=== PATIENT | male | born 1940 | race Caucasian/White ===

== ENCOUNTER 2019-02-27 08:12 | Outpatient (RCR) | payer OTHER, SELFPAY | END 2019-03-06 00:01 | LOC: ONCMED 08:12 | PROVIDERS: Family Provider Internal Medicine; Visit Provider Nurse Practitioner | DX: D46.Z Other myelodysplastic syndromes (principal); I10 Essential (primary) hypertension; E78.5 Hyperlipidemia, unspecified; I48.91 Unspecified atrial fibrillation; L40.9 Psoriasis, unspecified; E83.110 Hereditary hemochromatosis; K21.9 Gastro-esophageal reflux disease without esophagitis; I71.4 Abdominal aortic aneurysm, without rupture; J40 Bronchitis, not specified as acute or chronic; M25.551 Pain in right hip; M54.5 Low back pain; Z79.899 Other long term (current) drug therapy; Z79.82 Long term (current) use of aspirin; Z79.02 Long term (current) use of antithrombotics/antiplatelets; Z79.891 Long term (current) use of opiate analgesic; Z87.442 Personal history of urinary calculi; Z87.11 Personal history of peptic ulcer disease; Z87.891 Personal history of nicotine dependence; Z95.5 Presence of coronary angioplasty implant and graft | CPT/HCPCS: 36415 ×2; 36430; 80053 ×3; 82607; 83090; 83615; 83921; 84439; 84443; 85025 ×4; 86850; 86900; 86901; 86920 ×2; 96374; 96401 ×7; 99214 ×2; J1940; J7050; J9025 ×7; P9040 ×2 ==

== ENCOUNTER 2019-03-12 | Outpatient (CLI) | payer OTHER, SELFPAY ==
[2019-03-12 14:25] LABS: Basophils # 0.1 10^3/uL (0.0-0.1); Basophils % 1.8 %; Hematocrit 28.4 % (42.0-52.0); Hemoglobin 8.8 g/dL (11.7-16.6); Lymphocytes # 1.1 10^3/uL (0.8-4.8); Lymphocytes % 40.1 %; Mean Corpuscular Hemoglobin 31.9 pg (28.0-34.0); Mean Corpuscular Volume 102.9 fL (80-94); Mean Platelet Volume 10.6 fL (7.4-10.4); Monocytes # 0.1 10^3/uL (0.2-0.9); Monocytes % 4.4 %; Neutrophils # 1.5 10^3/uL (1.8-7.7); Neutrophils % 53.3 %; Nucleated Red Blood Cells % 0.7 %; Platelet Count 575 10^3/cmm (130-400); Red Blood Count 2.76 10^6/uL (4.1-5.3); Red Cell Distribution Width 24.3 % (12.1-15.1); White Blood Count 2.7 10^3/uL (4.0-10.0)
== END 2019-03-12 23:00 | disposition home or self-care (01) ==
LOC: LAB 10-22 13:36
PROVIDERS: PCP Internal Medicine; Visit Provider Nurse Practitioner
DX: E83.119 Hemochromatosis, unspecified (principal); D64.9 Anemia, unspecified
CPT/HCPCS: 85025

== ENCOUNTER 2019-03-12 08:37 | Outpatient (CLI) | payer OTHER, SELFPAY ==
--- NOTE | 2019-03-12 08:48 | NM_ITS ---
WS: [id number] NUCLEAR MEDICINE BONE SCAN Radiopharmaceutical: 23.1 Tc-99m MDP mCi IV Postinjection imaging delay: 1 hr CLINICAL INFORMATION: BONE PAIN IN MULTIPLE AREAS/MDS COMPARISON: None. FINDINGS: Bone lesions: Punctate area of bony uptake involving the left anterior approximately fifth rib. Patie nt reports recent trauma in this area. Compression fracture with bony uptake involving a midthoracic vertebral body. This can be further evaluated with MRI or thoracic spine CT. Diffuse patchy uptake involving the calvarium likely related to myelodysplastic syndrome with bone ma rrow hyperplasia. Degenerative type uptake involving the AC joints and sternoclavicular joints. Soft tissue contours: Normal. Kidneys: Normal. Other findings: None.
== END 2019-03-12 08:38 | disposition home or self-care (01) ==
LOC: RAD 08:41
PROVIDERS: Family Provider Internal Medicine; PCP Internal Medicine; Visit Provider Internal Medicine Medical Oncology
DX: M89.8X9 Other specified disorders of bone, unspecified site (principal)
CPT/HCPCS: 78306; A9561

== ENCOUNTER 2019-04-02 12:26 | Outpatient (RCR) | payer OTHER, SELFPAY ==
--- NOTE | 2019-03-12 08:49 | NM_ITS ---
WS: [id number] NUCLEAR MEDICINE BONE SCAN Radiopharmaceutical: 23.1 Tc-99m MDP mCi IV Postinjection imaging delay: 1 hr CLINICAL INFORMATION: BONE PAIN IN MULTIPLE AREAS/MDS COMPARISON: None. FINDINGS: Bone lesions: Punctate area of bony uptake involving the left anterior approximately fifth rib. Patie nt reports recent trauma in this area. Compression fracture with bony uptake involving a midthoracic vertebral body. This can be further evaluated with MRI or thoracic spine CT. Diffuse patchy uptake involving the calvarium likely related to myelodysplastic syndrome with bone ma rrow hyperplasia. Degenerative type uptake involving the AC joints and sternoclavicular joints. Soft tissue contours: Normal. Kidneys: Normal. Other findings: None. NM/NM bone scan whole body* [id number] IMPRESSION: 1. Diffuse patchy uptake involving the calvarium likely related to myelodyspla stic syndrome with bone marrow hyperplasia. 2. Punctate focus of uptake in the left anterior approximately fifth rib likel y due to prior reported recent trauma. 3. Mild compression fracture with diffuse bony uptake involving a midthoracic vertebral body. This can be further evaluated with MRI or CT thoracic spine.
[2019-03-19 13:35] LABS: Basophils # 0.1 10^3/uL (0.0-0.1); Basophils % 1.1 %; Eosinophils # 0.1 10^3/uL (0.0-0.8); Eosinophils % 1.1 %; Hematocrit 30.7 % (42.0-52.0); Hemoglobin 9.6 g/dL (11.7-16.6); Lymphocytes # 1.4 10^3/uL (0.8-4.8); Mean Corpuscular HGB Conc 31.3 g/dL (30.0-36.0); Mean Corpuscular Hemoglobin 32.9 pg (28.0-34.0); Mean Corpuscular Volume 105.1 fL (80-94); Mean Platelet Volume 10.7 fL (7.4-10.4); Monocytes # 0.6 10^3/uL (0.2-0.9); Monocytes % 13.1 %; Neutrophils # 2.4 10^3/uL (1.8-7.7); Neutrophils % 52.4 %; Nucleated Red Blood Cells # 0.1 /100WBC; Nucleated Red Blood Cells % 1.6 %; Platelet Count 632 10^3/cmm (130-400); Red Blood Count 2.92 10^6/uL (4.1-5.3); Red Cell Distribution Width 25.1 % (12.1-15.1); White Blood Count 4.5 10^3/uL (4.0-10.0)
[2019-03-19 13:50] LABS: Alanine Aminotransferase 16 U/L (0-41); Albumin Level 4.8 g/dL (3.5-5.2); Alkaline Phosphatase 84 IU/L (40-130); Anion Gap 15.6 (5-19); Aspartate Amino Transferase 19 U/L (0-40); Blood Urea Nitrogen 11 mg/dL (8-23); Carbon Dioxide 27 mmol/L (22-29); Chloride 98 mmol/L (98-107); Globulin 2.1 g/dL (1.3-4.6); Glucose 115 mg/dL (74-106); Potassium 4.6 mmol/L (3.5-5.1); Sodium 136 mmol/L (136-145); Total Bilirubin 2.7 mg/dL (0.15-1.2); Total Protein 6.9 g/dL (6.6-8.7)
--- NOTE | 2019-03-19 17:25 | ONC FU_ITS ---
Dr. Lew Patient Follow-Up Note Patient: José Miguel Bonilla Unit #: [id number]: 1940 Dicatated By: Ammon Lew M.D.Date of Visit:Mar 19, 2019 Onc Med Follow-up/Prog Note Chief Complaint: Myelodysplastic syndrome. History of Present Illness: This is a 79 year-old man with myelodysplastic syndrome (MDS with unilineage dysplasia). He was seen initially on 09/30/2015 in regard to a moderately severe anemia. The available records included multiple blood counts dating back to August 2014. At that time his hemoglobin was 10.3 g with white blood cell count 6400 and platelet count 325,000. The red cell indices were macrocytic with MCV 110 and MCH 37. A more recent CBC, from 08/20/2015, showed a hemoglobin down to 9.7 g with hematocrit 29%. The red cell indices were similar. White blood cell count was 4900 and platelet count was 337,000. The differential showed 56% neutrophils, 30% lymphocytes, and 10% monocytes. B12 was checked several times and was normal. Folate level was low at 6.7 ng/mL. The serum iron was normal at 141 mcg/dL. 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 He had negative stool Hemoccult, though an upper GI endoscopy apparently did show ulcers. Colonoscopy was unremarkable. His evaluation also included CT abdomen/pelvis in May 2015. It showed an aneurysm of the distal abdominal aorta extending to, but not into, the bifurcation. It appeared stable compared to a previous study from March 2013. There were no acute findings noted on that study. His laboratory studies on 09/30/2015 included CBC showing hemoglobin 9.4 g, white blood cell count 6400, and platelet count 420,000. The red cell indices were macrocytic with MCV 110 and MCH 37. The uncorrected reticulocyte count was 2.0%. Comprehensive metabolic profile was unremarkable except for mildly elevated total bilirubin at 2.9 mg/dL. The liver enzymes were normal.. LDH was normal at 183 mg/dL and haptoglobin was low normal at 53 mg/dL. Ferritin was elevated at 520 ng/mL. The homocysteine level was slightly elevated at 11.6 ???mol/L with methylmalonic acid normal at 198 nmol/L. Protein electrophoresis was normal. He underwent bone marrow aspiration/biopsy on 10/15/2015. The marrow was hypercellular, estimated at 90-95%. There was limited erythroid dyspoiesis. There was no evidence of infiltrative process. Blasts were reported at 0%. Iron stores were 3+ with occasional ring sideroblasts identified, estimated at less than 5-10% of the population. There was 1+/4+ reticulin staining. The chromosome analysis showed no metaphase cells for analysis. The FISH panel for MDS showed no abnormalities. 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 During subsequent follow-up his hemoglobin had declined to a low of 8.2 g/dL on 12/16/2015. His baseline erythropoietin level was 152 mIU/mL. On 12/18/2015 he began a trial of therapy with Procrit, initially at 40,000 units weekly. As of 01/13/2016, after 4 weeks of treatment, the hemoglobin was basically stable at 8.5 g. At that point the Procrit dosage was escalated to 60,000 U weekly. His hemoglobin level had subsequently increased to a maximum level 10.1 g on 03/09/2016. It then drifted downward gradually. As of 07/20/2016 it was down to 8.7 g. As of his followup visit on 08/04/2016 he had remained transfusion independent. However, after that his hemoglobin had shown further decline to 7.9 g, and at that point I did opt to stop the Procrit and transition his treatment to Revlimid. He began his treatment with Revlimid 10 mg daily on 08/16/2016. His baseline hemoglobin was 8.2 g. He did opt to have a transfusion of 2 units of packed red blood cells. Thus far he has tolerated the Revlimid well and during follow-up his blood count had stabilized with hemoglobin in the range of 9.5 g. His CBC on 11/23/2016 showed further increase in the hemoglobin to 10.4 g. As of 02/15/2017 his hemoglobin had declined somewhat, to 8 g with WBC moderately decreased at 2700 and platelet count normal at 200,000. He continued treatment with Revlimid. On 03/11/2017 he was seen at the [facility] with flu-like symptoms. His nasal swab reportedly was positive for influenza, and he did start treatment with Tamiflu. His CBC showed a further decline in his hemoglobin to 6.5 g, and he was found to be jaundiced, total bilirubin 6.1 mg/dL. He was transfused 2 units of PRBC. On his further laboratory evaluation on 03/14/2017 his hemoglobin had increased to only 7.8 g. The uncorrected reticulocyte count was 3.2%. His total bilirubin was still elevated at 5.7 mg/dL with the direct bilirubin normal at 0.60 mg/dL. LDH was normal at 218 U/L. The haptoglobin level was low at 21.9 mg/dL. HEMA was negative. B12 and folate levels were normal. He was advised to stop Revlimid. During subsequent follow-up his haptoglobin level showed further decline, to as low as 9.3 mg/dL on 03/28/2017. However, at that point his hemoglobin remained adequate at 9.4 g, his bilirubin was down to 3.0 mg/dL, and his LDH remained normal. He had a follow-up CTA of the abdomen/pelvis on 03/22/2017. It again showed evidence infrarenal abdominal aortic aneurism extending to the aortic bifurcaton. It measured 4.5 x 4.6 x 4.7 cm. 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 On 05/13/2017 he underwent coronary angioplasty with stent placement of the right coronary artery. On 05/30/2017 he underwent endovascular repair of infrarenal abdominal aortic aneurysm. He tolerated both procedures well, though during that time he did require transfusion of a total of 9 U of packed red blood cells. He hen continued on aspirin 81 mg daily together with Plavix 75 mg daily. He remained off Revlimid. During subsequent follow-up, he remained transfusion dependent. He then underwent repeat bone marrow aspiration/biopsy on 08/04/2017. The marrow was hypercellular, 100% cellularity. Megakaryocytes were noted to be increased in number and there was associated megakaryocyte dyspoiesis. There was just limited dyserythropoiesis. Ring sideroblasts were present, comprising more than 50% of the nrbc population. Blasts were estimated at 9% by morphology and 4% by flow cytometry. The FISH panel for MDS was unrevealing and the standard chromosome analysis was normal. 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 His IPSS-R score calculated to 3.5 or 4.5, depending on which blast count was used. Either score was intermediate risk category. With those findings, he was advised to undergo trial of therapy with 5-azacytidine. As of 08/26/2017 his ferritin level had increased to 1076 ng/mL. At that point he began chelation therapy with Jadenu 1440 mg daily. On 08/29/2017 he began cycle 1 of treatment with 5-azacytidine. It was administered subcutaneously for 7 days. He tolerated the 5-azacytidine without acute toxicity. He subsequently developed nausea with the Jadenu, and the dosage was reduced to 720 mg daily. He continued treatment with 5-azacytidine at 4-week intervals. He required further transfusions on 10/11/2017, on 10/18/2017, and on 11/09/2017. Thereafter his hemoglobin level stabilized above transfusion threshold. During subsequent follow-up, he had some adjustments in his treatment interval, but he remained transfusion independent. As of July 2018 he was able to stop Jadenu, with his ferritin level having decreased to 357 ng/mL. His other medical illnesses include hypertension, hyperlipidemia, atrial fibrillation, coronary artery disease, peripheral arterial disease, GERD, and nephrolithiasis. He also has fairly long-standing psoriasis. In the past he had been on treatment with methotrexate. His procedural history includes coronary angioplasty/stent placement followed by endovascular repair of abdominal aortic aneurysm in May 2017. He had previously smoked 2 packs of cigarettes daily, but he quit smoking more than 20 years ago. INTERIM HISTORY: In November 2018 he began to show gradual decline in his hemoglobin, though it continued to fluctuate between 8 and 9 g. As of 01/15/2019 it had further decreased to 7.5 g, at which point he did receive a PRBC transfusion. He continued with cycle 15 of 5-azacytidine on 02/12/2019. He was then transfused again on 02/27/2019 with his hemoglobin back down to 7.1 g. During the past month or so he had developed significant worsening of his back pain. He also is having pain in his left rib cage area following some minor trauma. A bone scan on 03/12/2019 showed a punctate area of bony uptake involving the left anterior approximately fifth rib, consistent with trauma. There was noted to be a compression fracture with bony uptake involving a midthoracic vertebral body. Diffuse patchy uptake involving the calvarium was felt to be likely related to the myelodysplastic syndrome and bone marrow hyperplasia. He is seen for a follow-up visit. He has not been feeling very good generally. He continues to have pain in his back, was significantly in the area of the left shoulder blade radiating to the spine and a little bit to the right side. He also has pain in his lower back/hip area, and he continues to have some pain in the left rib cage. He does not have much activity. ECOG score is 2. His appetite is still okay, but his weight is down about 5 pounds. He does not have fever. He occasionally wakes up at night with sweating. He has soreness in the mouth and throat. He has a little shortness of breath/tightness when he takes a deep breath. He has cough off and on. He has heartburn occasionally. He has some constipation. His urination is slowing down. He does not complain of headache. He does have some dizziness. He appears very getting some mild [employer] side effects with tramadol. He has numbness/tingling in his toes. His psoriasis has continued to gradually worsen, but it is still tolerable. Medications: Aspirin 1 (81 mg) Tablet, enteric coated Oral daily, B-6 1 (200 mg) Tablet Oral t.i.d., Digoxin 1 (125 mcg) Tablet Oral daily, Folic Acid 1 (1 mg) Tablet Oral daily, levoFLOXacin 1 Tablet (of 750 mg) Oral daily, Lidocaine 1 patch(es) (of 5 %) Patch Topical daily PRN, Metoprolol Tartrate 1 Tablet (of 50 mg) Oral daily, Plavix 1 (75 mg) Tablet Oral daily, Pravastatin Sodium 1 Tablet (of 20 mg) Oral daily, Tamsulosin HCl 1 Tablet (of 0.4 mg) Capsule Oral b.i.d., traMADol HCl 1 Tablet (of 100 mg) Oral q 6 hours PRN, Tylenol 1 - 2 Tablet (of 500 mg) Oral PRN Allergies: No Known Allergies. Review of Systems: Constitutional - His activity has declined due to back pain. Appetite is still OK, but he has lost weight. No fever. He occasionally wakes up at night with sweating. ECOG score is 2, ENMT - He has sinus drainage. He sore mouth and throat. No difficulty swallowing, Hematologic/Lymphatic - He bruises easily, Respiratory - His breathing is a little tight. He has cough off and on. No pleuritic pain or hemoptysis, Cardiovascular - No angina pain. No palpitations, Gastrointestinal - No nausea or vomiting. He occasionally takes Tums for heartburn. He has constipation. No blood in the stool or black stools, Genitourinary (M) - No dysuria or hematuria. His urine stream has slowed down some. No urgency or incontinence, Musculoskeletal - He has pain in his mid back just below the left shoulder blade radiating to the center of the back and a little to the right side. He also has pain in his lower back and hips, and he still has pain in his left rib cage, Integumentary - His psoriasis has been getting worse, Neurologic - No headaches. He has dizziness. He has numbness and tingling in his toes, Psychiatric - No depression, but he does worry a lot. No insomnia. Vital Signs: Performed on Mar 19, 2019 14:24 Height - 76.00 in Weight - 218.8 lbs (LOW) BSA - 2.30 sq.m BMI - 26.63 Temperature - 96.9 F (LOW) Pulse - 76 /min Respiration - 16 /min BP - 118/55 mm(hg) O2 Sat - 95 % (LOW) Pain - 4 Physical Examination: Constitutional - He appears somewhat weak generally, Eyes - Sclerae nonicteric. Conjunctivae clear, ENMT - No lesions noted in the oral cavity, Hematologic/Lymphatic - No cervical, clavicular, or axillary adenopathy, Respiratory - Lungs sound clear with some decrease in air movement bilaterally, Cardiovascular - Heart rhythm is irregular. There is a II/ systolic murmur. There is no gallop or rub noted, Abdomen - Soft. Liver and spleen are not enlarged. There is no abdominal mass or ascites noted and there is no inguinal adenopathy, Extremities - There are venous stasis changes bilaterally. There is mild chronic swelling at the right ankle. There is otherwise no edema, Integumentary - His psoriasis is worse in the arms and legs, particularly in the thigh area on both sides, Neurologic - No focal neurologic deficits noted. Lab/Imaging: Test performed on Mar 12, 2019 12:15 WBC 2.7 10^9/L RBC 2.76 10^12/L HGB 8.8 g/dL HCT 28.4 % MCV 102.9 fl MCH 31.9 pg MCHC 31.0 g/dL RDW 24.3 % Platelet Count 575 10^9/L MPV 10.6 fL Neutrophils (Gran) 1.5 10^9/L Lymphocytes 1.1 10^9/L Monocytes 0.1 10^9/L Eosinophils 0.0 10^9/L Basophils 0.1 10^9/L Manual Lymphocytes 40.1 % Manual Monocytes 4.4 % Manual Eosinophils 0. % Manual Basophils 1.8 % NRBCs 0.7 /100 WBC Impression: 1. The patient has a moderately severe macrocytic anemia. Bone marrow aspiration/biopsy on 10/15/2015 showed hypercellular marrow, estimated 90-95%. There was mild erythroid dyspoiesis and there were ringed sideroblasts identified, estimated at less than 5-10% of the population. Iron stores were 3+. The FISH panel for MDS showed no abnormalities. A standard chromosome study showed no metaphases for analysis. Overall, the findings were consistent with myelodysplastic syndrome (refractory cytopenia with unileage dysplasia) versus idiopathic cytopenia of undetermined significance. 2. 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 This is probably of no clinical significance other than he may be more prone to iron overload if he does become transfusion dependent. His other medical illnesses include: 3. Hypertension. 4. Hyperlipidemia. 5. Peptic ulcer disease/GERD. 6. Nephrolithiasis. 7. He has a history of atrial fibrillation. 8. He has an abdominal aortic aneurysm. In December 2015 he began a trial of therapy with Procrit after his hemoglobin had dropped to 8.2 g. As of 01/13/2016 the dosage was escalated to 60,000 U weekly, as his hemoglobin at that point was basically stable at 8.5 g. He did show some response, with his hemoglobin increasing to 10.1g. It had subsequently drifted downward. As of his visit on 08/04/2016 his hemoglobin was down to 7.9 g. At that point the Procrit was discontinued. He began treatment with Revlimid 10 mg daily on 08/16/2016. He had noticed some worsening of his psoriasis after starting the Revlimid, but he has otherwise tolerated it well. His hemoglobin initially appeared to have stabilized in the range of 9.5 to 10 g. As of 02/15/2017 his hemoglobin had declined to 8 g. On 03/11/2017 he was confirmed to have influenza by nasal swab. His hemoglobin at that point had dropped to 6.5 g and he had become overtly jaundiced. He was transfused PRBC. 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 At that point I did opt to stop the Revlimid. During subsequent follow-up, his haptoglobin level recovered to normal and his bilirubin level returned to baseline. His LDH remained normal. He underwent coronary angioplasty/stent placement on 05/12/2017 and on 05/30/2017 he underwent endovascular repair of infrarenal abdominal aortic aneurysm. He then continued on prophylaxis with aspirin 81 mg daily and Plavix 75 mg daily. During subsequent followup he remained transfusion dependent. His repeat bone marrow aspiration/bipsy on 08/04/2017 showed 100% cellularity with associated megakaryocyte dyspoiesis and limited dyserythropoiesis. Ring sideroblasts were present, comprising more than 50% of the nrbc population. Blasts were estimated at 9% by morphology and 4% by flow cytometry. The FISH panel for MDS was unrevealing and the standard chromosome analysis was normal. 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 His IPSS-R score calculated to 3.5 or 4.5, depending on which blast count was used. Either score was intermediate risk category. As of 08/26/2017 his serum ferritin had increased to 1076 ng/mL, and he began treatment with Jadenu 1440 mg daily. He then began a course of treatment of 5-azacytidine, cycle 1 day 1 on 08/29/2017. It was administered subcutaneously for 7 days. He tolerated the treatment without any acute toxicity. He proceeded with cycle 2 of 5-azacytidine on 10/03/2017, and he then continued treatment at 4-week intervals. He continued to require transfusion up until 11/08/2017, but his hemoglobin then stabilized in the range of 10-11 g. During that time he had mild to moderately severe neutropenia and thrombocytopenia, and beginning with the 6th cycle I did make some adjustments in the treatment interval. During subsequent follow-up he continued to tolerate the treatment well, and he remained transfusion independent. However, by November 2018 there had been a gradual decline in his hemoglobin, which at that point was fluctuating between 8 and 9 g. As of 01/15/2019 the hemoglobin had dropped to 7.5 g, and he was then transfused 2 units PRBC. It was his first transfusion since November 2017. On 02/12/2019 he continued with cycle 15 of 5-azacytidine. He required transfusion again on 02/27/2019 with hemoglobin back down to 7.1 g. He has since then been showing some decline in his performance status. He had developed significant worsening of his back pain, and bone scan did show evidence of a vertebral compression fracture in the mid thoracic spine. He is clearly not responding as well now to the 5-azacytidine, as he has become transfusion dependent again. Plan: It is not likely that he will be getting significant benefit by continuing his current treatment. However, with his most recent bone marrow reportedly 50% ring sideroblasts, he would potentially be a good candidate for treatment with luspatercept, which recently has been shown to be effective in the treatment of transfusion dependent myelodysplastic syndrome with ring sideroblasts. The medication is administered by subcutaneous injection every 3 weeks, and treatment will be initiated subject to verification of insurance coverage. Signed By: Ammon Lew M.D. <<Signature on File>>
[2019-03-26 12:07] LABS: Basophils % 0.5 %; Eosinophils % 0.3 %; Hematocrit 30.9 % (42.0-52.0); Hemoglobin 9.5 g/dL (11.7-16.6); Lymphocytes # 1.4 10^3/uL (0.8-4.8); Lymphocytes % 16.3 %; Mean Corpuscular HGB Conc 30.7 g/dL (30.0-36.0); Mean Corpuscular Hemoglobin 32.4 pg (28.0-34.0); Mean Corpuscular Volume 105.5 fL (80-94); Mean Platelet Volume 10.3 fL (7.4-10.4); Monocytes # 0.8 10^3/uL (0.2-0.9); Monocytes % 9.3 %; Neutrophils # 6.3 10^3/uL (1.8-7.7); Neutrophils % 72.8 %; Nucleated Red Blood Cells % 0.2 %; Platelet Count 442 10^3/cmm (130-400); Red Blood Count 2.93 10^6/uL (4.1-5.3); White Blood Count 8.7 10^3/uL (4.0-10.0)
[2019-03-26 12:37] LABS: Alanine Aminotransferase 15 U/L (0-41); Albumin Level 4.2 g/dL (3.5-5.2); Alkaline Phosphatase 82 IU/L (40-130); Chloride 98 mmol/L (98-107); Potassium 4.4 mmol/L (3.5-5.1); Sodium 136 mmol/L (136-145)
[2019-03-26 12:58] LABS: Anion Gap 17.4 (5-19); Aspartate Amino Transferase 21 U/L (0-40); Blood Urea Nitrogen 13 mg/dL (8-23); Calcium 10.1 mg/Dl (8.8-10.2); Carbon Dioxide 25 mmol/L (22-29); Globulin 3.1 g/dL (1.3-4.6); Glucose 108 mg/dL (74-106); Total Bilirubin 1.5 mg/dL (0.15-1.2); Total Protein 7.6 g/dL (6.6-8.7)
--- NOTE | 2019-03-30 12:43 | MR_ITS ---
WS: [id number] MRI BRAIN WITH AND WITHOUT CONTRAST HISTORY: SHORT TERM MEMORY LOSS, MDS COMPARISON: None available. TECHNIQUE: Multiplanar imaging performed through the brain with Prohance 17 ml's IV. No acute infarcts are seen. Aguayo-white matter differentiation is well preserved. Mild chronic microva scular ischemic changes in the periventricular white matter. No susceptibility artifacts or prior lacunar infarcts. Ventricles and extra-axial spaces are normal. Clivus and pituitary gland are normal. Mild asymmetric thickening of the clivus, greatest on the RIGH T but negative on a recent bone scan. Visualized posterior fossa and brainstem are also normal. Postcontrast images are negative for masses or vascular malformations. Dural venous sinuses are normal. Paranasal sinuses: Well aerated with no significant disease. Mastoid air cells: Normal. Calvarium and scalp: Normal. MR/MR head wo/w con [id number] IMPRESSION: 1. No acute infarct or enhancing masses. 2. Mild chronic microvascular ischemic disease.
[2019-04-02 12:55] LABS: Basophils % 0.5 %; Eosinophils % 0.7 %; Hematocrit 30.2 % (42.0-52.0); Hemoglobin 9.7 g/dL (11.7-16.6); Lymphocytes # 1.5 10^3/uL (0.8-4.8); Lymphocytes % 25.1 %; Mean Corpuscular HGB Conc 32.1 g/dL (30.0-36.0); Mean Corpuscular Hemoglobin 31.9 pg (28.0-34.0); Mean Corpuscular Volume 99.3 fL (80-94); Monocytes # 0.7 10^3/uL (0.2-0.9); Monocytes % 12.3 %; Neutrophils # 3.6 10^3/uL (1.8-7.7); Neutrophils % 60.7 %; Nucleated Red Blood Cells % 0 %; Platelet Count 362 10^3/cmm (130-400); Red Blood Count 3.04 10^6/uL (4.1-5.3); Red Cell Distribution Width 25.7 % (12.1-15.1); White Blood Count 5.9 10^3/uL (4.0-10.0)
== END 2019-04-06 23:59 | disposition home or self-care (01) ==
LOC: ONCMED 12:26
PROVIDERS: Family Provider Internal Medicine; PCP Internal Medicine; Visit Provider Internal Medicine Medical Oncology
DX: D46.Z Other myelodysplastic syndromes (principal); E83.111 Hemochromatosis due to repeated red blood cell transfusions; R41.3 Other amnesia; M25.512 Pain in left shoulder; R07.81 Pleurodynia; M54.5 Low back pain; M25.552 Pain in left hip; I10 Essential (primary) hypertension; E78.5 Hyperlipidemia, unspecified; I48.91 Unspecified atrial fibrillation; I25.10 Atherosclerotic heart disease of native coronary artery without angina pectoris; I73.9 Peripheral vascular disease, unspecified; K21.9 Gastro-esophageal reflux disease without esophagitis; K59.00 Constipation, unspecified; L40.9 Psoriasis, unspecified; Z79.899 Other long term (current) drug therapy; Z79.82 Long term (current) use of aspirin; Z79.02 Long term (current) use of antithrombotics/antiplatelets; Z79.891 Long term (current) use of opiate analgesic; Z95.5 Presence of coronary angioplasty implant and graft; Z87.442 Personal history of urinary calculi; Z87.891 Personal history of nicotine dependence; Z87.11 Personal history of peptic ulcer disease
CPT/HCPCS: 36415; 70553; 78306; 80053; 85025; 99214; A9561; A9579

== ENCOUNTER 2019-04-13 16:35 | Emergency (ER) | payer OTHER, SELFPAY ==
[2019-04-13 16:52] VITALS: BP 117/63; PULSE 70; RESP 16; TEMP 36.3; O2SAT 100; BMI 24.8
--- NOTE | 2019-04-13 17:20 | ED_ITS ---
Entered by Bonny Dimas, acting as scribe for Shannon Charles DO Apr 13, 2019 16:35 HPI - Back Pain/Injury General: Chief Complaint: Back Pain/Injury Stated Complaint: Back pain Time Seen by Provider: 04/13/19 17:19 Source: patient and family Mode of arrival: wheelchair Limitations: no limitations History of Present Illness: HPI Narrative: 79 yo Male presents to ED with complaint of increased middle back pain. Pt is being treated for leukemia. Pt states that his pain has been bad for 2 months but got much worse today at noon. Pt states that he was constipated this morning and drank some prune juice. Pt states that he was on the toilet when his pain started. Pt states that he has pain in his groin and his back. Pt states that the pain doesn't seem to be con nected between the back pain and groin. Pt states that he is anemic. MD elicited complaint: back pain Pertinent past history: cancer Onset (ago): hour(s) Timing: constant Pain scale (0-10): 6 Similar Symptoms Previously: Yes Location: left flank Radiation: groin Exacerbating factors: movement Relieving factors: none Associated symptoms: Deny abdominal pain, chills, difficulty walking, dysuria, fecal incontinence, fever(s), nausea, urinary urgency or vomiting Review of Systems Const: Denies: fever, chills, change in appetite or malaise Eyes: Denies: change in vision, blurry vision, eye discharge or eye redness ENMT: Denies: throat pain, uvular edema, painful swallowing, mouth pain, dental pain, nasal congestion or facial/sinus pain Card: Denies: chest pain, irregular heart rhythm, swelling of feet/ankles, shortness of breath on exertion, shortness of breath when lying down or leg pain with exertion Resp: Denies: shortness of breath, productive cough, wheezing or coughing up blood GI: Denies: abdominal pain, nausea, vomiting, diarrhea, constipation or fecal incontinence : Reports: flank pain and other (groin pain); Denies: painful urination, urinary frequency, urinary urgency or urinary hesitancy Musc: Denies: neck pain, back pain, extremity pain or extremity swelling Skin/Breast: Denies: rash, itching, redness, yellow skin or dry skin Neuro: Denies: headache, numbness in extremities, weakness in extremities, changes in sensation, lack of coordination or difficulty walking Psych: Denies: anxiety, depression, mood swings, panic attacks, sleeping less, suicidal ideation or homicidal ideation Endo: Denies: excessive urination, excessive thirst or tired all the time Marc/Lymph: Denies: easy bruising, petechiae or enlarged lymph nodes All/Imm: Denies: hives, throat swelling, facial swelling, acute wheezing or seasonal allergies PFSH ED PFSH: Statuses (acute, chronic, etc) shown below reflect problem list status as previously entered and may not be historically accurate Medical History (Updated 04/13/19 @ 19:36 by Shannon Charles DO) Leukemia (Acute) Social History Smoking and tobacco status: former smoker Physical Exam Const: COMMON NORMALS: no apparent distress, oriented x3, no limitations, healthy appearing, alert and well nourished GENERAL APPEARANCE: cooperative, comfortable, well kempt and well developed ORIENTATION/CONSCIOUSNESS: Yes awake, Yes oriented to person, Yes oriented to place and Yes oriented to time HENMT: COMMON NORMALS: normocephalic, head/scalp atraumatic, hearing grossly normal bilaterally, external ears normal, EAC's normal, TM's normal bilaterally, external nose normal, nasal mucous membranes and turbinates normal, moist oral mucous membranes, oropharynx normal, dentition normal and gingiva normal HEAD & SCALP: normal to inspection, normocephalic and atraumatic FACE & SINUS: normal facial exam NOSE: external nose normal and nasal mucous membranes and turbinates normal EXTERNAL EAR: Yes external ears normal EXTERNAL AUDITORY CANAL: EAC's normal TYMPANIC MEMBRANE: TM's normal bilaterally MOUTH: oral and palatal mucosa normal, lip normal and tongue normal THROAT: no uvular edema Eye: COMMON NORMALS: PERRL, EOMs intact bilaterally, conjunctivae normal, no scleral icterus and normal visual bates by confrontation GENERAL EYE: normal appearance of both eyes and normal light reflex VISUAL ACUITY: Yes acuity normal ALIGNMENT: Yes alignment normal PERIORBITAL: periorbital findings normal EYELID: eyelids normal CONJUNCTIVA: Yes conjunctivae normal SCLERA: sclerae normal PUPIL: Yes PERRL and Yes accommodation reflex normal DIRECT OPHTHALMOSCOPY: Yes normal light reflex Neck/C-Spine: COMMON NORMALS: full ROM, no lymphadenopathy, supple, no meningeal signs and no JVD GENERAL: Yes normal visual inspection CAROTIDS: Yes normal carotid upstroke CERVICAL SPINE: Yes cervical ROM normal Lymph: LYMPHATIC: no lymphadenopathy noted Chest: COMMONS NORMALS: inspection of chest normal CHEST: Yes symmetrical chest wall rise Resp: COMMON NORMALS: normal respiratory effort, no retractions, no use of accessory muscles and clear to auscultation bilaterally EFFORT & INSPECTION: Yes able to speak in complete sentences and Yes symmetric chest movement AUSCULTATION: clear to auscultation bilaterally Cardio: COMMON NORMALS: no JVD, regular rate, regular rhythm, S1 normal heart sound, S2 normal heart sound, no murmurs and peripheral pulses 2+ throughout RATE: regular rate RHYTHM: regular rhythm HEART SOUNDS: S1 normal and S2 normal PERIPHERAL PULSES: pulses 2+ throughout GI: COMMON NORMALS: normal to inspection, nondistended, normoactive bowel sounds and non-tender : COMMON NORMALS: No no CVA tenderness BLADDER/KIDNEY EXAM: No no CVA tenderness and Yes CVA tenderness on the left Back/Pelvis: COMMON NORMALS: thoracic and lumbar spine normal to inspection, no thoracic nor lumbar tenderness and thoraco-lumbar ROM normal; negative for no CVA tenderness GENERAL BACK: Yes CVA tenderness Extremity: COMMON NORMALS: normal to inspection, full ROM, normal capillary refill, no calf tenderness and no pedal edema Neuro: COMMON NORMALS: oriented x3, CN's II-XII intact bilaterally, moves all extremities, no focal motor deficits, no sensory deficits noted and gait normal SENSORIUM/ORIENTATION: Yes alert, Yes oriented to person, Yes oriented to place and Yes oriented to time MENINGEAL SIGNS: Yes no meningeal signs SPEECH: speech normal GAIT: Yes normal gait MOTOR EXAM: strength 5/5 throughout, no pronator drift and no tremor noted Psych: COMMON NORMALS: mental status grossly normal, thought process normal, cooperative, affect normal, speech normal and activity/motor behavior normal APPEARANCE: Yes well kempt SPEECH: Yes normal speech THOUGHT PROCESS: normal thought process THOUGHT CONTENT: Yes normal thought content INSIGHT: insight good Skin: COMMON NORMALS: no rashes or lesions noted, no wounds, skin turgor normal and no jaundice GENERAL SKIN EXAM: no rashes or lesions noted and turgor normal Course ED course: Discussed labs and CT results with patient and daughter. Urine pending. Agrees to try home with pain medication stronger than Ultram. No NV, no indication of SBO. Advised return for nausea or increasing pain immediately, pt and daughter agree Vital Signs: Vital signs: Vital Signs Temperature 97.4 F L 04/13/19 16:52 Pulse Rate 70 04/13/19 16:52 Respiratory Rate 18 04/13/19 17:51 Blood Pressure 117/63 04/13/19 16:52 Pulse Oximetry 100 04/13/19 16:52 MDM - Back Pain/Injury Differential Diagnosis: Differential diagnosis back pain/injury: Likely renal colic, pyelonephritis, thoracic back pain and AAA Lab Data: Labs: Lab Results 04/13/19 04/13/19 04/13/19 Range/Units 17:34 17:34 17:34 WBC 13.5 H (4.0-10.0) 10^3/ uL RBC 2.78 L (4.1-5.3) 10^6/u L Hgb 9.1 L (11.7-16.6) g/dL Hct 28.4 L (42.0-52.0) % MCV 102.2 H (80-94) fL MCH 32.7 (28.0-34.0) pg MCHC 32.0 (30.0-36.0) g/dL RDW 26.1 H (12.1-15.1) % Plt Count 318 (130-400) 10^3/c mm MPV 10.3 (7.4-10.4) fL Neut % (Auto) 91.8 % Lymph % (Auto) 4.1 % [place] % (Auto) 3.3 % Eos % (Auto) 0.0 % Baso % (Auto) 0.1 % Neut # (Auto) 12.4 H (1.8-7.7) 10^3/u L Lymph # (Auto) 0.6 L (0.8-4.8) 10^3/u L [place] # (Auto) 0.4 (0.2-0.9) 10^3/u L Eos # (Auto) 0.0 (0.0-0.8) 10^3/u L Baso # (Auto) 0.0 (0.0-0.1) 10^3/u L Nucleated RBC % (a uto) 0.1 % Nucleated RBCs # 0.0 /100WBC ESR 32 H (0-10) mm/hr Sodium 136 (136-145) mmol/L Potassium 4.3 (3.5-5.1) mmol/L Chloride 96 L (98-107) mmol/L Carbon Dioxide 24 (22-29) mmol/L Anion Gap 20.3 H (5-19) BUN 17 (8-23) mg/dL Creatinine 0.7 (0.7-1.2) mg/dL Glucose 159 H (65-115) mg/dL Lactate (0.5-2.2) mmol/L Calcium 10.3 (8.5-10.5) mg/dL Phosphorus 2.2 L (2.5-4.5) mg/dL Magnesium 2.0 (1.7-2.3) mg/dL Total Bilirubin 2.7 H (0.15-1.2) mg/dL AST 20 (0-40) U/L ALT 20 (0-41) U/L Alkaline Phosphata se 83 (40-130) IU/L Creatine Kinase 27 L (39-308) U/L Total Protein 8.4 (6.6-8.7) g/dL Albumin 5.0 (3.5-5.2) g/dL Globulin 3.4 (1.3-4.6) g/dL Urine Color (Yellow) Urine Appearance (CLEAR) Urine pH (5-7) Ur Specific Gravit y (1.005-1.030) Urine Protein (Negative) Urine Glucose (UA) (Normal) Urine Ketones (Negative) Urine Occult Blood (Negative) Urine Nitrate (Negative) Urine Bilirubin (NEGATIVE) Urine Urobilinogen (Negative) mg/dL Ur Leukocyte Mariana ase (Negative) Urine RBC (0-2) /hpf Urine WBC (0-5) /hpf Ur Squamous Epith Cells (0-5) Calcium Oxalate Cr ystal /hpf Urine Bacteria (NONE) Urine Mucus Blood Type Antibody Screen 04/13/19 04/13/19 04/13/19 Range/Units 17:34 17:34 19:43 WBC (4.0-10.0) 10^3/ uL RBC (4.1-5.3) 10^6/u L Hgb (11.7-16.6) g/dL Hct (42.0-52.0) % MCV (80-94) fL MCH (28.0-34.0) pg MCHC (30.0-36.0) g/dL RDW (12.1-15.1) % Plt Count (130-400) 10^3/c mm MPV (7.4-10.4) fL Neut % (Auto) % Lymph % (Auto) % [place] % (Auto) % Eos % (Auto) % Baso % (Auto) % Neut # (Auto) (1.8-7.7) 10^3/u L Lymph # (Auto) (0.8-4.8) 10^3/u L [place] # (Auto) (0.2-0.9) 10^3/u L Eos # (Auto) (0.0-0.8) 10^3/u L Baso # (Auto) (0.0-0.1) 10^3/u L Nucleated RBC % (a uto) % Nucleated RBCs # /100WBC ESR (0-10) mm/hr Sodium (136-145) mmol/L Potassium (3.5-5.1) mmol/L Chloride (98-107) mmol/L Carbon Dioxide (22-29) mmol/L Anion Gap (5-19) BUN (8-23) mg/dL Creatinine (0.7-1.2) mg/dL Glucose (65-115) mg/dL Lactate 2.7 H (0.5-2.2) mmol/L Calcium (8.5-10.5) mg/dL Phosphorus (2.5-4.5) mg/dL Magnesium (1.7-2.3) mg/dL Total Bilirubin (0.15-1.2) mg/dL AST (0-40) U/L ALT (0-41) U/L Alkaline Phosphata se (40-130) IU/L Creatine Kinase (39-308) U/L Total Protein (6.6-8.7) g/dL Albumin (3.5-5.2) g/dL Globulin (1.3-4.6) g/dL Urine Color Yellow (Yellow) Urine Appearance Clear (CLEAR) Urine pH 5 (5-7) Ur Specific Gravit y 1.015 (1.005-1.030) Urine Protein Trace (Negative) Urine Glucose (UA) Norm (Normal) Urine Ketones 1+ H (Negative) Urine Occult Blood 3+ H (Negative) Urine Nitrate Negative (Negative) Urine Bilirubin Neg (NEGATIVE) Urine Urobilinogen 4 H (Negative) mg/dL Ur Leukocyte Mariana ase Negative (Negative) Urine RBC 10-15 H (0-2) /hpf Urine WBC 5-10 H (0-5) /hpf Ur Squamous Epith Cells None (0-5) Calcium Oxalate Cr ystal 5-10 H /hpf Urine Bacteria 1+ H (NONE) Urine Mucus 1+ Blood Type A Negative Antibody Screen Negative Imaging Data^: CT Abd/Pel: Radiologist's impression: [place] [address] CT Scan Report Signed Patient: Minerva Bonilla #: [id number] : 2Acct#:[id number] Age/Sex: 79 / MADM Date: 04/13/19 Loc: ERRoom/Bed: Attending Dr: Ordering Provider/Ordering MD: Shannon Charles DO Date of Service: 04/13/19 Procedure(s): CT abdomen pelvis w con* [id number] Accession Number(s): [id number] Report Number: [id number] PROCEDURE INFORMATION: Exam: CT Abdomen And Pelvis With Contrast Exam date and time: 04/13/2019 5:30 PM Age: 79 years old Clinical indication: Abdominal pain; Other: Back and groin pain; Prior surgery; Surgery date: 6+ months; Surgery type: Gb, aaa; Additional info: Flank pain TECHNIQUE: Imaging protocol: Computed tomography of the abdomen and pelvis with intravenous contrast. Total DLP: 1302.83 mGy-cm Radiation optimization: All CT scans at this facility use at least one of these dose optimization techniques: automated exposure control; mA and/or kV adjustment per patient size (includes targeted exams where dose is matched to clinical indication); or iterative reconstruction. Contrast material: OMNI 300; Contrast volume: 95 ml; Contrast route: RT AC; COMPARISON: CTA Abdomen/Pelvis [id number] 05/23/2018 10:29 AM FINDINGS: Lungs: Nonspecific bibasilar consolidation is present, consistent with atelectasis, edema, or pneumonia. Moderate emphysematous changes are noted. There is bibasilar bronchiectasis. Liver: Unremarkable.No mass. Gallbladder and bile ducts: There is moderate intrahepatic biliary ductal tissue in unchanged since the prior exam. The patient is status post cholecystectomy. This may reflect postoperative reservoir type changes. Pancreas: Normal. No ductal dilation. Spleen: Normal. No splenomegaly. Adrenals: Normal. No mass. Kidneys and ureters: There is an unchanged 2.7 cm fluid density cyst upper pole right kidney. There is a 9 mm calculus layering not dependently in the left renal pelvis. This has changed position from the prior exam where it was in the lower pole calyx. There is mild dilatation the left renal pelvis but no dilatation of either ureter and no minerva hydronephrosis. Subcentimeter renal cortical hypodensities are too small to characterize but statistically consistent with cysts. Unchanged 9 mm probable cyst lower pole left kidney. Stomach and bowel: Air-fluid levels are noted within mildly dilated loops of small bowel. The greatest transverse measurement the dilated loops of small bowel is 3.9 cm. There is a gradual changing caliber to collapsed distal loops of small bowel. No focal wall thickening. Wall of the transverse and descending colon appears thickened but is also completely collapsed in this may simply be lack of distention. No definite colitis. Diverticulosis is noted. Appendix: No evidence of appendicitis. Intraperitoneal space: Unremarkable. No free air. No significant fluid collection. Vasculature: There is a stent graft within the abdominal aorta. Aneurysm sac measures 4.6 x 4.6 cm in size unchanged in appearance compared to the prior exam. No retroperitoneal fluid. No endoleak. Lymph nodes: Unremarkable.No enlarged lymph nodes. Bladder: Unremarkable as visualized. Reproductive: Unremarkable as visualized. Bones/joints: There is osteopenia and moderate to severe diffuse degenerative changes are noted in the spine. Multiple chronic compression fracture deformities are identified but there is progressive height loss of L1 compared to the prior exam there is mild adjacent soft tissue edema compatible with a new/progressive fracture of L1. There is minimal retropulsed bone measuring up to 3 mm. No critical stenosis. Also identified is a new fracture of the superior endplate of T9 without any retropulsed bone. No involvement of the posterior elements and no stenosis. No additional new or acute fracture. Soft tissues: Small bilateral fat filled inguinal hernias are noted. CT/CT abdomen pelvis w con* [id number] IMPRESSION: 1. Nonspecific bibasilar consolidation is present, consistent with atelectasis, edema, or pneumonia. 2. Partial small bowel obstruction. There is a gradual change to collapsed loops of bowel. No bowel thickening. No inflammatory changes. 3. Unchanged intrahepatic biliary duct dilatation that may reflect postoperative reservoir type changes. 4. There is an unchanged 2.7 cm fluid density cyst upper pole right kidney. No follow-up is necessary. Left nephrolithiasis. There is a 9 mm calculus layering out within the left renal pelvis. No hydronephrosis. 5. New/progressive height loss of T9 and L1 compared to the prior exam. No significant retropulsed bone or critical stenosis. Multiple additional fractures are unchanged. 6. Unchanged abdominal aortic aneurysm and stent graft. No endoleak. COMMENT: Consistent with the [employer]'s Incidental Findings Committee white paper (J Am Tiara Radiol 2018): Any incidental cystic renal lesion classified in this report as too small to characterize or simple appearing is likely a benign cyst. No follow-up imaging is recommended for these lesions per consensus recommendations based on imaging criteria. Radiation Dose CTDIVOL = (mGy): DLP = 1302.83 (mGy-cm) Dictated By:Kim Pacheco Signed By:Suzette Pacheco Date/Time:04/13/191902 DD/ 01 Discharge Plan Discharge Patient Disposition: Home, Self-Care Clinical Impression: Thoracic back pain Qualifiers: Chronicity: acute Back pain laterality: left Qualified Code(s): M54.6 - Pain in thoracic spine Condition: Stable Prescriptions: New Percocet 5-325 mg tablet 1 tab PO Q6H PRN (Reason: pain) Qty: 20 RF: 0 Zofran 4 mg tablet 4 mg PO Q6H PRN (Reason: nausea and vomiting) 10 Days Qty: 30 RF: 0 Valium 5 mg tablet 5 mg PO TID PRN (Reason: vertigo) Qty: 20 RF: 0 Referrals: Minerva Calixto [Primary Care Provider] - Discharge Diet: Usual diet Discharge Activity: Resume usual activity Patient Instructions: Thoracic Pain (ED) Coding Level of Care Code ED Crystal Mounter for g Fwd Exam Problem Focused The documentation recorded by the Wing hung Carmen, accurately reflects the service I personally performed and the decisions made by me, Shannon Charles, Apr 13, 2019 16:35
--- NOTE | 2019-04-13 17:24 | CTR_ITS ---
PROCEDURE INFORMATION: Exam: CT Abdomen And Pelvis With Contrast Exam date and time: 04/13/2019 5:30 PM Age: 79 years old Clinical indication: Abdominal pain; Other: Back and groin pain; Prior surgery; Surgery date: 6+ months; Surgery type: Gb, aaa; Additional info: Flank pain TECHNIQUE: Imaging protocol: Computed tomography of the abdomen and pelvis with intravenous contrast. Total DLP: 1302.83 mGy-cm Radiation optimization: All CT scans at this facility use at least one of these dose optimization techniques: automated exposure control; mA and/or kV adjustment per patient size (includes targeted exams where dose is matched to clinical indication); or iterative reconstruction. Contrast material: OMNI 300; Contrast volume: 95 ml; Contrast route: RT AC; COMPARISON: CTA Abdomen/Pelvis [id number] 05/23/2018 10:29 AM FINDINGS: Lungs: Nonspecific bibasilar consolidation is present, consistent with atelectasis, edema, or pneumonia. Moderate emphysematous changes are noted. There is bibasilar bronchiectasis. Liver: Unremarkable.No mass. Gallbladder and bile ducts: There is moderate intrahepatic biliary ductal tissue in unchanged since the prior exam. The patient is status post cholecystectomy. This may reflect postoperative reservoir type changes. Pancreas: Normal. No ductal dilation. Spleen: Normal. No splenomegaly. Adrenals: Normal. No mass. Kidneys and ureters: There is an unchanged 2.7 cm fluid density cyst upper pole right kidney. There is a 9 mm calculus layering not dependently in the left renal pelvis. This has changed position from the prior exam where it was in the lower pole calyx. There is mild dilatation the left renal pelvis but no dilatation of either ureter and no minerva hydronephrosis. Subcentimeter renal cortical hypodensities are too small to characterize but statistically consistent with cysts. Unchanged 9 mm probable cyst lower pole left kidney. Stomach and bowel: Air-fluid levels are noted within mildly dilated loops of small bowel. The greatest transverse measurement the dilated loops of small bowel is 3.9 cm. There is a gradual changing caliber to collapsed distal loops of small bowel. No focal wall thickening. Wall of the transverse and descending colon appears thickened but is also completely collapsed in this may simply be lack of distention. No definite colitis. Diverticulosis is noted. Appendix: No evidence of appendicitis. Intraperitoneal space: Unremarkable. No free air. No significant fluid collection. Vasculature: There is a stent graft within the abdominal aorta. Aneurysm sac measures 4.6 x 4.6 cm in size unchanged in appearance compared to the prior exam. No retroperitoneal fluid. No endoleak. Lymph nodes: Unremarkable.No enlarged lymph nodes. Bladder: Unremarkable as visualized. Reproductive: Unremarkable as visualized. Bones/joints: There is osteopenia and moderate to severe diffuse degenerative changes are noted in the spine. Multiple chronic compression fracture deformities are identified but there is progressive height loss of L1 compared to the prior exam there is mild adjacent soft tissue edema compatible with a new/progressive fracture of L1. There is minimal retropulsed bone measuring up to 3 mm. No critical stenosis. Also identified is a new fracture of the superior endplate of T9 without any retropulsed bone. No involvement of the posterior elements and no stenosis. No additional new or acute fracture. Soft tissues: Small bilateral fat filled inguinal hernias are noted. CT/CT abdomen pelvis w con* [id number] IMPRESSION: 1. Nonspecific bibasilar consolidation is present, consistent with atelectasis, edema, or pneumonia. 2. Partial small bowel obstruction. There is a gradual change to collapsed loops of bowel. No bowel thickening. No inflammatory changes. 3. Unchanged intrahepatic biliary duct dilatation that may reflect postoperative reservoir type changes. 4. There is an unchanged 2.7 cm fluid density cyst upper pole right kidney. No follow-up is necessary. Left nephrolithiasis. There is a 9 mm calculus layering out within the left renal pelvis. No hydronephrosis. 5. New/progressive height loss of T9 and L1 compared to the prior exam. No significant retropulsed bone or critical stenosis. Multiple additional fractures are unchanged. 6. Unchanged abdominal aortic aneurysm and stent graft. No endoleak. COMMENT: Consistent with the [employer]'s Incidental Findings Committee white paper (J Am Tiara Radiol 2018): Any incidental cystic renal lesion classified in this report as too small to characterize or simple appearing is likely a benign cyst. No follow-up imaging is recommended for these lesions per consensus recommendations based on imaging criteria. Radiation Dose CTDIVOL = (mGy): DLP = 1302.83 (mGy-cm)
--- NOTE | 2019-04-13 17:27 | ECG_ITS ---
Measurements Intervals [place] Rate: 75 P: -5 NC: 152 QRS: 46 QRSD: 102 T: 55 QT: 399 QTc: [address] DEPRESSION [0.025+ mV ST DEPRESSION] Compared to ECG 05/14/2017 06:19:09 No significant changes Electronically Signed On 04-13-2019 22:17:23 DIRECTOR OF INVESTIGATIONS by Caterina Gambino M.D. [email or web address]
[2019-04-13 17:51] VITALS: RESP 18
[2019-04-13] MEDS: HYDROmorphone 1 mg/mL INJ 1 mL IVP (17:51)
[2019-04-13] MEDS: ondansetron 2 mg/ML SDV 2 mL 4 MG IVP (17:51)
[2019-04-13] MEDS: sodium chloride 0.9% 1,000 ML 999 ML IV (17:53)
[2019-04-13 17:56] LABS: Basophils % 0.1 %; Hematocrit 28.4 % (42.0-52.0); Hemoglobin 9.1 g/dL (11.7-16.6); Lymphocytes # 0.6 10^3/uL (0.8-4.8); Lymphocytes % 4.1 %; Mean Corpuscular Hemoglobin 32.7 pg (28.0-34.0); Mean Corpuscular Volume 102.2 fL (80-94); Mean Platelet Volume 10.3 fL (7.4-10.4); Monocytes # 0.4 10^3/uL (0.2-0.9); Monocytes % 3.3 %; Neutrophils # 12.4 10^3/uL (1.8-7.7); Neutrophils % 91.8 %; Nucleated Red Blood Cells % 0.1 %; Platelet Count 318 10^3/cmm (130-400); Red Blood Count 2.78 10^6/uL (4.1-5.3); Red Cell Distribution Width 26.1 % (12.1-15.1); White Blood Count 13.5 10^3/uL (4.0-10.0)
[2019-04-13 18:13] LABS: Lactate (Lactic Acid level) 2.7 mmol/L (0.5-2.2)
[2019-04-13 18:14] LABS: Alanine Aminotransferase 20 U/L (0-41); Alkaline Phosphatase 83 IU/L (40-130); Anion Gap 20.3 (5-19); Aspartate Amino Transferase 20 U/L (0-40); Blood Urea Nitrogen 17 mg/dL (8-23); Calcium 10.3 mg/dL (8.5-10.5); Carbon Dioxide 24 mmol/L (22-29); Chloride 96 mmol/L (98-107); Creatine Phosphokinase 27 U/L (39-308); Globulin 3.4 g/dL (1.3-4.6); Glucose 159 mg/dL (65-115); Phosphorus 2.2 mg/dL (2.5-4.5); Potassium 4.3 mmol/L (3.5-5.1); Sodium 136 mmol/L (136-145); Total Bilirubin 2.7 mg/dL (0.15-1.2); Total Protein 8.4 g/dL (6.6-8.7)
[2019-04-13] MEDS: iohexol 300 mg/mL 100 mL Btl 95 ML IV (18:31)
[2019-04-13 18:40] LABS: Erythrocyte Sedimentation Rate 32 mm/hr (0-10)
[2019-04-13 20:04] LABS: Add Urine Microscopic? YES; Bilirubin Urine Neg (NEGATIVE); Blood Urine 3+ (Negative); Glucose Urine UA Norm (Normal); Ketones Urine 1+ (Negative); Leukocyte Esterase Urine Negative (Negative); Nitrate Urine Negative (Negative); Protein Urine Trace (Negative); Specific Gravity, Urine 1.015 (1.005-1.030); Urine Appearance Clear (CLEAR); Urine Color Yellow (Yellow); Urobilinogen Urine 4 mg/dL (Negative); pH Urine 5 (5-7)
[2019-04-13 20:06] LABS: Bacteria Urine 1+
[2019-04-13 20:07] LABS: Add Urine Culture? Yes; Mucus Urine 1+
[2019-04-13] MEDS: oxyCODONE-APAP 5-325 mg Tablet 2 TAB PO (20:53)
[2019-04-13] MEDS: diazePAM 5 mg Tablet PO (20:54)
[2019-04-13 20:57] VITALS: BP 108/50; PULSE 79; RESP 18; O2SAT 93
== END 2019-04-13 20:57 | disposition home or self-care (01) ==
PROVIDERS: Emergency Provider Emergency Medicine; Family Provider Internal Medicine; PCP Internal Medicine
DX: M54.6 Pain in thoracic spine (principal); Z85.6 Personal history of leukemia; Z87.891 Personal history of nicotine dependence
CPT/HCPCS: 74177; 80053; 81001; 82550; 83605; 83735; 84100; 85025; 85651; 86850; 86900; 87086; 93005; 96361; 96374; 96375; 99283; A9270; J1170; J2405; J7030; Q9967

== ENCOUNTER 2019-05-03 05:47 | Outpatient (RCR) | payer OTHER, SELFPAY ==
[2019-04-26 08:53] LABS: Basophils % 0.6 %; Eosinophils # 0.1 10^3/uL (0.0-0.8); Eosinophils % 0.9 %; Hematocrit 27.9 % (42.0-52.0); Hemoglobin 8.9 g/dL (11.7-16.6); Lymphocytes # 1.2 10^3/uL (0.8-4.8); Lymphocytes % 22.5 %; Mean Corpuscular HGB Conc 31.9 g/dL (30.0-36.0); Mean Corpuscular Hemoglobin 33.2 pg (28.0-34.0); Mean Corpuscular Volume 104.1 fL (80-94); Mean Platelet Volume 11.6 fL (7.4-10.4); Monocytes # 0.5 10^3/uL (0.2-0.9); Monocytes % 10.1 %; Neutrophils # 3.5 10^3/uL (1.8-7.7); Neutrophils % 65.3 %; Nucleated Red Blood Cells % 0.4 %; Platelet Count 299 10^3/cmm (130-400); Red Blood Count 2.68 10^6/uL (4.1-5.3); Red Cell Distribution Width 25.5 % (12.1-15.1); White Blood Count 5.4 10^3/uL (4.0-10.0)
[2019-04-30] VITALS (9 sets, daily range): BP systolic 98–125; BP diastolic 50–72; PULSE 77–98; RESP 16–18; TEMP 36.1–36.9; O2SAT 95–99
[2019-04-30 08:46] LABS: Basophils % 0.4 %; Hematocrit 24.1 % (42.0-52.0); Hemoglobin 7.6 g/dL (11.7-16.6); Lymphocytes # 0.9 10^3/uL (0.8-4.8); Lymphocytes % 17.1 %; Mean Corpuscular HGB Conc 31.5 g/dL (30.0-36.0); Mean Corpuscular Hemoglobin 33.2 pg (28.0-34.0); Mean Corpuscular Volume 105.2 fL (80-94); Mean Platelet Volume 10.8 fL (7.4-10.4); Monocytes # 0.4 10^3/uL (0.2-0.9); Monocytes % 7.8 %; Neutrophils % 74.1 %; Nucleated Red Blood Cells % 0 %; Platelet Count 262 10^3/cmm (130-400); Red Blood Count 2.29 10^6/uL (4.1-5.3); Red Cell Distribution Width 25.9 % (12.1-15.1); White Blood Count 5.4 10^3/uL (4.0-10.0)
[2019-04-30 09:10] LABS: Alanine Aminotransferase 21 U/L (0-41); Albumin Level 4.4 g/dL (3.5-5.2); Alkaline Phosphatase 80 IU/L (40-130); Anion Gap 20.3 (5-19); Aspartate Amino Transferase 22 U/L (0-40); Blood Urea Nitrogen 16 mg/dL (8-23); Calcium 10.1 mg/dL (8.5-10.5); Carbon Dioxide 23 mmol/L (22-29); Chloride 100 mmol/L (98-107); Globulin 3.1 g/dL (1.3-4.6); Glucose 144 mg/dL (65-115); Lactate Dehydrogenase 188 U/L (135-225); Potassium 4.3 mmol/L (3.5-5.1); Sodium 139 mmol/L (136-145); Total Bilirubin 2.5 mg/dL (0.15-1.2); Total Protein 7.5 g/dL (6.6-8.7)
[2019-04-30] MEDS: acetaminophen 325 mg Tablet 650 MG PO (16:56)
[2019-04-30] MEDS: FUROsemide 10 mg/mL SDV 2mL 20 MG IV (16:56)
[2019-04-30] MEDS: diphenhydrAMINE 25 mg Capsule PO (16:56)
[2019-04-30] MEDS: sodium chloride 0.9% 250 ML 999 ML IV (16:57)
[2019-05-03 08:35] LABS: Basophils % 0.3 %; Eosinophils % 0.6 %; Hematocrit 26.8 % (42.0-52.0); Hemoglobin 8.6 g/dL (11.7-16.6); Lymphocytes # 0.6 10^3/uL (0.8-4.8); Lymphocytes % 17.5 %; Mean Corpuscular HGB Conc 32.1 g/dL (30.0-36.0); Mean Corpuscular Hemoglobin 32.6 pg (28.0-34.0); Mean Corpuscular Volume 101.5 fL (80-94); Mean Platelet Volume 11.1 fL (7.4-10.4); Monocytes # 0.3 10^3/uL (0.2-0.9); Monocytes % 9.1 %; Neutrophils # 2.6 10^3/uL (1.8-7.7); Neutrophils % 72.2 %; Nucleated Red Blood Cells % 0 %; Platelet Count 236 10^3/cmm (130-400); Red Blood Count 2.64 10^6/uL (4.1-5.3); White Blood Count 3.6 10^3/uL (4.0-10.0)
== END 2019-05-05 23:59 | disposition home or self-care (01) ==
LOC: ONCMED 05:47
PROVIDERS: Family Provider Internal Medicine; PCP Internal Medicine; Visit Provider Internal Medicine Medical Oncology
DX: D46.Z Other myelodysplastic syndromes (principal)
CPT/HCPCS: 36415; 36430; 80053; 83615; 85025; 86850; 86900; J1940; J7050; P9040

== ENCOUNTER 2019-06-04 15:40 | Outpatient (RCR) | payer OTHER, SELFPAY ==
[2019-05-10 09:57] LABS: Basophils % 0.2 %; Eosinophils % 0.5 %; Hematocrit 26.2 % (42.0-52.0); Hemoglobin 8.3 g/dL (11.7-16.6); Lymphocytes # 1.1 10^3/uL (0.8-4.8); Lymphocytes % 26.6 %; Mean Corpuscular HGB Conc 31.7 g/dL (30.0-36.0); Mean Corpuscular Hemoglobin 33.1 pg (28.0-34.0); Mean Corpuscular Volume 104.4 fL (80-94); Mean Platelet Volume 11.2 fL (7.4-10.4); Monocytes # 0.4 10^3/uL (0.2-0.9); Monocytes % 9.5 %; Neutrophils # 2.6 10^3/uL (1.8-7.7); Nucleated Red Blood Cells % 0 %; Platelet Count 263 10^3/cmm (130-400); Red Blood Count 2.51 10^6/uL (4.1-5.3); Red Cell Distribution Width 23.6 % (12.1-15.1); White Blood Count 4.1 10^3/uL (4.0-10.0)
--- NOTE | 2019-05-11 15:56 | ONC FU_ITS ---
Dr. Lew Patient Follow-Up Note Patient: José Miguel Bonilla Unit #: [id number]: [id number] Dicatated By: Ammon Lew M.D.Date of Visit:May 10, 2019 Onc Med Follow-up/Prog Note Chief Complaint: Myelodysplastic syndrome. History of Present Illness: This is a 79 year-old man with myelodysplastic syndrome (MDS with unilineage dysplasia). He was seen initially on 09/30/2015 in regard to a moderately severe anemia. The available records included multiple blood counts dating back to August 2014. At that time his hemoglobin was 10.3 g with white blood cell count 6400 and platelet count 325,000. The red cell indices were macrocytic with MCV 110 and MCH 37. A more recent CBC, from 08/20/2015, showed a hemoglobin down to 9.7 g with hematocrit 29%. The red cell indices were similar. White blood cell count was 4900 and platelet count was 337,000. The differential showed 56% neutrophils, 30% lymphocytes, and 10% monocytes. B12 was checked several times and was normal. Folate level was low at 6.7 ng/mL. The serum iron was normal at 141 mcg/dL. 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 He had negative stool Hemoccult, though an upper GI endoscopy apparently did show ulcers. Colonoscopy was unremarkable. His evaluation also included CT abdomen/pelvis in May 2015. It showed an aneurysm of the distal abdominal aorta extending to, but not into, the bifurcation. It appeared stable compared to a previous study from March 2013. There were no acute findings noted on that study. His laboratory studies on 09/30/2015 included CBC showing hemoglobin 9.4 g, white blood cell count 6400, and platelet count 420,000. The red cell indices were macrocytic with MCV 110 and MCH 37. The uncorrected reticulocyte count was 2.0%. Comprehensive metabolic profile was unremarkable except for mildly elevated total bilirubin at 2.9 mg/dL. The liver enzymes were normal.. LDH was normal at 183 mg/dL and haptoglobin was low normal at 53 mg/dL. Ferritin was elevated at 520 ng/mL. The homocysteine level was slightly elevated at 11.6 ???mol/L with methylmalonic acid normal at 198 nmol/L. Protein electrophoresis was normal. He underwent bone marrow aspiration/biopsy on 10/15/2015. The marrow was hypercellular, estimated at 90-95%. There was limited erythroid dyspoiesis. There was no evidence of infiltrative process. Blasts were reported at 0%. Iron stores were 3+ with occasional ring sideroblasts identified, estimated at less than 5-10% of the population. There was 1+/4+ reticulin staining. The chromosome analysis showed no metaphase cells for analysis. The FISH panel for MDS showed no abnormalities. 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 During subsequent follow-up his hemoglobin had declined to a low of 8.2 g/dL on 12/16/2015. His baseline erythropoietin level was 152 mIU/mL. On 12/18/2015 he began a trial of therapy with Procrit, initially at 40,000 units weekly. As of 01/13/2016, after 4 weeks of treatment, the hemoglobin was basically stable at 8.5 g. At that point the Procrit dosage was escalated to 60,000 U weekly. His hemoglobin level had subsequently increased to a maximum level 10.1 g on 03/09/2016. It then drifted downward gradually. As of 07/20/2016 it was down to 8.7 g. As of his followup visit on 08/04/2016 he had remained transfusion independent. However, after that his hemoglobin had shown further decline to 7.9 g, and at that point I did opt to stop the Procrit and transition his treatment to Revlimid. He began his treatment with Revlimid 10 mg daily on 08/16/2016. His baseline hemoglobin was 8.2 g. He did opt to have a transfusion of 2 units of packed red blood cells. Thus far he has tolerated the Revlimid well and during follow-up his blood count had stabilized with hemoglobin in the range of 9.5 g. His CBC on 11/23/2016 showed further increase in the hemoglobin to 10.4 g. As of 02/15/2017 his hemoglobin had declined somewhat, to 8 g with WBC moderately decreased at 2700 and platelet count normal at 200,000. He continued treatment with Revlimid. On 03/11/2017 he was seen at the ID clinic with flu-like symptoms. His nasal swab reportedly was positive for influenza, and he did start treatment with Tamiflu. His CBC showed a further decline in his hemoglobin to 6.5 g, and he was found to be jaundiced, total bilirubin 6.1 mg/dL. He was transfused 2 units of PRBC. On his further laboratory evaluation on 03/14/2017 his hemoglobin had increased to only 7.8 g. The uncorrected reticulocyte count was 3.2%. His total bilirubin was still elevated at 5.7 mg/dL with the direct bilirubin normal at 0.60 mg/dL. LDH was normal at 218 U/L. The haptoglobin level was low at 21.9 mg/dL. HEMA was negative. B12 and folate levels were normal. He was advised to stop Revlimid. During subsequent follow-up his haptoglobin level showed further decline, to as low as 9.3 mg/dL on 03/28/2017. However, at that point his hemoglobin remained adequate at 9.4 g, his bilirubin was down to 3.0 mg/dL, and his LDH remained normal. He had a follow-up CTA of the abdomen/pelvis on 03/22/2017. It again showed evidence infrarenal abdominal aortic aneurism extending to the aortic bifurcaton. It measured 4.5 x 4.6 x 4.7 cm. 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 On 05/13/2017 he underwent coronary angioplasty with stent placement of the right coronary artery. On 05/30/2017 he underwent endovascular repair of infrarenal abdominal aortic aneurysm. He tolerated both procedures well, though during that time he did require transfusion of a total of 9 U of packed red blood cells. He hen continued on aspirin 81 mg daily together with Plavix 75 mg daily. He remained off Revlimid. During subsequent follow-up, he remained transfusion dependent. He then underwent repeat bone marrow aspiration/biopsy on 08/04/2017. The marrow was hypercellular, 100% cellularity. Megakaryocytes were noted to be increased in number and there was associated megakaryocyte dyspoiesis. There was just limited dyserythropoiesis. Ring sideroblasts were present, comprising more than 50% of the nrbc population. Blasts were estimated at 9% by morphology and 4% by flow cytometry. The FISH panel for MDS was unrevealing and the standard chromosome analysis was normal. 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 His IPSS-R score calculated to 3.5 or 4.5, depending on which blast count was used. Either score was intermediate risk category. With those findings, he was advised to undergo trial of therapy with 5-azacytidine. As of 08/26/2017 his ferritin level had increased to 1076 ng/mL. At that point he began chelation therapy with Jadenu 1440 mg daily. On 08/29/2017 he began cycle 1 of treatment with 5-azacytidine. It was administered subcutaneously for 7 days. He tolerated the 5-azacytidine without acute toxicity. He subsequently developed nausea with the Jadenu, and the dosage was reduced to 720 mg daily. He continued treatment with 5-azacytidine at 4-week intervals. He required further transfusions on 10/11/2017, on 10/18/2017, and on 11/09/2017. Thereafter his hemoglobin level stabilized above transfusion threshold. During subsequent follow-up, he had some adjustments in his treatment interval, but he remained transfusion independent. As of July 2018 he was able to stop Jadenu, with his ferritin level having decreased to 357 ng/mL. His other medical illnesses include hypertension, hyperlipidemia, atrial fibrillation, coronary artery disease, peripheral arterial disease, GERD, and nephrolithiasis. He also has fairly long-standing psoriasis. In the past he had been on treatment with methotrexate. His procedural history includes coronary angioplasty/stent placement followed by endovascular repair of abdominal aortic aneurysm in May 2017. He had previously smoked 2 packs of cigarettes daily, but he quit smoking more than 20 years ago. INTERIM HISTORY: In November 2018 he began to show gradual decline in his hemoglobin, though it continued to fluctuate between 8 and 9 g. As of 01/15/2019 it had further decreased to 7.5 g, at which point he did receive a PRBC transfusion. He continued with cycle 15 of 5-azacytidine on 02/12/2019. He was then transfused again on 02/27/2019 with his hemoglobin back down to 7.1 g. During the past month or so he had developed significant worsening of his back pain. He also is having pain in his left rib cage area following some minor trauma. A bone scan on 03/12/2019 showed a punctate area of bony uptake involving the left anterior approximately fifth rib, consistent with trauma. There was noted to be a compression fracture with bony uptake involving a midthoracic vertebral body. Diffuse patchy uptake involving the calvarium was felt to be likely related to the myelodysplastic syndrome and bone marrow hyperplasia. On 04/13/2019 he presented to the emergency room with worsening back pain. CT abdomen/pelvis at that time showed multiple chronic compression fracture deformities but with progressed height loss of L1 compared to the prior exam and with mild adjacent soft tissue edema compatible with new/progressive L1 fracture. There was minimal retropulsed bone measuring up to 3 mm. There was no critical stenosis. Also noted was a new fracture of the superior endplate of T9 without any retropulsed bone. There was evidence of partial small bowel obstruction with a gradual change to collapsed loops of bowel. He is seen for a follow-up visit. He has not been feeling good. He continues to have pain in his back, severe enough that he can stand for only short periods of time. He is able to ambulate short distances with a walker. His activity is very limited. His ECOG score is 3. He also has having difficulty sleeping at night. He is unable to lie down in his bed. He has been able to sleep in his recliner, but with difficulty. He has been getting some relief with pain medication, though he has having constipation and some [employer] side effects with it. His appetite is fair. He is losing weight. He does not have fever or night sweats. He complains of having dry mouth. He has some shortness of breath. He has just a little bit of cough. He does have some discomfort taking a deep breath, and he also complains that his chest feels tight. He is not having nausea. His urination is slow, but bladder function is adequate. In addition to the back pain, he is having some pain at the bottom of his rib cage on both sides. He does not complain of headache. He is very unsteady. He has numbness/tingling in his toes. Medications: Aspirin 1 (81 mg) Tablet, enteric coated Oral daily, B-6 1 (200 mg) Tablet Oral t.i.d., diazePAM 1 (2 mg) Tablet Oral t.i.d. PRN, Digoxin 1 (125 mcg) Tablet Oral daily, Folic Acid 1 (1 mg) Tablet Oral daily, levoFLOXacin 1 Tablet (of 750 mg) Oral daily, Lidocaine 1 patch(es) (of 5 %) Patch Topical daily PRN, Metoprolol Tartrate 1 Tablet (of 50 mg) Oral daily, oxyCODONE HCl 1 (5 mg) Tablet Oral four times a day, Plavix 1 (75 mg) Tablet Oral daily, Pravastatin Sodium 1 Tablet (of 20 mg) Oral daily, Tamsulosin HCl 1 Tablet (of 0.4 mg) Capsule Oral b.i.d., traMADol HCl 1 Tablet (of 100 mg) Oral q 6 hours PRN, Tylenol 1 - 2 Tablet (of 500 mg) Oral PRN Allergies: No Known Allergies. Review of Systems: Constitutional - His activity now is very limited. Appetite is just fair. He has lost weight. He does not have fever or night sweats. ECOG score is 3, ENMT - He has perpetual sinus drainage. He has dry mouth. No sore throat or difficulty swallowing, Hematologic/Lymphatic - He has easy bruising, Respiratory - He has some shortness of breath. He has a little bit of cough. He has some pain taking a deep breath. No hemoptysis, Cardiovascular - His chest feels a little tight. No palpitations, Gastrointestinal - No nausea or vomiting. No heartburn or acid reflux. He has constipation. No blood in the stool or black stools, Genitourinary (M) - Urination is slow. No dysuria or hematuria. No urgency or incontinence, Musculoskeletal - He has severe back pain. He has some pain at the bottom of his rib cage on both sides, Integumentary - No skin eruption, Neurologic - No headache. He is very unsteady. He has numbness and tingling in his toes, Psychiatric - No anxiety or depression. He has difficulty sleeping because of the pain. He is able to sleep in his recliner, but with difficulty. Vital Signs: Performed on May 10, 2019 10:33 Height - 76.00 in Weight - 206.2 lbs (LOW) BSA - 2.24 sq.m BMI - 25.10 Temperature - 98.0 F (LOW) Pulse - 87 /min Respiration - 16 /min BP - 102/64 mm(hg) O2 Sat - 97 % Pain - 7 Fatigue - 8 Physical Examination: Constitutional - He appears generally weak and pale, Eyes - Sclerae nonicteric. Conjunctivae clear, ENMT - No lesions noted in the oral cavity, Hematologic/Lymphatic - No cervical, clavicular, or axillary adenopathy, Respiratory - Lungs sound clear with some decrease in air movement bilaterally, Cardiovascular - Heart rhythm is irregular. There is a II/ systolic murmur. There is no gallop or rub noted, Abdomen - Soft. Liver and spleen are not enlarged. There is no abdominal mass or ascites noted and there is no inguinal adenopathy, Extremities - There are venous stasis changes bilaterally. There is mild chronic swelling at the right ankle. There is otherwise no edema, Integumentary - He has fairly generalized psoriasis, Neurologic - No focal neurologic deficits noted. Lab/Imaging: Test performed on May 10, 2019 09:28 WBC 4.1 10 3/uL RBC 2.51 10 6/uL HGB 8.3 g/dL HCT 26.2 % MCV 104.4 fL MCH 33.1 pg MCHC 31.7 g/dL RDW 23.6 % Platelet Count 263 10 3/cmm MPV 11.2 fL Neutrophils 2.6 10 3/uL Lymphocytes 1.1 10 3/uL Monocytes 0.4 10 3/uL Eosinophils 0.0 10 3/uL Basophils 0.0 10 3/uL Neutrophil % 63.0 % Lymphocyte % 26.6 % Monocyte % 9.5 % Eosinophil % 0.5 % Basophils % 0.2 % Impression: 1. The patient has a moderately severe macrocytic anemia. Bone marrow aspiration/biopsy on 10/15/2015 showed hypercellular marrow, estimated 90-95%. There was mild erythroid dyspoiesis and there were ringed sideroblasts identified, estimated at less than 5-10% of the population. Iron stores were 3+. The FISH panel for MDS showed no abnormalities. A standard chromosome study showed no metaphases for analysis. Overall, the findings were consistent with myelodysplastic syndrome (refractory cytopenia with unileage dysplasia) versus idiopathic cytopenia of undetermined significance. 2. 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 This is probably of no clinical significance other than he may be more prone to iron overload if he does become transfusion dependent. His other medical illnesses include: 3. Hypertension. 4. Hyperlipidemia. 5. Peptic ulcer disease/GERD. 6. Nephrolithiasis. 7. He has a history of atrial fibrillation. 8. He has an abdominal aortic aneurysm. In December 2015 he began a trial of therapy with Procrit after his hemoglobin had dropped to 8.2 g. As of 01/13/2016 the dosage was escalated to 60,000 U weekly, as his hemoglobin at that point was basically stable at 8.5 g. He did show some response, with his hemoglobin increasing to 10.1g. It had subsequently drifted downward. As of his visit on 08/04/2016 his hemoglobin was down to 7.9 g. At that point the Procrit was discontinued. He began treatment with Revlimid 10 mg daily on 08/16/2016. He had noticed some worsening of his psoriasis after starting the Revlimid, but he has otherwise tolerated it well. His hemoglobin initially appeared to have stabilized in the range of 9.5 to 10 g. As of 02/15/2017 his hemoglobin had declined to 8 g. On 03/11/2017 he was confirmed to have influenza by nasal swab. His hemoglobin at that point had dropped to 6.5 g and he had become overtly jaundiced. He was transfused PRBC. 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 At that point I did opt to stop the Revlimid. During subsequent follow-up, his haptoglobin level recovered to normal and his bilirubin level returned to baseline. His LDH remained normal. He underwent coronary angioplasty/stent placement on 05/12/2017 and on 05/30/2017 he underwent endovascular repair of infrarenal abdominal aortic aneurysm. He then continued on prophylaxis with aspirin 81 mg daily and Plavix 75 mg daily. During subsequent followup he remained transfusion dependent. His repeat bone marrow aspiration/bipsy on 08/04/2017 showed 100% cellularity with associated megakaryocyte dyspoiesis and limited dyserythropoiesis. Ring sideroblasts were present, comprising more than 50% of the nrbc population. Blasts were estimated at 9% by morphology and 4% by flow cytometry. The FISH panel for MDS was unrevealing and the standard chromosome analysis was normal. 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 His IPSS-R score calculated to 3.5 or 4.5, depending on which blast count was used. Either score was intermediate risk category. As of 08/26/2017 his serum ferritin had increased to 1076 ng/mL, and he began treatment with Jadenu 1440 mg daily. He then began a course of treatment of 5-azacytidine, cycle 1 day 1 on 08/29/2017. It was administered subcutaneously for 7 days. He tolerated the treatment without any acute toxicity. He proceeded with cycle 2 of 5-azacytidine on 10/03/2017, and he then continued treatment at 4-week intervals. He continued to require transfusion up until 11/08/2017, but his hemoglobin then stabilized in the range of 10-11 g. During that time he had mild to moderately severe neutropenia and thrombocytopenia, and beginning with the 6th cycle I did make some adjustments in the treatment interval. He then continued to tolerate the treatment well, and he remained transfusion independent. However, by November 2018 there had been a gradual decline in his hemoglobin, which at that point was fluctuating between 8 and 9 g. As of 01/15/2019 the hemoglobin had dropped to 7.5 g, and he was then transfused 2 units PRBC. It was his first transfusion since November 2017. On 02/12/2019 he continued with cycle 15 of 5-azacytidine. He required transfusion again on 02/27/2019 with hemoglobin back down to 7.1 g. During followup he had been showing some decline in his performance status. He had developed significant worsening of his back pain, and bone scan did show evidence of a vertebral compression fracture in the mid thoracic spine. As he was clearly not responding to the 5-azacytidine, I did opt to stop the treatmnent. He continued to be supported with PRBC transfusion as needed. In the meantime, his back pain had continued to worsen. A CT abdomen/pelvis done through the emergency room on 04/13/2019 showed increased fracture at L1 and some new compression fracture at T9. Management has been problematic, as he has had somewhat poor tolerance for pain medication, and he remains significantly anemic. Plan: At this point he will be given a prescription for fentanyl 25 mcg/h. He will continue oxycodone/APAP as needed for breakthrough pain. I will see if I can get him qualified for a hospital bed at home, as he does require positioning for pain relief which is not feasible in his normal bed. I will plan to review the CT scan with Dr. Narvaez, we will then plan further evaluation/treatment for the back pain. Ultimately I am hoping to get him on a trial of therapy with luspatercept for the MDS/anemia. Signed By: Ammon Lew M.D. <<Signature on File>>
[2019-05-14 09:47] LABS: Basophils % 0.6 %; Eosinophils % 0.4 %; Hematocrit 28.5 % (42.0-52.0); Hemoglobin 8.5 g/dL (11.7-16.6); Lymphocytes # 1.1 10^3/uL (0.8-4.8); Lymphocytes % 22.3 %; Mean Corpuscular HGB Conc 29.8 g/dL (30.0-36.0); Mean Corpuscular Hemoglobin 34.1 pg (28.0-34.0); Mean Corpuscular Volume 114.5 fL (80-94); Mean Platelet Volume 10.3 fL (7.4-10.4); Monocytes # 0.4 10^3/uL (0.2-0.9); Monocytes % 8.5 %; Neutrophils # 3.3 10^3/uL (1.8-7.7); Neutrophils % 67.8 %; Nucleated Red Blood Cells % 0 %; Platelet Count 295 10^3/cmm (130-400); Red Blood Count 2.49 10^6/uL (4.1-5.3); Red Cell Distribution Width 24.1 % (12.1-15.1); White Blood Count 4.8 10^3/uL (4.0-10.0)
[2019-05-14 10:00] LABS: Alanine Aminotransferase 20 U/L (0-41); Albumin Level 4.2 g/dL (3.5-5.2); Alkaline Phosphatase 90 IU/L (40-130); Anion Gap 18.4 (5-19); Aspartate Amino Transferase 27 U/L (0-40); Blood Urea Nitrogen 11 mg/dL (8-23); Calcium 9.5 mg/dL (8.5-10.5); Carbon Dioxide 21 mmol/L (22-29); Chloride 100 mmol/L (98-107); Globulin 3.2 g/dL (1.3-4.6); Glucose 131 mg/dL (65-115); Osmolality Calculated 278 mOsm/kg (285-295); Potassium 4.4 mmol/L (3.5-5.1); Sodium 135 mmol/L (136-145); Total Bilirubin 2.8 mg/dL (0.15-1.2); Total Protein 7.4 g/dL (6.6-8.7)
[2019-05-21] VITALS (8 sets, daily range): BP systolic 98–115; BP diastolic 56–68; PULSE 67–81; RESP 18; TEMP 36.4–36.8; O2SAT 95–99
[2019-05-21 09:02] LABS: Basophils % 0.2 %; Eosinophils % 0.2 %; Hematocrit 22.8 % (42.0-52.0); Hemoglobin 7.3 g/dL (11.7-16.6); Lymphocytes # 0.9 10^3/uL (0.8-4.8); Lymphocytes % 21.4 %; Mean Corpuscular Hemoglobin 34.8 pg (28.0-34.0); Mean Corpuscular Volume 108.6 fL (80-94); Mean Platelet Volume 11.3 fL (7.4-10.4); Monocytes # 0.4 10^3/uL (0.2-0.9); Monocytes % 9.2 %; Neutrophils # 2.7 10^3/uL (1.8-7.7); Neutrophils % 68.3 %; Nucleated Red Blood Cells % 0.5 %; Platelet Count 305 10^3/cmm (130-400); Red Cell Distribution Width 23.6 % (12.1-15.1)
[2019-05-21 09:32] LABS: Alanine Aminotransferase 19 U/L (0-41); Albumin Level 4.6 g/dL (3.5-5.2); Alkaline Phosphatase 81 IU/L (40-130); Anion Gap 17.3 (5-19); Aspartate Amino Transferase 21 U/L (0-40); Blood Urea Nitrogen 14 mg/dL (8-23); Calcium 9.3 mg/dL (8.5-10.5); Carbon Dioxide 25 mmol/L (22-29); Chloride 103 mmol/L (98-107); Globulin 2.6 g/dL (1.3-4.6); Glucose 134 mg/dL (65-115); Osmolality Calculated 290 mOsm/kg (285-295); Potassium 4.3 mmol/L (3.5-5.1); Sodium 141 mmol/L (136-145); Total Bilirubin 2.7 mg/dL (0.15-1.2); Total Protein 7.2 g/dL (6.6-8.7)
[2019-05-21] MEDS: diphenhydrAMINE 25 mg Capsule PO (12:39)
[2019-05-21] MEDS: FUROsemide 10 mg/mL SDV 2mL 20 MG IV (14:48)
[2019-05-21] MEDS: sodium chloride 0.9% 250 ML 999 ML IV (14:52)
--- NOTE | 2019-05-25 13:25 | MR_ITS ---
WS: [id number] MRI LUMBAR SPINE WITH CONTRAST TECHNIQUE: Sagittal T1, T2 and STIR imaging. Axial T1 and T2 imaging. Post gadolinium imaging was obt ained. CLINICAL INFORMATION: ANEMIA, VERTEBRAL COMPRESSION FX COMPARISON: None. FINDINGS: Mild lumbar curve convex right. Multiple varying ages biconcave compression fractures. Biconcave comp ression L5 vertebral body with loss of approximately 60% vertebral body height centrally. Edema withi n the L5 superior endplate. Mild compression superior endplate L2 with mild edema consistent with acu te to subacute compression. Edema along the L1 inferior endplate with mild compression. Additional biconcave compression fractures which are chronic at T11, T12, L3, and L4. Additional partially evaluated compression deformities in the mid thoracic spine seen on the drill press tender im aging with edema T6, T7, T8, T9, and T10 may be acute to subacute. This can be further evaluated with thoracic spine MRI. No high-grade central canal stenosis on the drill press tender imaging. L1-L2: Mild disc bulging with narrowing of the subarticular recess bilaterally. Mild facet arthropath y. Mild right and no significant left foraminal narrowing. L2-L3: Disc osteophyte complex endplate ridging. Slight impingement left subarticular recess and carley ersing left L3 nerve root. Mild central canal stenosis. Mild left and no significant right foraminal narrowing. Moderate facet arthropathy. L3-L4: Mild disc bulging and osteophytic ridging. Mild central canal stenosis. Slight impingement tra versing right L4 nerve root. Mild right and no significant left foraminal narrowing. Moderate facet a rthropathy. L4-L5: Disc osteophyte complex with endplate ridging. Mild central canal stenosis. Slight impingement traversing L5 nerve roots right greater than left. Moderate facet arthropathy. Mild right and no sig nificant left foraminal narrowing. L5-S1: Mild annular bulging. Moderate facet arthropathy. Spinal canal and foramen are patent. Diffuse abnormal bone marrow signal throughout the lumbar spine and visualized bony structures with r eplacement of the normal Fatty bone marrow signal consistent with history of myelodysplastic syndrome . Saccular infrarenal abdominal aortic aneurysm measuring 4.0 x 4.3 x 4.4 cm. Prior aortic endograft repair. Right renal cyst measuring 2.6 cm MR/MR lumbar spine wo/w con [id number] IMPRESSION: 1. Diffuse replacement normal fatty bone marrow signal throughout the visualiz ed bony structures consistent with history of myelodysplastic syndrome. 2. Saccular infrarenal abdominal aortic aneurysm with prior aortic endograft r epair appears unchanged since the recent CT abdomen pelvis April 13, 2019 3. Biconcave compression L5 vertebral body with loss of approximately 60% vert ebral body height centrally and mild edema consistent with acute to subacute co mpression. 4. Mild compression superior endplate L2 and inferior endplate L1 with edema c onsistent with acute to subacute mild compression. 5. No retropulsion. No high-grade central canal stenosis. 6. Additional compression deformities with edema seen in the mid thoracic spin e on the drill press tender imaging described above. This can be further evaluated with thor acic spine MRI. 7. Mild central canal stenosis L2-L3, L3-L4, and L4-5. 8. Mild to moderate foraminal narrowing worse at left L2-3, right L3-4, and ri ght L4-5.
[2019-05-28 16:33] LABS: Basophils % 0.6 %; Eosinophils % 0.6 %; Hematocrit 25.4 % (42.0-52.0); Lymphocytes # 1.2 10^3/uL (0.8-4.8); Lymphocytes % 34.8 %; Mean Corpuscular HGB Conc 31.5 g/dL (30.0-36.0); Mean Corpuscular Hemoglobin 32.8 pg (28.0-34.0); Mean Corpuscular Volume 104.1 fL (80-94); Mean Platelet Volume 11.3 fL (7.4-10.4); Monocytes # 0.3 10^3/uL (0.2-0.9); Monocytes % 7.1 %; Neutrophils % 56.6 %; Nucleated Red Blood Cells % 0 %; Platelet Count 252 10^3/cmm (130-400); Red Blood Count 2.44 10^6/uL (4.1-5.3); White Blood Count 3.5 10^3/uL (4.0-10.0)
[2019-06-04 18:27] LABS: Basophils % 0.4 %; Eosinophils % 0.4 %; Hematocrit 23.7 % (42.0-52.0); Hemoglobin 7.4 g/dL (11.7-16.6); Lymphocytes # 1.2 10^3/uL (0.8-4.8); Lymphocytes % 23.6 %; Mean Corpuscular HGB Conc 31.2 g/dL (30.0-36.0); Mean Corpuscular Hemoglobin 32.5 pg (28.0-34.0); Mean Corpuscular Volume 103.9 fL (80-94); Mean Platelet Volume 10.4 fL (7.4-10.4); Monocytes # 0.4 10^3/uL (0.2-0.9); Monocytes % 6.9 %; Neutrophils # 3.6 10^3/uL (1.8-7.7); Neutrophils % 68.1 %; Nucleated Red Blood Cells % 0.6 %; Platelet Count 302 10^3/cmm (130-400); Red Blood Count 2.28 10^6/uL (4.1-5.3); Red Cell Distribution Width 21.4 % (12.1-15.1); White Blood Count 5.2 10^3/uL (4.0-10.0)
[2019-06-05] VITALS (11 sets, daily range): BP systolic 85–118; BP diastolic 55–67; PULSE 67–79; RESP 16–17; TEMP 36.4–36.8; O2SAT 95–98
[2019-06-05] MEDS: diphenhydrAMINE 25 mg Capsule PO (13:35)
[2019-06-05] MEDS: acetaminophen 325 mg Tablet 650 MG PO (13:35)
[2019-06-05] MEDS: sodium chloride 0.9% 250 ML 999 ML IV (13:40)
[2019-06-05] MEDS: FUROsemide 10 mg/mL SDV 2mL 20 MG IV (15:32)
== END 2019-06-05 23:59 | disposition home or self-care (01) ==
LOC: ONCMED 15:40
PROVIDERS: Family Provider Internal Medicine; PCP Internal Medicine; Visit Provider Internal Medicine Medical Oncology
DX: D46.A Refractory cytopenia with multilineage dysplasia (principal); E83.111 Hemochromatosis due to repeated red blood cell transfusions; I10 Essential (primary) hypertension; E78.5 Hyperlipidemia, unspecified; I48.91 Unspecified atrial fibrillation; I25.10 Atherosclerotic heart disease of native coronary artery without angina pectoris; I73.9 Peripheral vascular disease, unspecified; K21.9 Gastro-esophageal reflux disease without esophagitis; L40.9 Psoriasis, unspecified; M54.9 Dorsalgia, unspecified; Z79.891 Long term (current) use of opiate analgesic; Z79.899 Other long term (current) drug therapy; Z79.82 Long term (current) use of aspirin; Z79.02 Long term (current) use of antithrombotics/antiplatelets; Z95.5 Presence of coronary angioplasty implant and graft; Z87.442 Personal history of urinary calculi; Z87.891 Personal history of nicotine dependence; Z87.11 Personal history of peptic ulcer disease
CPT/HCPCS: 36415; 36430; 72158; 80053; 85025; 86850; 86900; 86920; 99214; A9579; J1940; J7050; P9040

== ENCOUNTER 2019-06-26 06:48 | Outpatient (RCR) | payer OTHER, SELFPAY ==
[2019-06-11 19:34] LABS: Basophils % 0.5 %; Eosinophils % 0.2 %; Hemoglobin 8.4 g/dL (11.7-16.6); Lymphocytes # 0.8 10^3/uL (0.8-4.8); Lymphocytes % 17.2 %; Mean Corpuscular HGB Conc 31.1 g/dL (30.0-36.0); Mean Corpuscular Hemoglobin 33.1 pg (28.0-34.0); Mean Corpuscular Volume 106.3 fL (80-94); Mean Platelet Volume 10.9 fL (7.4-10.4); Monocytes # 0.3 10^3/uL (0.2-0.9); Neutrophils # 3.3 10^3/uL (1.8-7.7); Neutrophils % 74.6 %; Nucleated Red Blood Cells % 0 %; Platelet Count 273 10^3/cmm (130-400); Red Blood Count 2.54 10^6/uL (4.1-5.3); Red Cell Distribution Width 19.6 % (12.1-15.1); White Blood Count 4.4 10^3/uL (4.0-10.0)
[2019-06-18 17:07] LABS: Basophils % 0.4 %; Hemoglobin 8.2 g/dL (11.7-16.6); Lymphocytes # 1.5 10^3/uL (0.8-4.8); Mean Corpuscular HGB Conc 31.5 g/dL (30.0-36.0); Mean Corpuscular Hemoglobin 32.8 pg (28.0-34.0); Mean Platelet Volume 10.4 fL (7.4-10.4); Monocytes # 0.4 10^3/uL (0.2-0.9); Monocytes % 7.7 %; Neutrophils # 2.8 10^3/uL (1.8-7.7); Neutrophils % 60.3 %; Nucleated Red Blood Cells % 0.4 %; Platelet Count 289 10^3/cmm (130-400); Red Cell Distribution Width 19.8 % (12.1-15.1); White Blood Count 4.7 10^3/uL (4.0-10.0)
[2019-06-19 13:00] VITALS: BP 98/61; PULSE 75; RESP 18; TEMP 36.2; O2SAT 93
[2019-06-19 13:15] VITALS: BP 100/67; PULSE 75; RESP 18; TEMP 36.3; O2SAT 97
[2019-06-19] MEDS: acetaminophen 325 mg Tablet 650 MG PO (18:02)
[2019-06-19] MEDS: diphenhydrAMINE 25 mg Capsule PO (18:02)
[2019-06-19] MEDS: FUROsemide 10 mg/mL SDV 2mL 20 MG IV (18:02)
[2019-06-19] MEDS: sodium chloride 0.9% 250 ML 999 ML IV (18:04)
--- NOTE | 2019-06-20 11:24 | ONC FU_ITS ---
Dr. Lew Patient Follow-Up Note Patient: José Miguel Bonilla Unit #: [id number]: [id number] Dicatated By: Ammon Lew M.D.Date of Visit:Jun 19, 2019 Onc Med Follow-up/Prog Note Chief Complaint: Myelodysplastic syndrome. History of Present Illness: This is a 79 year-old man with myelodysplastic syndrome (MDS with unilineage dysplasia). He was seen initially on 09/30/2015 in regard to a moderately severe anemia. The available records included multiple blood counts dating back to August 2014. At that time his hemoglobin was 10.3 g with white blood cell count 6400 and platelet count 325,000. The red cell indices were macrocytic with MCV 110 and MCH 37. A more recent CBC, from 08/20/2015, showed a hemoglobin down to 9.7 g with hematocrit 29%. The red cell indices were similar. White blood cell count was 4900 and platelet count was 337,000. The differential showed 56% neutrophils, 30% lymphocytes, and 10% monocytes. B12 was checked several times and was normal. Folate level was low at 6.7 ng/mL. The serum iron was normal at 141 mcg/dL. 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 He had negative stool Hemoccult, though an upper GI endoscopy apparently did show ulcers. Colonoscopy was unremarkable. His evaluation also included CT abdomen/pelvis in May 2015. It showed an aneurysm of the distal abdominal aorta extending to, but not into, the bifurcation. It appeared stable compared to a previous study from March 2013. There were no acute findings noted on that study. His laboratory studies on 09/30/2015 included CBC showing hemoglobin 9.4 g, white blood cell count 6400, and platelet count 420,000. The red cell indices were macrocytic with MCV 110 and MCH 37. The uncorrected reticulocyte count was 2.0%. Comprehensive metabolic profile was unremarkable except for mildly elevated total bilirubin at 2.9 mg/dL. The liver enzymes were normal.. LDH was normal at 183 mg/dL and haptoglobin was low normal at 53 mg/dL. Ferritin was elevated at 520 ng/mL. The homocysteine level was slightly elevated at 11.6 ???mol/L with methylmalonic acid normal at 198 nmol/L. Protein electrophoresis was normal. He underwent bone marrow aspiration/biopsy on 10/15/2015. The marrow was hypercellular, estimated at 90-95%. There was limited erythroid dyspoiesis. There was no evidence of infiltrative process. Blasts were reported at 0%. Iron stores were 3+ with occasional ring sideroblasts identified, estimated at less than 5-10% of the population. There was 1+/4+ reticulin staining. The chromosome analysis showed no metaphase cells for analysis. The FISH panel for MDS showed no abnormalities. 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 During subsequent follow-up his hemoglobin had declined to a low of 8.2 g/dL on 12/16/2015. His baseline erythropoietin level was 152 mIU/mL. On 12/18/2015 he began a trial of therapy with Procrit, initially at 40,000 units weekly. As of 01/13/2016, after 4 weeks of treatment, the hemoglobin was basically stable at 8.5 g. At that point the Procrit dosage was escalated to 60,000 U weekly. His hemoglobin level had subsequently increased to a maximum level 10.1 g on 03/09/2016. It then drifted downward gradually. As of 07/20/2016 it was down to 8.7 g. As of his followup visit on 08/04/2016 he had remained transfusion independent. However, after that his hemoglobin had shown further decline to 7.9 g, and at that point I did opt to stop the Procrit and transition his treatment to Revlimid. He began his treatment with Revlimid 10 mg daily on 08/16/2016. His baseline hemoglobin was 8.2 g. He did opt to have a transfusion of 2 units of packed red blood cells. Thus far he has tolerated the Revlimid well and during follow-up his blood count had stabilized with hemoglobin in the range of 9.5 g. His CBC on 11/23/2016 showed further increase in the hemoglobin to 10.4 g. As of 02/15/2017 his hemoglobin had declined somewhat, to 8 g with WBC moderately decreased at 2700 and platelet count normal at 200,000. He continued treatment with Revlimid. On 03/11/2017 he was seen at the [facility] with flu-like symptoms. His nasal swab reportedly was positive for influenza, and he did start treatment with Tamiflu. His CBC showed a further decline in his hemoglobin to 6.5 g, and he was found to be jaundiced, total bilirubin 6.1 mg/dL. He was transfused 2 units of PRBC. On his further laboratory evaluation on 03/14/2017 his hemoglobin had increased to only 7.8 g. The uncorrected reticulocyte count was 3.2%. His total bilirubin was still elevated at 5.7 mg/dL with the direct bilirubin normal at 0.60 mg/dL. LDH was normal at 218 U/L. The haptoglobin level was low at 21.9 mg/dL. HEMA was negative. B12 and folate levels were normal. He was advised to stop Revlimid. During subsequent follow-up his haptoglobin level showed further decline, to as low as 9.3 mg/dL on 03/28/2017. However, at that point his hemoglobin remained adequate at 9.4 g, his bilirubin was down to 3.0 mg/dL, and his LDH remained normal. He had a follow-up CTA of the abdomen/pelvis on 03/22/2017. It again showed evidence infrarenal abdominal aortic aneurism extending to the aortic bifurcaton. It measured 4.5 x 4.6 x 4.7 cm. 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 On 05/13/2017 he underwent coronary angioplasty with stent placement of the right coronary artery. On 05/30/2017 he underwent endovascular repair of infrarenal abdominal aortic aneurysm. He tolerated both procedures well, though during that time he did require transfusion of a total of 9 U of packed red blood cells. He hen continued on aspirin 81 mg daily together with Plavix 75 mg daily. He remained off Revlimid. During subsequent follow-up, he remained transfusion dependent. He then underwent repeat bone marrow aspiration/biopsy on 08/04/2017. The marrow was hypercellular, 100% cellularity. Megakaryocytes were noted to be increased in number and there was associated megakaryocyte dyspoiesis. There was just limited dyserythropoiesis. Ring sideroblasts were present, comprising more than 50% of the nrbc population. Blasts were estimated at 9% by morphology and 4% by flow cytometry. The FISH panel for MDS was unrevealing and the standard chromosome analysis was normal. 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 His IPSS-R score calculated to 3.5 or 4.5, depending on which blast count was used. Either score was intermediate risk category. With those findings, he was advised to undergo trial of therapy with 5-azacytidine. As of 08/26/2017 his ferritin level had increased to 1076 ng/mL. At that point he began chelation therapy with Jadenu 1440 mg daily. On 08/29/2017 he began cycle 1 of treatment with 5-azacytidine. It was administered subcutaneously for 7 days. He tolerated the 5-azacytidine without acute toxicity. He subsequently developed nausea with the Jadenu, and the dosage was reduced to 720 mg daily. He continued treatment with 5-azacytidine at 4-week intervals. He required further transfusions on 10/11/2017, on 10/18/2017, and on 11/09/2017. Thereafter his hemoglobin level stabilized above transfusion threshold. During subsequent follow-up, he had some adjustments in his treatment interval, but he remained transfusion independent. As of July 2018 he was able to stop Jadenu, with his ferritin level having decreased to 357 ng/mL. His other medical illnesses include hypertension, hyperlipidemia, atrial fibrillation, coronary artery disease, peripheral arterial disease, GERD, and nephrolithiasis. He also has fairly long-standing psoriasis. In the past he had been on treatment with methotrexate. His procedural history includes coronary angioplasty/stent placement followed by endovascular repair of abdominal aortic aneurysm in May 2017. He had previously smoked 2 packs of cigarettes daily, but he quit smoking more than 20 years ago. INTERIM HISTORY: In November 2018 he began to show gradual decline in his hemoglobin, though it continued to fluctuate between 8 and 9 g. As of 01/15/2019 it had further decreased to 7.5 g, at which point he did receive a PRBC transfusion. He continued with cycle 15 of 5-azacytidine on 02/12/2019. He was then transfused again on 02/27/2019 with his hemoglobin back down to 7.1 g. During the past month or so he had developed significant worsening of his back pain. He also is having pain in his left rib cage area following some minor trauma. A bone scan on 03/12/2019 showed a punctate area of bony uptake involving the left anterior approximately fifth rib, consistent with trauma. There was noted to be a compression fracture with bony uptake involving a midthoracic vertebral body. Diffuse patchy uptake involving the calvarium was felt to be likely related to the myelodysplastic syndrome and bone marrow hyperplasia. On 04/13/2019 he presented to the emergency room with worsening back pain. CT abdomen/pelvis at that time showed multiple chronic compression fracture deformities but with progressed height loss of L1 compared to the prior exam and with mild adjacent soft tissue edema compatible with new/progressive L1 fracture. There was minimal retropulsed bone measuring up to 3 mm. There was no critical stenosis. Also noted was a new fracture of the superior endplate of T9 without any retropulsed bone. There was evidence of partial small bowel obstruction with a gradual change to collapsed loops of bowel. I had seen him for a follow-up visit on 05/10/2019. At that point he was still having severe back pain, presumably due to the vertebral compression fractures, and he had very limited activity. He continue transfusion support for the anemia. He is seen for a follow-up visit. He has been feeling a little better generally since he got a hospital bed at home. His back pain is not as severe, and he has been able to sleep better. He still has limited activity, but he is getting up and around a little better. His ECOG score is 2. His appetite has been okay, but he has early satiety. He has been losing weight. He does not have fever. Lately he has not had any night sweating. His breathing is a little tight. He continues to have pain around his lower rib cage on both sides, coming from his back. He has constipation, which she is managing with Dulcolax and MiraLAX. He is intermittently having loose stools with that. Urination is slow and frequent, but bladder function remains adequate. He also has fairly generalized joint pain. He occasionally has headache. He says he is frequently lightheaded. He has numbness/tingling in his toes. Medications: Aspirin 1 (81 mg) Tablet, enteric coated Oral daily, B-6 1 (200 mg) Tablet Oral t.i.d., diazePAM 1 (2 mg) Tablet Oral t.i.d. PRN, Digoxin 1 (125 mcg) Tablet Oral daily, Folic Acid 1 (1 mg) Tablet Oral daily, Lidocaine 1 patch(es) (of 5 %) Patch Topical daily PRN, Metoprolol Tartrate 1 Tablet (of 50 mg) Oral daily, oxyCODONE HCl 1 (5 mg) Tablet Oral q 8 hours, Plavix 1 (75 mg) Tablet Oral daily, Pravastatin Sodium 1 Tablet (of 20 mg) Oral daily, Tamsulosin HCl 1 Tablet (of 0.4 mg) Capsule Oral b.i.d., Tylenol 1 - 2 Tablet (of 500 mg) Oral PRN Allergies: No Known Allergies. Review of Systems: Constitutional - His still has limited activity due to his back pain, but he is up and around a little more. Appetite is OK, but he has early satiety. He has lost weight. He does not have fever or night sweats. ECOG score is 2, ENMT - He has chronic postnasal drip. His mouth is sometimes sore. No sore throat or difficulty swallowing, Hematologic/Lymphatic - He has easy bruising, Respiratory - He his breathing is a little tight. He does not complain of cough. No hemoptysis, Cardiovascular - His chest feels a little tight. No palpitations, Gastrointestinal - No nausea or vomiting. No heartburn or acid reflux. He has constipation. No blood in the stool or black stools, Genitourinary (M) - Urination is slow and somewhat frequent. No dysuria or hematuria. No urgency or incontinence, Musculoskeletal - He has back pain, but not as severe. He still has some pain at the bottom of his rib cage on both sides, Neurologic - He occasionally has headache. He is frequently lightheaded. He has numbness and tingling in his toes, Psychiatric - No anxiety or depression. He has been sleeping better since he got a hospital bed at home. Vital Signs: Performed on Jun 19, 2019 11:57 Height - 76.00 in Weight - 193 lbs (LOW) BSA - 2.18 sq.m BMI - 23.49 Temperature - 97.3 F (LOW) Pulse - 84 /min Respiration - 84 /min (HIGH) BP - 113/59 mm(hg) O2 Sat - 99 % Pain - 5 Physical Examination: Constitutional - He still has limted mobility, but he looks a little better generally, Eyes - Sclerae nonicteric. Conjunctivae clear, ENMT - No lesions noted in the oral cavity, Hematologic/Lymphatic - No cervical, clavicular, or axillary adenopathy, Respiratory - Lungs sound clear with some decrease in air movement bilaterally, Cardiovascular - Heart rhythm is irregular. There is a II/ systolic murmur. There is no gallop or rub noted, Abdomen - Soft. Liver and spleen are not enlarged. There is no abdominal mass or ascites noted and there is no inguinal adenopathy, Extremities - There are venous stasis changes bilaterally. There is mild edema, Neurologic - No focal neurologic deficits noted. Lab/Imaging: Test performed on Jun 11, 2019 08:15 WBC 4.4 10 3/uL RBC 2.54 10 6/uL HGB 8.4 g/dL HCT 27.0 % MCV 106.3 fL MCH 33.1 pg MCHC 31.1 g/dL RDW 19.6 % Platelet Count 273 10 3/cmm MPV 10.9 fL Neutrophils 3.3 10 3/uL Lymphocytes 0.8 10 3/uL Monocytes 0.3 10 3/uL Eosinophils 0.0 10 3/uL Basophils 0.0 10 3/uL Neutrophil % 74.6 % Lymphocyte % 17.2 % Monocyte % 7.0 % Eosinophil % 0.2 % Basophils % 0.5 % Impression: 1. The patient has a moderately severe macrocytic anemia. Bone marrow aspiration/biopsy on 10/15/2015 showed hypercellular marrow, estimated 90-95%. There was mild erythroid dyspoiesis and there were ringed sideroblasts identified, estimated at less than 5-10% of the population. Iron stores were 3+. The FISH panel for MDS showed no abnormalities. A standard chromosome study showed no metaphases for analysis. Overall, the findings were consistent with myelodysplastic syndrome (refractory cytopenia with unileage dysplasia) versus idiopathic cytopenia of undetermined significance. 2. 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 This is probably of no clinical significance other than he may be more prone to iron overload if he does become transfusion dependent. His other medical illnesses include: 3. Hypertension. 4. Hyperlipidemia. 5. Peptic ulcer disease/GERD. 6. Nephrolithiasis. 7. He has a history of atrial fibrillation. 8. He has an abdominal aortic aneurysm. In December 2015 he began a trial of therapy with Procrit after his hemoglobin had dropped to 8.2 g. As of 01/13/2016 the dosage was escalated to 60,000 U weekly, as his hemoglobin at that point was basically stable at 8.5 g. He did show some response, with his hemoglobin increasing to 10.1g. It had subsequently drifted downward. As of his visit on 08/04/2016 his hemoglobin was down to 7.9 g. At that point the Procrit was discontinued. He began treatment with Revlimid 10 mg daily on 08/16/2016. He had noticed some worsening of his psoriasis after starting the Revlimid, but he has otherwise tolerated it well. His hemoglobin initially appeared to have stabilized in the range of 9.5 to 10 g. As of 02/15/2017 his hemoglobin had declined to 8 g. On 03/11/2017 he was confirmed to have influenza by nasal swab. His hemoglobin at that point had dropped to 6.5 g and he had become overtly jaundiced. He was transfused PRBC. 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 At that point I did opt to stop the Revlimid. During subsequent follow-up, his haptoglobin level recovered to normal and his bilirubin level returned to baseline. His LDH remained normal. He underwent coronary angioplasty/stent placement on 05/12/2017 and on 05/30/2017 he underwent endovascular repair of infrarenal abdominal aortic aneurysm. He then continued on prophylaxis with aspirin 81 mg daily and Plavix 75 mg daily. During subsequent followup he remained transfusion dependent. His repeat bone marrow aspiration/bipsy on 08/04/2017 showed 100% cellularity with associated megakaryocyte dyspoiesis and limited dyserythropoiesis. Ring sideroblasts were present, comprising more than 50% of the nrbc population. Blasts were estimated at 9% by morphology and 4% by flow cytometry. The FISH panel for MDS was unrevealing and the standard chromosome analysis was normal. 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 His IPSS-R score calculated to 3.5 or 4.5, depending on which blast count was used. Either score was intermediate risk category. As of 08/26/2017 his serum ferritin had increased to 1076 ng/mL, and he began treatment with Jadenu 1440 mg daily. He then began a course of treatment of 5-azacytidine, cycle 1 day 1 on 08/29/2017. It was administered subcutaneously for 7 days. He tolerated the treatment without any acute toxicity. He proceeded with cycle 2 of 5-azacytidine on 10/03/2017, and he then continued treatment at 4-week intervals. He continued to require transfusion up until 11/08/2017, but his hemoglobin then stabilized in the range of 10-11 g. During that time he had mild to moderately severe neutropenia and thrombocytopenia, and beginning with the 6th cycle I did make some adjustments in the treatment interval. He then continued to tolerate the treatment well, and he remained transfusion independent. However, by November 2018 there had been a gradual decline in his hemoglobin, which at that point was fluctuating between 8 and 9 g. As of 01/15/2019 the hemoglobin had dropped to 7.5 g, and he was then transfused 2 units PRBC. It was his first transfusion since November 2017. On 02/12/2019 he continued with cycle 15 of 5-azacytidine. He required transfusion again on 02/27/2019 with hemoglobin back down to 7.1 g. During followup he had been showing some decline in his performance status. He had developed significant worsening of his back pain, and bone scan did show evidence of a vertebral compression fracture in the mid thoracic spine. As he was clearly not responding to the 5-azacytidine, I did opt to stop the treatmnent. He then continued to be supported with PRBC transfusion as needed. In the meantime, his back pain had continued to worsen. A CT abdomen/pelvis done through the emergency room on 04/13/2019 showed increased fracture at L1 and some new compression fracture at T9. Management has been problematic, as he has had somewhat poor tolerance for pain medication. He has remained transfusion dependent. Plan: He continues fentanyl 25 mcg/h along with oxycodone/APAP as needed for the pain. At this point he is continuing transfusion support as needed, but he has now been approved for trial of therapy with luspatercept, which I anticipate starting next week. In the meantime, he is scheduled to go to [place] on for a procedure on his back, which I assume is either a vertebroplasty or kyphoplasty. Signed By: Ammon Lew M.D. <<Signature on File>>
[2019-06-25 19:31] LABS: Basophils % 0.6 %; Eosinophils % 0.6 %; Hematocrit 26.9 % (42.0-52.0); Hemoglobin 8.4 g/dL (11.7-16.6); Lymphocytes # 0.9 10^3/uL (0.8-4.8); Lymphocytes % 25.6 %; Mean Corpuscular HGB Conc 31.2 g/dL (30.0-36.0); Mean Corpuscular Hemoglobin 31.7 pg (28.0-34.0); Mean Corpuscular Volume 101.5 fL (80-94); Mean Platelet Volume 10.4 fL (7.4-10.4); Monocytes # 0.3 10^3/uL (0.2-0.9); Neutrophils # 2.2 10^3/uL (1.8-7.7); Neutrophils % 64.6 %; Nucleated Red Blood Cells % 0 %; Platelet Count 252 10^3/cmm (130-400); Red Blood Count 2.65 10^6/uL (4.1-5.3); Red Cell Distribution Width 18.5 % (12.1-15.1); White Blood Count 3.4 10^3/uL (4.0-10.0)
[2019-06-25 20:49] LABS: Alanine Aminotransferase 17 U/L (0-41); Albumin Level 4.4 g/dL (3.5-5.2); Alkaline Phosphatase 86 IU/L (40-130); Anion Gap 18.1 (5-19); Aspartate Amino Transferase 20 U/L (0-40); Blood Urea Nitrogen 12 mg/dL (8-23); Calcium 9.5 mg/dL (8.5-10.5); Carbon Dioxide 26 mmol/L (22-29); Chloride 101 mmol/L (98-107); Ferritin 938 ng/mL (30-400); Globulin 2.6 g/dL (1.3-4.6); Glucose 111 mg/dL (65-115); Iron 172 ug/dL (59-158); Lactate Dehydrogenase 208 U/L (135-225); Osmolality Calculated 289 mOsm/kg (285-295); Potassium 4.1 mmol/L (3.5-5.1); Sodium 141 mmol/L (136-145)
[2019-06-25 23:06] LABS: Unsaturated Iron Binding < 17 ug/dL (112-347)
== END 2019-06-26 23:59 | disposition home or self-care (01) ==
LOC: ONCMED 06:48
PROVIDERS: Family Provider Internal Medicine; PCP Internal Medicine; Visit Provider Internal Medicine Medical Oncology
DX: D46.Z Other myelodysplastic syndromes (principal); M48.56XA Collapsed vertebra, not elsewhere classified, lumbar region, initial encounter for fracture; M48.54XA Collapsed vertebra, not elsewhere classified, thoracic region, initial encounter for fracture; I10 Essential (primary) hypertension; E78.5 Hyperlipidemia, unspecified; I48.91 Unspecified atrial fibrillation; I25.10 Atherosclerotic heart disease of native coronary artery without angina pectoris; K21.9 Gastro-esophageal reflux disease without esophagitis; Z87.442 Personal history of urinary calculi; L40.9 Psoriasis, unspecified; E83.110 Hereditary hemochromatosis; K59.00 Constipation, unspecified; Z79.899 Other long term (current) drug therapy; Z79.82 Long term (current) use of aspirin; Z79.891 Long term (current) use of opiate analgesic; Z79.02 Long term (current) use of antithrombotics/antiplatelets; Z95.5 Presence of coronary angioplasty implant and graft; Z87.11 Personal history of peptic ulcer disease; Z87.891 Personal history of nicotine dependence
CPT/HCPCS: 36415; 36430; 80053; 82728; 83540; 83550; 83615; 85025; 86850; 86900; 86920; 96372; 99214; C9399; J1940; J7050; P9040

== ENCOUNTER 2019-07-03 06:44 | Outpatient (RCR) | payer OTHER, SELFPAY ==
[2019-07-02 13:16] LABS: Basophils % 0.4 %; Eosinophils % 0.4 %; Hematocrit 24.9 % (42.0-52.0); Hemoglobin 7.8 g/dL (11.7-16.6); Lymphocytes # 0.8 10^3/uL (0.8-4.8); Lymphocytes % 18.2 %; Mean Corpuscular HGB Conc 31.3 g/dL (30.0-36.0); Mean Corpuscular Hemoglobin 31.7 pg (28.0-34.0); Mean Corpuscular Volume 101.2 fL (80-94); Mean Platelet Volume 10.1 fL (7.4-10.4); Monocytes # 0.4 10^3/uL (0.2-0.9); Monocytes % 7.8 %; Neutrophils # 3.3 10^3/uL (1.8-7.7); Neutrophils % 72.1 %; Nucleated Red Blood Cells % 0.4 %; Platelet Count 280 10^3/cmm (130-400); Red Blood Count 2.46 10^6/uL (4.1-5.3); Red Cell Distribution Width 18.8 % (12.1-15.1); White Blood Count 4.6 10^3/uL (4.0-10.0)
[2019-07-03] VITALS (8 sets, daily range): BP systolic 95–139; BP diastolic 48–88; PULSE 71–82; RESP 17–18; TEMP 36.2–36.9; O2SAT 94–99
[2019-07-03] MEDS: sodium chloride 0.9% 250 ML 999 ML IV (10:20)
[2019-07-03] MEDS: acetaminophen 325 mg Tablet 650 MG PO (10:20)
[2019-07-03] MEDS: HYDROmorphone 1 mg/mL INJ 1 mL 2 MG IV (10:25)
[2019-07-03] MEDS: diphenhydrAMINE 25 mg Capsule PO (10:58)
--- NOTE | 2019-07-04 12:15 | ONC FU_ITS ---
Dr. Lew Patient Follow-Up Note Patient: José Miguel Bonilla Unit #: [id number]: [id number] Dicatated By: Ammon Lew M.D.Date of Visit:Jul 03, 2019 Onc Med Follow-up/Prog Note Chief Complaint: Myelodysplastic syndrome. History of Present Illness: This is a 79 year-old man with myelodysplastic syndrome (MDS with unilineage dysplasia). He was seen initially on 09/30/2015 in regard to a moderately severe anemia. The available records included multiple blood counts dating back to August 2014. At that time his hemoglobin was 10.3 g with white blood cell count 6400 and platelet count 325,000. The red cell indices were macrocytic with MCV 110 and MCH 37. A more recent CBC, from 08/20/2015, showed a hemoglobin down to 9.7 g with hematocrit 29%. The red cell indices were similar. White blood cell count was 4900 and platelet count was 337,000. The differential showed 56% neutrophils, 30% lymphocytes, and 10% monocytes. B12 was checked several times and was normal. Folate level was low at 6.7 ng/mL. The serum iron was normal at 141 mcg/dL. 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 He had negative stool Hemoccult, though an upper GI endoscopy apparently did show ulcers. Colonoscopy was unremarkable. His evaluation also included CT abdomen/pelvis in May 2015. It showed an aneurysm of the distal abdominal aorta extending to, but not into, the bifurcation. It appeared stable compared to a previous study from March 2013. There were no acute findings noted on that study. His laboratory studies on 09/30/2015 included CBC showing hemoglobin 9.4 g, white blood cell count 6400, and platelet count 420,000. The red cell indices were macrocytic with MCV 110 and MCH 37. The uncorrected reticulocyte count was 2.0%. Comprehensive metabolic profile was unremarkable except for mildly elevated total bilirubin at 2.9 mg/dL. The liver enzymes were normal.. LDH was normal at 183 mg/dL and haptoglobin was low normal at 53 mg/dL. Ferritin was elevated at 520 ng/mL. The homocysteine level was slightly elevated at 11.6 ???mol/L with methylmalonic acid normal at 198 nmol/L. Protein electrophoresis was normal. He underwent bone marrow aspiration/biopsy on 10/15/2015. The marrow was hypercellular, estimated at 90-95%. There was limited erythroid dyspoiesis. There was no evidence of infiltrative process. Blasts were reported at 0%. Iron stores were 3+ with occasional ring sideroblasts identified, estimated at less than 5-10% of the population. There was 1+/4+ reticulin staining. The chromosome analysis showed no metaphase cells for analysis. The FISH panel for MDS showed no abnormalities. 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 During subsequent follow-up his hemoglobin had declined to a low of 8.2 g/dL on 12/16/2015. His baseline erythropoietin level was 152 mIU/mL. On 12/18/2015 he began a trial of therapy with Procrit, initially at 40,000 units weekly. As of 01/13/2016, after 4 weeks of treatment, the hemoglobin was basically stable at 8.5 g. At that point the Procrit dosage was escalated to 60,000 U weekly. His hemoglobin level had subsequently increased to a maximum level 10.1 g on 03/09/2016. It then drifted downward gradually. As of 07/20/2016 it was down to 8.7 g. As of his followup visit on 08/04/2016 he had remained transfusion independent. However, after that his hemoglobin had shown further decline to 7.9 g, and at that point I did opt to stop the Procrit and transition his treatment to Revlimid. He began his treatment with Revlimid 10 mg daily on 08/16/2016. His baseline hemoglobin was 8.2 g. He did opt to have a transfusion of 2 units of packed red blood cells. Thus far he has tolerated the Revlimid well and during follow-up his blood count had stabilized with hemoglobin in the range of 9.5 g. His CBC on 11/23/2016 showed further increase in the hemoglobin to 10.4 g. As of 02/15/2017 his hemoglobin had declined somewhat, to 8 g with WBC moderately decreased at 2700 and platelet count normal at 200,000. He continued treatment with Revlimid. On 03/11/2017 he was seen at the [place] [facility] with flu-like symptoms. His nasal swab reportedly was positive for influenza, and he did start treatment with Tamiflu. His CBC showed a further decline in his hemoglobin to 6.5 g, and he was found to be jaundiced, total bilirubin 6.1 mg/dL. He was transfused 2 units of PRBC. On his further laboratory evaluation on 03/14/2017 his hemoglobin had increased to only 7.8 g. The uncorrected reticulocyte count was 3.2%. His total bilirubin was still elevated at 5.7 mg/dL with the direct bilirubin normal at 0.60 mg/dL. LDH was normal at 218 U/L. The haptoglobin level was low at 21.9 mg/dL. HEMA was negative. B12 and folate levels were normal. He was advised to stop Revlimid. During subsequent follow-up his haptoglobin level showed further decline, to as low as 9.3 mg/dL on 03/28/2017. However, at that point his hemoglobin remained adequate at 9.4 g, his bilirubin was down to 3.0 mg/dL, and his LDH remained normal. He had a follow-up CTA of the abdomen/pelvis on 03/22/2017. It again showed evidence infrarenal abdominal aortic aneurism extending to the aortic bifurcaton. It measured 4.5 x 4.6 x 4.7 cm. 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 On 05/13/2017 he underwent coronary angioplasty with stent placement of the right coronary artery. On 05/30/2017 he underwent endovascular repair of infrarenal abdominal aortic aneurysm. He tolerated both procedures well, though during that time he did require transfusion of a total of 9 U of packed red blood cells. He hen continued on aspirin 81 mg daily together with Plavix 75 mg daily. He remained off Revlimid. During subsequent follow-up, he remained transfusion dependent. He then underwent repeat bone marrow aspiration/biopsy on 08/04/2017. The marrow was hypercellular, 100% cellularity. Megakaryocytes were noted to be increased in number and there was associated megakaryocyte dyspoiesis. There was just limited dyserythropoiesis. Ring sideroblasts were present, comprising more than 50% of the nrbc population. Blasts were estimated at 9% by morphology and 4% by flow cytometry. The FISH panel for MDS was unrevealing and the standard chromosome analysis was normal. 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 His IPSS-R score calculated to 3.5 or 4.5, depending on which blast count was used. Either score was intermediate risk category. With those findings, he was advised to undergo trial of therapy with 5-azacytidine. As of 08/26/2017 his ferritin level had increased to 1076 ng/mL. At that point he began chelation therapy with Jadenu 1440 mg daily. On 08/29/2017 he began cycle 1 of treatment with 5-azacytidine. It was administered subcutaneously for 7 days. He tolerated the 5-azacytidine without acute toxicity. He subsequently developed nausea with the Jadenu, and the dosage was reduced to 720 mg daily. He continued treatment with 5-azacytidine at 4-week intervals. He required further transfusions on 10/11/2017, on 10/18/2017, and on 11/09/2017. Thereafter his hemoglobin level stabilized above transfusion threshold. During subsequent follow-up, he had some adjustments in his treatment interval, but he remained transfusion independent. As of July 2018 he was able to stop Jadenu, with his ferritin level having decreased to 357 ng/mL. His other medical illnesses include hypertension, hyperlipidemia, atrial fibrillation, coronary artery disease, peripheral arterial disease, GERD, and nephrolithiasis. He also has fairly long-standing psoriasis. In the past he had been on treatment with methotrexate. His procedural history includes coronary angioplasty/stent placement followed by endovascular repair of abdominal aortic aneurysm in May 2017. He had previously smoked 2 packs of cigarettes daily, but he quit smoking more than 20 years ago. INTERIM HISTORY: In November 2018 he began to show gradual decline in his hemoglobin, though it continued to fluctuate between 8 and 9 g. As of 01/15/2019 it had further decreased to 7.5 g, at which point he did receive a PRBC transfusion. He continued with cycle 15 of 5-azacytidine on 02/12/2019. He was then transfused again on 02/27/2019 with his hemoglobin back down to 7.1 g. During the past month or so he had developed significant worsening of his back pain. He also is having pain in his left rib cage area following some minor trauma. A bone scan on 03/12/2019 showed a punctate area of bony uptake involving the left anterior approximately fifth rib, consistent with trauma. There was noted to be a compression fracture with bony uptake involving a midthoracic vertebral body. Diffuse patchy uptake involving the calvarium was felt to be likely related to the myelodysplastic syndrome and bone marrow hyperplasia. On 04/13/2019 he presented to the emergency room with worsening back pain. CT abdomen/pelvis at that time showed multiple chronic compression fracture deformities but with progressed height loss of L1 compared to the prior exam and with mild adjacent soft tissue edema compatible with new/progressive L1 fracture. There was minimal retropulsed bone measuring up to 3 mm. There was no critical stenosis. Also noted was a new fracture of the superior endplate of T9 without any retropulsed bone. There was evidence of partial small bowel obstruction with a gradual change to collapsed loops of bowel. I had seen him for a follow-up visit on 05/10/2019. At that point he was still having severe back pain, presumably due to the vertebral compression fractures, and he had very limited activity. He continued transfusion support for the anemia. [facility] [place] [facility], I assume either a vertebroplasty or a kyphoplasty. On 06/26/2019 he began a trial of therapy with luspatercept 1 mg/kg by subcutaneous injection every 3 weeks for the myelodysplastic syndrome. He is seen for a follow-up visit. He had no adverse effects from the injection last week. He initially did have improvement in the back pain following the procedure, but recently he has been having more pain again. In addition to the low back pain, he also complains that his ribs are sore. His energy is pretty low. He tires very easily with activity. His ECOG score is 2. His appetite is not as good. He has not had fever. He does have sweating when his pain picks up. He has having some chest discomfort when he breathes, he does have some shortness of breath. He is having some nausea. Bowel function has been adequate with MiraLAX. His urinary stream is slow, but bladder function remains adequate. He is having pain in association with a right inguinal hernia. He is going to be seeing Dr. Altamirano about that. Medications: Aspirin 1 (81 mg) Tablet, enteric coated Oral daily, B-6 1 (200 mg) Tablet Oral t.i.d., Digoxin 1 (125 mcg) Tablet Oral daily, Folic Acid 1 (1 mg) Tablet Oral daily, Lidocaine 1 patch(es) (of 5 %) Patch Topical daily PRN, Metoprolol Tartrate 1 Tablet (of 50 mg) Oral daily, oxyCODONE-Acetaminophen 1 Tablet (of 5-325 mg) Oral four times a day PRN, Plavix 1 (75 mg) Tablet Oral daily, Pravastatin Sodium 1 Tablet (of 20 mg) Oral daily, Reblozyl 1 Subcutaneous q 3 weeks, Tamsulosin HCl 1 Tablet (of 0.4 mg) Capsule Oral b.i.d., Tylenol 1 - 2 Tablet (of 500 mg) Oral PRN Allergies: No Known Allergies. Review of Systems: Constitutional - His energy level is very low. He has very limited activity following his recent back procedure. His appetite is poor but his weight is stable. No fever or chills. He is having sweating episodes due to increased pain. ECOG score is 2, ENMT - No sinus congestion/drainage. He has a mouth sores. No sore throat or difficulty swallowing, Hematologic/Lymphatic - No abnormal bruising or bleeding, Respiratory - He gets shortness of breath with any activity. No cough. He is having pleuritic pain or hemoptysis, Cardiovascular - No angina pain. No palpitations, Gastrointestinal - He is having nausea. No vomiting. He is having some heartburn, and he is taking Tums for it. No diarrhea or constipation. No blood in the stool or black stools, Genitourinary (M) - No dysuria or hematuria. He has urinary frequency at night. No urgency or incontinence. He has some hestitancy, Musculoskeletal - He is having right groin pain associated with a hernia. He is still having lower back pain, Integumentary - No skin complications, Neurologic - He is having occasional headaches. He has some dizziness. He has some numbness in his toes and fingers, Psychiatric - He has some nervousness. No depression. He has difficulty sleeping insomnia. Vital Signs: Performed on Jul 03, 2019 09:28 Height - 76.00 in Weight - 190.0 lbs (LOW) BSA - 2.17 sq.m BMI - 23.13 Temperature - 97.8 F (LOW) Pulse - 94 /min Respiration - 26 /min BP - 122/66 mm(hg) O2 Sat - 99 % Pain - 6 Physical Examination: Constitutional - He appears to be in significant discomfort, Eyes - Sclerae nonicteric. Conjunctivae clear, ENMT - No lesions noted in the oral cavity, Hematologic/Lymphatic - No cervical, clavicular, or axillary adenopathy, Respiratory - Lungs sound clear with some decrease in air movement bilaterally, Cardiovascular - Heart rhythm is irregular. There is a II/ systolic murmur. There is no gallop or rub noted, Abdomen - Soft. Liver and spleen are not enlarged. There is no abdominal mass or ascites noted and there is no inguinal adenopathy, Extremities - There are venous stasis changes bilaterally. There is just slight edema, Neurologic - No focal neurologic deficits noted. Lab/Imaging: CBC shows hemoglobin 7.8 g, white blood cell count 4600, and platelet count 280,000. Impression: 1. The patient has a moderately severe macrocytic anemia. Bone marrow aspiration/biopsy on 10/15/2015 showed hypercellular marrow, estimated 90-95%. There was mild erythroid dyspoiesis and there were ringed sideroblasts identified, estimated at less than 5-10% of the population. Iron stores were 3+. The FISH panel for MDS showed no abnormalities. A standard chromosome study showed no metaphases for analysis. Overall, the findings were consistent with myelodysplastic syndrome (refractory cytopenia with unileage dysplasia) versus idiopathic cytopenia of undetermined significance. 2. 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 This is probably of no clinical significance other than he may be more prone to iron overload if he does become transfusion dependent. His other medical illnesses include: 3. Hypertension. 4. Hyperlipidemia. 5. Peptic ulcer disease/GERD. 6. Nephrolithiasis. 7. He has a history of atrial fibrillation. 8. He has an abdominal aortic aneurysm. In December 2015 he began a trial of therapy with Procrit after his hemoglobin had dropped to 8.2 g. As of 01/13/2016 the dosage was escalated to 60,000 U weekly, as his hemoglobin at that point was basically stable at 8.5 g. He did show some response, with his hemoglobin increasing to 10.1g. It had subsequently drifted downward. As of his visit on 08/04/2016 his hemoglobin was down to 7.9 g. At that point the Procrit was discontinued. He began treatment with Revlimid 10 mg daily on 08/16/2016. He had noticed some worsening of his psoriasis after starting the Revlimid, but he has otherwise tolerated it well. His hemoglobin initially appeared to have stabilized in the range of 9.5 to 10 g. As of 02/15/2017 his hemoglobin had declined to 8 g. On 03/11/2017 he was confirmed to have influenza by nasal swab. His hemoglobin at that point had dropped to 6.5 g and he had become overtly jaundiced. He was transfused PRBC. 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 At that point I did opt to stop the Revlimid. During subsequent follow-up, his haptoglobin level recovered to normal and his bilirubin level returned to baseline. His LDH remained normal. He underwent coronary angioplasty/stent placement on 05/12/2017 and on 05/30/2017 he underwent endovascular repair of infrarenal abdominal aortic aneurysm. He then continued on prophylaxis with aspirin 81 mg daily and Plavix 75 mg daily. During subsequent followup he remained transfusion dependent. His repeat bone marrow aspiration/bipsy on 08/04/2017 showed 100% cellularity with associated megakaryocyte dyspoiesis and limited dyserythropoiesis. Ring sideroblasts were present, comprising more than 50% of the nrbc population. Blasts were estimated at 9% by morphology and 4% by flow cytometry. The FISH panel for MDS was unrevealing and the standard chromosome analysis was normal. 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 His IPSS-R score calculated to 3.5 or 4.5, depending on which blast count was used. Either score was intermediate risk category. As of 08/26/2017 his serum ferritin had increased to 1076 ng/mL, and he began treatment with Jadenu 1440 mg daily. He then began a course of treatment of 5-azacytidine, cycle 1 day 1 on 08/29/2017. It was administered subcutaneously for 7 days. He tolerated the treatment without any acute toxicity. He proceeded with cycle 2 of 5-azacytidine on 10/03/2017, and he then continued treatment at 4-week intervals. He continued to require transfusion up until 11/08/2017, but his hemoglobin then stabilized in the range of 10-11 g. During that time he had mild to moderately severe neutropenia and thrombocytopenia, and beginning with the 6th cycle I did make some adjustments in the treatment interval. He then continued to tolerate the treatment well, and he remained transfusion independent. However, by November 2018 there had been a gradual decline in his hemoglobin, which at that point was fluctuating between 8 and 9 g. As of 01/15/2019 the hemoglobin had dropped to 7.5 g, and he was then transfused 2 units PRBC. It was his first transfusion since November 2017. On 02/12/2019 he continued with cycle 15 of 5-azacytidine. He required transfusion again on 02/27/2019 with hemoglobin back down to 7.1 g. During followup he had been showing some decline in his performance status. He had developed significant worsening of his back pain, and bone scan did show evidence of a vertebral compression fracture in the mid thoracic spine. As he was clearly not responding to the 5-azacytidine, I did opt to stop the treatmnent. He then continued to be supported with PRBC transfusion as needed. In the meantime, his back pain had continued to worsen. A CT abdomen/pelvis done through the emergency room on 04/13/2019 showed increased fracture at L1 and some new compression fracture at T9. Management has been problematic, as he has had somewhat poor tolerance for pain medication. He recently [facility] a [facility] in [place] [facility], either kyphoplasty or vertebroplasty, I assume. He initially was getting some benefit, but in the last few days he has been having more back pain. He also reports having pain in association with a right inguinal hernia, which had worsened in association with some straining while he was on the stool. In the meantime, on 06/26/2019 he began a trial of therapy with luspatercept. He had no adverse effects with the initial injection. At this point he is still significantly anemic. Plan: He will continue symptomatic management for the back pain. He will be transfused 2 units PRBC today. Blood counts will be monitored weekly. I will see him again in 2 weeks. Signed By: Ammon Lew M.D. <<Signature on File>>
== END 2019-07-05 23:59 | disposition home or self-care (01) ==
LOC: ONCMED 06:44
PROVIDERS: Family Provider Internal Medicine; PCP Internal Medicine; Visit Provider Internal Medicine Medical Oncology
DX: D46.Z Other myelodysplastic syndromes (principal); M48.54XD Collapsed vertebra, not elsewhere classified, thoracic region, subsequent encounter for fracture with routine healing; M48.56XD Collapsed vertebra, not elsewhere classified, lumbar region, subsequent encounter for fracture with routine healing; I10 Essential (primary) hypertension; E78.5 Hyperlipidemia, unspecified; K27.9 Peptic ulcer, site unspecified, unspecified as acute or chronic, without hemorrhage or perforation; K21.9 Gastro-esophageal reflux disease without esophagitis; N20.0 Calculus of kidney; I48.91 Unspecified atrial fibrillation; I71.4 Abdominal aortic aneurysm, without rupture; K40.90 Unilateral inguinal hernia, without obstruction or gangrene, not specified as recurrent; Z79.02 Long term (current) use of antithrombotics/antiplatelets; Z79.82 Long term (current) use of aspirin
CPT/HCPCS: 36415; 36430; 85025; 86850; 86900; 86920; 99214; J1170; J7050; P9040

== ENCOUNTER 2019-07-09 06:03 | Outpatient (RCR) | payer OTHER, SELFPAY ==
[2019-07-09 13:15] LABS: Basophils % 0.8 %; Eosinophils % 0.6 %; Hematocrit 27.1 % (42.0-52.0); Hemoglobin 8.4 g/dL (11.7-16.6); Lymphocytes # 0.9 10^3/uL (0.8-4.8); Lymphocytes % 25.5 %; Mean Corpuscular Hemoglobin 31.1 pg (28.0-34.0); Mean Corpuscular Volume 100.4 fL (80-94); Mean Platelet Volume 10.8 fL (7.4-10.4); Monocytes # 0.3 10^3/uL (0.2-0.9); Monocytes % 7.6 %; Neutrophils # 2.3 10^3/uL (1.8-7.7); Neutrophils % 64.7 %; Nucleated Red Blood Cells % 0 %; Platelet Count 259 10^3/cmm (130-400); Red Cell Distribution Width 17.8 % (12.1-15.1); White Blood Count 3.5 10^3/uL (4.0-10.0)
== END 2019-07-09 23:59 | disposition home or self-care (01) ==
LOC: ONCMED 06:03
PROVIDERS: PCP Internal Medicine; Visit Provider Internal Medicine Medical Oncology
DX: E83.111 Hemochromatosis due to repeated red blood cell transfusions (principal); D46.Z Other myelodysplastic syndromes; D64.9 Anemia, unspecified
CPT/HCPCS: 36415; 85025

== ENCOUNTER 2019-07-09 10:25 | Day surgery (SDC) | payer OTHER, SELFPAY ==
[2019-07-06 10:07] VITALS: BMI 22.6
--- NOTE | 2019-07-06 10:12 | ECG_ITS ---
Measurements Intervals [place] Rate: 78 P: 22 IL: 135 QRS: 4 QRSD: 98 T: 19 QT: 375 QTc: 428 SINUS RHYTHM VOLTAGE CRITERIA FOR LVH [MEETS CRITERIA IN ONE OF: R(aVL), S(V1), R(V5), R(V5/V6) +S(V1)] Compared to ECG 04/13/2019 17:37:44 Left ventricular hypertrophy now present ST (T wave) deviation no longer present Electronically Signed On 07-06-2019 15:47:11 CDT by Lizet Calderón M.D. [email or web address]
--- NOTE | 2019-07-06 10:44 | ANES.PREANE2 ---
Pre-Anesthetic Assessment Pre-Anesthetic Assessment: Height/Weight: Height 1.93 m Weight 84.368 kg Preop Diagnosis: Symptomatic right inguinal hernia Proposed Procedure: Operation Date: 07/09/19 12:00 Proposed Procedures p Open right Inguinal Hernia Repair w/ Mesh [id number] K46.9(Right) - Oscar Altamirano MD Familial anesthetic complications: developed A fib during his gallbladder surgery and they needed to cardiovert/shock him (10 years ago) Social: Social History: No alcohol and No tobacco Exam: Pre-Anes Outpt Exam: alert, oriented x 3, clear to auscultation bilaterally and regular rate & rhythm Airway: Cervical ROM: WNL MP: 4 Dentition: Chipped Pulmonary: Pulmonary: None reported CV/HEM: CV/HEM: CAD (stent > 2 years ago) and HTN : : None reported Hepatic: Hepatic: None reported GI: GI: None reported Metabolic: Metabolic: Hyperlipidemia Comments: leukemia Musc/skel: Musc/skel: Lower Back Pain Comments: raz got bad bones due to leukemia. My bones hurt. I crack ribs real easy Neuropsych: Neuropsych: None reported Anesthetic Plan: ASA status: 3 Anesthesia: General Risk of > 500 ml blood loss (7ml/kg in children): No PFSH Anesthesia PFSH: Social History Smoking and tobacco status: former smoker Data Anesthesia Cardiac Studies: No Data to Display
[2019-07-06 10:58] LABS: Basophils % 0.3 %; Eosinophils % 0.2 %; Hematocrit 30.1 % (42.0-52.0); Hemoglobin 9.8 g/dL (11.7-16.6); Lymphocytes # 1.1 10^3/uL (0.8-4.8); Lymphocytes % 17.8 %; Mean Corpuscular HGB Conc 32.6 g/dL (30.0-36.0); Mean Corpuscular Hemoglobin 31.6 pg (28.0-34.0); Mean Corpuscular Volume 97.1 fL (80-94); Mean Platelet Volume 10.4 fL (7.4-10.4); Monocytes # 0.5 10^3/uL (0.2-0.9); Monocytes % 7.5 %; Neutrophils # 4.7 10^3/uL (1.8-7.7); Neutrophils % 73.7 %; Nucleated Red Blood Cells % 0 %; Platelet Count 303 10^3/cmm (130-400); Red Cell Distribution Width 17.6 % (12.1-15.1); White Blood Count 6.3 10^3/uL (4.0-10.0)
[2019-07-09] VITALS (7 sets, daily range): BP systolic 96–126; BP diastolic 53–63; PULSE 69–98; RESP 14–18; TEMP 36.3–37.2; O2SAT 93–99
[2019-07-09] MEDS: sodium chloride 0.9% 1,000 ML 30 ML IV (10:58)
--- NOTE | 2019-07-09 11:15 | P.ANESUD_ITS ---
Pre-Anesthetic Update Pre-Anesthetic Assessment: Date of Surgery/Procedure: 07/09/19 Preop Cherri gnosis: Symptomatic right inguinal hernia Proposed Procedure: Operation Date: 07/09/19 12:00 Proposed Procedures p Open right Inguinal Hernia Repair w/ Mesh [id number] K46.9(Right) - Oscar Altamirano MD Any changes to Pre-Anesthetic Assessment?: No Last Intake: Intake Last Liquid Date 07/08/19 Last Liquid Time 17:00 Last Solid Date 07/08/19 Last Solid Time 17:00 Vitals: Temperature 97.4 F L 07/09/19 10:39 Temperature Source Temporal Artery S can 07/09/19 10:39 Pulse Rate 79 07/09/19 10:39 Respiratory Rate 18 07/09/19 10:39 Blood Pressure 120/60 07/09/19 10:39 Blood Pressure Windy n 80 07/09/19 10:39 Pulse Oximetry 96 07/09/19 10:39 Oxygen Delivery Me thod 07/09/19 10:39 Cardiac Studies: No Data to Display
--- NOTE | 2019-07-09 11:55 | W.PM.OPSUD ---
Surgery/Procedure H&P Update DATE OF PROCEDURE: July 09, 2019 DATE H&P PERFORMED: 07/04/19 H&P UPDATE INFORMATION: I have reviewed H&P completed within last 30 days, I have examined patient prior to procedure and No changes to prior documentation PREOP DIAGNOSIS: Symptomatic right inguinal hernia PRIMARY INDICATION FOR PROCEDURE: The same PLANNED PROCEDURE: Operation Date: 07/09/19 12:00 Proposed Procedures p Open right Inguinal Hernia Repair w/ Mesh [id number] K46.9(Right) - Oscar Altamirano MD
[2019-07-09] MEDS: lidocaine 2% INJ 20 mL INJECTION (13:16)
--- NOTE | 2019-07-09 13:20 | P.OP_ITS ---
Operative Report Date of procedure: July 09, 2019 Pre-op Diagnosis: Symptomatic right inguinal hernia Post-op diagnosis: other (Right large direct hernia and smaller indirect inguinal hernia) Procedure Done: Open right inguinal hernia repair with mesh placement X large Excision of lipoma of the cord Implants: X large polypropylene mesh Specimens removed/disposition: Lipoma of the cord Hernial sac Pathology: Surgeon: Oscar Altamirano Event Marketing Coordinator: Surgical pedro Rodriguez Anesthesia: General (Pramod Bailey) Estimated blood loss (mL): 5 Complications: No immediate complication Condition: stable Disposition: same day Brief History: This is a pleasant 79 years old gentleman referred to my office with symptomatic right groin hernia, for further evaluation and obtaining history physical exam and reviewing the previous CT scan images which showed the patient has bilateral groin hernias yet right larger than the left since the patient is more symptomatic on the right side, I did counselor/art therapist the patient for open right inguinal hernia repair with mesh placement. Informed consent per chart Blood thinners were held 5 days prior to the procedure Procedure: Patient was identified in the holding area and right groin was marked by wilma ,patient was taken to the operating room where he was placed in supine position, antibiotic was given with induction, endotracheal tube was placed per anesthesia, West catheter was inserted by the circulating nurse revealing clear urine, prep and drape of both groins and lower abdomen and scrotum including the genitalia was done under the usual sterile technique. Time-out was done verifying the patient's name/date of /planned procedure destination after the procedure, all were in agreement. SCDs confirmed to be functioning, preoperative antibiotics administered per protocol, and beta miriam protocol was confirmed. I started with a right groin incision 1-1/2 finger above the inguinal ligament towards the pubic tubercle, used 15 blade knife skin incision , continued to dissect using Bovie to subcutaneous, Amador's fascia down to the external oblique aponeurosis, large right direct inguinal hernia was identified, external oblique aponeurosis was then incised using a 10 blade knife, after application of 2 hemostats across sides of the fascia and opened it, right ileo-inguinal nerve was safeguard, I managed to dissect and deliver the enlarged spermatic cord out of the wound, and placed a Argyle drain for traction and countertraction, I dissected the spermatic cord and the vas deferens is identified and safeguarded ,as I identified a right inguinal hernia sac , the hernia sac was totally dissected until I reached the deep inguinal ring, I opened the hernia sac the contents were viable. I did apply a suture with 2-0 s ilk pop off under vision where I tied down and the sac went inside the abdominal cavity and I cut the extra sac and sent it for pathology. Lipoma of the cord was excised, I was able to push gently the large preperitoneal direct hernia back to the abdominal cavity as it was viable leaving behind attenuated fascia transversalis. Attention was now deviated to mesh placement , using polypropylene mesh system was applied tension-free(X-large size), a cone was applied at the posterior wall of the inguinal canal which is the fascia transversalis stabilized by 2 Prolene sutures 3/0, then a sheet of mesh was applied onto the floor of the posterior wall of the right inguinal canal and anchored medially to the pubic tubercle then inferiorly to the underlying surface of the inguinal ligament and sup eriorly to the internal oblique aponeurosis using silk sutures 2/0, both limbs of the mesh encircled the exit of the cord at the deep inguinal ring, and stitched down. The cord maintained to be in good position thorough irrigation of the wound was done with normal saline and closure of the external oblique aponeurosis was done by 2/O Vicryl, followed by approximation of Amador's fascia by 3-0 Vicryl then 4/0 Monocryl to close the skin, dressing was then applied in the form of Dermabond. Then scrotal sub- Counts of instruments, sponges and needles were completed at the end of the procedure. Scrotal support was then placed Patient tolerated the procedure well and was taken to the recovery area after extubation I was present for the whole entire procedure
[2019-07-09] MEDS: oxyCODONE-APAP 5-325 mg Tablet 1 TAB PO (14:05)
== END 2019-07-09 14:43 | disposition home or self-care (01) ==
PROVIDERS: Anesthesiology; PCP Internal Medicine; Visit Provider Surgery
PROC: (CPT 49505; principal; 2019-07-09 12:00)
DX: K40.90 Unilateral inguinal hernia, without obstruction or gangrene, not specified as recurrent (principal); D17.6 Benign lipomatous neoplasm of spermatic cord; I48.91 Unspecified atrial fibrillation; I25.10 Atherosclerotic heart disease of native coronary artery without angina pectoris; I10 Essential (primary) hypertension; E78.5 Hyperlipidemia, unspecified; Z87.891 Personal history of nicotine dependence
CPT/HCPCS: 49505; 55520; 12345; 85025; 88302; 88304; 93005; 96365; J0131; J0690; J1100; J2001; J2370; J2405; J2704; J2710; J3010; J3490; J7030

== ENCOUNTER 2019-08-01 09:12 | Outpatient (RCR) | payer OTHER, SELFPAY ==
[2019-07-16 15:36] LABS: Alanine Aminotransferase 16 U/L (0-41); Albumin Level 4.1 g/dL (3.5-5.2); Alkaline Phosphatase 84 IU/L (40-130); Anion Gap 14.1 (5-19); Aspartate Amino Transferase 19 U/L (0-40); Blood Urea Nitrogen 11 mg/dL (8-23); Calcium 9.6 mg/dL (8.5-10.5); Carbon Dioxide 28 mmol/L (22-29); Chloride 102 mmol/L (98-107); Globulin 2.8 g/dL (1.3-4.6); Glucose 123 mg/dL (65-115); Lactate Dehydrogenase 136 U/L (135-225); Osmolality Calculated 287 mOsm/kg (285-295); Potassium 4.1 mmol/L (3.5-5.1); Sodium 140 mmol/L (136-145); Total Bilirubin 2.3 mg/dL (0.15-1.2); Total Protein 6.9 g/dL (6.6-8.7)
[2019-07-17 05:42] LABS: Basophils % 0.2 %; Eosinophils % 0.6 %; Hematocrit 26.4 % (42.0-52.0); Hemoglobin 7.9 g/dL (11.7-16.6); Lymphocytes % 19.4 %; Mean Corpuscular HGB Conc 29.9 g/dL (30.0-36.0); Mean Corpuscular Hemoglobin 32.5 pg (28.0-34.0); Mean Corpuscular Volume 108.6 fL (80-94); Mean Platelet Volume 10.5 fL (7.4-10.4); Monocytes # 0.4 10^3/uL (0.2-0.9); Monocytes % 6.9 %; Neutrophils # 3.6 10^3/uL (1.8-7.7); Neutrophils % 71.9 %; Nucleated Red Blood Cells # 0.1 /100WBC; Nucleated Red Blood Cells % 1.4 %; Platelet Count 304 10^3/cmm (130-400); Red Blood Count 2.43 10^6/uL (4.1-5.3); Red Cell Distribution Width 20.6 % (12.1-15.1)
[2019-07-17] MEDS: acetaminophen 325 mg Tablet 650 MG PO (10:15)
[2019-07-17] MEDS: sodium chloride 0.9% 250 ML 999 ML IV (10:15)
[2019-07-17] MEDS: diphenhydrAMINE 25 mg Capsule PO (10:37)
[2019-07-17 11:50] VITALS: BP 103/63; PULSE 79; RESP 79; TEMP 36.1; O2SAT 95
[2019-07-17 12:20] VITALS: BP 96/58; PULSE 75; RESP 18; TEMP 36.6; O2SAT 95
[2019-07-17 12:50] VITALS: BP 109/68; PULSE 75; RESP 18; TEMP 36.4; O2SAT 94
[2019-07-17] MEDS: FUROsemide 10 mg/mL SDV 2mL 20 MG IV (17:23)
--- NOTE | 2019-07-20 09:31 | ONC FU_ITS ---
Dr. Lew Patient Follow-Up Note Patient: José Miguel Bonilla Unit #: [id number]: 1940 Dicatated By: Ammon Lew M.D.Date of Visit:July 17, 2019 Onc Med Follow-up/Prog Note Chief Complaint: Myelodysplastic syndrome. History of Present Illness: This is a 79 year-old man with myelodysplastic syndrome (MDS with unilineage dysplasia). He was seen initially on 09/30/2015 in regard to a moderately severe anemia. The available records included multiple blood counts dating back to August 2014. At that time his hemoglobin was 10.3 g with white blood cell count 6400 and platelet count 325,000. The red cell indices were macrocytic with MCV 110 and MCH 37. A more recent CBC, from 08/20/2015, showed a hemoglobin down to 9.7 g with hematocrit 29%. The red cell indices were similar. White blood cell count was 4900 and platelet count was 337,000. The differential showed 56% neutrophils, 30% lymphocytes, and 10% monocytes. B12 was checked several times and was normal. Folate level was low at 6.7 ng/mL. The serum iron was normal at 141 mcg/dL. 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 He had negative stool Hemoccult, though an upper GI endoscopy apparently did show ulcers. Colonoscopy was unremarkable. His evaluation also included CT abdomen/pelvis in May 2015. It showed an aneurysm of the distal abdominal aorta extending to, but not into, the bifurcation. It appeared stable compared to a previous study from March 2013. There were no acute findings noted on that study. His laboratory studies on 09/30/2015 included CBC showing hemoglobin 9.4 g, white blood cell count 6400, and platelet count 420,000. The red cell indices were macrocytic with MCV 110 and MCH 37. The uncorrected reticulocyte count was 2.0%. Comprehensive metabolic profile was unremarkable except for mildly elevated total bilirubin at 2.9 mg/dL. The liver enzymes were normal.. LDH was normal at 183 mg/dL and haptoglobin was low normal at 53 mg/dL. Ferritin was elevated at 520 ng/mL. The homocysteine level was slightly elevated at 11.6 ???mol/L with methylmalonic acid normal at 198 nmol/L. Protein electrophoresis was normal. He underwent bone marrow aspiration/biopsy on 10/15/2015. The marrow was hypercellular, estimated at 90-95%. There was limited erythroid dyspoiesis. There was no evidence of infiltrative process. Blasts were reported at 0%. Iron stores were 3+ with occasional ring sideroblasts identified, estimated at less than 5-10% of the population. There was 1+/4+ reticulin staining. The chromosome analysis showed no metaphase cells for analysis. The FISH panel for MDS showed no abnormalities. 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 During subsequent follow-up his hemoglobin had declined to a low of 8.2 g/dL on 12/16/2015. His baseline erythropoietin level was 152 mIU/mL. On 12/18/2015 he began a trial of therapy with Procrit, initially at 40,000 units weekly. As of 01/13/2016, after 4 weeks of treatment, the hemoglobin was basically stable at 8.5 g. At that point the Procrit dosage was escalated to 60,000 U weekly. His hemoglobin level had subsequently increased to a maximum level 10.1 g on 03/09/2016. It then drifted downward gradually. As of 07/20/2016 it was down to 8.7 g. As of his followup visit on 08/04/2016 he had remained transfusion independent. However, after that his hemoglobin had shown further decline to 7.9 g, and at that point I did opt to stop the Procrit and transition his treatment to Revlimid. He began his treatment with Revlimid 10 mg daily on 08/16/2016. His baseline hemoglobin was 8.2 g. He did opt to have a transfusion of 2 units of packed red blood cells. Thus far he has tolerated the Revlimid well and during follow-up his blood count had stabilized with hemoglobin in the range of 9.5 g. His CBC on 11/23/2016 showed further increase in the hemoglobin to 10.4 g. As of 02/15/2017 his hemoglobin had declined somewhat, to 8 g with WBC moderately decreased at 2700 and platelet count normal at 200,000. He continued treatment with Revlimid. On 03/11/2017 he was seen at the [place] [facility] with flu-like symptoms. His nasal swab reportedly was positive for influenza, and he did start treatment with Tamiflu. His CBC showed a further decline in his hemoglobin to 6.5 g, and he was found to be jaundiced, total bilirubin 6.1 mg/dL. He was transfused 2 units of PRBC. On his further laboratory evaluation on 03/14/2017 his hemoglobin had increased to only 7.8 g. The uncorrected reticulocyte count was 3.2%. His total bilirubin was still elevated at 5.7 mg/dL with the direct bilirubin normal at 0.60 mg/dL. LDH was normal at 218 U/L. The haptoglobin level was low at 21.9 mg/dL. HEMA was negative. B12 and folate levels were normal. He was advised to stop Revlimid. During subsequent follow-up his haptoglobin level showed further decline, to as low as 9.3 mg/dL on 03/28/2017. However, at that point his hemoglobin remained adequate at 9.4 g, his bilirubin was down to 3.0 mg/dL, and his LDH remained normal. He had a follow-up CTA of the abdomen/pelvis on 03/22/2017. It again showed evidence infrarenal abdominal aortic aneurism extending to the aortic bifurcaton. It measured 4.5 x 4.6 x 4.7 cm. 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 On 05/13/2017 he underwent coronary angioplasty with stent placement of the right coronary artery. On 05/30/2017 he underwent endovascular repair of infrarenal abdominal aortic aneurysm. He tolerated both procedures well, though during that time he did require transfusion of a total of 9 U of packed red blood cells. He hen continued on aspirin 81 mg daily together with Plavix 75 mg daily. He remained off Revlimid. During subsequent follow-up, he remained transfusion dependent. He then underwent repeat bone marrow aspiration/biopsy on 08/04/2017. The marrow was hypercellular, 100% cellularity. Megakaryocytes were noted to be increased in number and there was associated megakaryocyte dyspoiesis. There was just limited dyserythropoiesis. Ring sideroblasts were present, comprising more than 50% of the nrbc population. Blasts were estimated at 9% by morphology and 4% by flow cytometry. The FISH panel for MDS was unrevealing and the standard chromosome analysis was normal. 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 His IPSS-R score calculated to 3.5 or 4.5, depending on which blast count was used. Either score was intermediate risk category. With those findings, he was advised to undergo trial of therapy with 5-azacytidine. As of 08/26/2017 his ferritin level had increased to 1076 ng/mL. At that point he began chelation therapy with Jadenu 1440 mg daily. On 08/29/2017 he began cycle 1 of treatment with 5-azacytidine. It was administered subcutaneously for 7 days. He tolerated the 5-azacytidine without acute toxicity. He subsequently developed nausea with the Jadenu, and the dosage was reduced to 720 mg daily. He continued treatment with 5-azacytidine at 4-week intervals. He required further transfusions on 10/11/2017, on 10/18/2017, and on 11/09/2017. Thereafter his hemoglobin level stabilized above transfusion threshold. During subsequent follow-up, he had some adjustments in his treatment interval, but he remained transfusion independent. As of July 2018 he was able to stop Jadenu, with his ferritin level having decreased to 357 ng/mL. His other medical illnesses include hypertension, hyperlipidemia, atrial fibrillation, coronary artery disease, peripheral arterial disease, GERD, and nephrolithiasis. He also has fairly long-standing psoriasis. In the past he had been on treatment with methotrexate. His procedural history includes coronary angioplasty/stent placement followed by endovascular repair of abdominal aortic aneurysm in May 2017. He had previously smoked 2 packs of cigarettes daily, but he quit smoking more than 20 years ago. INTERIM HISTORY: In November 2018 he began to show gradual decline in his hemoglobin, though it continued to fluctuate between 8 and 9 g. As of 01/15/2019 it had further decreased to 7.5 g, at which point he did receive a PRBC transfusion. He continued with cycle 15 of 5-azacytidine on 02/12/2019. He was then transfused again on 02/27/2019 with his hemoglobin back down to 7.1 g. During the past month or so he had developed significant worsening of his back pain. He also is having pain in his left rib cage area following some minor trauma. A bone scan on 03/12/2019 showed a punctate area of bony uptake involving the left anterior approximately fifth rib, consistent with trauma. There was noted to be a compression fracture with bony uptake involving a midthoracic vertebral body. Diffuse patchy uptake involving the calvarium was felt to be likely related to the myelodysplastic syndrome and bone marrow hyperplasia. On 04/13/2019 he presented to the emergency room with worsening back pain. CT abdomen/pelvis at that time showed multiple chronic compression fracture deformities but with progressed height loss of L1 compared to the prior exam and with mild adjacent soft tissue edema compatible with new/progressive L1 fracture. There was minimal retropulsed bone measuring up to 3 mm. There was no critical stenosis. Also noted was a new fracture of the superior endplate of T9 without any retropulsed bone. There was evidence of partial small bowel obstruction with a gradual change to collapsed loops of bowel. I had seen him for a follow-up visit on 05/10/2019. At that point he was still having severe back pain, presumably due to the vertebral compression fractures, and he had very limited activity. He continued transfusion support for the anemia. [facility] [place] [facility], I assume either a vertebroplasty or a kyphoplasty. On 06/26/2019 he began a trial of therapy with luspatercept 1 mg/kg by subcutaneous injection every 3 weeks for the myelodysplastic syndrome. On 07/09/2019 he underwent open right inguinal hernia repair with mesh placement. He tolerated the procedure well. He is seen for a follow-up visit. He is not feeling good generally. He has very limited activity. He is taking care of himself, though. His ECOG score is 3. Appetite is variable. He has not had fever. He sometimes has sweating at night. He has been feeling lightheaded and dizzy. His breathing is sometimes a little tight. He has just occasional cough. He has occasional stinging pain in his chest. He has some nausea and heartburn, for which he has been taking Tums. He has ongoing constipation. He has a slow urinary stream, and he is having to get up pretty frequently during the night. He continues to have lower back pain, and he is still having some discomfort from his recent hernia repair. He has just occasional headache. He reports having numbness in his fingers and toes. Medications: Aspirin 1 (81 mg) Tablet, enteric coated Oral daily, B-6 1 (200 mg) Tablet Oral t.i.d., Digoxin 1 (125 mcg) Tablet Oral daily, Folic Acid 1 (1 mg) Tablet Oral daily, Lidocaine 1 patch(es) (of 5 %) Patch Topical daily PRN, Metoprolol Tartrate 1 Tablet (of 50 mg) Oral daily, oxyCODONE-Acetaminophen 1 Tablet (of 5-325 mg) Oral four times a day PRN, Plavix 1 (75 mg) Tablet Oral daily, Pravastatin Sodium 1 Tablet (of 20 mg) Oral daily, Reblozyl 1 Subcutaneous q 3 weeks, Tamsulosin HCl 1 Tablet (of 0.4 mg) Capsule Oral b.i.d., Tylenol 1 - 2 Tablet (of 500 mg) Oral PRN Allergies: No Known Allergies. Review of Systems: Constitutional - He has very limited activity. His appetite is variable. His weight is stable. No fever or chills. He sometimes has sweating. ECOG score is 3, ENMT - He has sinus congestion/drainage. His gums are a litte sore. No sore throat or difficulty swallowing, Hematologic/Lymphatic - He has easy bruising, Respiratory - His breathing is sometimes a little tight. He has just occasional cough. He has occasional stinging chest pain. No hemoptysis, Cardiovascular - No angina pain. No palpitations, Gastrointestinal - He has been having some nausea and some heartburn. He is taking Tums for it. He has constipation. No blood in the stool or black stools, Genitourinary (M) - No dysuria or hematuria. He has urinary frequency at night. No urgency or incontinence. He has a slow stream, Musculoskeletal - He is still having lower back pain and he has pain from his recent hernia repair, Integumentary - No skin complications, Neurologic - He is having occasional headaches. He has dizziness. He has some numbness in his fingers and toes, Psychiatric - He has some anxiety/depression. He has difficulty sleeping. Vital Signs: Performed on July 17, 2019 09:02 Height - 76.00 in Temperature - 97.4 F (LOW) Pulse - 104 /min (HIGH) Respiration - 24 /min BP - 116/65 mm(hg) O2 Sat - 99 % Pain - 5 Physical Examination: Constitutional - He appears generally weak, Eyes - Sclerae nonicteric. Conjunctivae clear, ENMT - No lesions noted in the oral cavity, Hematologic/Lymphatic - No cervical, clavicular, or axillary adenopathy, Respiratory - Lungs sound clear with some decrease in air movement bilaterally, Cardiovascular - Heart rhythm is irregular. There is a II/ systolic murmur. There is no gallop or rub noted, Abdomen - Soft. Liver and spleen are not enlarged. There is no abdominal mass or ascites noted and there is no inguinal adenopathy, Extremities - There are mild venous stasis changes bilaterally. There is some swelling at the right ankle, which is chronic, Neurologic - No focal neurologic deficits noted. Lab/Imaging: Test performed on July 16, 2019 13:30 LDH (Total) 136 U/L Sodium 140 mmol/L Potassium 4.1 mmol/L Chloride 102 mmol/L CO2 28 mmol/L Anion Gap 14.1 BUN 11 mg/dL Creatinine 0.5 mg/dL Cr Clearance (Est) 148.4300 mL/min Glucose 123 mg/dL Calcium 9.6 mg/dL Protein, Total 6.9 g/dL Albumin 4.1 g/dL Globulin 2.8 g/dL Bilirubin, Total 2.3 mg/dL ALT (SGPT) 16 U/L AST (SGOT) 19 U/L Alkaline Phosphatase 84 IU/L WBC 5.0 10 3/uL RBC 2.43 10 6/uL HGB 7.9 g/dL HCT 26.4 % MCV 108.6 fL MCH 32.5 pg MCHC 29.9 g/dL RDW 20.6 % Platelet Count 304 10 3/cmm MPV 10.5 fL Neutrophils 3.6 10 3/uL Lymphocytes 1.0 10 3/uL Monocytes 0.4 10 3/uL Eosinophils 0.0 10 3/uL Basophils 0.0 10 3/uL Neutrophil % 71.9 % Lymphocyte % 19.4 % Monocyte % 6.9 % Eosinophil % 0.6 % Basophils % 0.2 % Impression: 1. The patient has a moderately severe macrocytic anemia. Bone marrow aspiration/biopsy on 10/15/2015 showed hypercellular marrow, estimated 90-95%. There was mild erythroid dyspoiesis and there were ringed sideroblasts identified, estimated at less than 5-10% of the population. Iron stores were 3+. The FISH panel for MDS showed no abnormalities. A standard chromosome study showed no metaphases for analysis. Overall, the findings were consistent with myelodysplastic syndrome (refractory cytopenia with unileage dysplasia) versus idiopathic cytopenia of undetermined significance. 2. 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 This is probably of no clinical significance other than he may be more prone to iron overload if he does become transfusion dependent. His other medical illnesses include: 3. Hypertension. 4. Hyperlipidemia. 5. Peptic ulcer disease/GERD. 6. Nephrolithiasis. 7. He has a history of atrial fibrillation. 8. He has an abdominal aortic aneurysm. In December 2015 he began a trial of therapy with Procrit after his hemoglobin had dropped to 8.2 g. As of 01/13/2016 the dosage was escalated to 60,000 U weekly, as his hemoglobin at that point was basically stable at 8.5 g. He did show some response, with his hemoglobin increasing to 10.1g. It had subsequently drifted downward. As of his visit on 08/04/2016 his hemoglobin was down to 7.9 g. At that point the Procrit was discontinued. He began treatment with Revlimid 10 mg daily on 08/16/2016. He had noticed some worsening of his psoriasis after starting the Revlimid, but he has otherwise tolerated it well. His hemoglobin initially appeared to have stabilized in the range of 9.5 to 10 g. As of 02/15/2017 his hemoglobin had declined to 8 g. On 03/11/2017 he was confirmed to have influenza by nasal swab. His hemoglobin at that point had dropped to 6.5 g and he had become overtly jaundiced. He was transfused PRBC. 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 At that point I did opt to stop the Revlimid. During subsequent follow-up, his haptoglobin level recovered to normal and his bilirubin level returned to baseline. His LDH remained normal. He underwent coronary angioplasty/stent placement on 05/12/2017 and on 05/30/2017 he underwent endovascular repair of infrarenal abdominal aortic aneurysm. He then continued on prophylaxis with aspirin 81 mg daily and Plavix 75 mg daily. During subsequent followup he remained transfusion dependent. His repeat bone marrow aspiration/bipsy on 08/04/2017 showed 100% cellularity with associated megakaryocyte dyspoiesis and limited dyserythropoiesis. Ring sideroblasts were present, comprising more than 50% of the nrbc population. Blasts were estimated at 9% by morphology and 4% by flow cytometry. The FISH panel for MDS was unrevealing and the standard chromosome analysis was normal. 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 His IPSS-R score calculated to 3.5 or 4.5, depending on which blast count was used. Either score was intermediate risk category. As of 08/26/2017 his serum ferritin had increased to 1076 ng/mL, and he began treatment with Jadenu 1440 mg daily. He then began a course of treatment of 5-azacytidine, cycle 1 day 1 on 08/29/2017. It was administered subcutaneously for 7 days. He tolerated the treatment without any acute toxicity. He proceeded with cycle 2 of 5-azacytidine on 10/03/2017, and he then continued treatment at 4-week intervals. He continued to require transfusion up until 11/08/2017, but his hemoglobin then stabilized in the range of 10-11 g. During that time he had mild to moderately severe neutropenia and thrombocytopenia, and beginning with the 6th cycle I did make some adjustments in the treatment interval. He then continued to tolerate the treatment well, and he remained transfusion independent. However, by November 2018 there had been a gradual decline in his hemoglobin, which at that point was fluctuating between 8 and 9 g. As of 01/15/2019 the hemoglobin had dropped to 7.5 g, and he was then transfused 2 units PRBC. It was his first transfusion since November 2017. On 02/12/2019 he continued with cycle 15 of 5-azacytidine. He required transfusion again on 02/27/2019 with hemoglobin back down to 7.1 g. During followup he had been showing some decline in his performance status. He had developed significant worsening of his back pain, and bone scan did show evidence of a vertebral compression fracture in the mid thoracic spine. As he was clearly not responding to the 5-azacytidine, I did opt to stop the treatmnent. He then continued to be supported with PRBC transfusion as needed. In the meantime, his back pain had continued to worsen. A CT abdomen/pelvis done through the emergency room on 04/13/2019 showed increased fracture at L1 and some new compression fracture at T9. Management has been problematic, as he has had somewhat poor tolerance for pain medication. He recently [facility] a [facility] [place] [facility], either kyphoplasty or vertebroplasty, I assume. He initially was getting some benefit, but in the last few days he has been having more back pain. He also reports having pain in association with a right inguinal hernia, which had worsened in association with some straining while he was on the stool. In the meantime, on 06/26/2019 he began a trial of therapy with luspatercept. He had no adverse effects with the initial injection. Thus far he does not appear to be showing any obvious response. In the meantime, he has undergone right inguinal hernia repair. Plan: He will be transfused 2 units PRBC today. He will receive his second injection of luspatercept. The dosage remains the same. Blood counts will be monitored weekly and he will be transfused again as needed. I will see him again in 3 weeks. If he does not appear to be showing any improvement in his blood counts, I will escalate the dosage of the luspatercept. Signed By: Ammon Lew M.D. <<Signature on File>>
[2019-07-23 19:51] LABS: Basophils % 0.5 %; Eosinophils % 0.5 %; Hematocrit 28.9 % (42.0-52.0); Hemoglobin 8.9 g/dL (11.7-16.6); Lymphocytes # 0.9 10^3/uL (0.8-4.8); Lymphocytes % 23.2 %; Mean Corpuscular HGB Conc 30.8 g/dL (30.0-36.0); Mean Corpuscular Volume 100.7 fL (80-94); Mean Platelet Volume 10.4 fL (7.4-10.4); Monocytes # 0.3 10^3/uL (0.2-0.9); Monocytes % 8.1 %; Neutrophils # 2.7 10^3/uL (1.8-7.7); Neutrophils % 67.2 %; Nucleated Red Blood Cells % 0 %; Platelet Count 258 10^3/cmm (130-400); Red Blood Count 2.87 10^6/uL (4.1-5.3); Red Cell Distribution Width 19.7 % (12.1-15.1); White Blood Count 4.1 10^3/uL (4.0-10.0)
[2019-07-31 16:02] LABS: Basophils % 0.3 %; Eosinophils % 0.2 %; Hematocrit 23.6 % (42.0-52.0); Hemoglobin 7.3 g/dL (11.7-16.6); Lymphocytes # 0.8 10^3/uL (0.8-4.8); Mean Corpuscular HGB Conc 30.9 g/dL (30.0-36.0); Mean Corpuscular Hemoglobin 30.4 pg (28.0-34.0); Mean Corpuscular Volume 98.3 fL (80-94); Monocytes # 0.5 10^3/uL (0.2-0.9); Monocytes % 7.9 %; Neutrophils # 4.5 10^3/uL (1.8-7.7); Neutrophils % 76.9 %; Nucleated Red Blood Cells % 0 %; Platelet Count 268 10^3/cmm (130-400); Red Cell Distribution Width 20.4 % (12.1-15.1); White Blood Count 5.8 10^3/uL (4.0-10.0)
[2019-08-01] MEDS: acetaminophen 325 mg Tablet 650 MG PO (11:15)
[2019-08-01 11:25] VITALS: BP 97/57; PULSE 84; RESP 18; TEMP 36.8; O2SAT 95
[2019-08-01] MEDS: sodium chloride 0.9% 250 ML 999 ML IV (11:25)
[2019-08-01 11:40] VITALS: BP 96/56; PULSE 86; RESP 18; TEMP 36.8; O2SAT 95
[2019-08-01 11:55] VITALS: BP 98/56; BP 98/58; PULSE 84; RESP 18; TEMP 36.2; O2SAT 96; O2SAT 97
[2019-08-01 12:55] VITALS: BP 97/56; PULSE 78; RESP 18; TEMP 36.6; O2SAT 97
[2019-08-01 13:00] VITALS: BP 91/53; PULSE 71; RESP 18; TEMP 37.1; O2SAT 99
[2019-08-01] MEDS: FUROsemide 10 mg/mL SDV 2mL 20 MG IV (17:13)
[2019-08-01] MEDS: diphenhydrAMINE 25 mg Capsule PO (17:13)
== END 2019-08-05 23:59 | disposition home or self-care (01) ==
LOC: ONCMED 09:12
PROVIDERS: PCP Internal Medicine; Visit Provider Internal Medicine Medical Oncology
DX: E83.111 Hemochromatosis due to repeated red blood cell transfusions (principal); D46.Z Other myelodysplastic syndromes; D46.9 Myelodysplastic syndrome, unspecified; I25.10 Atherosclerotic heart disease of native coronary artery without angina pectoris; E78.5 Hyperlipidemia, unspecified; I10 Essential (primary) hypertension; K21.9 Gastro-esophageal reflux disease without esophagitis; I73.9 Peripheral vascular disease, unspecified; Z79.899 Other long term (current) drug therapy
CPT/HCPCS: 36415; 36430; 80053; 83615; 85025; 86850; 86870; 86900; 86920; 96372; 99214; C9399; J1940; J7050; P9040

== ENCOUNTER 2019-08-16 07:48 | Outpatient (RCR) | payer OTHER, SELFPAY ==
[2019-08-06 12:35] LABS: Basophils % 0.6 %; Eosinophils % 0.2 %; Hematocrit 28.4 % (42.0-52.0); Lymphocytes # 1.1 10^3/uL (0.8-4.8); Lymphocytes % 20.4 %; Mean Corpuscular HGB Conc 31.7 g/dL (30.0-36.0); Mean Corpuscular Hemoglobin 30.5 pg (28.0-34.0); Mean Corpuscular Volume 96.3 fL (80-94); Mean Platelet Volume 11.5 fL (7.4-10.4); Monocytes # 0.3 10^3/uL (0.2-0.9); Monocytes % 5.7 %; Neutrophils # 3.9 10^3/uL (1.8-7.7); Neutrophils % 72.5 %; Nucleated Red Blood Cells % 0 %; Platelet Count 328 10^3/cmm (130-400); Red Blood Count 2.95 10^6/uL (4.1-5.3); Red Cell Distribution Width 19.2 % (12.1-15.1); White Blood Count 5.4 10^3/uL (4.0-10.0)
[2019-08-06 12:48] LABS: Alanine Aminotransferase 16 U/L (0-41); Albumin Level 4.3 g/dL (3.5-5.2); Alkaline Phosphatase 84 IU/L (40-130); Anion Gap 15.4 (5-19); Aspartate Amino Transferase 24 U/L (0-40); Blood Urea Nitrogen 14 mg/dL (8-23); Calcium 9.1 mg/dL (8.5-10.5); Carbon Dioxide 27 mmol/L (22-29); Chloride 101 mmol/L (98-107); Glucose 105 mg/dL (65-115); Osmolality Calculated 285 mOsm/kg (285-295); Potassium 4.4 mmol/L (3.5-5.1); Sodium 139 mmol/L (136-145); Total Protein 6.3 g/dL (6.6-8.7)
[2019-08-06 13:38] LABS: Lactate Dehydrogenase 215 U/L (135-225)
--- NOTE | 2019-08-08 14:55 | ONC FU_ITS ---
Dr. Lew Patient Follow-Up Note Patient: José Miguel Bonilla Unit #: [id number]: 1940 Dicatated By: Ammon Lew M.D.Date of Visit:Aug 07, 2019 Onc Med Follow-up/Prog Note Chief Complaint: Myelodysplastic syndrome. History of Present Illness: This is a 79 year-old man with myelodysplastic syndrome (MDS with unilineage dysplasia). He was seen initially on 09/30/2015 in regard to a moderately severe anemia. The available records included multiple blood counts dating back to August 2014. At that time his hemoglobin was 10.3 g with white blood cell count 6400 and platelet count 325,000. The red cell indices were macrocytic with MCV 110 and MCH 37. A more recent CBC, from 08/20/2015, showed a hemoglobin down to 9.7 g with hematocrit 29%. The red cell indices were similar. White blood cell count was 4900 and platelet count was 337,000. The differential showed 56% neutrophils, 30% lymphocytes, and 10% monocytes. B12 was checked several times and was normal. Folate level was low at 6.7 ng/mL. The serum iron was normal at 141 mcg/dL. 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 He had negative stool Hemoccult, though an upper GI endoscopy apparently did show ulcers. Colonoscopy was unremarkable. His evaluation also included CT abdomen/pelvis in May 2015. It showed an aneurysm of the distal abdominal aorta extending to, but not into, the bifurcation. It appeared stable compared to a previous study from March 2013. There were no acute findings noted on that study. His laboratory studies on 09/30/2015 included CBC showing hemoglobin 9.4 g, white blood cell count 6400, and platelet count 420,000. The red cell indices were macrocytic with MCV 110 and MCH 37. The uncorrected reticulocyte count was 2.0%. Comprehensive metabolic profile was unremarkable except for mildly elevated total bilirubin at 2.9 mg/dL. The liver enzymes were normal.. LDH was normal at 183 mg/dL and haptoglobin was low normal at 53 mg/dL. Ferritin was elevated at 520 ng/mL. The homocysteine level was slightly elevated at 11.6 ???mol/L with methylmalonic acid normal at 198 nmol/L. Protein electrophoresis was normal. He underwent bone marrow aspiration/biopsy on 10/15/2015. The marrow was hypercellular, estimated at 90-95%. There was limited erythroid dyspoiesis. There was no evidence of infiltrative process. Blasts were reported at 0%. Iron stores were 3+ with occasional ring sideroblasts identified, estimated at less than 5-10% of the population. There was 1+/4+ reticulin staining. The chromosome analysis showed no metaphase cells for analysis. The FISH panel for MDS showed no abnormalities. 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 During subsequent follow-up his hemoglobin had declined to a low of 8.2 g/dL on 12/16/2015. His baseline erythropoietin level was 152 mIU/mL. On 12/18/2015 he began a trial of therapy with Procrit, initially at 40,000 units weekly. As of 01/13/2016, after 4 weeks of treatment, the hemoglobin was basically stable at 8.5 g. At that point the Procrit dosage was escalated to 60,000 U weekly. His hemoglobin level had subsequently increased to a maximum level 10.1 g on 03/09/2016. It then drifted downward gradually. As of 07/20/2016 it was down to 8.7 g. As of his followup visit on 08/04/2016 he had remained transfusion independent. However, after that his hemoglobin had shown further decline to 7.9 g, and at that point I did opt to stop the Procrit and transition his treatment to Revlimid. He began his treatment with Revlimid 10 mg daily on 08/16/2016. His baseline hemoglobin was 8.2 g. He did opt to have a transfusion of 2 units of packed red blood cells. Thus far he has tolerated the Revlimid well and during follow-up his blood count had stabilized with hemoglobin in the range of 9.5 g. His CBC on 11/23/2016 showed further increase in the hemoglobin to 10.4 g. As of 02/15/2017 his hemoglobin had declined somewhat, to 8 g with WBC moderately decreased at 2700 and platelet count normal at 200,000. He continued treatment with Revlimid. On 03/11/2017 he was seen at the OR clinic with flu-like symptoms. His nasal swab reportedly was positive for influenza, and he did start treatment with Tamiflu. His CBC showed a further decline in his hemoglobin to 6.5 g, and he was found to be jaundiced, total bilirubin 6.1 mg/dL. He was transfused 2 units of PRBC. On his further laboratory evaluation on 03/14/2017 his hemoglobin had increased to only 7.8 g. The uncorrected reticulocyte count was 3.2%. His total bilirubin was still elevated at 5.7 mg/dL with the direct bilirubin normal at 0.60 mg/dL. LDH was normal at 218 U/L. The haptoglobin level was low at 21.9 mg/dL. HEMA was negative. B12 and folate levels were normal. He was advised to stop Revlimid. During subsequent follow-up his haptoglobin level showed further decline, to as low as 9.3 mg/dL on 03/28/2017. However, at that point his hemoglobin remained adequate at 9.4 g, his bilirubin was down to 3.0 mg/dL, and his LDH remained normal. He had a follow-up CTA of the abdomen/pelvis on 03/22/2017. It again showed evidence infrarenal abdominal aortic aneurism extending to the aortic bifurcaton. It measured 4.5 x 4.6 x 4.7 cm. 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 On 05/13/2017 he underwent coronary angioplasty with stent placement of the right coronary artery. On 05/30/2017 he underwent endovascular repair of infrarenal abdominal aortic aneurysm. He tolerated both procedures well, though during that time he did require transfusion of a total of 9 U of packed red blood cells. He hen continued on aspirin 81 mg daily together with Plavix 75 mg daily. He remained off Revlimid. During subsequent follow-up, he remained transfusion dependent. He then underwent repeat bone marrow aspiration/biopsy on 08/04/2017. The marrow was hypercellular, 100% cellularity. Megakaryocytes were noted to be increased in number and there was associated megakaryocyte dyspoiesis. There was just limited dyserythropoiesis. Ring sideroblasts were present, comprising more than 50% of the nrbc population. Blasts were estimated at 9% by morphology and 4% by flow cytometry. The FISH panel for MDS was unrevealing and the standard chromosome analysis was normal. 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 His IPSS-R score calculated to 3.5 or 4.5, depending on which blast count was used. Either score was intermediate risk category. With those findings, he was advised to undergo trial of therapy with 5-azacytidine. As of 08/26/2017 his ferritin level had increased to 1076 ng/mL. At that point he began chelation therapy with Jadenu 1440 mg daily. On 08/29/2017 he began cycle 1 of treatment with 5-azacytidine. It was administered subcutaneously for 7 days. He tolerated the 5-azacytidine without acute toxicity. He subsequently developed nausea with the Jadenu, and the dosage was reduced to 720 mg daily. He continued treatment with 5-azacytidine at 4-week intervals. He required further transfusions on 10/11/2017, on 10/18/2017, and on 11/09/2017. Thereafter his hemoglobin level stabilized above transfusion threshold. During subsequent follow-up, he had some adjustments in his treatment interval, but he remained transfusion independent. As of July 2018 he was able to stop Jadenu, with his ferritin level having decreased to 357 ng/mL. His other medical illnesses include hypertension, hyperlipidemia, atrial fibrillation, coronary artery disease, peripheral arterial disease, GERD, and nephrolithiasis. He also has fairly long-standing psoriasis. In the past he had been on treatment with methotrexate. His procedural history includes coronary angioplasty/stent placement followed by endovascular repair of abdominal aortic aneurysm in May 2017. He had previously smoked 2 packs of cigarettes daily, but he quit smoking more than 20 years ago. INTERIM HISTORY: In November 2018 he began to show gradual decline in his hemoglobin, though it continued to fluctuate between 8 and 9 g. As of 01/15/2019 it had further decreased to 7.5 g, at which point he did receive a PRBC transfusion. He continued with cycle 15 of 5-azacytidine on 02/12/2019. He was then transfused again on 02/27/2019 with his hemoglobin back down to 7.1 g. During the past month or so he had developed significant worsening of his back pain. He also is having pain in his left rib cage area following some minor trauma. A bone scan on 03/12/2019 showed a punctate area of bony uptake involving the left anterior approximately fifth rib, consistent with trauma. There was noted to be a compression fracture with bony uptake involving a midthoracic vertebral body. Diffuse patchy uptake involving the calvarium was felt to be likely related to the myelodysplastic syndrome and bone marrow hyperplasia. On 04/13/2019 he presented to the emergency room with worsening back pain. CT abdomen/pelvis at that time showed multiple chronic compression fracture deformities but with progressed height loss of L1 compared to the prior exam and with mild adjacent soft tissue edema compatible with new/progressive L1 fracture. There was minimal retropulsed bone measuring up to 3 mm. There was no critical stenosis. Also noted was a new fracture of the superior endplate of T9 without any retropulsed bone. There was evidence of partial small bowel obstruction with a gradual change to collapsed loops of bowel. I had seen him for a follow-up visit on 05/10/2019. At that point he was still having severe back pain, presumably due to the vertebral compression fractures, and he had very limited activity. He continued transfusion support for the anemia. [facility] then [facility] [place] [facility], I assume either a vertebroplasty or a kyphoplasty. On 06/26/2019 he began a trial of therapy with luspatercept 1 mg/kg by subcutaneous injection every 3 weeks for the myelodysplastic syndrome. On 07/09/2019 he underwent open right inguinal hernia repair with mesh placement. He tolerated the procedure well. On 07/17/2019 he received a second dose of luspatercept. He required PRBC transfusion again on 08/01/2019. He is seen for a follow-up visit. He has not been feeling good. His main complaint is that he continues to have severe back pain. The pain is now mainly in the upper back, in the central spine area and around both sides at the bottom of the rib cage. Is worse on the left than the right. He feels a tightening and pinching which is worse with weightbearing. He is having more difficulty ambulating now, and his activity is very limited. His ECOG score is 3. He thinks he would be able to function better with a wheelchair, and he does have the upper body strength to operate a manual wheelchair. His appetite is good. He has not had fever. He occasionally wakes up sweating at night. He has some postnasal drip and cough. He is getting more short of breath. He has occasional stinging pain in his upper left chest. He does not complain of nausea. Bowel function is adequate with MiraLAX and prunes. Bladder function also is adequate, though he has a slow stream. He has occasional headache and he has some disequilibrium when he is first getting up. He has numbness/tingling in the fourth and fifth fingers of both hands and in his right heel. He had developed a bedsore in the coccygeal area, that has completely healed. Medications: Aspirin 1 (81 mg) Tablet, enteric coated Oral daily, B-6 1 (200 mg) Tablet Oral t.i.d., Digoxin 1 (125 mcg) Tablet Oral daily, Folic Acid 1 (1 mg) Tablet Oral daily, Lidocaine 1 patch(es) (of 5 %) Patch Topical daily PRN, Metoprolol Tartrate 1 Tablet (of 50 mg) Oral daily, oxyCODONE-Acetaminophen 1 Tablet (of 5-325 mg) Oral four times a day PRN, Plavix 1 (75 mg) Tablet Oral daily, Pravastatin Sodium 1 Tablet (of 20 mg) Oral daily, Reblozyl 1 Subcutaneous q 3 weeks, Tamsulosin HCl 1 Tablet (of 0.4 mg) Capsule Oral b.i.d., Tylenol 1 - 2 Tablet (of 500 mg) Oral PRN Allergies: No Known Allergies. Review of Systems: Constitutional - His energy level continues to be low, and is activity is very limited. His appetite is good but weight is down about 4 pounds from last visit. No fever or chills. He has occasional night sweats. ECOG score is 3, ENMT - He has chronic post-nasal drainage. No mouth sores. No sore throat or difficulty swallowing, Hematologic/Lymphatic - He bruises easily, Respiratory - He gets short of breath with any activity. No cough. No pleuritic pain or hemoptysis, Cardiovascular - No angina pain. No palpitations, Gastrointestinal - No nausea or vomiting. He has occasional heartburn relieved by Tums. No diarrhea. He uses MiraLAX daily for constipation. No blood in the stool or black stools, Genitourinary (M) - No dysuria or hematuria. He has urinary frequency. No urgency or incontinence. He has hesitancy and he has a slow stream, Musculoskeletal - He continues to have significant pain in his back despite surgery, Integumentary - No skin complications, Neurologic - He has occasional headaches,. He gets dizziness with positional changes. No other focal neurologic symptoms. He is having numbness and tingling in his ring and little fingers on the sides and in his right heel, Psychiatric - He has some anxiety and depression. He has difficulty sleeping. Vital Signs: Performed on Aug 07, 2019 09:39 Height - 76.00 in Weight - 186.0 lbs (LOW) BSA - 2.15 sq.m BMI - 22.64 Temperature - 97.9 F (LOW) Pulse - 83 /min Respiration - 24 /min BP - 114/63 mm(hg) O2 Sat - 97 % Pain - 5 Physical Examination: Constitutional - He appears generally weak and pale. He appears short of breath with effort, Eyes - Sclerae nonicteric. Conjunctivae clear, ENMT - No lesions noted in the oral cavity, Hematologic/Lymphatic - No cervical, clavicular, or axillary adenopathy, Respiratory - Lungs sound clear with some decrease in air movement bilaterally, Cardiovascular - Heart rhythm is irregular. There is a II/ systolic murmur. There is no gallop or rub noted, Abdomen - Soft. Liver and spleen are not enlarged. There is no abdominal mass or ascites noted and there is no inguinal adenopathy, Extremities - There are mild venous stasis changes bilaterally. There is some swelling at the right ankle, which is chronic, Neurologic - He has very limited mobility, but there are no focal neurologic deficits noted. Lab/Imaging: CBC shows hemoglobin 9.0 g, white blood cell count 5400, and platelet count 328,000. Comprehensive metabolic profile is unremarkable. Impression: 1. The patient has a moderately severe macrocytic anemia. Bone marrow aspiration/biopsy on 10/15/2015 showed hypercellular marrow, estimated 90-95%. There was mild erythroid dyspoiesis and there were ringed sideroblasts identified, estimated at less than 5-10% of the population. Iron stores were 3+. The FISH panel for MDS showed no abnormalities. A standard chromosome study showed no metaphases for analysis. Overall, the findings were consistent with myelodysplastic syndrome (refractory cytopenia with unileage dysplasia) versus idiopathic cytopenia of undetermined significance. 2. 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 This is probably of no clinical significance other than he may be more prone to iron overload if he does become transfusion dependent. His other medical illnesses include: 3. Hypertension. 4. Hyperlipidemia. 5. Peptic ulcer disease/GERD. 6. Nephrolithiasis. 7. He has a history of atrial fibrillation. 8. He has an abdominal aortic aneurysm. In December 2015 he began a trial of therapy with Procrit after his hemoglobin had dropped to 8.2 g. As of 01/13/2016 the dosage was escalated to 60,000 U weekly, as his hemoglobin at that point was basically stable at 8.5 g. He did show some response, with his hemoglobin increasing to 10.1g. It had subsequently drifted downward. As of his visit on 08/04/2016 his hemoglobin was down to 7.9 g. At that point the Procrit was discontinued. He began treatment with Revlimid 10 mg daily on 08/16/2016. He had noticed some worsening of his psoriasis after starting the Revlimid, but he has otherwise tolerated it well. His hemoglobin initially appeared to have stabilized in the range of 9.5 to 10 g. As of 02/15/2017 his hemoglobin had declined to 8 g. On 03/11/2017 he was confirmed to have influenza by nasal swab. His hemoglobin at that point had dropped to 6.5 g and he had become overtly jaundiced. He was transfused PRBC. 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 At that point I did opt to stop the Revlimid. During subsequent follow-up, his haptoglobin level recovered to normal and his bilirubin level returned to baseline. His LDH remained normal. He underwent coronary angioplasty/stent placement on 05/12/2017 and on 05/30/2017 he underwent endovascular repair of infrarenal abdominal aortic aneurysm. He then continued on prophylaxis with aspirin 81 mg daily and Plavix 75 mg daily. During subsequent followup he remained transfusion dependent. His repeat bone marrow aspiration/bipsy on 08/04/2017 showed 100% cellularity with associated megakaryocyte dyspoiesis and limited dyserythropoiesis. Ring sideroblasts were present, comprising more than 50% of the nrbc population. Blasts were estimated at 9% by morphology and 4% by flow cytometry. The FISH panel for MDS was unrevealing and the standard chromosome analysis was normal. 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 His IPSS-R score calculated to 3.5 or 4.5, depending on which blast count was used. Either score was intermediate risk category. As of 08/26/2017 his serum ferritin had increased to 1076 ng/mL, and he began treatment with Jadenu 1440 mg daily. He then began a course of treatment of 5-azacytidine, cycle 1 day 1 on 08/29/2017. It was administered subcutaneously for 7 days. He tolerated the treatment without any acute toxicity. He proceeded with cycle 2 of 5-azacytidine on 10/03/2017, and he then continued treatment at 4-week intervals. He continued to require transfusion up until 11/08/2017, but his hemoglobin then stabilized in the range of 10-11 g. During that time he had mild to moderately severe neutropenia and thrombocytopenia, and beginning with the 6th cycle I did make some adjustments in the treatment interval. He then continued to tolerate the treatment well, and he remained transfusion independent. However, by November 2018 there had been a gradual decline in his hemoglobin, which at that point was fluctuating between 8 and 9 g. As of 01/15/2019 the hemoglobin had dropped to 7.5 g, and he was then transfused 2 units PRBC. It was his first transfusion since November 2017. On 02/12/2019 he continued with cycle 15 of 5-azacytidine. He required transfusion again on 02/27/2019 with hemoglobin back down to 7.1 g. During followup he had been showing some decline in his performance status. He had developed significant worsening of his back pain, and bone scan did show evidence of a vertebral compression fracture in the mid thoracic spine. As he was clearly not responding to the 5-azacytidine, I did opt to stop the treatmnent. He then continued to be supported with PRBC transfusion as needed. In the meantime, his back pain had continued to worsen. A CT abdomen/pelvis done through the emergency room on 04/13/2019 showed increased fracture at L1 and some new compression fracture at T9. Management has been problematic, as he has had somewhat poor tolerance for pain medication. He recently underwent a [facility] in [place] [facility], either kyphoplasty or vertebroplasty, I assume. He initially was getting some benefit, but in the last few days he has been having more back pain. He also reports having pain in association with a right inguinal hernia, which had worsened in association with some straining while he was on the stool. In the meantime, on 06/26/2019 he began a trial of therapy with luspatercept. He had no adverse effects with the initial injection. Thus far he does not appear to be showing any obvious response. In the meantime, he has undergone right inguinal hernia repair. He then continued with his second dose of luspatercept on 07/17/2019. Thus far he has remained transfusion dependent, as he required PRBC transfusion again on 08/01/2019. He has ongoing problems associated with vertebral compression fractures. He continues to have severe back pain despite having undergone a vertebroplasty procedure. The pain now does appear to be at higher level in the spine, and it is impairing his mobility to the extent that it does affect his ability to participate in ADLs. Plan: He will continue treatment with luspatercept, but I will now increase the dosage to 1.25 mg/kg by subcutaneous injection. He will return later in the week for his 3rd injection, as we do not have that dosage available in the clinic today. In the meantime, I will request a wheelchair for him, as he has a mobility restriction which is significant enough to limit his ADLs. In my professional opinion, wheelchair will improve his ability to function, and he does have the upper body strength to operate a manual wheelchair in his home. I will continue to monitor his blood counts weekly. He will be scheduled for a follow-up visit in 3 weeks. Signed By: Ammon Lew M.D. <<Signature on File>>
[2019-08-15 14:04] LABS: Basophils % 0.8 %; Eosinophils # 0.1 10^3/uL (0.0-0.8); Hematocrit 24.7 % (42.0-52.0); Hemoglobin 7.5 g/dL (11.7-16.6); Lymphocytes # 1.1 10^3/uL (0.8-4.8); Mean Corpuscular HGB Conc 30.4 g/dL (30.0-36.0); Mean Corpuscular Hemoglobin 30.2 pg (28.0-34.0); Mean Corpuscular Volume 99.6 fL (80-94); Mean Platelet Volume 11.6 fL (7.4-10.4); Monocytes # 0.4 10^3/uL (0.2-0.9); Monocytes % 7.9 %; Neutrophils # 3.5 10^3/uL (1.8-7.7); Nucleated Red Blood Cells % 0.8 %; Platelet Count 329 10^3/cmm (130-400); Red Blood Count 2.48 10^6/uL (4.1-5.3); Red Cell Distribution Width 20.4 % (12.1-15.1); White Blood Count 5.2 10^3/uL (4.0-10.0)
[2019-08-16] VITALS (8 sets, daily range): BP systolic 99–108; BP diastolic 54–57; PULSE 56–68; RESP 18; TEMP 36.3–36.4; O2SAT 98
[2019-08-16] MEDS: sodium chloride 0.9% 250 ML 999 ML IV (08:50)
[2019-08-16] MEDS: acetaminophen 325 mg Tablet 650 MG PO (08:50)
[2019-08-16] MEDS: diphenhydrAMINE 25 mg Capsule PO (16:08)
[2019-08-16] MEDS: FUROsemide 10 mg/mL SDV 2mL 20 MG IV (16:09)
== END 2019-08-16 23:59 | disposition home or self-care (01) ==
LOC: ONCMED 07:48
PROVIDERS: Nurse Practitioner; PCP Internal Medicine; Visit Provider Internal Medicine Medical Oncology
DX: E83.111 Hemochromatosis due to repeated red blood cell transfusions (principal); D46.Z Other myelodysplastic syndromes; D64.9 Anemia, unspecified; I48.91 Unspecified atrial fibrillation; I25.10 Atherosclerotic heart disease of native coronary artery without angina pectoris; E78.5 Hyperlipidemia, unspecified; I10 Essential (primary) hypertension; N20.0 Calculus of kidney; K21.9 Gastro-esophageal reflux disease without esophagitis; I73.9 Peripheral vascular disease, unspecified; I71.4 Abdominal aortic aneurysm, without rupture; Z92.21 Personal history of antineoplastic chemotherapy; Z79.899 Other long term (current) drug therapy
CPT/HCPCS: 36430; 80053; 83615; 85025; 86850; 86900; 86920; 96372; 99214; C9399; J1940; J7050; P9040

== ENCOUNTER 2019-08-17 08:53 | Outpatient (CLI) | payer OTHER, SELFPAY ==
--- NOTE | 2019-08-17 09:28 | MR_ITS ---
WS: [id number] MRI THORACIC SPINE WITH CONTRAST TECHNIQUE: Sagittal T1, T2 and STIR imaging. Axial T2 imaging. Post gadolinium imaging was obtained. CLINICAL INFORMATION: MYELODSYPLASTIC SYNDROME/ VERTEBRAL COMPRESSION FX COMPARISON: MRI lumbar May 25, 2019 FINDINGS: Mild thoracic curve. Mild thoracic kyphosis. Multiple compression deformities in the mid and lower th oracic spine worse at T6, T7, T8, T9, and T10. No high-grade central canal stenosis. Cord signal is n ormal. Diffuse abnormal bone marrow signal throughout the thoracic spine with replacement of the norm al fatty T1 marrow signal. Findings are consistent with history of myelodysplastic syndrome. Prior ao rtic endograft repair. Cervical spine is patent on the lime filter operator imaging. Vertebroplasty changes at T9, L1, and L2. Edema in the endplates at T4, T5, T6, T7, T8, T9, and T10 c onsistent with subacute compression. Chr appearing compression involving the T11 and T12 vertebral joy dies with biconcave compression. Incidental hemangioma T2 vertebral body. Moderate facet arthropathy in the lower thoracic spine. A few tiny disc protrusions the mid and lower thoracic spine without sig nificant spinal canal narrowing. Compression involving the T4, T5, T6 vertebral bodies superior endplates appears new since the lumbar spine MRI. Reactive enhancement involving the T4-T10 vertebral bodies. Small bilateral right greater than left renal cysts. MR/MR thoracic spine wo/w [id number] IMPRESSION: 1. New vertebroplasty changes at T9, L1, and L2. 2. Numerous subacute and chronic compression fractures throughout the thoracic spine with compression of the superior endplates and mild biconcave compressio n at several levels. Associated anterior wedging. 3. Mild edema in the T4,T5 and T6 vertebral bodies is new from the prior lumba r spine MRI consistent with acute to subacute compression involving the superio r endplates. 4. Diffuse edema in the T7-T10 vertebral bodies with anterior wedging and mild compression appears stable. 5. Chronic appearing compression of the T11 and T12 vertebral bodies. 6. No high-grade central canal stenosis. Cord signal is normal. 7. Diffuse abnormal bone marrow signal throughout the thoracic spine consisten t with myelodysplastic syndrome.
== END 2019-08-17 08:54 | disposition home or self-care (01) ==
LOC: RADWPI 08:55
PROVIDERS: PCP Internal Medicine; Visit Provider Internal Medicine Medical Oncology
DX: M54.9 Dorsalgia, unspecified (principal); D46.9 Myelodysplastic syndrome, unspecified; M48.54XA Collapsed vertebra, not elsewhere classified, thoracic region, initial encounter for fracture; R60.9 Edema, unspecified
CPT/HCPCS: 72157; A9579

== ENCOUNTER 2019-08-19 14:39 | Emergency (ER) | payer OTHER, MEDICARE, SELFPAY ==
[2019-08-19 14:51] VITALS: BP 134/73; PULSE 80; RESP 17; TEMP 37; O2SAT 98; BMI 23.1
[2019-08-19 14:55] VITALS: BP 134/73; PULSE 75; RESP 18; O2SAT 97
--- NOTE | 2019-08-19 15:04 | W.ED.MALEGU ---
HPI - Male Genitourinary General: Chief complaint: Urogenital-Male Stated complaint: BLOOD IN URINE Time Seen by Provider: 08/19/19 14:53 History of Present Illness: HPI Narrative: Patient is a 79-year-old male who comes to the ED with UTI symptoms. He has a history of kidney stones but states that he did not have any intense back pain like he has in the past with previous kidney stones. Patient says symptoms started this morning when he woke up. He had blood in his urine and whenever he urinated it was a burning/stinging pain. He has no other pain or discomfort in the abdomen. he has no flank pain. Denies nausea, vomiting, fever, shortness of breath, chest pain. Associated symptoms: Reports dysuria and hematuria; Deny nausea or vomiting Review of Systems Const: Denies: fever(s), chills or fatigue Eyes: Denies: change in vision or eye discomfort ENMT: Denies: throat pain, odynophagia, nasal discharge or nasal congestion Card: Denies: chest pain, palpitations, edema, swelling of feet/ankles, dyspnea on exertion or orthopnea Resp: Denies: dyspnea, productive cough or non-productive cough GI: Denies: abdominal pain, nausea, vomiting, diarrhea, constipation or hematochezia : Reports: dysuria and hematuria; Denies: flank pain or difficulty urinating Musc: Denies: neck pain, back pain or extremity swelling Skin/Breast: Denies: rash or new lesions Neuro: Denies: headache(s), numbness in extremities or weakness in extremities PFS ED PFSH: Medical History History of lower leg fracture Hyperlipemia Hypertension Leukemia Surgical History H/O endovascular stent graft for abdominal aortic aneurysm History of cholecystectomy History of kyphoplasty History of right inguinal hernia repair Family History Denies family history of Anesthesia complication Bleeding disorder Social History Smoking and tobacco status: former smoker Physical Exam Const: COMMON NORMALS: no acute distress, patient oriented x3 and alert GENERAL APPEARANCE: cooperative and comfortable HENMT: COMMON NORMALS: normocephalic HEAD & SCALP: normocephalic MOUTH: Normal oral and palatal mucosa present THROAT: posterior oropharynx normal and uvula midline Eye: COMMON NORMALS: Equal, round and reactive pupils present PUPIL: Yes Equal, round and reactive pupils present Neck/C-Spine: COMMON NORMALS: supple GENERAL: Yes normal visual inspection Resp: COMMON NORMALS: normal respiratory effort, No retractions, No use of accessory muscles and clear to auscultation bilaterally AUSCULTATION: clear to auscultation bilaterally Cardio: COMMON NORMALS: regular rate, regular rhythm, S1 normal heart sound present, S2 normal heart sound present, No gallops present (Cardio), No clicks present (Cardio), No murmurs present (Cardio) and Peripheral pulses 2+ throughout RATE: regular rate RHYTHM: regular rhythm HEART SOUNDS: S1 normal heart sound present and S2 normal heart sound present PERIPHERAL PULSES: Peripheral pulses 2+ throughout GI: COMMON NORMALS: Normal to inspection, nondistended, normoactive bowel sounds present, Soft to palpation, non-tender and no masses PALPATION: Yes Soft to palpation : COMMON NORMALS: Yes no CVA tenderness BLADDER/KIDNEY EXAM: Yes no CVA tenderness Back/Pelvis: COMMON NORMALS: no CVA tenderness Extremity: COMMON NORMALS: normal to inspection GENERAL: Yes edema (bilateral 1+ non pitting edema) Neuro: COMMON NORMALS: patient oriented x3 and moves all extremities SENSORIUM/ORIENTATION: Yes alert Skin: COMMON NORMALS: no rashes or lesions noted GENERAL SKIN EXAM: no rashes or lesions noted and dry skin Course Consultations: Consultation #1: I contacted Dr. Zavala about patient CT findings of kidney stone. Dr. Zavala told me to have patient stop his blood thinners and he will see pt at clinic in a couple days. Time: 18:04 Vital Signs: Vital signs: Vital Signs Temperature 98.6 F 08/19/19 14:51 Pulse Rate 80 08/19/19 18:25 Respiratory Rate 16 08/19/19 18:25 Blood Pressure 114/54 08/19/19 18:25 Pulse Oximetry 96 08/19/19 18:25 MDM - Male MDM Narrative: Medical decision making narrative: Patient is a 79-year-old male who comes to the ED with blood in his urine and burning pain when urinating. Patient has no acute back or flank pain. Physical exam showed a 79-year-old male in no acute distress or pain. UA showed a lot of blood in his urine but no signs of infection. White blood cell 6.6, hemoglobin 10.7, which is the highest it has been since March (patient said he had a recent blood transfusion). CMP was unremarkable. CT to check kidney stones was performed and did show Left ureteropelvic junction lithiasis. The stone measures approximately 6mm x 4.5 mm x 5.5 mm. No associated significant hydronephrosis.Prominent left renal pelvic stone measuring 14 mm x 10 mm x 13 mm. This stone is at risk for causing a ball-valve obstructive mechanism. I contacted Dr. Zavala to discuss CT findings and since patient is in no acute pain, he told me to tell patient to stop blood thinners and have patient see him in the clinic in the next couple days. I placed a referral to Dr. Zavala with case management. Patient was diagnosed with left-sided kidney stone and was told to stop taking blood thinners until seen by Dr. Zavala this week. I told him to strain his urine to catch the stone. Return to ED if symptoms worsen. Patient understood and agreed with plan. Lab Data: Attestation: I reviewed the patient's lab results. Labs: Lab Results 08/19/19 08/19/19 08/19/19 Range/Units 15:11 15:11 15:11 WBC 6.6 (4.0-10.0) 10^3/ uL RBC 3.46 L (4.1-5.3) 10^6/u L Hgb 10.7 L (11.7-16.6) g/dL Hct 33.8 L (42.0-52.0) % MCV 97.7 H (80-94) fL MCH 30.9 (28.0-34.0) pg MCHC 31.7 (30.0-36.0) g/dL RDW 20.7 H (12.1-15.1) % Plt Count 287 (130-400) 10^3/c mm MPV 11.5 H (7.4-10.4) fL Neut % (Auto) 60.5 % Lymph % (Auto) 26.3 % Waldo % (Auto) 6.8 % Eos % (Auto) 4.4 % Baso % (Auto) 0.6 % Neut # (Auto) 4.0 (1.8-7.7) 10^3/u L Lymph # (Auto) 1.7 (0.8-4.8) 10^3/u L Waldo # (Auto) 0.5 (0.2-0.9) 10^3/u L Eos # (Auto) 0.3 (0.0-0.8) 10^3/u L Baso # (Auto) 0.0 (0.0-0.1) 10^3/u L Nucleated RBC % (a uto) 1.2 % Nucleated RBCs # 0.1 /100WBC Sodium 139 (136-145) mmol/L Potassium 4.6 (3.5-5.1) mmol/L Chloride 101 (98-107) mmol/L Carbon Dioxide 26 (22-29) mmol/L Anion Gap 16.6 (5-19) BUN 11 (8-23) mg/dL Creatinine 0.5 L (0.7-1.2) mg/dL Glucose 119 H (65-115) mg/dL Calculated Osmolal ity 285 (285-295) mOsm/k g Calcium 9.5 (8.5-10.5) mg/dL Total Bilirubin 3.4 H (0.15-1.2) mg/dL AST 21 (0-40) U/L ALT 15 (0-41) U/L Alkaline Phosphata se 83 (40-130) IU/L Total Protein 6.7 (6.6-8.7) g/dL Albumin 4.9 (3.5-5.2) g/dL Globulin 1.8 (1.3-4.6) g/dL Urine Color Lynn (Yellow) Urine Appearance Hazy A (CLEAR) Urine pH 6.5 (5-7) Ur Specific Gravit y 1.015 (1.005-1.030) Urine Protein Neg (Negative) Urine Glucose (UA) Norm (Normal) Urine Ketones Negative (Negative) Urine Blood 3+ H (Negative) Urine Nitrate Negative (Negative) Urine Bilirubin Neg (NEGATIVE) Urine Urobilinogen 4 H (Negative) mg/dL Ur Leukocyte Mariana ase Negative (Negative) Urine RBC >100 H (0-2) /hpf Urine WBC Rare (0-5) /hpf Ur Squamous Epith Cells None (0-5) Urine Bacteria Trace (NONE) Urine Mucus Trace Imaging Data: CT Abd/Pel: Attestation: I personally reviewed and interpreted this imaging study as follows: Radiologist's impression: [address] [address] [address] Scan Report Signed Patient: José Miguel Bonilla Unit #: [id number] : 1940 Age/Sex: 79 / M ADM Date: 08/19/19 Loc: ER Room/Bed: Attending Dr: Ordering Provider/Ordering MD: Juan Luu Date of Service: 08/19/19 Procedure(s): CT kidney stone 30651 Accession Number(s): [id number] Report Number: [id number] PROCEDURE INFORMATION: Exam: CT Abdomen And Pelvis Without Contrast Exam date and time: 08/19/2019 3:40 PM Age: 79 years old Clinical indication: Prior surgery; Surgery date: <1 month; Surgery type: Hernia - gb - aaa; Patient HX: C/O gross hematuria w clots - HX of stones - leukemia; Additional info: Blood in urine TECHNIQUE: Imaging protocol: Computed tomography of the abdomen and pelvis without contrast. Radiation optimization: All CT scans at this facility use at least one of these dose optimization techniques: automated exposure control; mA and/or kV adjustment per patient size (includes targeted exams where dose is matched to clinical indication); or iterative reconstruction. COMPARISON: CT Abdomen/Pelvis Renal [id number] 09/22/2016 4:26 AM RADIATION DOSE METRICS: Total DLP: 727.84 mGy-cm FINDINGS: Liver: Liver with rare calcified granuloma. Liver otherwise unremarkable. No visible hepatic mass. Gallbladder and bile ducts: Status post cholecystectomy. Pancreas: Pancreas is atrophic. No visible pancreatic ductal ectasia. Spleen: Unremarkable. No splenomegaly. Adrenals: Unremarkable. No mass. Kidneys and ureters: Left ureteropelvic junction lithiasis. The stone measures approximately 6 mm x 4.5 mm x 5.5 mm. No significant associated hydronephrosis. Prominent left renal pelvic stone measuring 14 mm x 10 mm x 13 mm. This stone is at risk for causing a ball-valve obstructive mechanism. Tiny nonobstructing calyceal nephrolithiasis equator left kidney measuring under 3 mm. Two small foci of nonobstructing calyceal nephrolithiasis right kidney 3 mm or smaller. Stable bilateral simple renal cortical cysts. Bosniak 1. No follow-up recommended. Stomach and bowel: Diverticulosis coli, primarily the sigmoid colon, without evidence for diverticulitis. Nonobstructive bowel pattern. No visible adynamic or reactive ileus. Appendix: No evidence of appendicitis. Intraperitoneal space: Unremarkable. No free air. No significant fluid collection. Vasculature: Status post fusiform abdominal aorta aneurysmal repair with aorto bi iliac stent. Maximum AP diameter of the [place] abdominal aorta 30 mm in transverse diameter 43 mm. Arterial sclerosis. Lymph nodes: Unremarkable. No enlarged lymph nodes. Bladder: Urinary bladder contains few tiny bladder stones. No gross filling defect or asymmetrical bladder wall thickening. Reproductive: Mild prostate hypertrophy. Bones/joints: No visible acute osseous abnormality. Old compression deformities of the lumbar spine. Previous vertebroplasties L1 and L2. Osteopenia/osteoporosis. Soft tissues: Unremarkable for age. Other findings: Findings suggesting a previous right herniorrhaphy. Limited assessment lung bases reveals advanced 3 vessel coronary artery disease. Mild tubular bronchiectasis posterior basal segment right lower lobe. COPD/chronic bronchitis. Minimal parenchymal scar CT/CT kidney stone [id number] IMPRESSION: 1. Left ureteropelvic junction lithiasis. The stone measures approximately 6 mm x 4.5 mm x 5.5 mm. No associated significant hydronephrosis. 2. Prominent left renal pelvic stone measuring 14 mm x 10 mm x 13 mm. This stone is at risk for causing a ball-valve obstructive mechanism. 3. Bilateral nonobstructing calyceal small foci of nephrolithiasis. 4. Aorto bi-iliac stent. 5. Rare small bladder stones. 6. Diverticulosis coli without evidence for diverticulitis. Radiation Dose CTDIVOL = (mGy): DLP = 727.84 (mGy-cm) Dictated By: John Tobar Signed By: John Tobar Signed Date/Time: 08/19/191743 DD/ 42 Discharge Plan Discharge Patient Disposition: Home, Self-Care Clinical Impression: Kidney stone on left side Condition: Stable Prescriptions: No Action pyridoxine (vitamin B6) 250 mg tablet 250 mg PO TID RF: 0 tamsulosin 0.4 mg capsule 0.4 mg PO BID RF: 0 digoxin 125 mcg (0.125 mg) tablet 125 mcg PO DAILY RF: 0 aspirin 81 mg tablet,delayed release (DR/EC) 81 mg PO DAILY RF: 0 Hold Instructions: Resume on 07/13/19. pravastatin 20 mg tablet 20 mg PO DAILY RF: 0 luspatercept-aamt 1 amp SUBCUT Q21D RF: 0 clopidogrel 75 mg tablet 75 mg PO DAILY Qty: 90 RF: 3 Hold Instructions: Resume on 07/13/19. metoprolol succinate 50 mg tablet extended release 24 hr 50 mg PO DAILY Qty: 90 RF: 3 oxycodone-acetaminophen [Percocet] 5-325 mg tablet 1 tab PO Q6H PRN (Reason: pain) Qty: 20 RF: 0 fentanyl 25 mcg/hr patch 72 hour See Rx Instructions .ROUTE .COMPLEX RF: 0 Discharge Orders: Discharge Order (Routine); Ordered 08/19/19 Ordered By: Juan Luu Referrals: José Miguel Calixto [Primary Care Provider] - Discharge Diet: Regular Discharge Activity: Resume usual activity Patient Instructions: Kidney Stones (ED) Activity Restrictions/Additional Instructions: Urology clinic should be contacting you this week to set up an appointment. If you do not hear from them by Tuesday, then give Dr. Zavala's urology clinic call to set up an appointment. Stop taking your aspirin and plavix until you are seen by Dr. Zavala. Continue to strain your urine for stone and drink plenty of fluids and stay hydrated. Continue taking all home medications minus the aspirin and plavix. Discharge Date/Time: 08/19/19 18:25 Coding Level of Care Code ED Cover [employer] Exam Comprehensive
[2019-08-19 15:27] LABS: Basophils % 0.6 %; Eosinophils # 0.3 10^3/uL (0.0-0.8); Eosinophils % 4.4 %; Hematocrit 33.8 % (42.0-52.0); Hemoglobin 10.7 g/dL (11.7-16.6); Lymphocytes # 1.7 10^3/uL (0.8-4.8); Lymphocytes % 26.3 %; Mean Corpuscular HGB Conc 31.7 g/dL (30.0-36.0); Mean Corpuscular Hemoglobin 30.9 pg (28.0-34.0); Mean Corpuscular Volume 97.7 fL (80-94); Mean Platelet Volume 11.5 fL (7.4-10.4); Monocytes # 0.5 10^3/uL (0.2-0.9); Monocytes % 6.8 %; Neutrophils % 60.5 %; Nucleated Red Blood Cells # 0.1 /100WBC; Nucleated Red Blood Cells % 1.2 %; Platelet Count 287 10^3/cmm (130-400); Red Blood Count 3.46 10^6/uL (4.1-5.3); Red Cell Distribution Width 20.7 % (12.1-15.1); White Blood Count 6.6 10^3/uL (4.0-10.0)
[2019-08-19 15:29] LABS: Glucose Urine UA Norm (Normal); Ketones Urine Negative (Negative); Protein Urine Neg (Negative); Specific Gravity, Urine 1.015 (1.005-1.030); Urine Appearance Hazy (CLEAR); Urine Color Amber (Yellow); pH Urine 6.5 (5-7)
[2019-08-19 15:30] LABS: Bilirubin Urine Neg (NEGATIVE); Blood Urine 3+ (Negative); Leukocyte Esterase Urine Negative (Negative); Nitrate Urine Negative (Negative); Urobilinogen Urine 4 mg/dL (Negative)
--- NOTE | 2019-08-19 15:32 | CTR_ITS ---
PROCEDURE INFORMATION: Exam: CT Abdomen And Pelvis Without Contrast Exam date and time: 08/19/2019 3:40 PM Age: 79 years old Clinical indication: Prior surgery; Surgery date: <1 month; Surgery type: Hernia - gb - aaa; Patient HX: C/O gross hematuria w clots - HX of stones - leukemia; Additional info: Blood in urine TECHNIQUE: Imaging protocol: Computed tomography of the abdomen and pelvis without contrast. Radiation optimization: All CT scans at this facility use at least one of these dose optimization techniques: automated exposure control; mA and/or kV adjustment per patient size (includes targeted exams where dose is matched to clinical indication); or iterative reconstruction. COMPARISON: CT Abdomen/Pelvis Renal [id number] 09/22/2016 4:26 AM RADIATION DOSE METRICS: Total DLP: 727.84 mGy-cm FINDINGS: Liver: Liver with rare calcified granuloma. Liver otherwise unremarkable. No visible hepatic mass. Gallbladder and bile ducts: Status post cholecystectomy. Pancreas: Pancreas is atrophic. No visible pancreatic ductal ectasia. Spleen: Unremarkable. No splenomegaly. Adrenals: Unremarkable. No mass. Kidneys and ureters: Left ureteropelvic junction lithiasis. The stone measures approximately 6 mm x 4.5 mm x 5.5 mm. No significant associated hydronephrosis. Prominent left renal pelvic stone measuring 14 mm x 10 mm x 13 mm. This stone is at risk for causing a ball-valve obstructive mechanism. Tiny nonobstructing calyceal nephrolithiasis equator left kidney measuring under 3 mm. Two small foci of nonobstructing calyceal nephrolithiasis right kidney 3 mm or smaller. Stable bilateral simple renal cortical cysts. Bosniak 1. No follow-up recommended. Stomach and bowel: Diverticulosis coli, primarily the sigmoid colon, without evidence for diverticulitis. Nonobstructive bowel pattern. No visible adynamic or reactive ileus. Appendix: No evidence of appendicitis. Intraperitoneal space: Unremarkable. No free air. No significant fluid collection. Vasculature: Status post fusiform abdominal aorta aneurysmal repair with aorto bi iliac stent. Maximum AP diameter of the [place] abdominal aorta 30 mm in transverse diameter 43 mm. Arterial sclerosis. Lymph nodes: Unremarkable. No enlarged lymph nodes. Bladder: Urinary bladder contains few tiny bladder stones. No gross filling defect or asymmetrical bladder wall thickening. Reproductive: Mild prostate hypertrophy. Bones/joints: No visible acute osseous abnormality. Old compression deformities of the lumbar spine. Previous vertebroplasties L1 and L2. Osteopenia/osteoporosis. Soft tissues: Unremarkable for age. Other findings: Findings suggesting a previous right herniorrhaphy. Limited assessment lung bases reveals advanced 3 vessel coronary artery disease. Mild tubular bronchiectasis posterior basal segment right lower lobe. COPD/chronic bronchitis. Minimal parenchymal scar CT/CT kidney stone [id number] IMPRESSION: 1. Left ureteropelvic junction lithiasis. The stone measures approximately 6 mm x 4.5 mm x 5.5 mm. No associated significant hydronephrosis. 2. Prominent left renal pelvic stone measuring 14 mm x 10 mm x 13 mm. This stone is at risk for causing a ball-valve obstructive mechanism. 3. Bilateral nonobstructing calyceal small foci of nephrolithiasis. 4. Aorto bi-iliac stent. 5. Rare small bladder stones. 6. Diverticulosis coli without evidence for diverticulitis. Radiation Dose CTDIVOL = (mGy): DLP = 727.84 (mGy-cm)
[2019-08-19 15:34] LABS: Add Urine Culture? Yes; Bacteria Urine TRACE; Mucus Urine TRACE; RBC Urine >100 /hpf (0-2); WBC Urine RARE /hpf (0-5)
[2019-08-19] MEDS: sodium chloride 0.9% 500 ML IV (15:39)
[2019-08-19 15:42] LABS: Alanine Aminotransferase 15 U/L (0-41); Albumin Level 4.9 g/dL (3.5-5.2); Alkaline Phosphatase 83 IU/L (40-130); Anion Gap 16.6 (5-19); Aspartate Amino Transferase 21 U/L (0-40); Blood Urea Nitrogen 11 mg/dL (8-23); Calcium 9.5 mg/dL (8.5-10.5); Carbon Dioxide 26 mmol/L (22-29); Chloride 101 mmol/L (98-107); Globulin 1.8 g/dL (1.3-4.6); Glucose 119 mg/dL (65-115); Osmolality Calculated 285 mOsm/kg (285-295); Potassium 4.6 mmol/L (3.5-5.1); Sodium 139 mmol/L (136-145); Total Bilirubin 3.4 mg/dL (0.15-1.2); Total Protein 6.7 g/dL (6.6-8.7)
[2019-08-19 16:05] VITALS: BP 150/57; PULSE 76; RESP 18; O2SAT 98
[2019-08-19 17:05] VITALS: BP 114/55; PULSE 69; RESP 18; O2SAT 98
[2019-08-19 18:25] VITALS: BP 114/54; PULSE 80; RESP 16; O2SAT 96
--- NOTE | 2019-08-21 11:33 | DCPLANNER ---
internet technology manager had message to schedule a follow up appointment for patient with Dr. Zavala. internet technology manager called the office of Dr. Zavala, spoke with Meggan, gave clinic patients information. internet technology manager was told that patients information would be printed and reviewed. Clinic will call patient with appointment information. internet technology manager also [facility] to inform [facility] that [facility] needed [facility] follow up appointment with [facility]rology.
--- NOTE | 2019-08-23 12:16 | DCPLANNER ---
Patient has a follow up appointment scheduled for Tuesday, August 24, 2019 at 11:[address] Zavala. Clinic will call patient with appointment information.
--- NOTE | 2019-08-31 14:41 | DCPLANNER ---
Patient had an appointment scheduled for 08.24.[address] Zavala. Patient did attend the appointment.
== END 2019-08-19 18:25 | disposition home or self-care (01) ==
PROVIDERS: Emergency Provider Physician Assistant; PCP Internal Medicine
DX: N20.0 Calculus of kidney (principal); Z79.82 Long term (current) use of aspirin; Z79.02 Long term (current) use of antithrombotics/antiplatelets; I10 Essential (primary) hypertension; E78.5 Hyperlipidemia, unspecified; Z85.6 Personal history of leukemia; Z87.891 Personal history of nicotine dependence
CPT/HCPCS: 12345; 74176; 80053; 81001; 85025; 87086; 96360; 99283; J7040

== ENCOUNTER 2019-08-22 07:15 | Outpatient (RCR) | payer OTHER, MEDICARE, SELFPAY ==
[2019-08-22 11:30] LABS: Basophils % 0.8 %; Eosinophils # 0.2 10^3/uL (0.0-0.8); Eosinophils % 3.1 %; Hemoglobin 9.8 g/dL (11.7-16.6); Lymphocytes # 1.5 10^3/uL (0.8-4.8); Lymphocytes % 30.6 %; Mean Corpuscular HGB Conc 31.6 g/dL (30.0-36.0); Mean Corpuscular Hemoglobin 30.9 pg (28.0-34.0); Mean Corpuscular Volume 97.8 fL (80-94); Mean Platelet Volume 11.4 fL (7.4-10.4); Monocytes # 0.4 10^3/uL (0.2-0.9); Monocytes % 8.4 %; Neutrophils # 2.7 10^3/uL (1.8-7.7); Neutrophils % 56.1 %; Nucleated Red Blood Cells % 0.4 %; Platelet Count 224 10^3/cmm (130-400); Red Blood Count 3.17 10^6/uL (4.1-5.3); Red Cell Distribution Width 21.2 % (12.1-15.1); White Blood Count 4.9 10^3/uL (4.0-10.0)
== END 2019-08-22 23:59 | disposition home or self-care (01) ==
LOC: ONCMED 07:15
PROVIDERS: PCP Internal Medicine; Visit Provider Internal Medicine Medical Oncology
DX: D46.Z Other myelodysplastic syndromes (principal)
CPT/HCPCS: 36415; 85025

== ENCOUNTER 2019-08-24 10:21 | Outpatient (CLI) | payer OTHER, MEDICARE, SELFPAY ==
--- NOTE | 2019-08-24 10:32 | XR_ITS ---
WS: [id number] XR KUB [id number] REASON FOR EXAM: KIDNEY STONE FINDINGS a prominent stent is seen through the aorta extends down to the iliac arteries. There is evidence of a large stone in the left kidney. A small stone is seen along the midportion of the right kidney and additional small stone measures 2 mm in the left kidney. There is evidence of vertebroplasty changes noted L1 and L2 XR/XR KUB [id number] IMPRESSION: Large stone in the pelvis on the left. Small stones are seen in the remaining right and left kidneys. A large stent is seen in the aorta extends down into the iliac arteries in good position.
== END 2019-08-24 10:22 | disposition home or self-care (01) ==
PROVIDERS: PCP Internal Medicine; Visit Provider Urology
DX: N20.0 Calculus of kidney (principal); C95.90 Leukemia, unspecified not having achieved remission; Z96.0 Presence of urogenital implants
CPT/HCPCS: 74018; 80048; 81001

== ENCOUNTER 2019-08-30 06:44 | Outpatient (RCR) | payer OTHER, SELFPAY ==
[2019-08-29 15:02] LABS: Basophils % 0.7 %; Eosinophils % 0.9 %; Hemoglobin 8.6 g/dL (11.7-16.6); Mean Corpuscular HGB Conc 30.7 g/dL (30.0-36.0); Mean Corpuscular Hemoglobin 30.7 pg (28.0-34.0); Mean Platelet Volume 11.2 fL (7.4-10.4); Monocytes # 0.4 10^3/uL (0.2-0.9); Monocytes % 9.3 %; Nucleated Red Blood Cells % 0.9 %; Platelet Count 323 10^3/cmm (130-400); Red Cell Distribution Width 22.5 % (12.1-15.1); White Blood Count 4.5 10^3/uL (4.0-10.0)
[2019-08-29 16:07] LABS: Alanine Aminotransferase 16 U/L (0-41); Albumin Level 4.3 g/dL (3.5-5.2); Alkaline Phosphatase 81 IU/L (40-130); Aspartate Amino Transferase 20 U/L (0-40); Blood Urea Nitrogen 11 mg/dL (8-23); Calcium 9.4 mg/dL (8.5-10.5); Carbon Dioxide 28 mmol/L (22-29); Chloride 100 mmol/L (98-107); Globulin 2.3 g/dL (1.3-4.6); Glucose 103 mg/dL (65-115); Lactate Dehydrogenase 152 U/L (135-225); Osmolality Calculated 288 mOsm/kg (285-295); Sodium 141 mmol/L (136-145); Total Bilirubin 2.6 mg/dL (0.15-1.2); Total Protein 6.6 g/dL (6.6-8.7)
--- NOTE | 2019-08-30 19:17 | ONC FU_ITS ---
Dr. Lew Patient Follow-Up Note Patient: José Miguel Bonilla Unit #: [id number]: [id number] Dicatated By: Ammon Lew M.D.Date of Visit:Aug 30, 2019 Onc Med Follow-up/Prog Note Chief Complaint: Myelodysplastic syndrome. History of Present Illness: This is a 79 year-old man with myelodysplastic syndrome (MDS with unilineage dysplasia). He was seen initially on 09/30/2015 in regard to a moderately severe anemia. The available records included multiple blood counts dating back to August 2014. At that time his hemoglobin was 10.3 g with white blood cell count 6400 and platelet count 325,000. The red cell indices were macrocytic with MCV 110 and MCH 37. A more recent CBC, from 08/20/2015, showed a hemoglobin down to 9.7 g with hematocrit 29%. The red cell indices were similar. White blood cell count was 4900 and platelet count was 337,000. The differential showed 56% neutrophils, 30% lymphocytes, and 10% monocytes. B12 was checked several times and was normal. Folate level was low at 6.7 ng/mL. The serum iron was normal at 141 mcg/dL. 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 He had negative stool Hemoccult, though an upper GI endoscopy apparently did show ulcers. Colonoscopy was unremarkable. His evaluation also included CT abdomen/pelvis in May 2015. It showed an aneurysm of the distal abdominal aorta extending to, but not into, the bifurcation. It appeared stable compared to a previous study from March 2013. There were no acute findings noted on that study. His laboratory studies on 09/30/2015 included CBC showing hemoglobin 9.4 g, white blood cell count 6400, and platelet count 420,000. The red cell indices were macrocytic with MCV 110 and MCH 37. The uncorrected reticulocyte count was 2.0%. Comprehensive metabolic profile was unremarkable except for mildly elevated total bilirubin at 2.9 mg/dL. The liver enzymes were normal.. LDH was normal at 183 mg/dL and haptoglobin was low normal at 53 mg/dL. Ferritin was elevated at 520 ng/mL. The homocysteine level was slightly elevated at 11.6 ???mol/L with methylmalonic acid normal at 198 nmol/L. Protein electrophoresis was normal. He underwent bone marrow aspiration/biopsy on 10/15/2015. The marrow was hypercellular, estimated at 90-95%. There was limited erythroid dyspoiesis. There was no evidence of infiltrative process. Blasts were reported at 0%. Iron stores were 3+ with occasional ring sideroblasts identified, estimated at less than 5-10% of the population. There was 1+/4+ reticulin staining. The chromosome analysis showed no metaphase cells for analysis. The FISH panel for MDS showed no abnormalities. 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 During subsequent follow-up his hemoglobin had declined to a low of 8.2 g/dL on 12/16/2015. His baseline erythropoietin level was 152 mIU/mL. On 12/18/2015 he began a trial of therapy with Procrit, initially at 40,000 units weekly. As of 01/13/2016, after 4 weeks of treatment, the hemoglobin was basically stable at 8.5 g. At that point the Procrit dosage was escalated to 60,000 U weekly. His hemoglobin level had subsequently increased to a maximum level 10.1 g on 03/09/2016. It then drifted downward gradually. As of 07/20/2016 it was down to 8.7 g. As of his followup visit on 08/04/2016 he had remained transfusion independent. However, after that his hemoglobin had shown further decline to 7.9 g, and at that point I did opt to stop the Procrit and transition his treatment to Revlimid. He began his treatment with Revlimid 10 mg daily on 08/16/2016. His baseline hemoglobin was 8.2 g. He did opt to have a transfusion of 2 units of packed red blood cells. Thus far he has tolerated the Revlimid well and during follow-up his blood count had stabilized with hemoglobin in the range of 9.5 g. His CBC on 11/23/2016 showed further increase in the hemoglobin to 10.4 g. As of 02/15/2017 his hemoglobin had declined somewhat, to 8 g with WBC moderately decreased at 2700 and platelet count normal at 200,000. He continued treatment with Revlimid. On 03/11/2017 he was seen at the [place] clinic with flu-like symptoms. His nasal swab reportedly was positive for influenza, and he did start treatment with Tamiflu. His CBC showed a further decline in his hemoglobin to 6.5 g, and he was found to be jaundiced, total bilirubin 6.1 mg/dL. He was transfused 2 units of PRBC. On his further laboratory evaluation on 03/14/2017 his hemoglobin had increased to only 7.8 g. The uncorrected reticulocyte count was 3.2%. His total bilirubin was still elevated at 5.7 mg/dL with the direct bilirubin normal at 0.60 mg/dL. LDH was normal at 218 U/L. The haptoglobin level was low at 21.9 mg/dL. HEMA was negative. B12 and folate levels were normal. He was advised to stop Revlimid. During subsequent follow-up his haptoglobin level showed further decline, to as low as 9.3 mg/dL on 03/28/2017. However, at that point his hemoglobin remained adequate at 9.4 g, his bilirubin was down to 3.0 mg/dL, and his LDH remained normal. He had a follow-up CTA of the abdomen/pelvis on 03/22/2017. It again showed evidence infrarenal abdominal aortic aneurism extending to the aortic bifurcaton. It measured 4.5 x 4.6 x 4.7 cm. 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 On 05/13/2017 he underwent coronary angioplasty with stent placement of the right coronary artery. On 05/30/2017 he underwent endovascular repair of infrarenal abdominal aortic aneurysm. He tolerated both procedures well, though during that time he did require transfusion of a total of 9 U of packed red blood cells. He hen continued on aspirin 81 mg daily together with Plavix 75 mg daily. He remained off Revlimid. During subsequent follow-up, he remained transfusion dependent. He then underwent repeat bone marrow aspiration/biopsy on 08/04/2017. The marrow was hypercellular, 100% cellularity. Megakaryocytes were noted to be increased in number and there was associated megakaryocyte dyspoiesis. There was just limited dyserythropoiesis. Ring sideroblasts were present, comprising more than 50% of the nrbc population. Blasts were estimated at 9% by morphology and 4% by flow cytometry. The FISH panel for MDS was unrevealing and the standard chromosome analysis was normal. 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 His IPSS-R score calculated to 3.5 or 4.5, depending on which blast count was used. Either score was intermediate risk category. With those findings, he was advised to undergo trial of therapy with 5-azacytidine. As of 08/26/2017 his ferritin level had increased to 1076 ng/mL. At that point he began chelation therapy with Jadenu 1440 mg daily. On 08/29/2017 he began cycle 1 of treatment with 5-azacytidine. It was administered subcutaneously for 7 days. He tolerated the 5-azacytidine without acute toxicity. He subsequently developed nausea with the Jadenu, and the dosage was reduced to 720 mg daily. He continued treatment with 5-azacytidine at 4-week intervals. He required further transfusions on 10/11/2017, on 10/18/2017, and on 11/09/2017. Thereafter his hemoglobin level stabilized above transfusion threshold. During subsequent follow-up, he had some adjustments in his treatment interval, but he remained transfusion independent. As of July 2018 he was able to stop Jadenu, with his ferritin level having decreased to 357 ng/mL. His other medical illnesses include hypertension, hyperlipidemia, atrial fibrillation, coronary artery disease, peripheral arterial disease, GERD, and nephrolithiasis. He also has fairly long-standing psoriasis. In the past he had been on treatment with methotrexate. His procedural history includes coronary angioplasty/stent placement followed by endovascular repair of abdominal aortic aneurysm in May 2017. He had previously smoked 2 packs of cigarettes daily, but he quit smoking more than 20 years ago. INTERIM HISTORY: In November 2018 he began to show gradual decline in his hemoglobin, though it continued to fluctuate between 8 and 9 g. As of 01/15/2019 it had further decreased to 7.5 g, at which point he did receive a PRBC transfusion. He continued with cycle 15 of 5-azacytidine on 02/12/2019. He was then transfused again on 02/27/2019 with his hemoglobin back down to 7.1 g. During the past month or so he had developed significant worsening of his back pain. He also is having pain in his left rib cage area following some minor trauma. A bone scan on 03/12/2019 showed a punctate area of bony uptake involving the left anterior approximately fifth rib, consistent with trauma. There was noted to be a compression fracture with bony uptake involving a midthoracic vertebral body. Diffuse patchy uptake involving the calvarium was felt to be likely related to the myelodysplastic syndrome and bone marrow hyperplasia. On 04/13/2019 he presented to the emergency room with worsening back pain. CT abdomen/pelvis at that time showed multiple chronic compression fracture deformities but with progressed height loss of L1 compared to the prior exam and with mild adjacent soft tissue edema compatible with new/progressive L1 fracture. There was minimal retropulsed bone measuring up to 3 mm. There was no critical stenosis. Also noted was a new fracture of the superior endplate of T9 without any retropulsed bone. There was evidence of partial small bowel obstruction with a gradual change to collapsed loops of bowel. I had seen him for a follow-up visit on 05/10/2019. At that point he was still having severe back pain, presumably due to the vertebral compression fractures, and he had very limited activity. He continued transfusion support for the anemia. [facility] [place] [facility], I assume either a vertebroplasty or a kyphoplasty. On 06/26/2019 he began a trial of therapy with luspatercept 1 mg/kg by subcutaneous injection every 3 weeks for the myelodysplastic syndrome. On 07/09/2019 he underwent open right inguinal hernia repair with mesh placement. He tolerated the procedure well. On 07/17/2019 he received a 2nd dose of luspatercept. He required PRBC transfusion on 08/01/2019. As of 08/09/2019 the luspatercept dosage was increased to 105 mg, but he again required transfusion on 08/16/2019. He is seen for a follow-up visit. He continues to have very limited activity due to his back pain. He reports having pain in his upper back in the area of the left shoulder blade and in the lower back from hip to hip. He says it is getting a little worse. 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 His appetite is OK. He has no fever, but he does have sweating at night. He has continuous sinus drainage. His breathing is sometimes a little tight. He does not complain of chest pain. He occasionally takes TUMS for acid reflux. Bowel function has been adequate with Miralax and prune juice. He says he has kidney stones on both sides. He has numbness in the ulnar distribution on both sides, and he has numbness in his toes. He has been having pain in his right heel. Medications: Aspirin 1 (81 mg) Tablet, enteric coated Oral daily, B-6 1 (200 mg) Tablet Oral t.i.d., Digoxin 1 (125 mcg) Tablet Oral daily, Folic Acid 1 (1 mg) Tablet Oral daily, Metoprolol Tartrate 1 Tablet (of 50 mg) Oral daily, oxyCODONE-Acetaminophen 1 Tablet (of 5-325 mg) Oral four times a day PRN, Plavix 1 (75 mg) Tablet Oral daily, Pravastatin Sodium 1 Tablet (of 20 mg) Oral daily, Reblozyl 1 Subcutaneous q 3 weeks, Tamsulosin HCl 1 Tablet (of 0.4 mg) Capsule Oral b.i.d. Allergies: No Known Allergies. Review of Systems: Constitutional - He has very limited activity. He is mostly in bed or chair. His appetite is okay. Weight is stable. He has no fever, but he does have sweating at night. ECOG score is 3, ENMT - He has constant sinus drainage, worse after a cold drink or eating. He occasionally has sore mouth or throat. No difficulty swallowing, Hematologic/Lymphatic - He has easy bruising, Respiratory - His breathing is sometimes tight. No cough. No pleuritic pain or hemoptysis, Cardiovascular - No angina pain. No palpitations, Gastrointestinal - No nausea or vomiting. He occasionally has acid reflux, managed with TUMS. Bowel funcion is adequate with Miralax and prunes. No blood in the stool or black stools, Genitourinary (M) - He has urinary frequency and occasional hematuria. He says he has kidney stones on both sides, Musculoskeletal - He has pain in his upper back, in the area of the left shoulder blade. He has pain in the lower back from hip to hip. The lower back pain is a little worse, Integumentary - He has longstanding psoriasis, Neurologic - No headache or dizziness. He has numbness in the ulnar dstribution on both sides, and he has numbness in his toes, Psychiatric - He has depression. He does not sleep well. Vital Signs: Performed on Aug 30, 2019 10:04 Height - 76.00 in Weight - 185.4 lbs (LOW) BSA - 2.15 sq.m BMI - 22.57 Temperature - 97.2 F (LOW) Pulse - 86 /min Respiration - 24 /min BP - 119/63 mm(hg) O2 Sat - 98 % Pain - 7 Physical Examination: Constitutional - He appears generally weak and pale, Eyes - Sclerae nonicteric. Conjunctivae clear, ENMT - No lesions noted in the oral cavity, Hematologic/Lymphatic - No cervical, clavicular, or axillary adenopathy, Respiratory - Lungs sound clear with some decrease in air movement bilaterally, Cardiovascular - Heart rhythm is irregular. There is a II/ systolic murmur. There is no gallop or rub noted, Abdomen - Soft. Liver and spleen are not enlarged. There is no abdominal mass or ascites noted and there is no inguinal adenopathy, Extremities - There are mild venous stasis changes bilaterally. There is mild swelling at the right ankle. The right heel is not red or warm to touch, Integumentary - He has fairly generalized psoriasis, unchanged, Neurologic - He has very limited mobility. There are no focal neurologic deficits noted. Lab/Imaging: CBC shows hemoglobin 8.6 g, WBC 4500, and platelet count 323,000. Comprehensive metabolic profile is unremarkable except for mildly elevated total bilirubin at 2.6 mg/dL. Impression: 1. The patient has a moderately severe macrocytic anemia. Bone marrow aspiration/biopsy on 10/15/2015 showed hypercellular marrow, estimated 90-95%. There was mild erythroid dyspoiesis and there were ringed sideroblasts identified, estimated at less than 5-10% of the population. Iron stores were 3+. The FISH panel for MDS showed no abnormalities. A standard chromosome study showed no metaphases for analysis. Overall, the findings were consistent with myelodysplastic syndrome (refractory cytopenia with unileage dysplasia) versus idiopathic cytopenia of undetermined significance. 2. 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 This is probably of no clinical significance other than he may be more prone to iron overload if he does become transfusion dependent. His other medical illnesses include: 3. Hypertension. 4. Hyperlipidemia. 5. Peptic ulcer disease/GERD. 6. Nephrolithiasis. 7. He has a history of atrial fibrillation. 8. He has an abdominal aortic aneurysm. In December 2015 he began a trial of therapy with Procrit after his hemoglobin had dropped to 8.2 g. As of 01/13/2016 the dosage was escalated to 60,000 U weekly, as his hemoglobin at that point was basically stable at 8.5 g. He did show some response, with his hemoglobin increasing to 10.1g. It had subsequently drifted downward. As of his visit on 08/04/2016 his hemoglobin was down to 7.9 g. At that point the Procrit was discontinued. He began treatment with Revlimid 10 mg daily on 08/16/2016. He had noticed some worsening of his psoriasis after starting the Revlimid, but he has otherwise tolerated it well. His hemoglobin initially appeared to have stabilized in the range of 9.5 to 10 g. As of 02/15/2017 his hemoglobin had declined to 8 g. On 03/11/2017 he was confirmed to have influenza by nasal swab. His hemoglobin at that point had dropped to 6.5 g and he had become overtly jaundiced. He was transfused PRBC. 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 At that point I did opt to stop the Revlimid. During subsequent follow-up, his haptoglobin level recovered to normal and his bilirubin level returned to baseline. His LDH remained normal. He underwent coronary angioplasty/stent placement on 05/12/2017 and on 05/30/2017 he underwent endovascular repair of infrarenal abdominal aortic aneurysm. He then continued on prophylaxis with aspirin 81 mg daily and Plavix 75 mg daily. During subsequent followup he remained transfusion dependent. His repeat bone marrow aspiration/bipsy on 08/04/2017 showed 100% cellularity with associated megakaryocyte dyspoiesis and limited dyserythropoiesis. Ring sideroblasts were present, comprising more than 50% of the nrbc population. Blasts were estimated at 9% by morphology and 4% by flow cytometry. The FISH panel for MDS was unrevealing and the standard chromosome analysis was normal. 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 His IPSS-R score calculated to 3.5 or 4.5, depending on which blast count was used. Either score was intermediate risk category. As of 08/26/2017 his serum ferritin had increased to 1076 ng/mL, and he began treatment with Jadenu 1440 mg daily. He then began a course of treatment of 5-azacytidine, cycle 1 day 1 on 08/29/2017. It was administered subcutaneously for 7 days. He tolerated the treatment without any acute toxicity. He proceeded with cycle 2 of 5-azacytidine on 10/03/2017, and he then continued treatment at 4-week intervals. He continued to require transfusion up until 11/08/2017, but his hemoglobin then stabilized in the range of 10-11 g. During that time he had mild to moderately severe neutropenia and thrombocytopenia, and beginning with the 6th cycle I did make some adjustments in the treatment interval. He then continued to tolerate the treatment well, and he remained transfusion independent. However, by November 2018 there had been a gradual decline in his hemoglobin, which at that point was fluctuating between 8 and 9 g. As of 01/15/2019 the hemoglobin had dropped to 7.5 g, and he was then transfused 2 units PRBC. It was his first transfusion since November 2017. On 02/12/2019 he continued with cycle 15 of 5-azacytidine. He required transfusion again on 02/27/2019 with hemoglobin back down to 7.1 g. During followup he had been showing some decline in his performance status. He had developed significant worsening of his back pain, and bone scan did show evidence of a vertebral compression fracture in the mid thoracic spine. As he was clearly not responding to the 5-azacytidine, I did opt to stop the treatmnent. He then continued to be supported with PRBC transfusion as needed. In the meantime, his back pain had continued to worsen. A CT abdomen/pelvis done through the emergency room on 04/13/2019 showed increased fracture at L1 and some new compression fracture at T9. Management has been problematic, as he has had somewhat poor tolerance for pain medication. He recently [facility] a [facility] in [place] [facility], either kyphoplasty or vertebroplasty, I assume. He initially was getting some benefit, but in the last few days he has been having more back pain. He also reports having pain in association with a right inguinal hernia, which had worsened in association with some straining while he was on the stool. In the meantime, on 06/26/2019 he began a trial of therapy with luspatercept. He had no adverse effects with the initial injection. Thus far he does not appear to be showing any obvious response. In the meantime, he has undergone right inguinal hernia repair. He then continued with his 2nd dose of luspatercept on 07/17/2019. He remained transfusion dependent, requiringd PRBC transfusion on 08/01/2019 and again on 08/16/2019 despite having an increase in the luspatercept dosage on 08/09/2019. During this time, he has continued to have severe back pain, and his activity remains very limited. Plan: He will continue treatment with luspatercept at 1.25 mg/kg by subcutaneous injection. He will continue fentanyl at the same dosage. His oxycodone dosage will be increased to 10 mg. He will start citalopram 10 mg daily for depresssion. His blood counts will be monitored weekly. He will be scheduled for a followup visit in 3 weeks. In the meantime, I will request heel pads for him, as I think his heel pain is most likely a compression issue. 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 Signed By: Ammon Lew M.D. <<Signature on File>>
== END 2019-09-04 23:59 | disposition home or self-care (01) ==
LOC: ONCMED 06:44
PROVIDERS: PCP Internal Medicine; Visit Provider Internal Medicine Medical Oncology
DX: E83.111 Hemochromatosis due to repeated red blood cell transfusions (principal); D46.Z Other myelodysplastic syndromes; D64.9 Anemia, unspecified; D50.9 Iron deficiency anemia, unspecified; I48.91 Unspecified atrial fibrillation; I25.10 Atherosclerotic heart disease of native coronary artery without angina pectoris; E78.5 Hyperlipidemia, unspecified; I10 Essential (primary) hypertension; K21.9 Gastro-esophageal reflux disease without esophagitis; I73.9 Peripheral vascular disease, unspecified
CPT/HCPCS: 36415; 80053; 83615; 85025; 96372; 99214; C9399

== ENCOUNTER 2019-09-13 | Outpatient (CLI) | payer OTHER, SELFPAY | END 2019-09-13 23:00 | disposition home or self-care (01) | LOC: ONCMED 10-24 12:41 | PROVIDERS: PCP Internal Medicine; Visit Provider Internal Medicine Medical Oncology | DX: N20.1 Calculus of ureter (principal) | CPT/HCPCS: 80048; 81001 ==

== ENCOUNTER 2019-09-13 09:00 | Outpatient (CLI) | payer OTHER, MEDICARE, SELFPAY ==
--- NOTE | 2019-09-13 09:00 | XRR_ITS ---
PROCEDURE INFORMATION: Exam: XR Abdomen, 1 View Exam date and time: 09/13/2019 9:17 AM Age: 79 years old Clinical indication: Condition or disease; Kidney or ureter condition; Calculus (stone) in ureter; Prior surgery; Surgery date: 6+ months; Surgery type: Groin stent from aaa. Hernia TECHNIQUE: Imaging protocol: XR of the abdomen. Views: Frontal supine view of the abdomen. 1 View. COMPARISON: CR XR KUB [id number] 08/24/2019 11:00 AM FINDINGS: Gastrointestinal tract: Mild small bowel and colonic dilatation. Intraperitoneal space: Nonspecific punctate left pelvic calcification. Organs: Bilateral urolithiasis, including 17 mm calculus overlying the region of the left renal pelvis. Vasculature: Bifurcated endoluminal stent graft in the abdominal aorta and common iliac arteries. Prominent vascular calcification. Bones/joints: Osteopenia and degenerative change. Multiple compression fractures and vertebral plasty. XR/XR KUB [id number] IMPRESSION: Bilateral urolithiasis, including 17 mm calculus overlying the region of the left renal pelvis.
== END 2019-09-13 09:01 | disposition home or self-care (01) ==
PROVIDERS: PCP Internal Medicine; Visit Provider Urology
DX: N20.1 Calculus of ureter (principal)
CPT/HCPCS: 74018

== ENCOUNTER 2019-09-14 15:15 | Outpatient (CLI) | payer OTHER, SELFPAY ==
--- NOTE | 2019-09-14 15:22 | XR_ITS ---
WS: [id number] SCREENING DEXA SCAN [employer] CLINICAL INFORMATION: VETEBRAL COMPRESSION FRACTURE COMPARISON: 2015 FINDINGS: Left forearm bone mineral density measures 0.92 with T score of -0.6 and Z score of 0.5 Right forearm bone mineral density measures 0.792 with a T score of -2.0 and Z score of -0.9 Left femoral neck bone mineral density measures 0.744 g/cm2. This corresponds to a T score of -2.5 an d Z score of -1.5. Right femoral neck bone mineral density measures 0.723 g/cm2. This corresponds to a T score -2.6of an d Z score of -1.6. Mean femoral neck bone mineral density measures 0.734 g/cm2. This corresponds to a T score of -2.5 an d Z score of -1.6. XR/XR DEXA axial skeleton* [id number] IMPRESSION: Osteopenia in the right forearm. Osteoporosis at the lower end of the range in the femoral necks. Patient's FRAX calculated 10 year probability for major osteoporotic fracture i s 15.4 % and osteoporotic hip fracture is 6.3%.
== END 2019-09-14 15:16 | disposition home or self-care (01) ==
LOC: RADWPI 15:18
PROVIDERS: PCP Internal Medicine; Visit Provider Internal Medicine Medical Oncology
DX: M48.50XA Collapsed vertebra, not elsewhere classified, site unspecified, initial encounter for fracture (principal); X58.XXXA Exposure to other specified factors, initial encounter; M85.89 Other specified disorders of bone density and structure, multiple sites; M81.0 Age-related osteoporosis without current pathological fracture
CPT/HCPCS: 77080

== ENCOUNTER 2019-09-20 07:10 | Outpatient (CLI) | payer OTHER, SELFPAY ==
--- NOTE | 2019-09-20 07:15 | XR_ITS ---
WS: [id number] KUB, 09/20/2019 Clinical Data: URETERAL STONE Comparison: KUB, 09/13/2019. Findings: There is a 1.9 cm calcification overlying the left renal pelvis. The fecal material and bow el gas obscures detail over both kidneys. No abnormal intraabdominal masses are seen. There is no dil atated small bowel or evidence of obstruction. There is an aortic stent graft in position with extension into the proximal common iliac arteries. Ve rtebroplasty cement is noted in the L1 and L2 vertebral bodies. XR/XR KUB [id number] Impression: 1. No change in left renal pelvic calcification. 2. Stool and bowel gas obscure detail over the right kidney.
== END 2019-09-20 07:11 | disposition home or self-care (01) ==
PROVIDERS: PCP Internal Medicine; Visit Provider Urology
DX: N20.1 Calculus of ureter (principal); N20.0 Calculus of kidney
CPT/HCPCS: 74018; 81001; 82365

== ENCOUNTER 2019-10-04 06:03 | Outpatient (RCR) | payer OTHER, SELFPAY ==
[2019-09-05 10:51] LABS: Basophils % 0.7 %; Eosinophils # 0.1 10^3/uL (0.0-0.8); Eosinophils % 1.7 %; Hematocrit 25.9 % (42.0-52.0); Hemoglobin 8.3 g/dL (11.7-16.6); Lymphocytes % 24.8 %; Mean Corpuscular Hemoglobin 31.8 pg (28.0-34.0); Mean Corpuscular Volume 99.2 fL (80-94); Mean Platelet Volume 11.4 fL (7.4-10.4); Monocytes # 0.4 10^3/uL (0.2-0.9); Neutrophils # 2.6 10^3/uL (1.8-7.7); Neutrophils % 62.4 %; Nucleated Red Blood Cells % 0.7 %; Platelet Count 287 10^3/cmm (130-400); Red Blood Count 2.61 10^6/uL (4.1-5.3); Red Cell Distribution Width 23.1 % (12.1-15.1); White Blood Count 4.2 10^3/uL (4.0-10.0)
[2019-09-12 09:32] LABS: Basophils % 0.6 %; Eosinophils # 0.1 10^3/uL (0.0-0.8); Eosinophils % 2.3 %; Hematocrit 26.4 % (42.0-52.0); Hemoglobin 8.3 g/dL (11.7-16.6); Lymphocytes # 1.1 10^3/uL (0.8-4.8); Lymphocytes % 21.8 %; Mean Corpuscular HGB Conc 31.4 g/dL (30.0-36.0); Mean Corpuscular Hemoglobin 31.9 pg (28.0-34.0); Mean Corpuscular Volume 101.5 fL (80-94); Mean Platelet Volume 11.6 fL (7.4-10.4); Monocytes # 0.5 10^3/uL (0.2-0.9); Monocytes % 8.7 %; Neutrophils # 3.3 10^3/uL (1.8-7.7); Neutrophils % 64.1 %; Nucleated Red Blood Cells # 0.1 /100WBC; Nucleated Red Blood Cells % 2.1 %; Platelet Count 273 10^3/cmm (130-400); Red Cell Distribution Width 25.8 % (12.1-15.1); White Blood Count 5.2 10^3/uL (4.0-10.0)
[2019-09-13] MEDS: acetaminophen 325 mg Tablet 650 MG PO (11:10)
[2019-09-13] MEDS: sodium chloride 0.9% 250 ML 999 ML IV (11:15)
[2019-09-13 13:30] VITALS: BP 108/68; PULSE 78; RESP 18; TEMP 36.4; O2SAT 98
[2019-09-13 13:45] VITALS: BP 107/56; PULSE 78; RESP 18; TEMP 36.4; O2SAT 98
[2019-09-13 14:45] VITALS: BP 106/52; PULSE 80; RESP 18; TEMP 36.3; O2SAT 98
[2019-09-13] MEDS: diphenhydrAMINE 25 mg Capsule PO (15:35)
[2019-09-13] MEDS: FUROsemide 10 mg/mL SDV 2mL 20 MG IV (15:36)
[2019-09-13 15:49] VITALS: BP 106/54; PULSE 18; RESP 80; TEMP 36.3; O2SAT 98
[2019-09-19 11:38] LABS: Basophils # 0.1 10^3/uL (0.0-0.1); Eosinophils # 0.1 10^3/uL (0.0-0.8); Eosinophils % 2.4 %; Hematocrit 31.6 % (42.0-52.0); Hemoglobin 9.8 g/dL (11.7-16.6); Lymphocytes # 1.1 10^3/uL (0.8-4.8); Lymphocytes % 22.2 %; Mean Corpuscular Hemoglobin 30.4 pg (28.0-34.0); Mean Corpuscular Volume 98.1 fL (80-94); Mean Platelet Volume 12.4 fL (7.4-10.4); Monocytes # 0.5 10^3/uL (0.2-0.9); Neutrophils # 3.23 10^3/uL (1.8-7.7); Neutrophils % 64.4 %; Nucleated Red Blood Cells % 0.6 %; Platelet Count 306 10^3/cmm (130-400); Red Blood Count 3.22 10^6/uL (4.1-5.3); Red Cell Distribution Width 23.9 % (12.1-15.1)
[2019-09-19 12:02] LABS: Alanine Aminotransferase 11 U/L (0-41); Albumin Level 4.2 g/dL (3.5-5.2); Alkaline Phosphatase 66 IU/L (40-130); Anion Gap 14.5 (5-19); Aspartate Amino Transferase 18 U/L (0-40); Blood Urea Nitrogen 9 mg/dL (8-23); Calcium 8.8 mg/dL (8.5-10.5); Carbon Dioxide 28 mmol/L (22-29); Chloride 98 mmol/L (98-107); Globulin 2.5 g/dL (1.3-4.6); Glucose 106 mg/dL (65-115); Iron 109 ug/dL (59-158); Lactate Dehydrogenase 196 U/L (135-225); Osmolality Calculated 278 mOsm/kg (285-295); Percent Saturation 70.3 % (20-50); Potassium 4.5 mmol/L (3.5-5.1); Sodium 136 mmol/L (136-145); Total Bilirubin 2.8 mg/dL (0.15-1.2); Total Iron Binding Capacity 155 mcg/dl; Total Protein 6.7 g/dL (6.6-8.7); Unsaturated Iron Binding 46 ug/dL (112-347)
[2019-09-19 12:49] LABS: Ferritin 1234 ng/mL (30-400)
--- NOTE | 2019-09-20 19:18 | ONC FU_ITS ---
Dr. Lew Patient Follow-Up Note Patient: José Miguel Bonilla Unit #: [id number]: 1940 Dicatated By: Ammon Lew M.D.Date of Visit:Sep 20, 2019 Onc Med Follow-up/Prog Note Chief Complaint: Myelodysplastic syndrome. History of Present Illness: This is a 79 year-old man with myelodysplastic syndrome (MDS with unilineage dysplasia). He was seen initially on 09/30/2015 in regard to a moderately severe anemia. The available records included multiple blood counts dating back to August 2014. At that time his hemoglobin was 10.3 g with white blood cell count 6400 and platelet count 325,000. The red cell indices were macrocytic with MCV 110 and MCH 37. A more recent CBC, from 08/20/2015, showed a hemoglobin down to 9.7 g with hematocrit 29%. The red cell indices were similar. White blood cell count was 4900 and platelet count was 337,000. The differential showed 56% neutrophils, 30% lymphocytes, and 10% monocytes. B12 was checked several times and was normal. Folate level was low at 6.7 ng/mL. The serum iron was normal at 141 mcg/dL. 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 He had negative stool Hemoccult, though an upper GI endoscopy apparently did show ulcers. Colonoscopy was unremarkable. His evaluation also included CT abdomen/pelvis in May 2015. It showed an aneurysm of the distal abdominal aorta extending to, but not into, the bifurcation. It appeared stable compared to a previous study from March 2013. There were no acute findings noted on that study. His laboratory studies on 09/30/2015 included CBC showing hemoglobin 9.4 g, white blood cell count 6400, and platelet count 420,000. The red cell indices were macrocytic with MCV 110 and MCH 37. The uncorrected reticulocyte count was 2.0%. Comprehensive metabolic profile was unremarkable except for mildly elevated total bilirubin at 2.9 mg/dL. The liver enzymes were normal.. LDH was normal at 183 mg/dL and haptoglobin was low normal at 53 mg/dL. Ferritin was elevated at 520 ng/mL. The homocysteine level was slightly elevated at 11.6 ???mol/L with methylmalonic acid normal at 198 nmol/L. Protein electrophoresis was normal. He underwent bone marrow aspiration/biopsy on 10/15/2015. The marrow was hypercellular, estimated at 90-95%. There was limited erythroid dyspoiesis. There was no evidence of infiltrative process. Blasts were reported at 0%. Iron stores were 3+ with occasional ring sideroblasts identified, estimated at less than 5-10% of the population. There was 1+/4+ reticulin staining. The chromosome analysis showed no metaphase cells for analysis. The FISH panel for MDS showed no abnormalities. 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 During subsequent follow-up his hemoglobin had declined to a low of 8.2 g/dL on 12/16/2015. His baseline erythropoietin level was 152 mIU/mL. On 12/18/2015 he began a trial of therapy with Procrit, initially at 40,000 units weekly. As of 01/13/2016, after 4 weeks of treatment, the hemoglobin was basically stable at 8.5 g. At that point the Procrit dosage was escalated to 60,000 U weekly. His hemoglobin level had subsequently increased to a maximum level 10.1 g on 03/09/2016. It then drifted downward gradually. As of 07/20/2016 it was down to 8.7 g. As of his followup visit on 08/04/2016 he had remained transfusion independent. However, after that his hemoglobin had shown further decline to 7.9 g, and at that point I did opt to stop the Procrit and transition his treatment to Revlimid. He began his treatment with Revlimid 10 mg daily on 08/16/2016. His baseline hemoglobin was 8.2 g. He did opt to have a transfusion of 2 units of packed red blood cells. Thus far he has tolerated the Revlimid well and during follow-up his blood count had stabilized with hemoglobin in the range of 9.5 g. His CBC on 11/23/2016 showed further increase in the hemoglobin to 10.4 g. As of 02/15/2017 his hemoglobin had declined somewhat, to 8 g with WBC moderately decreased at 2700 and platelet count normal at 200,000. He continued treatment with Revlimid. On 03/11/2017 he was seen at the [place] clinic with flu-like symptoms. His nasal swab reportedly was positive for influenza, and he did start treatment with Tamiflu. His CBC showed a further decline in his hemoglobin to 6.5 g, and he was found to be jaundiced, total bilirubin 6.1 mg/dL. He was transfused 2 units of PRBC. On his further laboratory evaluation on 03/14/2017 his hemoglobin had increased to only 7.8 g. The uncorrected reticulocyte count was 3.2%. His total bilirubin was still elevated at 5.7 mg/dL with the direct bilirubin normal at 0.60 mg/dL. LDH was normal at 218 U/L. The haptoglobin level was low at 21.9 mg/dL. HEMA was negative. B12 and folate levels were normal. He was advised to stop Revlimid. During subsequent follow-up his haptoglobin level showed further decline, to as low as 9.3 mg/dL on 03/28/2017. However, at that point his hemoglobin remained adequate at 9.4 g, his bilirubin was down to 3.0 mg/dL, and his LDH remained normal. He had a follow-up CTA of the abdomen/pelvis on 03/22/2017. It again showed evidence infrarenal abdominal aortic aneurism extending to the aortic bifurcaton. It measured 4.5 x 4.6 x 4.7 cm. 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 On 05/13/2017 he underwent coronary angioplasty with stent placement of the right coronary artery. On 05/30/2017 he underwent endovascular repair of infrarenal abdominal aortic aneurysm. He tolerated both procedures well, though during that time he did require transfusion of a total of 9 U of packed red blood cells. He hen continued on aspirin 81 mg daily together with Plavix 75 mg daily. He remained off Revlimid. During subsequent follow-up, he remained transfusion dependent. He then underwent repeat bone marrow aspiration/biopsy on 08/04/2017. The marrow was hypercellular, 100% cellularity. Megakaryocytes were noted to be increased in number and there was associated megakaryocyte dyspoiesis. There was just limited dyserythropoiesis. Ring sideroblasts were present, comprising more than 50% of the nrbc population. Blasts were estimated at 9% by morphology and 4% by flow cytometry. The FISH panel for MDS was unrevealing and the standard chromosome analysis was normal. 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 His IPSS-R score calculated to 3.5 or 4.5, depending on which blast count was used. Either score was intermediate risk category. With those findings, he was advised to undergo trial of therapy with 5-azacytidine. As of 08/26/2017 his ferritin level had increased to 1076 ng/mL. At that point he began chelation therapy with Jadenu 1440 mg daily. On 08/29/2017 he began cycle 1 of treatment with 5-azacytidine. It was administered subcutaneously for 7 days. He tolerated the 5-azacytidine without acute toxicity. He subsequently developed nausea with the Jadenu, and the dosage was reduced to 720 mg daily. He continued treatment with 5-azacytidine at 4-week intervals. He required further transfusions on 10/11/2017, on 10/18/2017, and on 11/09/2017. Thereafter his hemoglobin level stabilized above transfusion threshold. During subsequent follow-up, he had some adjustments in his treatment interval, but he remained transfusion independent. As of July 2018 he was able to stop Jadenu, with his ferritin level having decreased to 357 ng/mL. His other medical illnesses include hypertension, hyperlipidemia, atrial fibrillation, coronary artery disease, peripheral arterial disease, GERD, and nephrolithiasis. He also has fairly long-standing psoriasis. In the past he had been on treatment with methotrexate. His procedural history includes coronary angioplasty/stent placement followed by endovascular repair of abdominal aortic aneurysm in May 2017. He had previously smoked 2 packs of cigarettes daily, but he quit smoking more than 20 years ago. INTERIM HISTORY: In November 2018 he began to show gradual decline in his hemoglobin, though it continued to fluctuate between 8 and 9 g. As of 01/15/2019 it had further decreased to 7.5 g, at which point he did receive a PRBC transfusion. He continued with cycle 15 of 5-azacytidine on 02/12/2019. He was then transfused again on 02/27/2019 with his hemoglobin back down to 7.1 g. During the past month or so he had developed significant worsening of his back pain. He also is having pain in his left rib cage area following some minor trauma. A bone scan on 03/12/2019 showed a punctate area of bony uptake involving the left anterior approximately fifth rib, consistent with trauma. There was noted to be a compression fracture with bony uptake involving a midthoracic vertebral body. Diffuse patchy uptake involving the calvarium was felt to be likely related to the myelodysplastic syndrome and bone marrow hyperplasia. On 04/13/2019 he presented to the emergency room with worsening back pain. CT abdomen/pelvis at that time showed multiple chronic compression fracture deformities but with progressed height loss of L1 compared to the prior exam and with mild adjacent soft tissue edema compatible with new/progressive L1 fracture. There was minimal retropulsed bone measuring up to 3 mm. There was no critical stenosis. Also noted was a new fracture of the superior endplate of T9 without any retropulsed bone. There was evidence of partial small bowel obstruction with a gradual change to collapsed loops of bowel. I had seen him for a follow-up visit on 05/10/2019. At that point he was still having severe back pain, presumably due to the vertebral compression fractures, and he had very limited activity. He continued transfusion support for the anemia. [facility] then [facility] [place] [facility], I assume either a vertebroplasty or a kyphoplasty. On 06/26/2019 he began a trial of therapy with luspatercept 1 mg/kg by subcutaneous injection every 3 weeks for the myelodysplastic syndrome. On 07/09/2019 he underwent open right inguinal hernia repair with mesh placement. He tolerated the procedure well. On 07/17/2019 he received a 2nd dose of luspatercept. He required PRBC transfusion on 08/01/2019. As of 08/09/2019 the luspatercept dosage was increased to 105 mg, but he again required transfusion on 08/16/2019 and on 09/13/2019. He is seen for a follow-up visit. He continues to have very limited activity, that is mainly due to his back pain. He is able to take care of himself, but not much more than that. His ECOG score is 3. He has been seeing Dr. Zavala because of nephrolithiasis, and he does report having significant kidney stone pain as well. Appetite is still okay. He has not had fever. He does have some night sweating. His breathing is a little tight. He does not complain of cough, and he otherwise does not have chest pain. He has ongoing problems with constipation, which he manages adequately with MiraLAX and prunes. He does have some urinary frequency and urgency associated with the kidney stones. He has numbness/tingling in his feet. Medications: Aspirin 1 (81 mg) Tablet, enteric coated Oral daily, B-6 1 (200 mg) Tablet Oral t.i.d., Digoxin 1 (125 mcg) Tablet Oral daily, Duragesic-50 1 Patch(es) (of 50 mcg/hr) Patch 72 Hr Transdermal q 72 hours PRN, Folic Acid 1 (1 mg) Tablet Oral daily, Metoprolol Tartrate 1 Tablet (of 50 mg) Oral daily, oxyCODONE-Acetaminophen 1 Tablet (of 10-325 mg) Oral four times a day PRN, Plavix 1 (75 mg) Tablet Oral daily, Pravastatin Sodium 1 Tablet (of 20 mg) Oral daily, Reblozyl 1 Subcutaneous q 3 weeks, Tamsulosin HCl 1 Tablet (of 0.4 mg) Capsule Oral b.i.d. Allergies: No Known Allergies. Review of Systems: Constitutional - He has very limited activity. He is able to take care of himself, but not much more. Appetite is good and weight is stable. No fever. He has some night sweating. ECOG score is 3, ENMT - He has sinus drainage and he occasionally has sore mouth. No sore throat or difficulty swallowing, Hematologic/Lymphatic - He has easy bruising, Respiratory - His breathing is sometimes tight. No cough. No pleuritic pain or hemoptysis, Cardiovascular - No angina pain. No palpitations, Gastrointestinal - No nausea or vomiting. He occasionally has heartburn. His constipation is adequately managed. No blood in the stool or black stools, Genitourinary (M) - No dysuria or hematuria, but he does have kidney stone pain and he is having urinary frequency and urgency, Musculoskeletal - He has back pain, Integumentary - He has psoriasis, Neurologic - No headache. He has some dizziness with his pain medication. He has numbness or tingling in his hands and feet, Psychiatric - He has some depression. He does not sleep well. Vital Signs: Performed on Sep 20, 2019 10:28 Height - 76.00 in Weight - 184.0 lbs (LOW) BSA - 2.14 sq.m BMI - 22.40 Temperature - 97.6 F (LOW) Pulse - 77 /min Respiration - 24 /min BP - 112/62 mm(hg) O2 Sat - 95 % (LOW) Pain - 5 Physical Examination: Constitutional - He appears generally weak, Eyes - Sclerae nonicteric. Conjunctivae clear, ENMT - No lesions noted in the oral cavity, Hematologic/Lymphatic - No cervical, clavicular, or axillary adenopathy, Respiratory - Lungs sound clear with some decrease in air movement bilaterally, Cardiovascular - Heart rhythm is irregular. There is a II/ systolic murmur. There is no gallop or rub noted, Abdomen - Soft. Liver and spleen are not enlarged. There is no abdominal mass or ascites noted and there is no inguinal adenopathy, Extremities - There are mild venous stasis changes bilaterally. There is mild, chronic swelling at the right ankle, Integumentary - His psoriasis is unchanged, Neurologic - No focal neurologic deficits noted. Lab/Imaging: CBC shows hemoglobin 9.8 g, white blood cell count 5000, and platelet count 306,000. Comprehensive metabolic profile is unremarkable except for mildly elevated total bilirubin. His ferritin is back up to 1234 ng/mL with transferrin saturation elevated at 70.3%. Impression: 1. The patient has a moderately severe macrocytic anemia. Bone marrow aspiration/biopsy on 10/15/2015 showed hypercellular marrow, estimated 90-95%. There was mild erythroid dyspoiesis and there were ringed sideroblasts identified, estimated at less than 5-10% of the population. Iron stores were 3+. The FISH panel for MDS showed no abnormalities. A standard chromosome study showed no metaphases for analysis. Overall, the findings were consistent with myelodysplastic syndrome (refractory cytopenia with unileage dysplasia) versus idiopathic cytopenia of undetermined significance. 2. 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 This is probably of no clinical significance other than he may be more prone to iron overload if he does become transfusion dependent. His other medical illnesses include: 3. Hypertension. 4. Hyperlipidemia. 5. Peptic ulcer disease/GERD. 6. Nephrolithiasis. 7. He has a history of atrial fibrillation. 8. He has an abdominal aortic aneurysm. In December 2015 he began a trial of therapy with Procrit after his hemoglobin had dropped to 8.2 g. As of 01/13/2016 the dosage was escalated to 60,000 U weekly, as his hemoglobin at that point was basically stable at 8.5 g. He did show some response, with his hemoglobin increasing to 10.1g. It had subsequently drifted downward. As of his visit on 08/04/2016 his hemoglobin was down to 7.9 g. At that point the Procrit was discontinued. He began treatment with Revlimid 10 mg daily on 08/16/2016. He had noticed some worsening of his psoriasis after starting the Revlimid, but he has otherwise tolerated it well. His hemoglobin initially appeared to have stabilized in the range of 9.5 to 10 g. As of 02/15/2017 his hemoglobin had declined to 8 g. On 03/11/2017 he was confirmed to have influenza by nasal swab. His hemoglobin at that point had dropped to 6.5 g and he had become overtly jaundiced. He was transfused PRBC. 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 At that point I did opt to stop the Revlimid. During subsequent follow-up, his haptoglobin level recovered to normal and his bilirubin level returned to baseline. His LDH remained normal. He underwent coronary angioplasty/stent placement on 05/12/2017 and on 05/30/2017 he underwent endovascular repair of infrarenal abdominal aortic aneurysm. He then continued on prophylaxis with aspirin 81 mg daily and Plavix 75 mg daily. During subsequent followup he remained transfusion dependent. His repeat bone marrow aspiration/bipsy on 08/04/2017 showed 100% cellularity with associated megakaryocyte dyspoiesis and limited dyserythropoiesis. Ring sideroblasts were present, comprising more than 50% of the nrbc population. Blasts were estimated at 9% by morphology and 4% by flow cytometry. The FISH panel for MDS was unrevealing and the standard chromosome analysis was normal. 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 His IPSS-R score calculated to 3.5 or 4.5, depending on which blast count was used. Either score was intermediate risk category. As of 08/26/2017 his serum ferritin had increased to 1076 ng/mL, and he began treatment with Jadenu 1440 mg daily. He then began a course of treatment of 5-azacytidine, cycle 1 day 1 on 08/29/2017. It was administered subcutaneously for 7 days. He tolerated the treatment without any acute toxicity. He proceeded with cycle 2 of 5-azacytidine on 10/03/2017, and he then continued treatment at 4-week intervals. He continued to require transfusion up until 11/08/2017, but his hemoglobin then stabilized in the range of 10-11 g. During that time he had mild to moderately severe neutropenia and thrombocytopenia, and beginning with the 6th cycle I did make some adjustments in the treatment interval. He then continued to tolerate the treatment well, and he remained transfusion independent. However, by November 2018 there had been a gradual decline in his hemoglobin, which at that point was fluctuating between 8 and 9 g. As of 01/15/2019 the hemoglobin had dropped to 7.5 g, and he was then transfused 2 units PRBC. It was his first transfusion since November 2017. On 02/12/2019 he continued with cycle 15 of 5-azacytidine. He required transfusion again on 02/27/2019 with hemoglobin back down to 7.1 g. During followup he had been showing some decline in his performance status. He had developed significant worsening of his back pain, and bone scan did show evidence of a vertebral compression fracture in the mid thoracic spine. As he was clearly not responding to the 5-azacytidine, I did opt to stop the treatmnent. He then continued to be supported with PRBC transfusion as needed. In the meantime, his back pain had continued to worsen. A CT abdomen/pelvis done through the emergency room on 04/13/2019 showed increased fracture at L1 and some new compression fracture at T9. Management has been problematic, as he has had somewhat poor tolerance for pain medication. He recently underwent a [facility] in [place] [facility], either kyphoplasty or vertebroplasty, I assume. He initially was getting some benefit, but in the last few days he has been having more back pain. He also reports having pain in association with a right inguinal hernia, which had worsened in association with some straining while he was on the stool. In the meantime, on 06/26/2019 he began a trial of therapy with luspatercept. He had no adverse effects with the initial injection. Thus far he does not appear to be showing any obvious response. In the meantime, he has undergone right inguinal hernia repair. He then continued with his 2nd dose of luspatercept on 07/17/2019. He remained transfusion dependent, requiringd PRBC transfusion on 08/01/2019 and again on 08/16/2019 despite having an increase in the luspatercept dosage on 08/09/2019. He was then transfused again on 09/13/2019. During this time, he has been seeing Dr. Zavala for management of nephrolithiasis. He also continues to have severe back pain associated with vertebral compression fractures. His DEXA scan does show evidence of osteoporosis. Plan: I willl now stop the luspatercept, as he does not appear to be showing any response. He is going to try going on a 2-week labs schedule, and he will be transfused again as needed. His pain medication will remain the same. He will start citalopram 20 mg daily for depression. I will see him again in 6 weeks. In the meantime, he will start Prolia for the osteoporosis, pending verification of insurance coverage. I also will check his vitamin D level. Signed By: Ammon Lew M.D. <<Signature on File>>
[2019-10-04 09:22] LABS: Basophils % 0.7 %; Eosinophils # 0.1 10^3/uL (0.0-0.8); Eosinophils % 1.1 %; Hematocrit 28.6 % (42.0-52.0); Hemoglobin 8.9 g/dL (11.7-16.6); Lymphocytes # 0.8 10^3/uL (0.8-4.8); Lymphocytes % 15.3 %; Mean Corpuscular HGB Conc 31.1 g/dL (30.0-36.0); Mean Corpuscular Hemoglobin 31.4 pg (28.0-34.0); Mean Corpuscular Volume 101.1 fL (80-94); Mean Platelet Volume 9.9 fL (7.4-10.4); Monocytes # 0.5 10^3/uL (0.2-0.9); Monocytes % 9.9 %; Neutrophils # 3.86 10^3/uL (1.8-7.7); Neutrophils % 72.1 %; Nucleated Red Blood Cells % 0.7 %; Platelet Count 289 10^3/cmm (130-400); Red Blood Count 2.83 10^6/uL (4.1-5.3); Red Cell Distribution Width 25.3 % (12.1-15.1); White Blood Count 5.4 10^3/uL (4.0-10.0)
[2019-10-04] MEDS: denosumab 60 mg SDV SUBCUT (09:55)
[2019-10-04 09:56] LABS: 25 Hydroxy Vitamin D 8 ng/mL (30-100)
== END 2019-10-05 23:59 | disposition home or self-care (01) ==
LOC: ONCMED 06:03
PROVIDERS: PCP Internal Medicine; Visit Provider Internal Medicine Medical Oncology
DX: D46.Z Other myelodysplastic syndromes (principal); M81.0 Age-related osteoporosis without current pathological fracture; E83.111 Hemochromatosis due to repeated red blood cell transfusions; I10 Essential (primary) hypertension; E78.5 Hyperlipidemia, unspecified; I48.91 Unspecified atrial fibrillation; I25.10 Atherosclerotic heart disease of native coronary artery without angina pectoris; I73.9 Peripheral vascular disease, unspecified; K21.9 Gastro-esophageal reflux disease without esophagitis; L40.9 Psoriasis, unspecified; Z98.1 Arthrodesis status; Z79.899 Other long term (current) drug therapy; Z79.82 Long term (current) use of aspirin; Z79.02 Long term (current) use of antithrombotics/antiplatelets; Z87.442 Personal history of urinary calculi; Z95.5 Presence of coronary angioplasty implant and graft; Z79.891 Long term (current) use of opiate analgesic; F32.9 Major depressive disorder, single episode, unspecified
CPT/HCPCS: 36415; 80053; 82306; 82728; 83540; 83550; 83615; 85025; 86850; 86900; 86920; 96372; 99214; J0897; J1940; J7050; P9040

== ENCOUNTER 2019-10-09 07:40 | Outpatient (CLI) | payer OTHER, SELFPAY ==
--- NOTE | 2019-10-09 07:30 | XRR_ITS ---
PROCEDURE INFORMATION: Exam: XR Abdomen, 1 View Exam date and time: 10/09/2019 7:57 AM Age: 79 years old Clinical indication: Condition or disease; Kidney or ureter condition; Calculus (stone) in ureter; Prior surgery; Surgery type: Hernia, vascular, spine; Additional info: Stone f/u TECHNIQUE: Imaging protocol: XR of the abdomen. Views: Frontal supine view of the abdomen. 1 View. COMPARISON: CR XR KUB [id number] 09/20/2019 7:19 AM FINDINGS: Gastrointestinal tract: Bowel gas pattern is nonspecific. No mass effect upon the bowel loops. Distal rectal gas. Scattered loops of air filled small bowel none of which are dilated. Organs: Calcification x2 of approximately 13 mm and adjacent 5 mm in the left mid abdomen likely within the ureter and less likely kidney. Correlate. Vasculature: Aortal bi-iliac stent graft Bones/joints: No acute process within the osseous structures of the spine or pelvis. Prior vertebroplasty L2 and L1 Soft tissues: No appreciable calcifications XR/XR KUB [id number] IMPRESSION: 1. Bowel gas pattern is nonspecific. 2. Calcification x2 of approximately 13 mm and adjacent 5 mm in the left mid abdomen likely within the ureter and less likely kidney. Correlate.
[2019-10-09 08:35] LABS: Anion Gap 13.3 (5-19); Blood Urea Nitrogen 13 mg/dL (8-23); Calcium 8.1 mg/dL (8.5-10.5); Carbon Dioxide 26 mmol/L (22-29); Chloride 99 mmol/L (98-107); Glucose 143 mg/dL (65-115); Osmolality Calculated 277 mOsm/kg (285-295); Potassium 4.3 mmol/L (3.5-5.1); Sodium 134 mmol/L (136-145)
== END 2019-10-09 07:41 | disposition home or self-care (01) ==
PROVIDERS: PCP Internal Medicine; Visit Provider Urology
DX: N20.1 Calculus of ureter (principal); C95.90 Leukemia, unspecified not having achieved remission
CPT/HCPCS: 74018; 80048; 81001

== ENCOUNTER 2019-11-01 05:38 | Outpatient (RCR) | payer OTHER, SELFPAY ==
[2019-10-18] VITALS (9 sets, daily range): BP systolic 96–108; BP diastolic 58–65; PULSE 78–82; RESP 17–18; TEMP 36.6–37; O2SAT 92–97
[2019-10-18 09:39] LABS: Basophils # 0.1 10^3/uL (0.0-0.1); Basophils % 0.9 %; Eosinophils % 0.4 %; Hematocrit 24.2 % (42.0-52.0); Hemoglobin 7.4 g/dL (11.7-16.6); Lymphocytes % 17.2 %; Mean Corpuscular HGB Conc 30.6 g/dL (30.0-36.0); Mean Corpuscular Volume 101.3 fL (80-94); Mean Platelet Volume 9.5 fL (7.4-10.4); Monocytes # 0.6 10^3/uL (0.2-0.9); Monocytes % 10.2 %; Neutrophils # 3.76 10^3/uL (1.8-7.7); Neutrophils % 67.2 %; Nucleated Red Blood Cells # 0.1 /100WBC; Platelet Count 255 10^3/cmm (130-400); Red Blood Count 2.39 10^6/uL (4.1-5.3); Red Cell Distribution Width 26.5 % (12.1-15.1); White Blood Count 5.6 10^3/uL (4.0-10.0)
[2019-10-18] MEDS: sodium chloride 0.9% 250 ML 999 ML IV (12:45)
[2019-10-18] MEDS: acetaminophen 325 mg Tablet 650 MG PO (14:20)
[2019-10-18] MEDS: diphenhydrAMINE 25 mg Capsule PO (14:55)
[2019-10-18] MEDS: FUROsemide 10 mg/mL SDV 2mL 20 MG IV (15:45)
[2019-10-31 14:46] LABS: Basophils % 0.7 %; Eosinophils % 0.5 %; Hemoglobin 6.6 g/dL (11.7-16.6); Lymphocytes # 0.9 10^3/uL (0.8-4.8); Lymphocytes % 23.1 %; Mean Corpuscular Hemoglobin 30.4 pg (28.0-34.0); Mean Corpuscular Volume 101.4 fL (80-94); Monocytes # 0.4 10^3/uL (0.2-0.9); Monocytes % 9.8 %; Neutrophils # 2.63 10^3/uL (1.8-7.7); Neutrophils % 64.7 %; Nucleated Red Blood Cells % 0.7 %; Platelet Count 303 10^3/cmm (130-400); Red Blood Count 2.17 10^6/uL (4.1-5.3); Red Cell Distribution Width 24.2 % (12.1-15.1); White Blood Count 4.1 10^3/uL (4.0-10.0)
[2019-10-31 15:15] LABS: 25 Hydroxy Vitamin D 5 ng/mL (30-100); Anion Gap 12.4 (5-19); Blood Urea Nitrogen 11 mg/dL (8-23); Calcium 8.3 mg/dL (8.5-10.5); Carbon Dioxide 28 mmol/L (22-29); Chloride 102 mmol/L (98-107); Glucose 111 mg/dL (65-115); Osmolality Calculated 283 mOsm/kg (285-295); Potassium 4.4 mmol/L (3.5-5.1); Sodium 138 mmol/L (136-145)
[2019-10-31 18:27] LABS: Ferritin 950 ng/mL (30-400); Iron 161 ug/dL (59-158); Lactate Dehydrogenase 207 U/L (135-225)
[2019-11-01 11:30] VITALS: BP 99/59; PULSE 76; RESP 17; TEMP 36.7; O2SAT 96
[2019-11-01 11:45] VITALS: BP 98/61; PULSE 76; RESP 94; TEMP 36.9; O2SAT 94
[2019-11-01 13:35] VITALS: BP 96/59; PULSE 72; RESP 18; TEMP 36.8; O2SAT 97
[2019-11-01 13:50] VITALS: BP 110/64; PULSE 74; RESP 18; TEMP 36.8; O2SAT 96
[2019-11-01 14:05] VITALS: BP 114/67; PULSE 73; RESP 18; TEMP 36.9; O2SAT 96
[2019-11-01 14:35] VITALS: BP 116/68; PULSE 73; RESP 18; TEMP 36.9; O2SAT 94
--- NOTE | 2019-11-04 15:36 | ONC FU_ITS ---
Dr. Lew Patient Follow-Up Note Patient: José Miguel Bonilla Unit #: [id number]: [id number] Dicatated By: Ammon Lew M.D.Date of Visit:Nov 01, 2019 Onc Med Follow-up/Prog Note Chief Complaint: Myelodysplastic syndrome. History of Present Illness: This is a 79 year-old man with myelodysplastic syndrome (MDS with unilineage dysplasia). He was seen initially on 09/30/2015 in regard to a moderately severe anemia. The available records included multiple blood counts dating back to August 2014. At that time his hemoglobin was 10.3 g with white blood cell count 6400 and platelet count 325,000. The red cell indices were macrocytic with MCV 110 and MCH 37. A more recent CBC, from 08/20/2015, showed a hemoglobin down to 9.7 g with hematocrit 29%. The red cell indices were similar. White blood cell count was 4900 and platelet count was 337,000. The differential showed 56% neutrophils, 30% lymphocytes, and 10% monocytes. B12 was checked several times and was normal. Folate level was low at 6.7 ng/mL. The serum iron was normal at 141 mcg/dL. 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 He had negative stool Hemoccult, though an upper GI endoscopy apparently did show ulcers. Colonoscopy was unremarkable. His evaluation also included CT abdomen/pelvis in May 2015. It showed an aneurysm of the distal abdominal aorta extending to, but not into, the bifurcation. It appeared stable compared to a previous study from March 2013. There were no acute findings noted on that study. His laboratory studies on 09/30/2015 included CBC showing hemoglobin 9.4 g, white blood cell count 6400, and platelet count 420,000. The red cell indices were macrocytic with MCV 110 and MCH 37. The uncorrected reticulocyte count was 2.0%. Comprehensive metabolic profile was unremarkable except for mildly elevated total bilirubin at 2.9 mg/dL. The liver enzymes were normal.. LDH was normal at 183 mg/dL and haptoglobin was low normal at 53 mg/dL. Ferritin was elevated at 520 ng/mL. The homocysteine level was slightly elevated at 11.6 ???mol/L with methylmalonic acid normal at 198 nmol/L. Protein electrophoresis was normal. He underwent bone marrow aspiration/biopsy on 10/15/2015. The marrow was hypercellular, estimated at 90-95%. There was limited erythroid dyspoiesis. There was no evidence of infiltrative process. Blasts were reported at 0%. Iron stores were 3+ with occasional ring sideroblasts identified, estimated at less than 5-10% of the population. There was 1+/4+ reticulin staining. The chromosome analysis showed no metaphase cells for analysis. The FISH panel for MDS showed no abnormalities. 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 During subsequent follow-up his hemoglobin had declined to a low of 8.2 g/dL on 12/16/2015. His baseline erythropoietin level was 152 mIU/mL. On 12/18/2015 he began a trial of therapy with Procrit, initially at 40,000 units weekly. As of 01/13/2016, after 4 weeks of treatment, the hemoglobin was basically stable at 8.5 g. At that point the Procrit dosage was escalated to 60,000 U weekly. His hemoglobin level had subsequently increased to a maximum level 10.1 g on 03/09/2016. It then drifted downward gradually. As of 07/20/2016 it was down to 8.7 g. As of his followup visit on 08/04/2016 he had remained transfusion independent. However, after that his hemoglobin had shown further decline to 7.9 g, and at that point I did opt to stop the Procrit and transition his treatment to Revlimid. He began his treatment with Revlimid 10 mg daily on 08/16/2016. His baseline hemoglobin was 8.2 g. He did opt to have a transfusion of 2 units of packed red blood cells. Thus far he has tolerated the Revlimid well and during follow-up his blood count had stabilized with hemoglobin in the range of 9.5 g. His CBC on 11/23/2016 showed further increase in the hemoglobin to 10.4 g. As of 02/15/2017 his hemoglobin had declined somewhat, to 8 g with WBC moderately decreased at 2700 and platelet count normal at 200,000. He continued treatment with Revlimid. On 03/11/2017 he was seen at the [facility] with flu-like symptoms. His nasal swab reportedly was positive for influenza, and he did start treatment with Tamiflu. His CBC showed a further decline in his hemoglobin to 6.5 g, and he was found to be jaundiced, total bilirubin 6.1 mg/dL. He was transfused 2 units of PRBC. On his further laboratory evaluation on 03/14/2017 his hemoglobin had increased to only 7.8 g. The uncorrected reticulocyte count was 3.2%. His total bilirubin was still elevated at 5.7 mg/dL with the direct bilirubin normal at 0.60 mg/dL. LDH was normal at 218 U/L. The haptoglobin level was low at 21.9 mg/dL. HEMA was negative. B12 and folate levels were normal. He was advised to stop Revlimid. During subsequent follow-up his haptoglobin level showed further decline, to as low as 9.3 mg/dL on 03/28/2017. However, at that point his hemoglobin remained adequate at 9.4 g, his bilirubin was down to 3.0 mg/dL, and his LDH remained normal. He had a follow-up CTA of the abdomen/pelvis on 03/22/2017. It again showed evidence infrarenal abdominal aortic aneurism extending to the aortic bifurcaton. It measured 4.5 x 4.6 x 4.7 cm. 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 On 05/13/2017 he underwent coronary angioplasty with stent placement of the right coronary artery. On 05/30/2017 he underwent endovascular repair of infrarenal abdominal aortic aneurysm. He tolerated both procedures well, though during that time he did require transfusion of a total of 9 U of packed red blood cells. He hen continued on aspirin 81 mg daily together with Plavix 75 mg daily. He remained off Revlimid. During subsequent follow-up, he remained transfusion dependent. He then underwent repeat bone marrow aspiration/biopsy on 08/04/2017. The marrow was hypercellular, 100% cellularity. Megakaryocytes were noted to be increased in number and there was associated megakaryocyte dyspoiesis. There was just limited dyserythropoiesis. Ring sideroblasts were present, comprising more than 50% of the nrbc population. Blasts were estimated at 9% by morphology and 4% by flow cytometry. The FISH panel for MDS was unrevealing and the standard chromosome analysis was normal. 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 His IPSS-R score calculated to 3.5 or 4.5, depending on which blast count was used. Either score was intermediate risk category. With those findings, he was advised to undergo trial of therapy with 5-azacytidine. As of 08/26/2017 his ferritin level had increased to 1076 ng/mL. At that point he began chelation therapy with Jadenu 1440 mg daily. On 08/29/2017 he began cycle 1 of treatment with 5-azacytidine. It was administered subcutaneously for 7 days. He tolerated the 5-azacytidine without acute toxicity. He subsequently developed nausea with the Jadenu, and the dosage was reduced to 720 mg daily. He continued treatment with 5-azacytidine at 4-week intervals. He required further transfusions on 10/11/2017, on 10/18/2017, and on 11/09/2017. Thereafter his hemoglobin level stabilized above transfusion threshold. During subsequent follow-up, he had some adjustments in his treatment interval, but he remained transfusion independent. As of July 2018 he was able to stop Jadenu, with his ferritin level having decreased to 357 ng/mL. His other medical illnesses include hypertension, hyperlipidemia, atrial fibrillation, coronary artery disease, peripheral arterial disease, GERD, and nephrolithiasis. He also has fairly long-standing psoriasis. In the past he had been on treatment with methotrexate. His procedural history includes coronary angioplasty/stent placement followed by endovascular repair of abdominal aortic aneurysm in May 2017. He had previously smoked 2 packs of cigarettes daily, but he quit smoking more than 20 years ago. INTERIM HISTORY: In November 2018 he began to show gradual decline in his hemoglobin, though it continued to fluctuate between 8 and 9 g. As of 01/15/2019 it had further decreased to 7.5 g, at which point he did receive a PRBC transfusion. He continued with cycle 15 of 5-azacytidine on 02/12/2019. He was then transfused again on 02/27/2019 with his hemoglobin back down to 7.1 g. During the past month or so he had developed significant worsening of his back pain. He also is having pain in his left rib cage area following some minor trauma. A bone scan on 03/12/2019 showed a punctate area of bony uptake involving the left anterior approximately fifth rib, consistent with trauma. There was noted to be a compression fracture with bony uptake involving a midthoracic vertebral body. Diffuse patchy uptake involving the calvarium was felt to be likely related to the myelodysplastic syndrome and bone marrow hyperplasia. On 04/13/2019 he presented to the emergency room with worsening back pain. CT abdomen/pelvis at that time showed multiple chronic compression fracture deformities but with progressed height loss of L1 compared to the prior exam and with mild adjacent soft tissue edema compatible with new/progressive L1 fracture. There was minimal retropulsed bone measuring up to 3 mm. There was no critical stenosis. Also noted was a new fracture of the superior endplate of T9 without any retropulsed bone. There was evidence of partial small bowel obstruction with a gradual change to collapsed loops of bowel. I had seen him for a follow-up visit on 05/10/2019. At that point he was still having severe back pain, presumably due to the vertebral compression fractures, and he had very limited activity. He continued transfusion support for the anemia. He then went [facility] [place] [facility], I assume either a vertebroplasty or a kyphoplasty. On 06/26/2019 he began a trial of therapy with luspatercept 1 mg/kg by subcutaneous injection every 3 weeks for the myelodysplastic syndrome. On 07/09/2019 he underwent open right inguinal hernia repair with mesh placement. He tolerated the procedure well. On 07/17/2019 he received a 2nd dose of luspatercept. He required PRBC transfusion on 08/01/2019. As of 08/09/2019 the luspatercept dosage was increased to 105 mg, but he again required transfusion on 08/16/2019 and on 09/13/2019. At that point I did opt to stop treatment with luspatercept. His blood counts initially stabilized, but he then required transfusion again on 10/18/2019. He is seen for a follow-up visit. He has been feeling a little better lately, as he is now nearly out of pain. Recently he has had some pain in his right side when he takes a deep breath, but his pain is otherwise controlled on his medication. He also feels that he may be getting some strength back now. He still has very limited activity. His ECOG score is 3. His appetite is okay, but his stomach does not hold as much food as it used to. His weight is down a couple of pounds. He does not have fever. He has a little bit of night sweating. He has had some sinus drainage and yesterday had sore mouth. He does have some cough, and he also has shortness of breath. He complains that his stomach tends to sour, but he does manage that adequately with Tums. He says his bowels have been almost normal for the past month. He clearly has no complaints. He has been straining his urine to look for stones. He does not complain of headache. He does have some lightheadedness. He has numbness/tingling in his toes. Medications: Aspirin 1 (81 mg) Tablet, enteric coated Oral daily, B-6 1 (200 mg) Tablet Oral t.i.d., Digoxin 1 (125 mcg) Tablet Oral daily, Duragesic-50 1 Patch(es) (of 50 mcg/hr) Patch 72 Hr Transdermal q 72 hours PRN, Folic Acid 1 (1 mg) Tablet Oral daily, Metoprolol Tartrate 1 Tablet (of 50 mg) Oral daily, oxyCODONE-Acetaminophen 1 Tablet (of 10-325 mg) Oral four times a day PRN, Plavix 1 (75 mg) Tablet Oral daily, Pravastatin Sodium 1 Tablet (of 20 mg) Oral daily, Reblozyl 1 Subcutaneous q 3 weeks, Tamsulosin HCl 1 Tablet (of 0.4 mg) Capsule Oral b.i.d. Allergies: No Known Allergies. Review of Systems: Constitutional - His energy remains low. He has significant activity restrictions from his back pain. He is able to take care of himself, but he is otherwise sedentary. His appetite is good, but he has early satiety, and his weight is down a few pounds. No fevers. He has mild night sweats. ECOG score is 3, ENMT - He has sinus congestion/drainage. He has a few mouth sores, and he is using salt and soda rinses. No sore throat or difficulty swallowing, Hematologic/Lymphatic - He bruises easily, Respiratory - He has shortness of breath. He has some cough with the sinus drainage. He has pleuritic pain on the right side. No hemoptysis, Cardiovascular - No angina pain. No palpitations, Gastrointestinal - No nausea or vomiting, but he does complain of having sour stomach. No heartburn or acid reflux. No diarrhea or constipation. His bowel habits have improved with his current regimen. No blood in the stool or black stools, Genitourinary (M) - No dysuria or hematuria. He has urinary frequency. He has some urgency. No incontinence, Musculoskeletal - He still has some back pain, but not as severe, Integumentary - His psoriasis has been doing a little better lately, Neurologic - No headache. He has dizziness. He has numbness in his toes. No other focal neurologic symptoms, Psychiatric - No anxiety. He has some depression. He is sleeping OK. Vital Signs: Performed on Nov 01, 2019 09:27 Height - 76.00 in Weight - 181.2 lbs (LOW) BSA - 2.12 sq.m BMI - 22.06 Temperature - 97.9 F (LOW) Pulse - 88 /min Respiration - 24 /min BP - 107/57 mm(hg) O2 Sat - 97 % Pain - 3 Physical Examination: Constitutional - He looks a little better, though he still appears generally weak, Eyes - Sclerae nonicteric. Conjunctivae clear, ENMT - No lesions noted in the oral cavity, Hematologic/Lymphatic - No cervical, clavicular, or axillary adenopathy, Respiratory - Lungs sound clear with some decrease in air movement bilaterally, Cardiovascular - Heart rhythm is irregular. There is a II/ systolic murmur. There is no gallop or rub noted, Abdomen - Soft. Liver and spleen are not enlarged. There is no abdominal mass or ascites noted and there is no inguinal adenopathy, Extremities - There are mild venous stasis changes bilaterally. There is mild, chronic swelling of the lower right leg and right ankle, Integumentary - His psoriasis looks a little better, Neurologic - No focal neurologic deficits noted. Lab/Imaging: CBC shows hemoglobin 6.6 g with hematocrit 22.0%. The red cell indices are slightly macrocytic. The white blood cell count is 4100 and the platelet count is 303,000. Comprehensive metabolic profile is unremarkable. LDH is normal at 207 U/L the serum iron studies show elevated transferrin saturation at 93% with ferritin elevated at 915 ng/mL. Impression: 1. The patient has a moderately severe macrocytic anemia. Bone marrow aspiration/biopsy on 10/15/2015 showed hypercellular marrow, estimated 90-95%. There was mild erythroid dyspoiesis and there were ringed sideroblasts identified, estimated at less than 5-10% of the population. Iron stores were 3+. The FISH panel for MDS showed no abnormalities. A standard chromosome study showed no metaphases for analysis. Overall, the findings were consistent with myelodysplastic syndrome (refractory cytopenia with unileage dysplasia) versus idiopathic cytopenia of undetermined significance. 2. 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 This is probably of no clinical significance other than he may be more prone to iron overload if he does become transfusion dependent. His other medical illnesses include: 3. Hypertension. 4. Hyperlipidemia. 5. Peptic ulcer disease/GERD. 6. Nephrolithiasis. 7. He has a history of atrial fibrillation. 8. He has an abdominal aortic aneurysm. In December 2015 he began a trial of therapy with Procrit after his hemoglobin had dropped to 8.2 g. As of 01/13/2016 the dosage was escalated to 60,000 U weekly, as his hemoglobin at that point was basically stable at 8.5 g. He did show some response, with his hemoglobin increasing to 10.1g. It had subsequently drifted downward. As of his visit on 08/04/2016 his hemoglobin was down to 7.9 g. At that point the Procrit was discontinued. He began treatment with Revlimid 10 mg daily on 08/16/2016. He had noticed some worsening of his psoriasis after starting the Revlimid, but he has otherwise tolerated it well. His hemoglobin initially appeared to have stabilized in the range of 9.5 to 10 g. As of 02/15/2017 his hemoglobin had declined to 8 g. On 03/11/2017 he was confirmed to have influenza by nasal swab. His hemoglobin at that point had dropped to 6.5 g and he had become overtly jaundiced. He was transfused PRBC. 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 At that point I did opt to stop the Revlimid. During subsequent follow-up, his haptoglobin level recovered to normal and his bilirubin level returned to baseline. His LDH remained normal. He underwent coronary angioplasty/stent placement on 05/12/2017 and on 05/30/2017 he underwent endovascular repair of infrarenal abdominal aortic aneurysm. He then continued on prophylaxis with aspirin 81 mg daily and Plavix 75 mg daily. During subsequent followup he remained transfusion dependent. His repeat bone marrow aspiration/bipsy on 08/04/2017 showed 100% cellularity with associated megakaryocyte dyspoiesis and limited dyserythropoiesis. Ring sideroblasts were present, comprising more than 50% of the nrbc population. Blasts were estimated at 9% by morphology and 4% by flow cytometry. The FISH panel for MDS was unrevealing and the standard chromosome analysis was normal. 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 His IPSS-R score calculated to 3.5 or 4.5, depending on which blast count was used. Either score was intermediate risk category. As of 08/26/2017 his serum ferritin had increased to 1076 ng/mL, and he began treatment with Jadenu 1440 mg daily. He then began a course of treatment of 5-azacytidine, cycle 1 day 1 on 08/29/2017. It was administered subcutaneously for 7 days. He tolerated the treatment without any acute toxicity. He proceeded with cycle 2 of 5-azacytidine on 10/03/2017, and he then continued treatment at 4-week intervals. He continued to require transfusion up until 11/08/2017, but his hemoglobin then stabilized in the range of 10-11 g. During that time he had mild to moderately severe neutropenia and thrombocytopenia, and beginning with the 6th cycle I did make some adjustments in the treatment interval. He then continued to tolerate the treatment well, and he remained transfusion independent. However, by November 2018 there had been a gradual decline in his hemoglobin, which at that point was fluctuating between 8 and 9 g. As of 01/15/2019 the hemoglobin had dropped to 7.5 g, and he was then transfused 2 units PRBC. It was his first transfusion since November 2017. On 02/12/2019 he continued with cycle 15 of 5-azacytidine. He required transfusion again on 02/27/2019 with hemoglobin back down to 7.1 g. During followup he had been showing some decline in his performance status. He had developed significant worsening of his back pain, and bone scan did show evidence of a vertebral compression fracture in the mid thoracic spine. As he was clearly not responding to the 5-azacytidine, I did opt to stop the treatmnent. He then continued to be supported with PRBC transfusion as needed. In the meantime, his back pain had continued to worsen. A CT abdomen/pelvis done through the emergency room on 04/13/2019 showed increased fracture at L1 and some new compression fracture at T9. Management has been problematic, as he has had somewhat poor tolerance for pain medication. He recently underwent a [facility] [place] [facility], either kyphoplasty or vertebroplasty, I assume. He initially was getting some benefit, but in the last few days he has been having more back pain. He also reports having pain in association with a right inguinal hernia, which had worsened in association with some straining while he was on the stool. In the meantime, on 06/26/2019 he began a trial of therapy with luspatercept. He had no adverse effects with the initial injection. Thus far he does not appear to be showing any obvious response. In the meantime, he has undergone right inguinal hernia repair. He then continued with his 2nd dose of luspatercept on 07/17/2019. He remained transfusion dependent, requiringd PRBC transfusion on 08/01/2019 and again on 08/16/2019 despite having an increase in the luspatercept dosage on 08/09/2019. He was then transfused again on 09/13/2019. During this time, he has been seeing Dr. Zavala for management of nephrolithiasis. He also continues to have severe back pain associated with vertebral compression fractures. His DEXA scan did show evidence of osteoporosis, for which he was started on treatment with Prolia. He comes in now with his hemoglobin back down to 6.6 g. He does have fatigue and shortness of breath with it. His back pain, though, does appear to be improving. In addition to the osteoporosis, he has a very low 25-hydroxy vitamin D level. Plan: He will continue to receive transfusion support as needed. His management is otherwise symptomatic. His blood counts will be rechecked every 2 weeks or more frequently as needed. He will be scheduled for a follow-up visit in 8 weeks. In the meantime, he will start vitamin D supplementation with vitamin D3 1000 units daily and vitamin D2 50,000 units weekly. Signed By: Ammon Lew M.D. <<Signature on File>>
== END 2019-11-05 23:59 | disposition home or self-care (01) ==
LOC: ONCMED 05:38
PROVIDERS: PCP Internal Medicine; Visit Provider Internal Medicine Medical Oncology
DX: E83.111 Hemochromatosis due to repeated red blood cell transfusions (principal); D46.Z Other myelodysplastic syndromes; I25.10 Atherosclerotic heart disease of native coronary artery without angina pectoris; E78.5 Hyperlipidemia, unspecified; I10 Essential (primary) hypertension; M81.0 Age-related osteoporosis without current pathological fracture; N20.0 Calculus of kidney; K21.9 Gastro-esophageal reflux disease without esophagitis; I73.9 Peripheral vascular disease, unspecified
CPT/HCPCS: 36415; 36430; 80048; 82306; 82728; 83540; 83550; 83615; 85025; 86850; 86900; 86920; 99214; J1940; J7050; P9016; P9040

== ENCOUNTER 2019-11-13 07:10 | Outpatient (CLI) | payer OTHER, SELFPAY ==
--- NOTE | 2019-11-13 07:15 | XRR_ITS ---
PROCEDURE INFORMATION: Exam: XR Abdomen, 1 View Exam date and time: 11/13/2019 7:20 AM Age: 79 years old Clinical indication: Condition or disease; Kidney or ureter condition; Calculus (stone) in ureter; Prior surgery; Surgery type: Hernia, vascular; Additional info: Ureteral calculus TECHNIQUE: Imaging protocol: XR of the abdomen. Views: Frontal supine view of the abdomen. 1 View. COMPARISON: CR XR KUB [id number] 10/09/2019 7:52 AM FINDINGS: Gastrointestinal tract: No dilated gas-filled loops of bowel. Organs: There are 2 calculi projecting over the expected location of the left renal pelvis. The largest measures 17 mm in size, with the other smaller calculus measures 10 mm in size, not accounting for magnification. Vasculature: An intra-aortic endograft is present. Bones/joints: Prior multilevel vertebral body compression injuries in the lumbar spine. Prior vertebral augmentation at L1 and L2. Curvature of the lumbar spine convex to the right centered at L3. Multilevel disc degeneration in the lower lumbar spine. XR/XR KUB [id number] IMPRESSION: Left nephrolithiasis.
[2019-11-13 07:49] LABS: Anion Gap 12.4 (5-19); Blood Urea Nitrogen 11 mg/dL (8-23); Calcium 8.6 mg/dL (8.5-10.5); Carbon Dioxide 28 mmol/L (22-29); Chloride 99 mmol/L (98-107); Glucose 127 mg/dL (65-115); Osmolality Calculated 278 mOsm/kg (285-295); Potassium 4.4 mmol/L (3.5-5.1); Sodium 135 mmol/L (136-145)
== END 2019-11-13 07:11 | disposition home or self-care (01) ==
LOC: RAD 07:11
PROVIDERS: PCP Internal Medicine; Visit Provider Urology
DX: N20.1 Calculus of ureter (principal); N20.0 Calculus of kidney
CPT/HCPCS: 36415; 74018; 80048; 81001; 82365

== ENCOUNTER 2019-11-29 08:29 | Outpatient (RCR) | payer OTHER, SELFPAY ==
[2019-11-14 11:23] LABS: Hematocrit 21.9 % (42.0-52.0); Hemoglobin 6.8 g/dL (11.7-16.6); Lymphocytes # 1.1 10^3/uL (0.8-4.8); Lymphocytes % 28.8 %; Mean Corpuscular HGB Conc 31.1 g/dL (30.0-36.0); Mean Corpuscular Hemoglobin 31.1 pg (28.0-34.0); Mean Platelet Volume 11.6 fL (7.4-10.4); Monocytes # 0.4 10^3/uL (0.2-0.9); Monocytes % 10.5 %; Neutrophils # 2.15 10^3/uL (1.8-7.7); Neutrophils % 55.4 %; Nucleated Red Blood Cells # 0.1 /100WBC; Nucleated Red Blood Cells % 2.1 %; Platelet Count 339 10^3/cmm (130-400); Red Blood Count 2.19 10^6/uL (4.1-5.3); Red Cell Distribution Width 22.4 % (12.1-15.1); White Blood Count 3.9 10^3/uL (4.0-10.0)
[2019-11-15] VITALS (9 sets, daily range): BP systolic 102–118; BP diastolic 62–68; PULSE 68–72; RESP 18; TEMP 36.3–36.6; O2SAT 72–97
[2019-11-28 15:06] LABS: Basophils % 0.8 %; Eosinophils % 0.8 %; Hematocrit 25.4 % (42.0-52.0); Hemoglobin 7.8 g/dL (11.7-16.6); Lymphocytes # 0.9 10^3/uL (0.8-4.8); Lymphocytes % 23.3 %; Mean Corpuscular HGB Conc 30.7 g/dL (30.0-36.0); Mean Corpuscular Hemoglobin 31.1 pg (28.0-34.0); Mean Corpuscular Volume 101.2 fL (80-94); Mean Platelet Volume 11.1 fL (7.4-10.4); Monocytes # 0.3 10^3/uL (0.2-0.9); Monocytes % 8.5 %; Neutrophils # 2.57 10^3/uL (1.8-7.7); Neutrophils % 65.8 %; Nucleated Red Blood Cells % 0.8 %; Platelet Count 333 10^3/cmm (130-400); Red Blood Count 2.51 10^6/uL (4.1-5.3); Red Cell Distribution Width 22.3 % (12.1-15.1); White Blood Count 3.9 10^3/uL (4.0-10.0)
[2019-11-29] VITALS (7 sets, daily range): BP systolic 104–108; BP diastolic 46–54; PULSE 69–75; RESP 18; TEMP 36.2–36.4; O2SAT 97–99
[2019-11-29] MEDS: sodium chloride 0.9% 250 ML 999 ML IV (09:50)
[2019-11-29] MEDS: diphenhydrAMINE 25 mg Capsule PO (09:54)
[2019-11-29] MEDS: FUROsemide 10 mg/mL SDV 2mL 20 MG IV (14:49)
== END 2019-12-05 23:59 | disposition home or self-care (01) ==
LOC: ONCMED 08:29
PROVIDERS: PCP Internal Medicine; Visit Provider Internal Medicine Medical Oncology
DX: D46.Z Other myelodysplastic syndromes (principal); E55.9 Vitamin D deficiency, unspecified
CPT/HCPCS: 36415; 36430; 85025; 86850; 86900; 86920; J1940; J7050; P9040

== ENCOUNTER 2019-12-27 05:41 | Outpatient (RCR) | payer OTHER, SELFPAY ==
[2019-12-12 12:57] LABS: Basophils % 0.8 %; Eosinophils % 0.6 %; Hematocrit 23.6 % (42.0-52.0); Hemoglobin 7.2 g/dL (11.7-16.6); Lymphocytes # 1.1 10^3/uL (0.8-4.8); Lymphocytes % 30.1 %; Mean Corpuscular HGB Conc 30.5 g/dL (30.0-36.0); Mean Corpuscular Hemoglobin 31.2 pg (28.0-34.0); Mean Corpuscular Volume 102.2 fL (80-94); Mean Platelet Volume 11.2 fL (7.4-10.4); Monocytes # 0.4 10^3/uL (0.2-0.9); Monocytes % 11.3 %; Neutrophils # 2.04 10^3/uL (1.8-7.7); Neutrophils % 56.4 %; Nucleated Red Blood Cells % 0.6 %; Platelet Count 284 10^3/cmm (130-400); Red Blood Count 2.31 10^6/uL (4.1-5.3); Red Cell Distribution Width 21.5 % (12.1-15.1); White Blood Count 3.6 10^3/uL (4.0-10.0)
[2019-12-13] MEDS: sodium chloride 0.9% 250 ML 999 ML IV (09:15)
[2019-12-13] MEDS: diphenhydrAMINE 25 mg Capsule PO (09:20)
[2019-12-13 11:20] VITALS: BP 99/61; PULSE 74; RESP 18; TEMP 36.5; O2SAT 97
[2019-12-13 11:35] VITALS: BP 104/64; PULSE 71; RESP 18; TEMP 36.2; O2SAT 97
[2019-12-26 10:14] LABS: Basophils % 0.8 %; Eosinophils % 0.8 %; Hematocrit 26.9 % (42.0-52.0); Hemoglobin 8.4 g/dL (11.7-16.6); Lymphocytes # 1.3 10^3/uL (0.8-4.8); Lymphocytes % 27.5 %; Mean Corpuscular HGB Conc 31.2 g/dL (30.0-36.0); Mean Corpuscular Hemoglobin 30.8 pg (28.0-34.0); Mean Corpuscular Volume 98.5 fL (80-94); Mean Platelet Volume 11.7 fL (7.4-10.4); Monocytes # 0.4 10^3/uL (0.2-0.9); Monocytes % 7.4 %; Neutrophils # 2.94 10^3/uL (1.8-7.7); Neutrophils % 62.2 %; Nucleated Red Blood Cells # 0.1 /100WBC; Nucleated Red Blood Cells % 1.1 %; Platelet Count 320 10^3/cmm (130-400); Red Blood Count 2.73 10^6/uL (4.1-5.3); Red Cell Distribution Width 20.7 % (12.1-15.1); White Blood Count 4.7 10^3/uL (4.0-10.0)
[2019-12-26 10:51] LABS: Alanine Aminotransferase 38 U/L (0-41); Albumin Level 4.6 g/dL (3.5-5.2); Alkaline Phosphatase 61 IU/L (40-130); Anion Gap 14.9 (5-19); Aspartate Amino Transferase 33 U/L (0-40); Blood Urea Nitrogen 14 mg/dL (8-23); Calcium 9.2 mg/dL (8.5-10.5); Carbon Dioxide 28 mmol/L (22-29); Chloride 99 mmol/L (98-107); Globulin 2.3 g/dL (1.3-4.6); Glucose 125 mg/dL (65-115); Lactate Dehydrogenase 238 U/L (135-225); Osmolality Calculated 286 mOsm/kg (285-295); Potassium 4.9 mmol/L (3.5-5.1); Sodium 137 mmol/L (136-145); Total Bilirubin 3.3 mg/dL (0.15-1.2); Total Protein 6.9 g/dL (6.6-8.7)
[2019-12-26 11:20] LABS: 25 Hydroxy Vitamin D 26 ng/mL (30-100)
[2019-12-26 11:22] LABS: Ferritin 1585 ng/mL (30-400)
[2019-12-27] VITALS (11 sets, daily range): BP systolic 101–118; BP diastolic 60–76; PULSE 60–76; RESP 18; TEMP 36.1–36.6; O2SAT 94–96
[2019-12-27] MEDS: diphenhydrAMINE 25 mg Capsule PO (10:45)
[2019-12-27] MEDS: sodium chloride 0.9% 250 ML 999 ML IV (10:59)
[2019-12-27] MEDS: FUROsemide 10 mg/mL SDV 2mL 20 MG IV (15:15)
--- NOTE | 2019-12-30 18:01 | ONC FU_ITS ---
Dr. Lew Patient Follow-Up Note Patient: José Miguel Bonilla Unit #: [id number]: 1940 Dicatated By: Ammon Lew M.D.Date of Visit:Dec 27, 2019 Onc Med Follow-up/Prog Note Chief Complaint: Myelodysplastic syndrome. History of Present Illness: This is a 79 year-old man with myelodysplastic syndrome (MDS with unilineage dysplasia). He was seen initially on 09/30/2015 in regard to a moderately severe anemia. The available records included multiple blood counts dating back to August 2014. At that time his hemoglobin was 10.3 g with white blood cell count 6400 and platelet count 325,000. The red cell indices were macrocytic with MCV 110 and MCH 37. A more recent CBC, from 08/20/2015, showed a hemoglobin down to 9.7 g with hematocrit 29%. The red cell indices were similar. White blood cell count was 4900 and platelet count was 337,000. The differential showed 56% neutrophils, 30% lymphocytes, and 10% monocytes. B12 was checked several times and was normal. Folate level was low at 6.7 ng/mL. The serum iron was normal at 141 mcg/dL. 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 He had negative stool Hemoccult, though an upper GI endoscopy apparently did show ulcers. Colonoscopy was unremarkable. His evaluation also included CT abdomen/pelvis in May 2015. It showed an aneurysm of the distal abdominal aorta extending to, but not into, the bifurcation. It appeared stable compared to a previous study from March 2013. There were no acute findings noted on that study. His laboratory studies on 09/30/2015 included CBC showing hemoglobin 9.4 g, white blood cell count 6400, and platelet count 420,000. The red cell indices were macrocytic with MCV 110 and MCH 37. The uncorrected reticulocyte count was 2.0%. Comprehensive metabolic profile was unremarkable except for mildly elevated total bilirubin at 2.9 mg/dL. The liver enzymes were normal.. LDH was normal at 183 mg/dL and haptoglobin was low normal at 53 mg/dL. Ferritin was elevated at 520 ng/mL. The homocysteine level was slightly elevated at 11.6 ???mol/L with methylmalonic acid normal at 198 nmol/L. Protein electrophoresis was normal. He underwent bone marrow aspiration/biopsy on 10/15/2015. The marrow was hypercellular, estimated at 90-95%. There was limited erythroid dyspoiesis. There was no evidence of infiltrative process. Blasts were reported at 0%. Iron stores were 3+ with occasional ring sideroblasts identified, estimated at less than 5-10% of the population. There was 1+/4+ reticulin staining. The chromosome analysis showed no metaphase cells for analysis. The FISH panel for MDS showed no abnormalities. 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 During subsequent follow-up his hemoglobin had declined to a low of 8.2 g/dL on 12/16/2015. His baseline erythropoietin level was 152 mIU/mL. On 12/18/2015 he began a trial of therapy with Procrit, initially at 40,000 units weekly. As of 01/13/2016, after 4 weeks of treatment, the hemoglobin was basically stable at 8.5 g. At that point the Procrit dosage was escalated to 60,000 U weekly. His hemoglobin level had subsequently increased to a maximum level 10.1 g on 03/09/2016. It then drifted downward gradually. As of 07/20/2016 it was down to 8.7 g. As of his followup visit on 08/04/2016 he had remained transfusion independent. However, after that his hemoglobin had shown further decline to 7.9 g, and at that point I did opt to stop the Procrit and transition his treatment to Revlimid. He began his treatment with Revlimid 10 mg daily on 08/16/2016. His baseline hemoglobin was 8.2 g. He did opt to have a transfusion of 2 units of packed red blood cells. Thus far he has tolerated the Revlimid well and during follow-up his blood count had stabilized with hemoglobin in the range of 9.5 g. His CBC on 11/23/2016 showed further increase in the hemoglobin to 10.4 g. As of 02/15/2017 his hemoglobin had declined somewhat, to 8 g with WBC moderately decreased at 2700 and platelet count normal at 200,000. He continued treatment with Revlimid. On 03/11/2017 he was seen at the [place] clinic with flu-like symptoms. His nasal swab reportedly was positive for influenza, and he did start treatment with Tamiflu. His CBC showed a further decline in his hemoglobin to 6.5 g, and he was found to be jaundiced, total bilirubin 6.1 mg/dL. He was transfused 2 units of PRBC. On his further laboratory evaluation on 03/14/2017 his hemoglobin had increased to only 7.8 g. The uncorrected reticulocyte count was 3.2%. His total bilirubin was still elevated at 5.7 mg/dL with the direct bilirubin normal at 0.60 mg/dL. LDH was normal at 218 U/L. The haptoglobin level was low at 21.9 mg/dL. HEMA was negative. B12 and folate levels were normal. He was advised to stop Revlimid. During subsequent follow-up his haptoglobin level showed further decline, to as low as 9.3 mg/dL on 03/28/2017. However, at that point his hemoglobin remained adequate at 9.4 g, his bilirubin was down to 3.0 mg/dL, and his LDH remained normal. He had a follow-up CTA of the abdomen/pelvis on 03/22/2017. It again showed evidence infrarenal abdominal aortic aneurism extending to the aortic bifurcaton. It measured 4.5 x 4.6 x 4.7 cm. 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 On 05/13/2017 he underwent coronary angioplasty with stent placement of the right coronary artery. On 05/30/2017 he underwent endovascular repair of infrarenal abdominal aortic aneurysm. He tolerated both procedures well, though during that time he did require transfusion of a total of 9 U of packed red blood cells. He hen continued on aspirin 81 mg daily together with Plavix 75 mg daily. He remained off Revlimid. During subsequent follow-up, he remained transfusion dependent. He then underwent repeat bone marrow aspiration/biopsy on 08/04/2017. The marrow was hypercellular, 100% cellularity. Megakaryocytes were noted to be increased in number and there was associated megakaryocyte dyspoiesis. There was just limited dyserythropoiesis. Ring sideroblasts were present, comprising more than 50% of the nrbc population. Blasts were estimated at 9% by morphology and 4% by flow cytometry. The FISH panel for MDS was unrevealing and the standard chromosome analysis was normal. 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 His IPSS-R score calculated to 3.5 or 4.5, depending on which blast count was used. Either score was intermediate risk category. With those findings, he was advised to undergo trial of therapy with 5-azacytidine. As of 08/26/2017 his ferritin level had increased to 1076 ng/mL. At that point he began chelation therapy with Jadenu 1440 mg daily. On 08/29/2017 he began cycle 1 of treatment with 5-azacytidine. It was administered subcutaneously for 7 days. He tolerated the 5-azacytidine without acute toxicity. He subsequently developed nausea with the Jadenu, and the dosage was reduced to 720 mg daily. He continued treatment with 5-azacytidine at 4-week intervals. He required further transfusions on 10/11/2017, on 10/18/2017, and on 11/09/2017. Thereafter his hemoglobin level stabilized above transfusion threshold. During subsequent follow-up, he had some adjustments in his treatment interval, but he remained transfusion independent. As of July 2018 he was able to stop Jadenu, with his ferritin level having decreased to 357 ng/mL. His other medical illnesses include hypertension, hyperlipidemia, atrial fibrillation, coronary artery disease, peripheral arterial disease, GERD, and nephrolithiasis. He also has fairly long-standing psoriasis. In the past he had been on treatment with methotrexate. His procedural history includes coronary angioplasty/stent placement followed by endovascular repair of abdominal aortic aneurysm in May 2017. He had previously smoked 2 packs of cigarettes daily, but he quit smoking more than 20 years ago. INTERIM HISTORY: In November 2018 he began to show gradual decline in his hemoglobin, though it continued to fluctuate between 8 and 9 g. As of 01/15/2019 it had further decreased to 7.5 g, at which point he did receive a PRBC transfusion. He continued with cycle 15 of 5-azacytidine on 02/12/2019. He was then transfused again on 02/27/2019 with his hemoglobin back down to 7.1 g. During the past month or so he had developed significant worsening of his back pain. He also is having pain in his left rib cage area following some minor trauma. A bone scan on 03/12/2019 showed a punctate area of bony uptake involving the left anterior approximately fifth rib, consistent with trauma. There was noted to be a compression fracture with bony uptake involving a midthoracic vertebral body. Diffuse patchy uptake involving the calvarium was felt to be likely related to the myelodysplastic syndrome and bone marrow hyperplasia. On 04/13/2019 he presented to the emergency room with worsening back pain. CT abdomen/pelvis at that time showed multiple chronic compression fracture deformities but with progressed height loss of L1 compared to the prior exam and with mild adjacent soft tissue edema compatible with new/progressive L1 fracture. There was minimal retropulsed bone measuring up to 3 mm. There was no critical stenosis. Also noted was a new fracture of the superior endplate of T9 without any retropulsed bone. There was evidence of partial small bowel obstruction with a gradual change to collapsed loops of bowel. I had seen him for a follow-up visit on 05/10/2019. At that point he was still having severe back pain, presumably due to the vertebral compression fractures, and he had very limited activity. He continued transfusion support for the anemia. [facility] [place] [facility], I assume either a vertebroplasty or a kyphoplasty. On 06/26/2019 he began a trial of therapy with luspatercept 1 mg/kg by subcutaneous injection every 3 weeks for the myelodysplastic syndrome. On 07/09/2019 he underwent open right inguinal hernia repair with mesh placement. He tolerated the procedure well. On 07/17/2019 he received a 2nd dose of luspatercept. He required PRBC transfusion on 08/01/2019. As of 08/09/2019 the luspatercept dosage was increased to 105 mg, but he again required transfusion on 08/16/2019 and on 09/13/2019. At that point I did opt to stop treatment with luspatercept. His blood counts initially stabilized, but he then required transfusion again on 10/18/2019, and he has since then remained transfusion dependent. He is seen for a follow-up visit. He has not been feeling good. He says he has been real tired and short of breath. He continues to have pain across his back and hips with activity. His ECOG score is 2. His appetite is pretty good, though he does have early satiety. He has not had fever. He has a little bit of night sweating. He says he had something like thrush in his mouth, but it got better with Magic mouthwash. He has cough, but not bad. He does not complain of chest pain. He has occasional nausea. His acid reflux is adequately managed with Tums. His bowel function is variable, he tends to have constipation. He recently passed another kidney stone. Bladder function is otherwise been okay. He does not complain of headache. He does have some dizziness. He has numbness/tingling in his feet and a little bit in his hands. Medications: Aspirin 1 (81 mg) Tablet, enteric coated Oral daily, B-6 1 (200 mg) Tablet Oral t.i.d., Digoxin 1 (125 mcg) Tablet Oral daily, Duragesic-50 1 Patch(es) (of 50 mcg/hr) Patch 72 Hr Transdermal q 72 hours PRN, Folic Acid 1 (1 mg) Tablet Oral daily, Metoprolol Tartrate 1 Tablet (of 50 mg) Oral daily, oxyCODONE-Acetaminophen 1 Tablet (of 10-325 mg) Oral four times a day PRN, Plavix 1 (75 mg) Tablet Oral daily, Pravastatin Sodium 1 Tablet (of 20 mg) Oral daily, Reblozyl 1 Subcutaneous q 3 weeks, Tamsulosin HCl 1 Tablet (of 0.4 mg) Capsule Oral b.i.d. Allergies: No Known Allergies. Review of Systems: Constitutional - He feels pretty weak and tired. He has activity limitations from his back pain. He is able to get up and around a do light work but for a very short time. His appetite is okay and his weight is down 6 pounds. No fevers. He has mild night sweats. ECOG score is 2, ENMT - He has persistent sinus drainage. He had thrush in his mouth and throat, it resolved with use of Magic Mouthwash. No difficulty swallowing, Hematologic/Lymphatic - He bruises easily, Respiratory - He is having increased shortness of breath during activity and at rest. No cough. No pleuritic pain or hemoptysis, Cardiovascular - No angina pain. No palpitations, Gastrointestinal - No nausea or vomiting. No heartburn or acid reflux. No diarrhea. He is having constipation. No blood in the stool or black stools, Genitourinary (M) - No dysuria or hematuria. He has urinary frequency. No urgency or incontinence. He states he recently passed another kidney stone, Musculoskeletal - He continues to have a significant amount of pain in his back, Integumentary - No skin complications, Neurologic - No headache. He has frequent dizziness. He has numbness and tingling in his feet and hands. No other focal neurologic symptoms, Psychiatric - He has some anxiety and depression but does not feel he needs anything for it. He wakes up every 2 hours to take pain medication or to urinate. Vital Signs: Performed on Dec 27, 2019 09:43 Height - 76.00 in Weight - 175.0 lbs (LOW) BSA - 2.09 sq.m BMI - 21.30 Temperature - 97.2 F (LOW) Pulse - 77 /min Respiration - 18 /min BP - 106/52 mm(hg) O2 Sat - 98 % Pain - 0 Physical Examination: Constitutional - He appears generally weak, Eyes - Sclerae nonicteric. Conjunctivae clear, ENMT - No lesions noted in the oral cavity, Hematologic/Lymphatic - No cervical, clavicular, or axillary adenopathy, Respiratory - Lungs sound clear with some decrease in air movement bilaterally, Cardiovascular - Heart rhythm is irregular. There is a II/ systolic murmur. There is no gallop or rub noted, Abdomen - Soft. Liver and spleen are not enlarged. There is no abdominal mass or ascites noted and there is no inguinal adenopathy, Extremities - There are mild venous stasis changes bilaterally. There is mild, chronic swelling of the lower right leg and ankle, Neurologic - No focal neurologic deficits noted. Lab/Imaging: CBC shows hemoglobin 8.4 g, white blood cell count 4700, and platelet count 320,000. Comprehensive metabolic profile is unremarkable except for mildly elevated total bilirubin at 3.3 mg/dL. His serum ferritin level has now increased to 1585 ng/mL. Impression: 1. The patient has a moderately severe macrocytic anemia. Bone marrow aspiration/biopsy on 10/15/2015 showed hypercellular marrow, estimated 90-95%. There was mild erythroid dyspoiesis and there were ringed sideroblasts identified, estimated at less than 5-10% of the population. Iron stores were 3+. The FISH panel for MDS showed no abnormalities. A standard chromosome study showed no metaphases for analysis. Overall, the findings were consistent with myelodysplastic syndrome (refractory cytopenia with unileage dysplasia) versus idiopathic cytopenia of undetermined significance. 2. 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 This is probably of no clinical significance other than he may be more prone to iron overload if he does become transfusion dependent. His other medical illnesses include: 3. Hypertension. 4. Hyperlipidemia. 5. Peptic ulcer disease/GERD. 6. Nephrolithiasis. 7. He has a history of atrial fibrillation. 8. He has an abdominal aortic aneurysm. In December 2015 he began a trial of therapy with Procrit after his hemoglobin had dropped to 8.2 g. As of 01/13/2016 the dosage was escalated to 60,000 U weekly, as his hemoglobin at that point was basically stable at 8.5 g. He did show some response, with his hemoglobin increasing to 10.1g. It had subsequently drifted downward. As of his visit on 08/04/2016 his hemoglobin was down to 7.9 g. At that point the Procrit was discontinued. He began treatment with Revlimid 10 mg daily on 08/16/2016. He had noticed some worsening of his psoriasis after starting the Revlimid, but he has otherwise tolerated it well. His hemoglobin initially appeared to have stabilized in the range of 9.5 to 10 g. As of 02/15/2017 his hemoglobin had declined to 8 g. On 03/11/2017 he was confirmed to have influenza by nasal swab. His hemoglobin at that point had dropped to 6.5 g and he had become overtly jaundiced. He was transfused PRBC. 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 At that point I did opt to stop the Revlimid. During subsequent follow-up, his haptoglobin level recovered to normal and his bilirubin level returned to baseline. His LDH remained normal. He underwent coronary angioplasty/stent placement on 05/12/2017 and on 05/30/2017 he underwent endovascular repair of infrarenal abdominal aortic aneurysm. He then continued on prophylaxis with aspirin 81 mg daily and Plavix 75 mg daily. During subsequent followup he remained transfusion dependent. His repeat bone marrow aspiration/bipsy on 08/04/2017 showed 100% cellularity with associated megakaryocyte dyspoiesis and limited dyserythropoiesis. Ring sideroblasts were present, comprising more than 50% of the nrbc population. Blasts were estimated at 9% by morphology and 4% by flow cytometry. The FISH panel for MDS was unrevealing and the standard chromosome analysis was normal. 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 His IPSS-R score calculated to 3.5 or 4.5, depending on which blast count was used. Either score was intermediate risk category. As of 08/26/2017 his serum ferritin had increased to 1076 ng/mL, and he began treatment with Jadenu 1440 mg daily. He then began a course of treatment of 5-azacytidine, cycle 1 day 1 on 08/29/2017. It was administered subcutaneously for 7 days. He tolerated the treatment without any acute toxicity. He proceeded with cycle 2 of 5-azacytidine on 10/03/2017, and he then continued treatment at 4-week intervals. He continued to require transfusion up until 11/08/2017, but his hemoglobin then stabilized in the range of 10-11 g. During that time he had mild to moderately severe neutropenia and thrombocytopenia, and beginning with the 6th cycle I did make some adjustments in the treatment interval. He then continued to tolerate the treatment well, and he remained transfusion independent. However, by November 2018 there had been a gradual decline in his hemoglobin, which at that point was fluctuating between 8 and 9 g. As of 01/15/2019 the hemoglobin had dropped to 7.5 g, and he was then transfused 2 units PRBC. It was his first transfusion since November 2017. On 02/12/2019 he continued with cycle 15 of 5-azacytidine. He required transfusion again on 02/27/2019 with hemoglobin back down to 7.1 g. During followup he had been showing some decline in his performance status. He had developed significant worsening of his back pain, and bone scan did show evidence of a vertebral compression fracture in the mid thoracic spine. As he was clearly not responding to the 5-azacytidine, I did opt to stop the treatmnent. He then continued to be supported with PRBC transfusion as needed. In the meantime, his back pain had continued to worsen. A CT abdomen/pelvis done through the emergency room on 04/13/2019 showed increased fracture at L1 and some new compression fracture at T9. Management has been problematic, as he has had somewhat poor tolerance for pain medication. He recently [facility] a [facility] in [place] [facility], either kyphoplasty or vertebroplasty, I assume. He initially was getting some benefit, but in the last few days he has been having more back pain. He also reports having pain in association with a right inguinal hernia, which had worsened in association with some straining while he was on the stool. In the meantime, on 06/26/2019 he began a trial of therapy with luspatercept. In the meantime, he has undergone right inguinal hernia repair. He then continued with his 2nd dose of luspatercept on 07/17/2019. He remained transfusion dependent, requiringd PRBC transfusion on 08/01/2019 and again on 08/16/2019 despite having an increase in the luspatercept dosage on 08/09/2019. He was then transfused again on 09/13/2019. During this time, he has been seeing Dr. Zavala for management of nephrolithiasis. He also continues to have severe back pain associated with vertebral compression fractures. His DEXA scan did show evidence of osteoporosis, for which he was started on treatment with Prolia. Initially, he did appear to be having some response to the Luspatercept, but it was very short-term. Treatment was stopped after the 4th injection. He has since then remained transfusion dependent. He continues to have very marginal performance status. Plan: He will be transfused 2 units of PRBC today. Blood counts will be checked every 2 weeks and he will be transfused as needed. With the increase in his ferritin, I will have him restart Jadenu for iron overload, but that will be subject to verification of insurance coverage. His medications otherwise remain the same. I will tentatively plan a follow-up visit in 3 months. Signed By: Ammon Lew M.D. <<Signature on File>>
== END 2020-01-05 23:59 | disposition home or self-care (01) ==
LOC: ONCMED 05:41
PROVIDERS: PCP Internal Medicine; Visit Provider Internal Medicine Medical Oncology
DX: D46.Z Other myelodysplastic syndromes (principal); E83.111 Hemochromatosis due to repeated red blood cell transfusions; I10 Essential (primary) hypertension; E78.5 Hyperlipidemia, unspecified; I48.91 Unspecified atrial fibrillation; I25.10 Atherosclerotic heart disease of native coronary artery without angina pectoris; I73.9 Peripheral vascular disease, unspecified; K21.9 Gastro-esophageal reflux disease without esophagitis; L40.9 Psoriasis, unspecified; M54.9 Dorsalgia, unspecified; Z79.899 Other long term (current) drug therapy; Z79.891 Long term (current) use of opiate analgesic; Z79.82 Long term (current) use of aspirin; Z95.5 Presence of coronary angioplasty implant and graft; Z87.891 Personal history of nicotine dependence
CPT/HCPCS: 36430; 80053; 82306; 82728; 83615; 85025; 86850; 86900; 86920; 99214; J1940; J7050; P9040

== ENCOUNTER 2020-01-11 07:51 | Outpatient (RCR) | payer OTHER, SELFPAY ==
[2020-01-10 11:52] LABS: Basophils % 0.7 %; Eosinophils % 0.9 %; Hematocrit 25.4 % (42.0-52.0); Hemoglobin 7.9 g/dL (11.7-16.6); Lymphocytes # 1.1 10^3/uL (0.8-4.8); Lymphocytes % 23.9 %; Mean Corpuscular HGB Conc 31.1 g/dL (30.0-36.0); Mean Corpuscular Hemoglobin 30.4 pg (28.0-34.0); Mean Corpuscular Volume 97.7 fL (80-94); Mean Platelet Volume 11.6 fL (7.4-10.4); Monocytes # 0.4 10^3/uL (0.2-0.9); Neutrophils # 2.93 10^3/uL (1.8-7.7); Neutrophils % 64.2 %; Nucleated Red Blood Cells # 0.1 /100WBC; Nucleated Red Blood Cells % 1.1 %; Platelet Count 332 10^3/cmm (130-400); Red Cell Distribution Width 20.6 % (12.1-15.1); White Blood Count 4.6 10^3/uL (4.0-10.0)
[2020-01-11] VITALS (7 sets, daily range): BP systolic 97–110; BP diastolic 60–62; PULSE 71–79; RESP 18; TEMP 36.6; O2SAT 97–100
[2020-01-11] MEDS: sodium chloride 0.9% 250 ML 999 ML IV (08:30)
[2020-01-11] MEDS: acetaminophen 325 mg Tablet 650 MG PO (08:53)
[2020-01-11] MEDS: diphenhydrAMINE 25 mg Capsule PO (08:54)
[2020-01-11] MEDS: FUROsemide 10 mg/mL SDV 2mL 20 MG IV (08:55)
== END 2020-01-17 07:00 | disposition home or self-care (01) ==
LOC: ONCMED 07:51
PROVIDERS: PCP Internal Medicine; Visit Provider Internal Medicine Medical Oncology
DX: D46.Z Other myelodysplastic syndromes (principal); E83.111 Hemochromatosis due to repeated red blood cell transfusions
CPT/HCPCS: 36415; 36430; 85025; 86850; 86900; 86920; J1940; J7050; P9040

== ENCOUNTER 2020-01-17 07:32 | Outpatient (CLI) | payer OTHER, MEDICARE, SELFPAY ==
--- NOTE | 2020-01-17 08:00 | US_ITS ---
WS: [id number] ULTRASOUND RENAL TECHNIQUE: Ultrasound examination of both kidneys. CLINICAL INFORMATION: Stones COMPARISON: None. FINDINGS: Technically difficult examination due to body habitus. RIGHT: Right simple renal cysts measuring 3.4 x 2.6 cm and 1.4 x 1.1 CCM. Right kidney is normal in size and appearance. Echogenicity: Normal. Cortical thickness: 1.4 cm; Normal. Hydronephrosis: None. Perinephric fluid: None. Right kidney measures: 10.7 cm x 4.5 cm x 5.9 cm. LEFT: Nonobstructing left renal parenchymal calculus measuring 5 mm. Left kidney is normal in size and appearance. Echogenicity: Normal. Cortical thickness: 1.6 cm; Normal. Hydronephrosis: None. Perinephric fluid: None. Left kidney measures: 12.4 cm x 4.9 cm x 5.7 cm. Normal visualized aorta. Aortic endograft with abdominal aortic aneurysm. Bilateral iliac extension. Diffuse bladder wall thickening can be seen with chronic cystitis or bladder outlet obstruction. Nodu lar heterogeneous prostate measures 4.4 x 3.1 cm US/US renal BI* [id number] IMPRESSION: 1. No hydronephrosis in either kidney. 2. Simple right renal cysts. 3. Diffuse bladder wall thickening can be seen with chronic cystitis or bladde r outlet obstruction. 4. Nodular enlarged prostate measuring 4.4 x 3.1 CCM. Recommend correlation PS A. 5. Aortic endograft with biiliac extension. Abdominal aortic aneurysm measurin g 2.7 x 3.2 cm 6. Nonobstructing left renal parenchymal calculus measuring 5 mm.
== END 2020-01-17 07:33 | disposition home or self-care (01) ==
LOC: RAD 07:41
PROVIDERS: Visit Provider Urology
DX: N20.2 Calculus of kidney with calculus of ureter (principal); N28.1 Cyst of kidney, acquired; N40.0 Benign prostatic hyperplasia without lower urinary tract symptoms; I71.4 Abdominal aortic aneurysm, without rupture
CPT/HCPCS: 76770; 81003

== ENCOUNTER 2020-01-17 07:46 | Outpatient (CLI) | payer OTHER, MEDICARE, SELFPAY ==
--- NOTE | 2020-01-17 07:45 | XR_ITS ---
WS: [id number] KUB, 01/17/2020 Clinical Data: Stones Comparison: KUB, 11/13/2019. Findings: No abnormal intraabdominal masses are seen. There is a left renal calcification measuring 1.9 cm. The re are other smaller calculi that project over the left kidney. No right renal calculi are seen altho ugh bowel gas obscures detail. There is a small metal fragment overlapping the right 12th rib. There is no dilatated small bowel or evidence of obstruction. The aortic stent graft remains in good position. Vertebroplasty cement is noted in the L1 and L2 vert ebral bodies. The bowel gas pattern shows air in the small bowel. XR/XR KUB [id number] Impression: 1. Mild generalized ileus. 2. 1.9 cm left renal calculus and possible other left renal calculi. 3. No change in aortic stent graft..
[2020-01-17 08:55] LABS: Anion Gap 14.3 (5-19); Blood Urea Nitrogen 17 mg/dL (8-23); Calcium 9.6 mg/dL (8.5-10.5); Carbon Dioxide 29 mmol/L (22-29); Chloride 98 mmol/L (98-107); Glucose 128 mg/dL (65-115); Osmolality Calculated 287 mOsm/kg (285-295); Potassium 4.3 mmol/L (3.5-5.1); Sodium 137 mmol/L (136-145)
== END 2020-01-17 07:47 | disposition home or self-care (01) ==
LOC: RAD 07:48
PROVIDERS: Visit Provider Urology
DX: N20.1 Calculus of ureter (principal)
CPT/HCPCS: 36415; 74018; 80048

== ENCOUNTER 2020-01-24 07:55 | Outpatient (RCR) | payer OTHER, SELFPAY ==
[2020-01-23 09:19] LABS: Basophils % 0.7 %; Eosinophils % 0.5 %; Hematocrit 23.6 % (42.0-52.0); Hemoglobin 7.4 g/dL (11.7-16.6); Lymphocytes % 22.6 %; Mean Corpuscular HGB Conc 31.4 g/dL (30.0-36.0); Mean Corpuscular Hemoglobin 30.2 pg (28.0-34.0); Mean Corpuscular Volume 96.3 fL (80-94); Mean Platelet Volume 11.4 fL (7.4-10.4); Monocytes # 0.3 10^3/uL (0.2-0.9); Monocytes % 7.9 %; Neutrophils # 2.87 10^3/uL (1.8-7.7); Neutrophils % 66.7 %; Nucleated Red Blood Cells % 0.5 %; Platelet Count 317 10^3/cmm (130-400); Red Blood Count 2.45 10^6/uL (4.1-5.3); Red Cell Distribution Width 19.7 % (12.1-15.1); White Blood Count 4.3 10^3/uL (4.0-10.0)
[2020-01-23 09:41] LABS: Alanine Aminotransferase 23 U/L (0-41); Albumin Level 4.2 g/dL (3.5-5.2); Alkaline Phosphatase 45 IU/L (40-130); Anion Gap 12.5 (5-19); Aspartate Amino Transferase 19 U/L (0-40); Blood Urea Nitrogen 10 mg/dL (8-23); Calcium 8.5 mg/dL (8.5-10.5); Carbon Dioxide 28 mmol/L (22-29); Chloride 99 mmol/L (98-107); Globulin 1.8 g/dL (1.3-4.6); Glucose 120 mg/dL (65-115); Iron 160 ug/dL (59-158); Lactate Dehydrogenase 215 U/L (135-225); Osmolality Calculated 280 mOsm/kg (285-295); Potassium 4.5 mmol/L (3.5-5.1); Sodium 135 mmol/L (136-145); Total Bilirubin 1.7 mg/dL (0.15-1.2)
[2020-01-23 10:02] LABS: Ferritin 1293 ng/mL (30-400)
[2020-01-23 10:03] LABS: Unsaturated Iron Binding < 17 ug/dL (112-347)
[2020-01-24] MEDS: sodium chloride 0.9% 250 ML 999 ML IV (08:40)
[2020-01-24] MEDS: diphenhydrAMINE 25 mg Capsule PO (08:40)
[2020-01-24 08:55] VITALS: BP 100/60; PULSE 81; RESP 18; TEMP 36.3; O2SAT 95
[2020-01-24 09:10] VITALS: BP 99/58; PULSE 73; RESP 18; TEMP 36.3; O2SAT 96
[2020-01-24] MEDS: FUROsemide 10 mg/mL SDV 2mL 20 MG IV (10:40)
== END 2020-02-04 23:59 | disposition home or self-care (01) ==
LOC: ONCMED 07:55
PROVIDERS: Internal Medicine Medical Oncology; PCP Internal Medicine; Visit Provider Nurse Practitioner
DX: E83.111 Hemochromatosis due to repeated red blood cell transfusions (principal); D46.Z Other myelodysplastic syndromes; D50.9 Iron deficiency anemia, unspecified
CPT/HCPCS: 36430; 80053; 82728; 83540; 83550; 83615; 85025; 86850; 86900; 86920; J1940; J7050; P9040

== ENCOUNTER 2020-03-06 05:41 | Outpatient (RCR) | payer OTHER, SELFPAY ==
[2020-02-06 11:58] LABS: Basophils % 0.6 %; Eosinophils % 0.9 %; Hematocrit 23.2 % (42.0-52.0); Hemoglobin 7.3 g/dL (11.7-16.6); Lymphocytes % 27.3 %; Mean Corpuscular HGB Conc 31.5 g/dL (30.0-36.0); Mean Corpuscular Hemoglobin 30.7 pg (28.0-34.0); Mean Corpuscular Volume 97.5 fL (80-94); Monocytes # 0.3 10^3/uL (0.2-0.9); Monocytes % 8.5 %; Neutrophils # 2.17 10^3/uL (1.8-7.7); Neutrophils % 61.6 %; Nucleated Red Blood Cells % 0.9 %; Platelet Count 286 10^3/cmm (130-400); Red Blood Count 2.38 10^6/uL (4.1-5.3); Red Cell Distribution Width 19.9 % (12.1-15.1); White Blood Count 3.5 10^3/uL (4.0-10.0)
[2020-02-07] MEDS: sodium chloride 0.9% (100 ml) 100 ML 240 ML (11:00)
[2020-02-07] MEDS: diphenhydrAMINE 25 mg Capsule PO (11:00)
[2020-02-07] MEDS: sodium chloride 0.9% 250 ML 999 ML IV ×2 (11:10)
[2020-02-08] MEDS: diphenhydrAMINE 25 mg Capsule PO (11:10)
[2020-02-20 12:58] LABS: Basophils % 0.9 %; Eosinophils # 0.1 10^3/uL (0.0-0.8); Eosinophils % 1.2 %; Hematocrit 26.8 % (42.0-52.0); Hemoglobin 8.5 g/dL (11.7-16.6); Lymphocytes # 1.5 10^3/uL (0.8-4.8); Mean Corpuscular HGB Conc 31.7 g/dL (30.0-36.0); Mean Corpuscular Hemoglobin 31.4 pg (28.0-34.0); Mean Corpuscular Volume 98.9 fL (80-94); Mean Platelet Volume 11.1 fL (7.4-10.4); Monocytes # 0.3 10^3/uL (0.2-0.9); Monocytes % 7.7 %; Neutrophils # 2.38 10^3/uL (1.8-7.7); Neutrophils % 55.3 %; Nucleated Red Blood Cells % 0 %; Platelet Count 361 10^3/cmm (130-400); Red Blood Count 2.71 10^6/uL (4.1-5.3); Red Cell Distribution Width 18.7 % (12.1-15.1); White Blood Count 4.3 10^3/uL (4.0-10.0)
[2020-02-20 13:33] LABS: Alanine Aminotransferase 41 U/L (0-41); Albumin Level 4.5 g/dL (3.5-5.2); Alkaline Phosphatase 57 IU/L (40-130); Anion Gap 15.4 (5-19); Aspartate Amino Transferase 33 U/L (0-40); Blood Urea Nitrogen 9 mg/dL (8-23); Calcium 9.3 mg/dL (8.5-10.5); Carbon Dioxide 30 mmol/L (22-29); Chloride 97 mmol/L (98-107); Glucose 97 mg/dL (65-115); Iron 96 ug/dL (59-158); Lactate Dehydrogenase 216 U/L (135-225); Osmolality Calculated 285 mOsm/kg (285-295); Percent Saturation 65.7 % (20-50); Potassium 4.4 mmol/L (3.5-5.1); Sodium 138 mmol/L (136-145); Total Bilirubin 1.8 mg/dL (0.15-1.2); Total Iron Binding Capacity 146 mcg/dl; Total Protein 6.5 g/dL (6.6-8.7); Unsaturated Iron Binding 50 ug/dL (112-347)
[2020-02-20 14:15] LABS: Ferritin 1854 ng/mL (30-400)
[2020-03-05 11:31] LABS: Basophils % 0.5 %; Eosinophils # 0.1 10^3/uL (0.0-0.8); Eosinophils % 1.2 %; Hematocrit 22.4 % (42.0-52.0); Hemoglobin 6.9 g/dL (11.7-16.6); Lymphocytes # 1.1 10^3/uL (0.8-4.8); Lymphocytes % 27.1 %; Mean Corpuscular HGB Conc 30.8 g/dL (30.0-36.0); Mean Corpuscular Hemoglobin 30.8 pg (28.0-34.0); Mean Platelet Volume 11.4 fL (7.4-10.4); Monocytes # 0.4 10^3/uL (0.2-0.9); Monocytes % 10.2 %; Neutrophils # 2.44 10^3/uL (1.8-7.7); Neutrophils % 59.1 %; Nucleated Red Blood Cells % 0.7 %; Platelet Count 339 10^3/cmm (130-400); Red Blood Count 2.24 10^6/uL (4.1-5.3); Red Cell Distribution Width 22.7 % (12.1-15.1); White Blood Count 4.1 10^3/uL (4.0-10.0)
[2020-03-05 11:57] LABS: Alanine Aminotransferase 51 U/L (0-41); Albumin Level 4.2 g/dL (3.5-5.2); Alkaline Phosphatase 60 IU/L (40-130); Anion Gap 13.3 (5-19); Aspartate Amino Transferase 38 U/L (0-40); Blood Urea Nitrogen 12 mg/dL (8-23); Calcium 9.1 mg/dL (8.5-10.5); Carbon Dioxide 30 mmol/L (22-29); Chloride 98 mmol/L (98-107); Globulin 2.3 g/dL (1.3-4.6); Glucose 108 mg/dL (65-115); Iron 171 ug/dL (59-158); Lactate Dehydrogenase 233 U/L (135-225); Osmolality Calculated 284 mOsm/kg (285-295); Potassium 4.3 mmol/L (3.5-5.1); Sodium 137 mmol/L (136-145); Total Bilirubin 2.1 mg/dL (0.15-1.2); Total Protein 6.5 g/dL (6.6-8.7)
[2020-03-05 12:57] LABS: Ferritin 1687 ng/mL (30-400)
[2020-03-05 13:34] LABS: Unsaturated Iron Binding < 17 ug/dL (112-347)
[2020-03-06] VITALS (10 sets, daily range): BP systolic 98–131; BP diastolic 54–72; PULSE 73–80; RESP 18; TEMP 36.1–36.6; O2SAT 96–98
[2020-03-06] MEDS: sodium chloride 0.9% 250 ML 999 ML IV (09:00)
[2020-03-06] MEDS: diphenhydrAMINE 25 mg Capsule PO (09:00)
[2020-03-06] MEDS: FUROsemide 10 mg/mL SDV 2mL 20 MG IV (10:40)
== END 2020-03-06 23:59 | disposition home or self-care (01) ==
LOC: ONCMED 05:41
PROVIDERS: Internal Medicine Medical Oncology; PCP Internal Medicine; Visit Provider Nurse Practitioner
DX: E83.111 Hemochromatosis due to repeated red blood cell transfusions (principal); D46.Z Other myelodysplastic syndromes; D46.9 Myelodysplastic syndrome, unspecified
CPT/HCPCS: 36415; 36430; 80053; 82728; 83540; 83550; 83615; 85025; 86850; 86900; 86920; J1940; J7050; P9040

== ENCOUNTER 2020-04-04 08:11 | Outpatient (RCR) | payer OTHER, SELFPAY ==
[2020-03-19 13:20] LABS: Alanine Aminotransferase 40 U/L (0-41); Albumin Level 4.1 g/dL (3.5-5.2); Alkaline Phosphatase 59 IU/L (40-130); Anion Gap 12.3 (5-19); Aspartate Amino Transferase 32 U/L (0-40); Blood Urea Nitrogen 12 mg/dL (8-23); Calcium 9.2 mg/dL (8.5-10.5); Carbon Dioxide 31 mmol/L (22-29); Chloride 99 mmol/L (98-107); Glucose 126 mg/dL (65-115); Lactate Dehydrogenase 246 U/L (135-225); Osmolality Calculated 287 mOsm/kg (285-295); Potassium 4.3 mmol/L (3.5-5.1); Sodium 138 mmol/L (136-145); Total Bilirubin 2.3 mg/dL (0.15-1.2); Total Protein 6.1 g/dL (6.6-8.7)
[2020-03-19 13:44] LABS: Iron 144 ug/dL (59-158)
[2020-03-19 14:01] LABS: Ferritin 1592 ng/mL (30-400); Unsaturated Iron Binding < 17 ug/dL (112-347)
[2020-03-20] VITALS (10 sets, daily range): BP systolic 93–109; BP diastolic 56–67; PULSE 75–85; RESP 18; TEMP 36.3–36.5; O2SAT 18–96
[2020-03-20 08:46] LABS: Basophils # 0.1 10^3/uL (0.0-0.1); Basophils % 1.5 %; Eosinophils % 0.8 %; Hematocrit 22.1 % (42.0-52.0); Hemoglobin 7.3 g/dL (11.7-16.6); Lymphocytes # 0.9 10^3/uL (0.8-4.8); Lymphocytes % 22.4 %; Mean Corpuscular Hemoglobin 32.4 pg (28.0-34.0); Mean Corpuscular Volume 98.2 fL (80-94); Mean Platelet Volume 12.8 fL (7.4-10.4); Monocytes # 0.5 10^3/uL (0.2-0.9); Neutrophils # 2.36 10^3/uL (1.8-7.7); Neutrophils % 60.2 %; Nucleated Red Blood Cells # 0.1 /100WBC; Nucleated Red Blood Cells % 2.3 %; Platelet Count 330 10^3/cmm (130-400); Red Blood Count 2.25 10^6/uL (4.1-5.3); Red Cell Distribution Width 22.5 % (12.1-15.1); White Blood Count 3.9 10^3/uL (4.0-10.0)
[2020-03-20] MEDS: diphenhydrAMINE 25 mg Capsule PO (10:30)
[2020-03-20] MEDS: FUROsemide 10 mg/mL SDV 2mL 20 MG IV (12:30)
[2020-03-20] MEDS: sodium chloride 0.9% 250 ML 999 ML IV (15:47)
[2020-04-03 14:33] LABS: Basophils # 0.1 10^3/uL (0.0-0.1); Eosinophils % 0.6 %; Hematocrit 22.4 % (42.0-52.0); Lymphocytes # 0.9 10^3/uL (0.8-4.8); Lymphocytes % 17.2 %; Mean Corpuscular HGB Conc 31.3 g/dL (30.0-36.0); Mean Corpuscular Hemoglobin 31.5 pg (28.0-34.0); Mean Corpuscular Volume 100.9 fL (80-94); Mean Platelet Volume 11.8 fL (7.4-10.4); Monocytes # 0.5 10^3/uL (0.2-0.9); Monocytes % 9.9 %; Neutrophils # 3.52 10^3/uL (1.8-7.7); Neutrophils % 68.6 %; Nucleated Red Blood Cells # 0.1 /100WBC; Nucleated Red Blood Cells % 2.3 %; Platelet Count 354 10^3/cmm (130-400); Red Blood Count 2.22 10^6/uL (4.1-5.3); Red Cell Distribution Width 23.1 % (12.1-15.1); White Blood Count 5.1 10^3/uL (4.0-10.0)
[2020-04-03 14:49] LABS: Alanine Aminotransferase 51 U/L (0-41); Albumin Level 4.2 g/dL (3.5-5.2); Alkaline Phosphatase 60 IU/L (40-130); Anion Gap 15.3 (5-19); Aspartate Amino Transferase 38 U/L (0-40); Blood Urea Nitrogen 16 mg/dL (8-23); Calcium 9.1 mg/dL (8.5-10.5); Carbon Dioxide 27 mmol/L (22-29); Chloride 101 mmol/L (98-107); Globulin 2.1 g/dL (1.3-4.6); Glucose 123 mg/dL (65-115); Iron 163 ug/dL (59-158); Lactate Dehydrogenase 252 U/L (135-225); Osmolality Calculated 291 mOsm/kg (285-295); Potassium 4.3 mmol/L (3.5-5.1); Sodium 139 mmol/L (136-145); Total Protein 6.3 g/dL (6.6-8.7)
[2020-04-03 15:08] LABS: Ferritin 1496 ng/mL (30-400)
[2020-04-03 16:01] LABS: Unsaturated Iron Binding > 17 ug/dL (112-347)
[2020-04-04] VITALS (11 sets, daily range): BP systolic 97–108; BP diastolic 60–70; PULSE 76–79; RESP 18; TEMP 36.1–36.5; O2SAT 96–98
[2020-04-04] MEDS: diphenhydrAMINE 25 mg Capsule PO (08:20)
[2020-04-04] MEDS: sodium chloride 0.9% 250 ML 999 ML IV (08:30)
[2020-04-04] MEDS: FUROsemide 10 mg/mL SDV 2mL 20 MG IV (10:45)
[2020-04-04] MEDS: sodium chloride 0.9% (100 ml) 100 ML 240 ML (10:50)
== END 2020-04-06 23:59 | disposition home or self-care (01) ==
LOC: ONCMED 08:11
PROVIDERS: Internal Medicine Medical Oncology; PCP Internal Medicine; Visit Provider Nurse Practitioner
DX: E83.111 Hemochromatosis due to repeated red blood cell transfusions (principal); D46.Z Other myelodysplastic syndromes
CPT/HCPCS: 36430; 80053; 82728; 83540; 83550; 83615; 85025; 86850; 86900; 86920; J1940; J7050; P9040

== ENCOUNTER 2020-04-30 09:38 | Outpatient (RCR) | payer OTHER, SELFPAY ==
[2020-04-15 17:37] LABS: Basophils % 0.6 %; Eosinophils % 0.6 %; Hematocrit 24.6 % (42.0-52.0); Hemoglobin 7.7 g/dL (11.7-16.6); Lymphocytes # 0.7 10^3/uL (0.8-4.8); Lymphocytes % 18.9 %; Mean Corpuscular HGB Conc 31.3 g/dL (30.0-36.0); Mean Corpuscular Hemoglobin 30.4 pg (28.0-34.0); Mean Corpuscular Volume 97.2 fL (80-94); Monocytes # 0.3 10^3/uL (0.2-0.9); Monocytes % 8.6 %; Neutrophils # 2.48 10^3/uL (1.8-7.7); Neutrophils % 70.7 %; Nucleated Red Blood Cells % 0.6 %; Platelet Count 358 10^3/cmm (130-400); Red Blood Count 2.53 10^6/uL (4.1-5.3); Red Cell Distribution Width 21.6 % (12.1-15.1); White Blood Count 3.5 10^3/uL (4.0-10.0)
[2020-04-15 17:58] LABS: Alanine Aminotransferase 45 U/L (0-41); Albumin Level 4.6 g/dL (3.5-5.2); Alkaline Phosphatase 60 IU/L (40-130); Anion Gap 13.6 (5-19); Aspartate Amino Transferase 37 U/L (0-40); Blood Urea Nitrogen 16 mg/dL (8-23); Calcium 9.6 mg/dL (8.5-10.5); Carbon Dioxide 32 mmol/L (22-29); Chloride 97 mmol/L (98-107); Globulin 1.9 g/dL (1.3-4.6); Glucose 98 mg/dL (65-115); Iron 182 ug/dL (59-158); Lactate Dehydrogenase 225 U/L (135-225); Osmolality Calculated 287 mOsm/kg (285-295); Potassium 4.6 mmol/L (3.5-5.1); Sodium 138 mmol/L (136-145); Total Bilirubin 2.5 mg/dL (0.15-1.2); Total Protein 6.5 g/dL (6.6-8.7)
[2020-04-15 18:28] LABS: Ferritin 1916 ng/mL (30-400)
[2020-04-15 22:25] LABS: Percent Saturation 91.4 % (20-50); Total Iron Binding Capacity 199 mcg/dl; Unsaturated Iron Binding < 17 ug/dL (112-347)
[2020-04-16] VITALS (10 sets, daily range): BP systolic 95–118; BP diastolic 57–69; PULSE 70–85; RESP 18; TEMP 36.2–36.6; O2SAT 96–99
[2020-04-16] MEDS: sodium chloride 0.9% 250 ML 999 ML IV (10:45)
[2020-04-16] MEDS: diphenhydrAMINE 25 mg Capsule PO (10:55)
[2020-04-16] MEDS: FUROsemide 10 mg/mL SDV 2mL 20 MG IV (12:45)
[2020-04-29 20:38] LABS: Alanine Aminotransferase 36 U/L (0-41); Albumin Level 4.2 g/dL (3.5-5.2); Alkaline Phosphatase 56 IU/L (40-130); Anion Gap 12.7 (5-19); Aspartate Amino Transferase 33 U/L (0-40); Blood Urea Nitrogen 13 mg/dL (8-23); Calcium 9.3 mg/dL (8.5-10.5); Carbon Dioxide 30 mmol/L (22-29); Chloride 100 mmol/L (98-107); Globulin 2.2 g/dL (1.3-4.6); Glucose 122 mg/dL (65-115); Iron 170 ug/dL (59-158); Lactate Dehydrogenase 234 U/L (135-225); Osmolality Calculated 287 mOsm/kg (285-295); Potassium 4.7 mmol/L (3.5-5.1); Sodium 138 mmol/L (136-145); Total Bilirubin 2.3 mg/dL (0.15-1.2); Total Protein 6.4 g/dL (6.6-8.7)
[2020-04-29 20:51] LABS: Ferritin 1667 ng/mL (30-400)
[2020-04-30 02:46] LABS: Percent Saturation 100.5 % (20-50); Total Iron Binding Capacity 172 mcg/dl; Unsaturated Iron Binding -1 ug/dL (112-347)
[2020-04-30 08:59] LABS: Basophils # 0.1 10^3/uL (0.0-0.1); Basophils % 1.2 %; Eosinophils % 0.7 %; Hematocrit 24.4 % (42.0-52.0); Hemoglobin 7.4 g/dL (11.7-16.6); Lymphocytes # 0.9 10^3/uL (0.8-4.8); Lymphocytes % 21.9 %; Mean Corpuscular HGB Conc 30.3 g/dL (30.0-36.0); Mean Corpuscular Hemoglobin 30.2 pg (28.0-34.0); Mean Corpuscular Volume 99.6 fL (80-94); Mean Platelet Volume 11.5 fL (7.4-10.4); Monocytes # 0.4 10^3/uL (0.2-0.9); Monocytes % 9.5 %; Neutrophils % 65.7 %; Nucleated Red Blood Cells # 0.1 /100WBC; Nucleated Red Blood Cells % 1.5 %; Platelet Count 331 10^3/cmm (130-400); Red Blood Count 2.45 10^6/uL (4.1-5.3); Red Cell Distribution Width 20.8 % (12.1-15.1); White Blood Count 4.1 10^3/uL (4.0-10.0)
[2020-04-30] MEDS: diphenhydrAMINE 25 mg Capsule PO (11:00)
[2020-04-30] MEDS: sodium chloride 0.9% 250 ML 999 ML IV (11:00)
[2020-04-30] MEDS: acetaminophen 325 mg Tablet 650 MG PO (11:00)
[2020-04-30 11:45] VITALS: BP 94/56; PULSE 82; RESP 18; TEMP 36.6; O2SAT 94
[2020-04-30] MEDS: FUROsemide 10 mg/mL SDV 2mL 20 MG IV (13:05)
[2020-04-30 15:05] VITALS: BP 98/59; PULSE 74; RESP 18; TEMP 36.9; O2SAT 98
== END 2020-05-04 23:59 | disposition home or self-care (01) ==
LOC: ONCMED 09:38
PROVIDERS: Nurse Practitioner; PCP Internal Medicine; Visit Provider Internal Medicine Medical Oncology
DX: E83.111 Hemochromatosis due to repeated red blood cell transfusions (principal); D46.Z Other myelodysplastic syndromes
CPT/HCPCS: 36430; 80053; 82728; 83540; 83550; 83615; 85025; 86850; 86900; 86920; J1940; J7050; P9040

== ENCOUNTER 2020-05-29 05:36 | Outpatient (RCR) | payer OTHER, SELFPAY ==
[2020-05-13 17:08] LABS: Basophils % 0.5 %; Eosinophils % 0.2 %; Hematocrit 24.5 % (42.0-52.0); Hemoglobin 7.4 g/dL (11.7-16.6); Lymphocytes # 0.7 10^3/uL (0.8-4.8); Lymphocytes % 17.4 %; Mean Corpuscular HGB Conc 30.2 g/dL (30.0-36.0); Mean Corpuscular Hemoglobin 29.1 pg (28.0-34.0); Mean Corpuscular Volume 96.5 fL (80-94); Mean Platelet Volume 11.9 fL (7.4-10.4); Monocytes # 0.3 10^3/uL (0.2-0.9); Monocytes % 7.4 %; Neutrophils # 2.97 10^3/uL (1.8-7.7); Nucleated Red Blood Cells % 0.7 %; Platelet Count 349 10^3/cmm (130-400); Red Blood Count 2.54 10^6/uL (4.1-5.3); Red Cell Distribution Width 20.5 % (12.1-15.1); White Blood Count 4.1 10^3/uL (4.0-10.0)
[2020-05-13 17:24] LABS: Alanine Aminotransferase 37 U/L (0-41); Albumin Level 4.5 g/dL (3.5-5.2); Alkaline Phosphatase 64 IU/L (40-130); Anion Gap 15.1 (5-19); Aspartate Amino Transferase 32 U/L (0-40); Blood Urea Nitrogen 16 mg/dL (8-23); Calcium 9.3 mg/dL (8.5-10.5); Carbon Dioxide 30 mmol/L (22-29); Chloride 97 mmol/L (98-107); Globulin 2.2 g/dL (1.3-4.6); Glucose 145 mg/dL (65-115); Iron 179 ug/dL (59-158); Lactate Dehydrogenase 245 U/L (135-225); Osmolality Calculated 290 mOsm/kg (285-295); Potassium 4.1 mmol/L (3.5-5.1); Sodium 138 mmol/L (136-145); Total Bilirubin 3.1 mg/dL (0.15-1.2); Total Protein 6.7 g/dL (6.6-8.7)
[2020-05-13 17:37] LABS: Ferritin 1798 ng/mL (30-400)
[2020-05-13 17:44] LABS: Unsaturated Iron Binding < 17 ug/dL (112-347)
[2020-05-15] MEDS: diphenhydrAMINE 25 mg Capsule PO (08:50)
[2020-05-15 08:55] VITALS: BP 100/61; BP 97/60; PULSE 89; PULSE 93; RESP 18; TEMP 37.2; O2SAT 99
[2020-05-15] MEDS: sodium chloride 0.9% 250 ML 999 ML IV (08:55)
[2020-05-15] MEDS: FUROsemide 10 mg/mL SDV 2mL 20 MG IV (10:45)
[2020-05-27 18:30] LABS: Basophils % 1.1 %; Eosinophils % 0.3 %; Hematocrit 23.3 % (42.0-52.0); Hemoglobin 7.4 g/dL (11.7-16.6); Lymphocytes # 0.8 10^3/uL (0.8-4.8); Lymphocytes % 22.6 %; Mean Corpuscular HGB Conc 31.8 g/dL (30.0-36.0); Mean Corpuscular Hemoglobin 30.3 pg (28.0-34.0); Mean Corpuscular Volume 95.5 fL (80-94); Mean Platelet Volume 12.2 fL (7.4-10.4); Monocytes # 0.4 10^3/uL (0.2-0.9); Monocytes % 10.9 %; Neutrophils # 2.32 10^3/uL (1.8-7.7); Neutrophils % 64.8 %; Nucleated Red Blood Cells % 0.6 %; Platelet Count 313 10^3/cmm (130-400); Red Blood Count 2.44 10^6/uL (4.1-5.3); Red Cell Distribution Width 19.9 % (12.1-15.1); White Blood Count 3.6 10^3/uL (4.0-10.0)
[2020-05-28 02:05] LABS: Alanine Aminotransferase 53 U/L (0-41); Albumin Level 4.5 g/dL (3.5-5.2); Alkaline Phosphatase 60 IU/L (40-130); Anion Gap 13.5 (5-19); Aspartate Amino Transferase 42 U/L (0-40); Blood Urea Nitrogen 15 mg/dL (8-23); Calcium 9.3 mg/dL (8.5-10.5); Carbon Dioxide 30 mmol/L (22-29); Chloride 100 mmol/L (98-107); Globulin 2.1 g/dL (1.3-4.6); Glucose 104 mg/dL (65-115); Iron 184 ug/dL (59-158); Lactate Dehydrogenase 254 U/L (135-225); Osmolality Calculated 289 mOsm/kg (285-295); Potassium 4.5 mmol/L (3.5-5.1); Sodium 139 mmol/L (136-145); Total Bilirubin 2.4 mg/dL (0.15-1.2); Total Protein 6.6 g/dL (6.6-8.7)
[2020-05-28 02:39] LABS: Ferritin 2321 ng/mL (30-400)
[2020-05-28 10:25] LABS: Unsaturated Iron Binding < 17 ug/dL (112-347)
[2020-05-29] MEDS: diphenhydrAMINE 25 mg Capsule PO (09:00)
[2020-05-29] MEDS: sodium chloride 0.9% 250 ML 999 ML IV (09:00)
[2020-05-29] MEDS: FUROsemide 10 mg/mL SDV 2mL 20 MG IV (11:00)
[2020-05-29 11:25] VITALS: BP 108/62; PULSE 77; RESP 18; TEMP 36.6; O2SAT 98
== END 2020-06-04 23:59 | disposition home or self-care (01) ==
LOC: ONCMED 05:36
PROVIDERS: Internal Medicine Medical Oncology; PCP Internal Medicine; Visit Provider Nurse Practitioner
DX: E83.111 Hemochromatosis due to repeated red blood cell transfusions (principal); D46.Z Other myelodysplastic syndromes
CPT/HCPCS: 36430; 80053; 82728; 83540; 83550; 83615; 85025; 86850; 86900; 86920; J1940; J7050; P9040

== ENCOUNTER 2020-06-08 14:16 | Inpatient (IN) | payer OTHER, SELFPAY ==
[2020-06-08] VITALS (8 sets, daily range): BP systolic 105–136; BP diastolic 50–86; PULSE 66–77; RESP 16–22; TEMP 36.6–37.1; O2SAT 90–100; BMI 23.0
--- NOTE | 2020-06-08 14:37 | ECG_ITS ---
[facility] Test Date: 2020-06-08 Pat Name: José Miguel Bonilla Department: Room: Gender: Male Vaccinator: : 1940 Requested By: Steve Nicholson Order Number: [id number] Ann MD: Reilly Reece M.D. Measurements Intervals [place] Rate: 72 P: 109 ME: 199 QRS: 86 QRSD: 109 T: 84 QT: 407 QTc: 446 Interpretive Statements SINUS RHYTHM WITH SINUS ARRHYTHMIA Compared to ECG 07/06/2019 10:19:34 Left ventricular hypertrophy no longer present Electronically Signed On 06-08-2020 22:49:22 CDT by Reilly Reece M.D. [id number] f
--- NOTE | 2020-06-08 14:43 | XRR_ITS ---
PROCEDURE INFORMATION: Exam: XR Right Hip Exam date and time: 06/08/2020 3:09 PM Age: 80 years old Clinical indication: Hip pain; Right hip TECHNIQUE: Imaging protocol: XR Right hip. Views: 2 or 3 views hip with pelvis when performed. COMPARISON: CT kidney stone [id number] 08/19/2019 4:26 PM FINDINGS: Bones/joints: Impacted intertrochanteric fracture with displaced lesser trochanter fracture. Soft tissues: Unremarkable. XR/XR hip RT 2-3V wo/w pel* [id number] IMPRESSION: Impacted intertrochanteric fracture with displaced lesser trochanter fracture.
--- NOTE | 2020-06-08 14:44 | XRR_ITS ---
PROCEDURE INFORMATION: Exam: XR Left Ribs with PA Chest Exam date and time: 06/08/2020 3:09 PM Age: 80 years old Clinical indication: Chest wall pain; Left; Additional info: [place] ribs pop left side TECHNIQUE: Imaging protocol: XR Left ribs with PA chest. Views: 3 views COMPARISON: CR Chest 2 views* [id number] 01/27/2019 10:23 AM FINDINGS: Lungs: Poor inspiratory effort with some crowding of pulmonary markings and possible accentuation of the apparent heart size. 9 mm pulmonary nodule left mid lung field. Nonemergent CT chest may be helpful. Pleural spaces: Unremarkable. No pleural effusion. No pneumothorax. Heart/Mediastinum: Unremarkable. No cardiomegaly. Vasculature: Calcification of the thoracic aorta and/or great vessels consistent with atherosclerotic vessel disease. Aortic bilateral iliac artery endovascular stent. Bones/joints: Multiple vertebroplasties in the thoracolumbar spine. Moderate to severe multilevel spine degenerative changes including degenerative disc disease, spondylosis and facet degenerative changes. Mild levoscoliosis. XR/XR ribs LT mn 3V w CXR1V [id number] IMPRESSION: 9 mm pulmonary nodule left mid lung field. Nonemergent CT chest may be helpful. No obvious acute rib fracture.
--- NOTE | 2020-06-08 14:51 | ED_ITS ---
HPI - Extremity Problem General: Chief complaint: Extremity Problem,Nontraumatic Stated complaint: RIGHT HIP PAIN Time Seen by Provider: 06/08/20 14:19 History of Present Illness: HPI Narrative: The patient is a 80-year-old male with myelodysplastic syndrome who comes to the ER after he was trying to get into his vehicle for a meal and felt a severe crunch in his right hip. He states he has chronic pain and myelodysplastic syndrome. Because of the MDS he gets weekly 2 units of blood transfused. He follows Dr. Lew for this. Also because of this he suffers frequent bone fractures. When EMS arrived to transport him onto their stretcher he felt a pop in his left lateral ribs and he says he think he has broken them. Pressure on arrival 107/51. He has chronic pain and wears fentanyl patch and takes hydrocodone as well which he took prior to EMS arrival. MD Complaint: joint swelling and joint pain Pain Consistency: constant Location: right Quality: sharp Relieving factors: nothing Exacerbating factors: range of motion Associated symptoms: Reports no associated symptoms; Deny chest pain or rash Review of Systems General: Reports: 10 or more systems reviewed and unremarkable except in HPI and below Const: Denies: fatigue Eyes: Denies: change in vision, blurry vision or eye redness ENMT: Denies: throat pain, swelling of lips/tongue, ear or mastoid pain or nasal congestion Card: Denies: chest pain, palpitations, irregular heart rhythm, edema, dyspnea on exertion or orthopnea Resp: Denies: dyspnea, productive cough or non-productive cough GI: Denies: abdominal pain, diarrhea or GI cramping : Denies: flank pain, urinary frequency or urinary urgency Musc: Reports: joint pain; Denies: neck pain, back pain, extremity pain, joint redness, limited range of motion or muscle weakness Skin/Breast: Denies: rash, pruritus, erythema, skin pain or skin tenderness Neuro: Denies: headache(s), numbness in extremities, weakness in extremities, sensory changes, difficulty walking, dizziness, confusion or Slurred speech present Psych: Denies: anxiety or depression Endo: Denies: polyuria All/Imm: Denies: urticaria, throat swelling or tongue swelling PFS ED PFSH: Medical History (Updated 06/08/20 @ 22:19 by Steve Nicholson MD) Abdominal aortic aneurysm Anemia ASHD (arteriosclerotic heart disease) Atherosclerosis of coronary artery Atypical chest pain CAD (coronary artery disease) Calculus, ureteral Edema of extremities History of hypertension History of lower leg fracture Hyperlipemia Hyperlipidemia Hypertension Leukemia Systolic CHF Surgical History H/O endovascular stent graft for abdominal aortic aneurysm History of cholecystectomy History of kyphoplasty History of right inguinal hernia repair Family History Father Stroke Mother Myocardial infarction CAD (coronary artery disease) Diabetes Stroke Sister Cancer CAD (coronary artery disease) Grandfather Diabetes Grandmother Diabetes Father Diabetes Denies family history of Clotting disorder Dementia Chronic kidney disease (CKD) Suicide Anesthesia complication Bleeding disorder Lung disease Social History (Updated 06/08/20 @ 20:27 by Caterina Read MD) Smoking and tobacco status: former smoker Alcohol intake: current Alcohol intake frequency: holidays/special occasions only Adopted: No Caregiver/support person: No Lives independently: No Household members: spouse Marital status: Current occupational status: retired Previous occupational history: Served in the [employer] History of recent travel: No Physical Exam Const: COMMON NORMALS: no acute distress, average body habitus, patient orient ed x3, no limitations, healthy appearing, alert and well nourished GENERAL APPEARANCE: cooperative, comfortable, well kempt and well developed ORIENTATION/CONSCIOUSNESS: Yes awake, Yes oriented to person, Yes oriented to place and Yes oriented to time HENMT: COMMON NORMALS: normocephalic, external ears normal and Normal external nose present HEAD & SCALP: normal to inspection and normocephalic NOSE: Normal external nose present EXTERNAL EAR: Yes external ears normal MOUTH: Normal oral and palatal mucosa present THROAT: posterior oropharynx normal Eye: COMMON NORMALS: Equal, round and reactive pupils present and EOMs intact bilaterally GENERAL EYE: appearance normal, both eyes and all related structures PUPIL: Yes Equal, round and reactive pupils present Neck/C-Spine: COMMON NORMALS: full ROM, no lymphadenopathy, no meningeal signs and no JVD GENERAL: Yes normal visual inspection Lymph: LYMPHATIC: no lymphadenopathy noted Chest: COMMONS NORMALS: normal inspection of the chest and normal palpation of entire chest wall OTHER: Left lower chest wall tenderness laterally on the lower ribs. Resp: COMMON NORMALS: normal respiratory effort, No retractions, No use of accessory muscles, clear to auscultation bilaterally and percussion normal EFFORT & INSPECTION: Yes able to speak in complete sentences AUSCULTATION: clear to auscultation bilaterally PERCUSSION: percussion normal Cardio: COMMON NORMALS: no JVD, regular rate, regular rhythm, S1 normal heart sound present, S2 normal heart sound present and Peripheral pulses 2+ throughout RATE: regular rate RHYTHM: regular rhythm HEART SOUNDS: S1 normal heart sound present and S2 normal heart sound present PERIPHERAL PULSES: Peripheral pulses 2+ throughout GI: COMMON NORMALS: Normal to inspection, nondistended, normoactive bowel sounds present, Soft to palpation, non-tender and no masses INSPECTION: Yes normal to inspection PALPATION: Yes Soft to palpation : COMMON NORMALS: Yes no CVA tenderness BLADDER/KIDNEY EXAM: Yes no CVA tenderness Back/Pelvis: COMMON NORMALS: no CVA tenderness, thoracic and lumbar spine normal to inspection, no thoracic nor lumbar tenderness and thoraco-lumbar ROM normal Extremity: COMMON NORMALS: normal to inspection, full ROM, capillary refill normal, no joint enlargement and no pedal edema NARRATIVE EXTREMITY EXAM: Right hip shortened and tender. Did not significantly move because he is in such pain. It is also tied by cloth from EMS. GENERAL: Yes normal exam except as noted Neuro: COMMON NORMALS: patient oriented x3, CN's II-XII intact bilaterally, moves all extremities, no focal motor deficits, no sensory deficits noted and gait normal SENSORIUM/ORIENTATION: Yes alert, Yes oriented to person, Yes oriented to place and Yes oriented to time MENINGEAL SIGNS: Yes no meningeal signs Psych: COMMON NORMALS: mental status grossly normal, Normal thought process present, cooperative, normal affect and speech normal APPEARANCE: Yes well kempt ATTITUDE: Yes calm SPEECH: Yes normal speech THOUGHT PROCESS: Normal thought process present Skin: COMMON NORMALS: no rashes or lesions noted GENERAL SKIN EXAM: no rashes or lesions noted Course Vital Signs: Vital signs: Vital Signs Temperature 98.2 F 06/08/20 20:33 Pulse Rate 76 06/08/20 20:33 Respiratory Rate 16 06/08/20 20:40 Blood Pressure 136/67 06/08/20 20:33 Pulse Oximetry 97 06/08/20 20:33 MDM - Extremity (Nontraumatic) MDM Narrative: Medical decision making narrative: The patient came in and has a fracture to the right femoral neck.. He has been given pain control and discussed with Dr. Randle who will operate in the morning. Dr. Read accepts to [facility]. Lab Data: Labs: Lab Results 06/08/20 06/08/20 06/08/20 Range/Units 14:10 14:10 14:10 WBC 5.7 (4.0-10.0) 10^3/ uL RBC 2.87 L (4.1-5.3) 10^6/u L Hgb 8.5 L (11.7-16.6) g/dL Hct 26.8 L (42.0-52.0) % MCV 93.4 (80-94) fL MCH 29.6 (28.0-34.0) pg MCHC 31.7 (30.0-36.0) g/dL RDW 19.4 H (12.1-15.1) % Plt Count 299 (130-400) 10^3/c mm MPV 11.6 H (7.4-10.4) fL Neut % (Auto) 57.0 % Lymph % (Auto) 31.2 % [place] % (Auto) 8.1 % Eos % (Auto) 1.6 % Baso % (Auto) 0.7 % Neut # (Auto) 3.26 (1.8-7.7) 10^3/u L Lymph # (Auto) 1.8 (0.8-4.8) 10^3/u L [place] # (Auto) 0.5 (0.2-0.9) 10^3/u L Eos # (Auto) 0.1 (0.0-0.8) 10^3/u L Baso # (Auto) 0.0 (0.0-0.1) 10^3/u L Nucleated RBC % (a uto) 0.5 % Nucleated RBCs # 0.0 /100WBC Sodium 137 (136-145) mmol/L Potassium 4.9 (3.5-5.1) mmol/L Chloride 100 (98-107) mmol/L Carbon Dioxide 28 (22-29) mmol/L Anion Gap 13.9 (5-19) BUN 17 (8-23) mg/dL Creatinine 0.4 L (0.7-1.2) mg/dL GFR Calculation Not Reportable Glucose 136 H (65-115) mg/dL Calculated Osmolal ity 288 (285-295) mOsm/k g Calcium 9.6 (8.5-10.5) mg/dL Total Bilirubin 3.4 H (0.15-1.2) mg/dL AST 41 H (0-40) U/L ALT 51 H (0-41) U/L Alkaline Phosphata se 74 (40-130) IU/L Troponin T Baselin e 17 H (0-15) ng/L Troponin T 120 Min [place] (0-15) ng/L Delta Troponin T (0-10) ABS# Total Protein 6.4 L (6.6-8.7) g/dL Albumin 4.7 (3.5-5.2) g/dL Globulin 1.7 (1.3-4.6) g/dL Urine Color (Yellow) Urine Appearance (CLEAR) Urine pH (5-7) Ur Specific Gravit y (1.005-1.030) Urine Protein (Negative) Urine Glucose (UA) (Normal) Urine Ketones (Negative) Urine Blood (Negative) Urine Nitrate (Negative) Urine Bilirubin (Negative) Urine Urobilinogen (Negative) mg/dL Ur Leukocyte Mariana ase (Negative) Urine RBC (0-2) /hpf Urine WBC (0-5) /hpf Ur Squamous Epith Cells (0-5) /hpf Amorphous Sediment Urine Bacteria (NONE) /hpf Urine Mucus /hpf Digoxin (0.6-1.2) ng/mL Blood Type Rho(D) Type Antibody Screen 06/08/20 06/08/20 06/08/20 Range/Units 14:10 14:52 17:00 WBC (4.0-10.0) 10^3/ uL RBC (4.1-5.3) 10^6/u L Hgb (11.7-16.6) g/dL Hct (42.0-52.0) % MCV (80-94) fL MCH (28.0-34.0) pg MCHC (30.0-36.0) g/dL RDW (12.1-15.1) % Plt Count (130-400) 10^3/c mm MPV (7.4-10.4) fL Neut % (Auto) % Lymph % (Auto) % [place] % (Auto) % Eos % (Auto) % Baso % (Auto) % Neut # (Auto) (1.8-7.7) 10^3/u L Lymph # (Auto) (0.8-4.8) 10^3/u L [place] # (Auto) (0.2-0.9) 10^3/u L Eos # (Auto) (0.0-0.8) 10^3/u L Baso # (Auto) (0.0-0.1) 10^3/u L Nucleated RBC % (a uto) % Nucleated RBCs # /100WBC Sodium (136-145) mmol/L Potassium (3.5-5.1) mmol/L Chloride (98-107) mmol/L Carbon Dioxide (22-29) mmol/L Anion Gap (5-19) BUN (8-23) mg/dL Creatinine (0.7-1.2) mg/dL GFR Calculation Glucose (65-115) mg/dL Calculated Osmolal ity (285-295) mOsm/k g Calcium (8.5-10.5) mg/dL Total Bilirubin (0.15-1.2) mg/dL AST (0-40) U/L ALT (0-41) U/L Alkaline Phosphata se (40-130) IU/L Troponin T Baselin e (0-15) ng/L Troponin T 120 Min [place] 14.68 (0-15) ng/L Delta Troponin T -2.32 L (0-10) ABS# Total Protein (6.6-8.7) g/dL Albumin (3.5-5.2) g/dL Globulin (1.3-4.6) g/dL Urine Color (Yellow) Urine Appearance (CLEAR) Urine pH (5-7) Ur Specific Gravit y (1.005-1.030) Urine Protein (Negative) Urine Glucose (UA) (Normal) Urine Ketones (Negative) Urine Blood (Negative) Urine Nitrate (Negative) Urine Bilirubin (Negative) Urine Urobilinogen (Negative) mg/dL Ur Leukocyte Mariana ase (Negative) Urine RBC (0-2) /hpf Urine WBC (0-5) /hpf Ur Squamous Epith Cells (0-5) /hpf Amorphous Sediment Urine Bacteria (NONE) /hpf Urine Mucus /hpf Digoxin 0.3 L (0.6-1.2) ng/mL Blood Type A Negative Rho(D) Type Negative / 0 Antibody Screen Negative 06/08/20 Range/Units 18:13 WBC (4.0-10.0) 10^3/ uL RBC (4.1-5.3) 10^6/u L Hgb (11.7-16.6) g/dL Hct (42.0-52.0) % MCV (80-94) fL MCH (28.0-34.0) pg MCHC (30.0-36.0) g/dL RDW (12.1-15.1) % Plt Count (130-400) 10^3/c mm MPV (7.4-10.4) fL Neut % (Auto) % Lymph % (Auto) % [place] % (Auto) % Eos % (Auto) % Baso % (Auto) % Neut # (Auto) (1.8-7.7) 10^3/u L Lymph # (Auto) (0.8-4.8) 10^3/u L [place] # (Auto) (0.2-0.9) 10^3/u L Eos # (Auto) (0.0-0.8) 10^3/u L Baso # (Auto) (0.0-0.1) 10^3/u L Nucleated RBC % (a uto) % Nucleated RBCs # /100WBC Sodium (136-145) mmol/L Potassium (3.5-5.1) mmol/L Chloride (98-107) mmol/L Carbon Dioxide (22-29) mmol/L Anion Gap (5-19) BUN (8-23) mg/dL Creatinine (0.7-1.2) mg/dL GFR Calculation Glucose (65-115) mg/dL Calculated Osmolal ity (285-295) mOsm/k g Calcium (8.5-10.5) mg/dL Total Bilirubin (0.15-1.2) mg/dL AST (0-40) U/L ALT (0-41) U/L Alkaline Phosphata se (40-130) IU/L Troponin T Baselin e (0-15) ng/L Troponin T 120 Min [place] (0-15) ng/L Delta Troponin T (0-10) ABS# Total Protein (6.6-8.7) g/dL Albumin (3.5-5.2) g/dL Globulin (1.3-4.6) g/dL Urine Color Straw (Yellow) Urine Appearance Sl hazy (CLEAR) Urine pH 7 (5-7) Ur Specific Gravit y 1.010 (1.005-1.030) Urine Protein Neg (Negative) Urine Glucose (UA) Norm (Normal) Urine Ketones 1+ H (Negative) Urine Blood 2+ H (Negative) Urine Nitrate Negative (Negative) Urine Bilirubin Neg (Negative) Urine Urobilinogen 4 H (Negative) mg/dL Ur Leukocyte [place] ase Negative (Negative) Urine RBC 0-4 H (0-2) /hpf Urine WBC None (0-5) /hpf Ur Squamous Epith Cells Rare (0-5) /hpf Amorphous Sediment Not Reportable Urine Bacteria Trace (NONE) /hpf Urine Mucus Trace /hpf Digoxin (0.6-1.2) ng/mL Blood Type Rho(D) Type Antibody Screen Discharge Plan Discharge Patient Disposition: Admitted As Inpatient Admit Provider: Caterina Read Clinical Impression: Hip fracture Condition: Stable Coding Level of Care Code ED Building Attendant for Chg Fwd Exam Comprehensive
[2020-06-08] MEDS: sodium chloride 0.9% 1,000 ML 999 ML IV (14:57)
[2020-06-08 15:05] LABS: Basophils % 0.7 %; Eosinophils # 0.1 10^3/uL (0.0-0.8); Eosinophils % 1.6 %; Hematocrit 26.8 % (42.0-52.0); Hemoglobin 8.5 g/dL (11.7-16.6); Lymphocytes # 1.8 10^3/uL (0.8-4.8); Lymphocytes % 31.2 %; Mean Corpuscular HGB Conc 31.7 g/dL (30.0-36.0); Mean Corpuscular Hemoglobin 29.6 pg (28.0-34.0); Mean Corpuscular Volume 93.4 fL (80-94); Mean Platelet Volume 11.6 fL (7.4-10.4); Monocytes # 0.5 10^3/uL (0.2-0.9); Monocytes % 8.1 %; Neutrophils # 3.26 10^3/uL (1.8-7.7); Nucleated Red Blood Cells % 0.5 %; Platelet Count 299 10^3/cmm (130-400); Red Blood Count 2.87 10^6/uL (4.1-5.3); Red Cell Distribution Width 19.4 % (12.1-15.1); White Blood Count 5.7 10^3/uL (4.0-10.0)
[2020-06-08 15:11] LABS: Alanine Aminotransferase 51 U/L (0-41); Albumin Level 4.7 g/dL (3.5-5.2); Alkaline Phosphatase 74 IU/L (40-130); Anion Gap 13.9 (5-19); Aspartate Amino Transferase 41 U/L (0-40); Blood Urea Nitrogen 17 mg/dL (8-23); Calcium 9.6 mg/dL (8.5-10.5); Carbon Dioxide 28 mmol/L (22-29); Chloride 100 mmol/L (98-107); Globulin 1.7 g/dL (1.3-4.6); Glucose 136 mg/dL (65-115); Osmolality Calculated 288 mOsm/kg (285-295); Potassium 4.9 mmol/L (3.5-5.1); Sodium 137 mmol/L (136-145); Total Bilirubin 3.4 mg/dL (0.15-1.2); Total Protein 6.4 g/dL (6.6-8.7)
[2020-06-08] MEDS: HYDROmorphone 1 mg/mL INJ 1 mL 0.5 MG IVP ×2 (15:35→17:06)
[2020-06-08 15:48] LABS: Troponin(5th) Baseline 17 ng/L (0-15)
[2020-06-08 17:36] LABS: Troponin 5 2HR 14.68 ng/L (0-15)
[2020-06-08 17:37] LABS: Troponin 5 2HR Delta -2.32 ABS# (0-10)
[2020-06-08] MEDS: pantoprazole 40 mg SDV IVP (17:46)
[2020-06-08 18:51] LABS: Add Urine Microscopic? YES; Bilirubin Urine Neg (Negative); Blood Urine 2+ (Negative); Glucose Urine UA Norm (Normal); Ketones Urine 1+ (Negative); Leukocyte Esterase Urine Negative (Negative); Nitrate Urine Negative (Negative); Protein Urine Neg (Negative); Urine Appearance SL Hazy (CLEAR); Urine Color Straw (Yellow); Urobilinogen Urine 4 mg/dL (Negative); pH Urine 7 (5-7)
[2020-06-08 18:56] LABS: RBC Urine 0-4 /hpf (0-2)
[2020-06-08 18:57] LABS: Add Urine Culture? No; Bacteria Urine TRACE /hpf; Mucus Urine TRACE /hpf; Squamous Epithelial Cell Urine RARE /hpf (0-5)
--- NOTE | 2020-06-08 19:12 | PM.HP ---
Providers/Chief Complaint Primary Care Provider: José Miguel Calixto Chief Complaint: RIGHT HIP PAIN History of Present Illness José Miguel Bonilla is a 80 year old male who has history of myoplastic dysplastic syndrome, he received blood transfusion every second week, baseline hemoglobin seems to be around 8 to 9 g, other medical conditions include hypertension, peptic ulcer disease, nephrolithiasis, follows up with Dr. Zavala(nonobstructing left UPJ stone, passed right ureteral stone in December 2019), atrial fibrillation, not a candidate of chronic anticoagulation due to anemia, abdominal aortic aneurysm repair, presenting today after right leg excruciating pain. Patient is stating that today he was planning to visit his who is at [facility], he could not drive his own car because of flat tire he asked his daughter to drive him there, her daughter picked him up in her truck, patient is stating that while he was trying to get out of the truck as soon as he tried to shift his weight on his leg he heard a loud pop in his right leg, he started having excruciating pain, he did not experience any fall, seizure-like activities. No recent trauma. Diagnostics in the ER revealed chronic anemia, right hip fracture, Dr. Randle consulted who is planning for surgical intervention in the morning, bilirubin 3.4, abnormal transaminases, nonsignificant delta troponin, no signs of UTI EKG showing sinus rhythm, pelvic x-ray showing intertrochanteric fracture with displaced lesser trochanter of right leg Patient was complaining of pain in his right leg when I entered the room, he took his p.m. medication aspirin, metoprolol, atorvastatin, tamsulosin in the ER He is endorsing feeling fatigued, is currently living with his daughter and son-in-law Review of Systems Const: Reports: body aches, fatigue and malaise; Denies: fever(s) or chills Eyes: Denies: change in vision ENMT: Denies: throat pain Card: Denies: chest pain Resp: Denies: dyspnea GI: Denies: abdominal pain : Denies: flank pain Musc: Reports: extremity pain, joint pain, joint warmth, joint stiffness and limited range of motion Skin/Breast: Reports: lesions Neuro: Denies: headache(s) Psych: Denies: anxiety Endo: Denies: polyuria Marc/Lymph: Denies: easy bruising All/Imm: Denies: urticaria Medications/Allergies Home Medications Medication Instructions Recorded Confirmed Last Taken Type aspirin 81 mg tablet,delayed 81 mg PO DAILY 07/04/19 01/17/20 08/18/19 History release pyridoxine (vitamin B6) 250 mg 250 mg PO TID 07/04/19 01/17/20 08/19/19 History tablet tamsulosin 0.4 mg capsule 0.4 mg PO BID 07/04/19 01/17/20 08/19/19 History folic acid 1 mg tablet 1 mg PO DAILY 08/24/19 01/17/20 Unknown History fentanyl 25 mcg/hr transdermal See Rx Instructions .ROUTE .COMPLEX 09/13/19 01/17/20 Unknown History patch oxycodone-acetaminophen 5 mg-325 2 tab PO Q6H PRN tab 09/20/19 01/17/20 Unknown History mg tablet cholecalciferol (vitamin D3) 25 25 mcg PO DAILY 11/13/19 01/17/20 Unknown History mcg (1,000 unit) capsule clopidogrel 75 mg tablet 75 mg PO DAILY #90 tab 05/28/20 05/28/20 Unknown Rx digoxin 125 mcg (0.125 mg) tablet 125 mcg PO DAILY 90 Days #90 tab 05/28/20 05/28/20 Unknown Rx metoprolol succinate 50 mg 50 mg PO DAILY #90 tab 05/28/20 05/28/20 Unknown Rx tablet,extended release 24 hr nitroglycerin 0.4 mg sublingual 0.4 mg SUBLINGUAL Q5M PRN 30 Days 05/28/20 05/28/20 Unknown Rx tablet #30 tab pravastatin 20 mg tablet 20 mg PO DAILY 90 Days #90 tab 05/28/20 05/28/20 Unknown Rx Allergies Allergy/AdvReac Type Severity Reaction Status Date / Time No Known Allergies Allergy Verified 06/08/20 14:27 PFSH Acute PFSH: Medical History (Updated 06/08/20 @ 20:17 by Caterina Read MD) Abdominal aortic aneurysm Anemia ASHD (arteriosclerotic heart disease) Atherosclerosis of coronary artery Atypical chest pain CAD (coronary artery disease) Calculus, ureteral Edema of extremities History of hypertension History of lower leg fracture Hyperlipemia Hyperlipidemia Hypertension Leukemia Systolic CHF Surgical History H/O endovascular stent graft for abdominal aortic aneurysm History of cholecystectomy History of kyphoplasty History of right inguinal hernia repair Family History Father Stroke Mother Myocardial infarction CAD (coronary artery disease) Diabetes Stroke Sister Cancer CAD (coronary artery disease) Grandfather Diabetes Grandmother Diabetes Father Diabetes Denies family history of Clotting disorder Dementia Chronic kidney disease (CKD) Suicide Anesthesia complication Bleeding disorder Lung disease Social History (Updated 06/08/20 @ 20:27 by Caterina Read MD) Smoking and tobacco status: former smoker Alcohol intake: current Alcohol intake frequency: holidays/special occasions only Adopted: No Caregiver/support person: No Lives independently: No Household members: spouse Marital status: Current occupational status: retired Previous occupational history: Served in the [employer] History of recent travel: No Vitals/I&O/Wt Last Vital Signs Temp 98.8 F 06/08/20 14:16 Pulse 70 06/08/20 15:31 Resp 18 06/08/20 17:06 BP 119/50 06/08/20 15:31 Pulse Ox 94 06/08/20 17:06 06/08/20 06/08/20 06/08/20 06:59 14:59 22:59 Intake Total 1000 / 1000 Balance 1000 / 1000 Weight last 48 hrs Weight 77.111 kg Physical Exam Narrative: EXAM NARRATIVE: Very pleasant elderly male was laying supine in his bed, saturating well on room air, appears stated age, clinically looks dehydrated S1, S2 systolic murmur all over precordium grade 2/6 Abdomen soft nontender bowel sound present Bilateral breath sound without adventitious rhonchi or crackle Lower extremity with chronic scarring EOMI, PERRLA No neurological deficits Awake alert oriented x3 GCS 15 Right leg rotated outwards and shorter as compared to left leg No vascular compromise of lower extremities Appropriate mood and affect Pale complexion with mild scleral icterus Data : 06/08/20 14:10 06/08/20 14:10 A&P Assessment and plan (1) Hip fracture: Status: Acute (2) Carotid artery disease: Status: Acute Qualifiers: Carotid artery disease type: stenosis Laterality: bilateral Qualified Code(s): I65.23 - Occlusion and stenosis of bilateral carotid arteries (3) Myelodysplasia (myelodysplastic syndrome): Status: Acute (4) Abdominal aortic aneurysm: Status: Acute Qualifiers: Presence of rupture: without rupture Qualified Code(s): I71.4 - Abdominal aortic aneurysm, without rupture (5) Anemia: Status: Acute Qualifiers: Anemia type: unspecified type Qualified Code(s): D64.9 - Anemia, unspecified Additional A&P Information Pathological hip fracture No trauma or fall, N.p.o. after midnight Morphine for analgesia, will add bowel regimen senna S SCDs for DVT prophylaxis Dr. Randle consulted and notified who is planning for surgical intervention in the morning No vascular compromise of lower extremity RCRI: Class I risk, patient has poor functional status, however he underwent surgery for inguinal hernia repair last year, he does require blood transfusion every 2 weeks, current hemoglobin seems to be stable, I would not request further cardiac work-up, continue his metoprolol to avoid postoperative A. fib, he did experience episode of atrial fibrillation after previous surgery, he is not a candidate to be on any anticoagulation which puts him at high risk of perioperative cerebrovascular accident, he also has history of carotid artery stenosis, follows up with Dr. Reece, I am holding his Plavix and continuing aspirin and atorvastatin((10/23 moderate heterogeneous plaques at the bifurcation and proximal internal carotid bilaterally suggestive of 16 to 49% stenosis on the left side) Holding digoxin and Plavix perioperatively Myelodysplastic syndrome Hemoglobin seems to be at baseline no need of blood transfusion before surgery Monitor closely Follows up with Dr. Lew Abdominal aortic aneurysm status post repair: No acute decompensation Continue aspirin and atorvastatin Goals of care discussed with the patient: He is expressing his wishes to stay DNR/DNI however agreeable for perioperative intubation and general anesthesia Will be n.p.o. after midnight DVT prophylaxis SCDs, will need long-term anticoagulating agent after surgery Physical therapy after surgery: Patient prefers to go to [facility] because his she is already a resident there who is suffering from similar clinical picture Attestations Medical Necessity Statement*: Anticipating stay in the hospital cross more than 2 midnights for intervention of right hip fracture, Time Spent in Patient Care: (>than 50% of time spent in counselling and/or direct pt care on unit). 50mins Coding Level of Care Code Acute Tobacco Cloth Reclaimer for [facility] Fwd Diagnoses Hip fracture S72.009A Carotid artery disease I65.23 Carotid artery disease type: stenosis Laterality: bilateral Myelodysplasia (myelodysplastic syndrome) D46.9 Abdominal aortic aneurysm I71.4 Presence of rupture: without rupture Anemia D64.9 Anemia type: unspecified type
--- NOTE | 2020-06-08 19:43 | PC.NURSE ---
pt report called to Agatha RN in SBAR format.
[2020-06-08] MEDS: morphine 4 mg/mL SDV 1 mL 2 MG IVP (20:40)
[2020-06-08 20:49] LABS: Digoxin 0.3 ng/mL (0.6-1.2)
[2020-06-09] VITALS (12 sets, daily range): BP systolic 105–114; BP diastolic 57–78; PULSE 77–88; RESP 14–20; TEMP 36.4–37.2; O2SAT 90–97
[2020-06-09] MEDS: morphine 4 mg/mL SDV 1 mL 2 MG IVP ×5 (00:58→21:23)
[2020-06-09 05:05] LABS: Basophils % 0.3 %; Hematocrit 24.6 % (42.0-52.0); Hemoglobin 7.8 g/dL (11.7-16.6); Lymphocytes # 0.5 10^3/uL (0.8-4.8); Lymphocytes % 6.9 %; Mean Corpuscular HGB Conc 31.7 g/dL (30.0-36.0); Mean Corpuscular Hemoglobin 29.7 pg (28.0-34.0); Mean Corpuscular Volume 93.5 fL (80-94); Mean Platelet Volume 11.9 fL (7.4-10.4); Monocytes # 0.8 10^3/uL (0.2-0.9); Neutrophils # 5.93 10^3/uL (1.8-7.7); Neutrophils % 80.8 %; Nucleated Red Blood Cells % 0 %; Platelet Count 266 10^3/cmm (130-400); Red Blood Count 2.63 10^6/uL (4.1-5.3); Red Cell Distribution Width 19.7 % (12.1-15.1); White Blood Count 7.3 10^3/uL (4.0-10.0)
[2020-06-09 05:31] LABS: Blood Urea Nitrogen 17 mg/dL (8-23); Calcium 8.8 mg/dL (8.5-10.5); Carbon Dioxide 26 mmol/L (22-29); Chloride 101 mmol/L (98-107); Glucose 183 mg/dL (65-115); Osmolality Calculated 288 mOsm/kg (285-295); Sodium 136 mmol/L (136-145)
[2020-06-09] MEDS: sennosides-docusate Tablet 1 TAB PO (08:51)
[2020-06-09] MEDS: metoprolol succinate ER (24 HR) 50 mg Tablet PO (08:51)
[2020-06-09] MEDS: tamsulosin 0.4 mg Capsule PO ×2 (08:51→17:29)
[2020-06-09] MEDS: folic acid 1 mg Tablet PO (08:51)
[2020-06-09] MEDS: aspirin 81 mg EC Tablet PO (08:57)
[2020-06-09] MEDS: pyridoxine 50 mg Tablet 250 MG PO ×3 (08:58→21:22)
--- NOTE | 2020-06-09 09:41 | P.CONIM_ITS ---
Providers/Reason For Consult Consulting Physican/Specialty*: Baljinder Randle MD; orthopedic surgery Reason for Consult*: Right intratrochanteric hip fracture Attending Physician: Elizabeth Gan MD Primary Care Provider: José Miguel Calixto History of Present Illness History of Present Illness José Miguel Bonilla is a 80 year old male who sustained a fracture to his right hip yesterday. He apparently was up pulling himself up into a truck with assistance of his family. He describes feeling a pop in the right hip with immediate pain. He was able to support himself and was slowly brought back down to his wheelchair. He described immediate pain and was seen in our emergency room where radiographs revealed a right intratrochanteric hip fracture. He is admitted to medicine for optimization prior to hip fracture repair. He lives at home with a daughter and a son but they do work. He uses a walker for short distances and a wheelchair for any community activity Meds/Allergies Home Medications and Allergies Home Medications Medication Instructions Recorded Confirmed Last Taken Type aspirin 81 mg tablet,delayed 81 mg PO DAILY 07/04/19 01/17/20 08/18/19 History release pyridoxine (vitamin B6) 250 mg 250 mg PO TID 07/04/19 01/17/20 08/19/19 History tablet tamsulosin 0.4 mg capsule 0.4 mg PO BID 07/04/19 01/17/20 08/19/19 History folic acid 1 mg tablet 1 mg PO DAILY 08/24/19 01/17/20 Unknown History fentanyl 25 mcg/hr transdermal See Rx Instructions .ROUTE .COMPLEX 09/13/19 01/17/20 Unknown History patch oxycodone-acetaminophen 5 mg-325 2 tab PO Q6H PRN tab 09/20/19 01/17/20 Unknown History mg tablet cholecalciferol (vitamin D3) 25 25 mcg PO DAILY 11/13/19 01/17/20 Unknown History mcg (1,000 unit) capsule clopidogrel 75 mg tablet 75 mg PO DAILY #90 tab 05/28/20 05/28/20 Unknown Rx digoxin 125 mcg (0.125 mg) tablet 125 mcg PO DAILY 90 Days #90 tab 05/28/20 05/28/20 Unknown Rx metoprolol succinate 50 mg 50 mg PO DAILY #90 tab 05/28/20 05/28/20 Unknown Rx tablet,extended release 24 hr nitroglycerin 0.4 mg sublingual 0.4 mg SUBLINGUAL Q5M PRN 30 Days 05/28/20 05/28/20 Unknown Rx tablet #30 tab pravastatin 20 mg tablet 20 mg PO DAILY 90 Days #90 tab 05/28/20 05/28/20 Unknown Rx Allergies Allergy/AdvReac Type Severity Reaction Status Date / Time No Known Allergies Allergy Verified 06/08/20 14:27 Current Medications Current Medications Generic Name Dose Route Start Last Admin Trade Name Ohq PRN Reason Stop Dose Admin Aspirin 81 mg 06/09/20 09:00 06/09/20 08:57 Aspirin 81 Mg Ec Tablet PO 81 mg DAILY JORJE Administration Folic Acid 1 mg 06/09/20 09:00 06/09/20 08:51 Folic Acid 1 Mg Tablet PO 1 mg DAILY JORJE Administration Metoprolol Succinate 50 mg 06/09/20 09:00 06/09/20 08:51 Metoprolol Succinate Er (24 Hr) 50 Mg Tablet PO 50 mg DAILY JORJE Administration Morphine Sulfate 2 mg 06/08/20 20:15 06/09/20 05:04 Morphine 4 Mg/Ml Sdv 1 Ml IVP 2 mg Q4H PRN Administration leg pain Pyridoxine HCl 250 mg 06/08/20 21:00 06/09/20 08:58 Pyridoxine 50 Mg Tablet PO 250 mg TID JORJE Administration Senna/Docusate Sodium 1 tab 06/09/20 09:00 06/09/20 08:51 Sennosides-Docusate Tablet PO 1 tab DAILY JORJE Administration Tamsulosin HCl 0.4 mg 06/09/20 09:00 06/09/20 08:51 Tamsulosin 0.4 Mg Capsule PO 0.4 mg BID JORJE Administration PFSH Acute PFSH: Medical History (Updated 06/08/20 @ 22:19 by Steve Nicholson MD) Abdominal aortic aneurysm Anemia ASHD (arteriosclerotic heart disease) Atherosclerosis of coronary artery Atypical chest pain CAD (coronary artery disease) Calculus, ureteral Edema of extremities History of hypertension History of lower leg fracture Hyperlipemia Hyperlipidemia Hypertension Leukemia Systolic CHF Surgical History H/O endovascular stent graft for abdominal aortic aneurysm History of cholecystectomy History of kyphoplasty History of right inguinal hernia repair Family History Father Stroke Mother Myocardial infarction CAD (coronary artery disease) Diabetes Stroke Sister Cancer CAD (coronary artery disease) Grandfather Diabetes Grandmother Diabetes Father Diabetes Denies family history of Clotting disorder Dementia Chronic kidney disease (CKD) Suicide Anesthesia complication Bleeding disorder Lung disease Social History (Updated 06/08/20 @ 20:27 by Caterina Read MD) Smoking and tobacco status: former smoker Alcohol intake: current Alcohol intake frequency: holidays/special occasions only Adopted: No Caregiver/support person: No Lives independently: No Household members: spouse Marital status: Current occupational status: retired Previous occupational history: Served in the [employer] History of recent travel: No Vitals/I&O/Wt Last Vital Signs Temp 98.9 F 06/09/20 07:20 Pulse 85 06/09/20 07:20 Resp 18 06/09/20 07:20 BP 113/61 06/09/20 07:20 Pulse Ox 97 06/09/20 07:20 06/08/20 06/09/20 06/09/20 22:59 06:59 14:59 Intake Total 1000 / 1000 Output Total 300 / 300 350 / 650 Balance 700 / 700 -350 / 350 Weight last 48 hrs Weight 170 lb Physical Exam Urinary Catheter Management^: West: Cath Placed During This Visit: yes Reason for Continuing Indwelling Catheter: Perioperative Use in Selected Surgeries Urinary Catheter Date of Insertion: 06/09/20 Urinary Catheter Time of Insertion: 00:14 Data Imaging^: Xray Ortho: Radiologist's impression: Radiographs of the right hip are reviewed from yesterday revealing a right intratrochanteric hip fracture with slight varus displacement A&P Additional A&P Information Right intratrochanteric hip fracture in the been minimally ambulatory elderly male with multiple medical comorbidities. I had a discussion of options with the patient. I told him he could consider nonoperative treatment this would leave him bedridden. He be at risk for complications including complications from chronic pain medications, pneumonia, and skin breakdown. I discussed surgical stabilization as a way to control pain allow the patient to be mobilized. I think this would best be managed with a intramedullary device with the patient's history of osteoporosis. I discussed risk of nonunion malunion. I discussed risk of bleeding and infection. I discussed the possible need for additional blood products. I discussed risk of deep venous thromboses and pulmonary emboli. Patient is not a candidate for anticoagulation per the hospitalist note. We can proceed with mechanical means to control deep venous thromboses and he will continue with his home aspirin. We will proceed with surgery today. Coding Level of Care Code Acute Assisted Living Nursing Director for [facility]
--- NOTE | 2020-06-09 15:57 | PC.CHAP ---
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 supervisor printing shop visit [] Patient/Family/Request visit [] Outpatient visit [] Follow-up visit [] Physician referral [] Code/Alert [] Routine visit [] Staff referral [] Actively dying [] Patient sleeping [] Family support [] [] Out of room [] Palliative care [] [] Receiving care in room [] Pre-surgical visit [] Trauma [] Long length of stay [] ICU visit [] Other: Relational/Emotional Strength [] Patient feels connected with others/family/visitors/staff [] Distress [] Loneliness/isolation [] Abandonment Spirituality of Patient [x] Person of Arlin [] Attends Anabaptism of their Arlin [x] Believes in Prayer [] Reads Bible or Baptist materials [] There are Spiritual issues to be addressed 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 Interventions [x] Prayer [] Active listening [] Non-anxious presence [] Spiritual/emotional support [] Crisis/trauma care [] Spiritual counseling [] Bereavement support [] Provided bereavement packet [] Provided Bible/devotional materials [] Provided toy/stuffed animal, coloring book to patient or family member [] Provided Communion [] Anointing/[place] [] Salvation [] Completed spiritual assessment [] Other: Impact on Illness or Injury [] Angry [] Fearful [] Anxious [] Often cries [] Exhaustion [] Unable to work [] Unable to attend methodist [] Unable to walk/stand [] Unable to read [] Unable to drive [] Unable to eat/drink [] Unable to sleep [] Unable to be with family [] Patient intubated [] Other: Summary cant wait to go back to [facility] Time spent with patient
--- NOTE | 2020-06-09 17:12 | PM.PN ---
Subjective Subjective: Interval history: Overnight labs and H&P reviewed. Awaiting OR visit. No acute interval events Medications: Reviewed: Yes Vitals/I&O/Wt Last Vital Signs Temp 98.1 F 06/09/20 14:56 Pulse 78 06/09/20 14:56 Resp 18 06/09/20 15:58 BP 112/78 06/09/20 14:56 Pulse Ox 95 06/09/20 14:56 06/09/20 06/09/20 06/09/20 06:59 14:59 22:59 Output Total 350 / 650 Balance -350 / 350 Weight last 48 hrs Weight 77.111 kg Physical Exam Narrative: EXAM NARRATIVE: GEN: Awake, alert and oriented, no acute distress CVS: S1S2 N RS: CTA B/L anteriorly Abd: Soft, nt/nd , bs+ TAX INVESTIGATOR: no focal neuro deficits grossly, however unable to appreciate right lower extremity due to fracture Urinary Catheter Management^: West: Cath Placed During This Visit: yes Reason for Continuing Indwelling Catheter: Perioperative Use in Selected Surgeries Urinary Catheter Date of Insertion: 06/09/20 Urinary Catheter Time of Insertion: 00:14 Data : 06/09/20 04:42 06/09/20 04:42 A&P Assessment and plan (1) Hip fracture: Status: Acute (2) Carotid artery disease: Status: Acute Qualifiers: Carotid artery disease type: stenosis Laterality: bilateral Qualified Code(s): I65.23 - Occlusion and stenosis of bilateral carotid arteries (3) Myelodysplasia (myelodysplastic syndrome): Status: Acute (4) Abdominal aortic aneurysm: Status: Acute Qualifiers: Presence of rupture: without rupture Qualified Code(s): I71.4 - Abdominal aortic aneurysm, without rupture (5) Anemia: Status: Acute Qualifiers: Anemia type: unspecified type Qualified Code(s): D64.9 - Anemia, unspecified Additional A&P Information Pathological hip fracture No trauma or fall, Morphine for analgesia SCDs for DVT prophylaxis Awaiting OR visit for intramedullary nailing today. Myelodysplastic syndrome Hemoglobin seems to be at baseline Monitor closely Follows up with Dr. Lew Abdominal aortic aneurysm status post repair: No acute decompensation Continue aspirin and atorvastatin Goals of care discussed with the patient: He is expressing his wishes to stay DNR/DNI however agreeable for perioperative intubation and general anesthesia Continue n.p.o. while awaiting surgery Physical therapy after surgery: Patient prefers to go to [facility] because his she is already a resident there Attestations Medical Necessity Statement*: Awaiting ORIF for right hip fracture today Coding Level of Care Code Acute Product Safety Test Engineer for [facility] Fwd Diagnoses Hip fracture S72.009A Carotid artery disease I65.23 Carotid artery disease type: stenosis Laterality: bilateral Myelodysplasia (myelodysplastic syndrome) D46.9 Abdominal aortic aneurysm I71.4 Presence of rupture: without rupture Anemia D64.9 Anemia type: unspecified type
[2020-06-10] VITALS (17 sets, daily range): BP systolic 105–142; BP diastolic 40–73; PULSE 82–99; RESP 16–22; TEMP 36.2–37.4; O2SAT 94–99
--- NOTE | 2020-06-10 | SCC_ITS ---
Procedure Done: Open reduction and internal fixation right intratrochanteric hip fracture with intramedullary device 48.2 seconds of fluoroscopic guidance, for a cumulative dose of 5.79 mGy, was provided to Dr. Randle by the radiology department. C-arm images of the RIGHT femur were saved for the patient's permanent record. [facility]
--- NOTE | 2020-06-10 | XR_ITS ---
WS: [id number] Right femur and thigh, C-arm fluoroscopy views AP and lateral, 06/10/2020 Clinical Data: TROCH NAIL Comparison: Pelvis and right hip, 06/08/2020 Findings: There is a right hip nail reducing the intertrochanteric fracture of the right hip. There is a long i ntramedullary angie within the femur. XR/XR femur RT min 2V* [id number] Impression: Internal fixation of intertrochanteric fracture of the right hip.
[2020-06-10 03:40] LABS: Basophils % 0.2 %; Hematocrit 23.3 % (42.0-52.0); Hemoglobin 7.5 g/dL (11.7-16.6); Lymphocytes # 0.6 10^3/uL (0.8-4.8); Lymphocytes % 6.8 %; Mean Corpuscular HGB Conc 32.2 g/dL (30.0-36.0); Mean Corpuscular Hemoglobin 30.1 pg (28.0-34.0); Mean Corpuscular Volume 93.6 fL (80-94); Mean Platelet Volume 11.9 fL (7.4-10.4); Monocytes # 0.9 10^3/uL (0.2-0.9); Monocytes % 9.9 %; Neutrophils # 7.57 10^3/uL (1.8-7.7); Neutrophils % 81.7 %; Nucleated Red Blood Cells % 0.2 %; Platelet Count 284 10^3/cmm (130-400); Red Blood Count 2.49 10^6/uL (4.1-5.3); Red Cell Distribution Width 19.9 % (12.1-15.1); White Blood Count 9.3 10^3/uL (4.0-10.0)
[2020-06-10 04:38] LABS: Alanine Aminotransferase 46 U/L (0-41); Albumin Level 4.1 g/dL (3.5-5.2); Alkaline Phosphatase 66 IU/L (40-130); Anion Gap 12.7 (5-19); Aspartate Amino Transferase 28 U/L (0-40); Blood Urea Nitrogen 19 mg/dL (8-23); Calcium 8.7 mg/dL (8.5-10.5); Carbon Dioxide 27 mmol/L (22-29); Chloride 101 mmol/L (98-107); Glucose 183 mg/dL (65-115); Osmolality Calculated 291 mOsm/kg (285-295); Potassium 3.7 mmol/L (3.5-5.1); Sodium 137 mmol/L (136-145); Total Bilirubin 3.8 mg/dL (0.15-1.2); Total Protein 6.1 g/dL (6.6-8.7)
[2020-06-10] MEDS: morphine 4 mg/mL SDV 1 mL 2 MG IVP (05:15)
--- NOTE | 2020-06-10 05:43 | PC.NURSE ---
Due to patient's surgery being rescheduled, this RN had to discontinue on-call order for cefazolin and put in a new order, in order to be able to pull the medication to go to surgery.
[2020-06-10] MEDS: sodium chloride 0.9% 1,000 ML 30 ML IV (06:42)
--- NOTE | 2020-06-10 06:59 | P.ANESASSM_ITS ---
Pre-Anesthetic Assessment Pre-Anesthetic Assessment: Height/Weight: Height 1.83 m Weight 77.111 kg Temp Pulse Resp BP Pulse Ox 97.7 F 92 16 118/61 94 06/10/20 06:30 06/10/20 06:30 06/10/20 06:30 06/10/20 06:30 06/10/20 06:30 Preop Diagnosis: Right Intertrochateric hip fracture Proposed Procedure: Operation Date: 06/10/20 07:00 Proposed Procedures p Trochanteric Femoral Nail(Right) - Baljinder Randle MD Familial anesthetic complications: None Was Beta Shadi taken within 24 hours: N/A Was Clonidine taken within 24 hours: N/A Last intake: Intake Last Liquid Date 06/09/20 Last Liquid Time 18:00 Last Solid Date 06/09/20 Last Solid Time 18:00 Social: Social History: No alcohol and No tobacco Exam: Pre-Anes Outpt Exam: alert, oriented x 3, clear to auscultation bilaterally and regular rate & rhythm Airway: MP: 3 Dentition: Chipped CV/HEM: CV/HEM: CAD (stent > 1 year ago) and HTN Metabolic: Metabolic: Hyperlipidemia Neuropsych: Comments: carotid stenosis Anesthetic Plan: ASA status: 4 Anesthesia: General Risk of > 500 ml blood loss (7ml/kg in children): No Meds/Allergies Current Medications: Current Medications Generic Name Dose Route Start Last Admin Trade Name Freq PRN Reason Stop Dose Admin Aspirin 81 mg 06/09/20 09:00 06/09/20 08:57 Aspirin 81 Mg Ec Tablet PO 81 mg DAILY JORJE Administration Folic Acid 1 mg 06/09/20 09:00 06/09/20 08:51 Folic Acid 1 Mg Tablet PO 1 mg DAILY JORJE Administration Sodium Chloride 1,000 mls @ 30 ml s/hr 06/10/20 06:15 06/10/20 06:42 Sodium Chloride 0.9% IV 06/11/20 06:14 30 mls/hr .Q24H JROJE Administration Metoprolol Succina te 50 mg 06/09/20 09:00 06/09/20 08:51 Metoprolol Succi felipe Er (24 Hr) 50 Mg Tablet PO 50 mg DAILY JORJE Administration Morphine Sulfate 2 mg 06/08/20 20:15 06/10/20 05:15 Morphine 4 Mg/Ml Sdv 1 Ml IVP 2 mg Q4H PRN Administration leg pain Pyridoxine HCl 250 mg 06/08/20 21:00 06/09/20 21:22 Pyridoxine 50 Mg Tablet PO 250 mg TID JORJE Administration Senna/Docusate Sod ium 1 tab 06/09/20 09:00 06/09/20 08:51 Sennosides-Docus ate Tablet PO 1 tab DAILY JORJE Administration Tamsulosin HCl 0.4 mg 06/09/20 09:00 06/09/20 17:29 Tamsulosin 0.4 M g Capsule PO 0.4 mg BID JORJE Administration PFSH Anesthesia PFSH: Medical History (Updated 06/08/20 @ 22:19 by Steve Nicholson MD) Abdominal aortic aneurysm Anemia ASHD (arteriosclerotic heart disease) Atherosclerosis of coronary artery Atypical chest pain CAD (coronary artery disease) Calculus, ureteral Edema of extremities History of hypertension History of lower leg fracture Hyperlipemia Hyperlipidemia Hypertension Leukemia Systolic CHF Surgical History H/O endovascular stent graft for abdominal aortic aneurysm History of cholecystectomy History of kyphoplasty History of right inguinal hernia repair Family History Father Stroke Mother Myocardial infarction CAD (coronary artery disease) Diabetes Stroke Sister Cancer CAD (coronary artery disease) Grandfather Diabetes Grandmother Diabetes Father Diabetes Denies family history of Clotting disorder Dementia Chronic kidney disease (CKD) Suicide Anesthesia complication Bleeding disorder Lung disease Social History (Updated 06/08/20 @ 20:27 by Caterina Read MD) Smoking and tobacco status: former smoker Alcohol intake: current Alcohol intake frequency: holidays/special occasions only Adopted: No Caregiver/support person: No Lives independently: No Household members: spouse Marital status: Current occupational status: retired Previous occupational history: Served in the [employer] History of recent travel: No Data Anesthesia CBC & Chem 7: 06/10/20 02:34 06/10/20 02:34 Other Labs: Laboratory Results - last 48 hr 06/08/20 06/08/20 06/08/20 14:10 14:10 14:10 WBC 5.7 RBC 2.87 L Hgb 8.5 L Hct 26.8 L MCV 93.4 MCH 29.6 MCHC 31.7 RDW 19.4 H Plt Count 299 MPV 11.6 H Neut % (Auto) 57.0 Lymph % (Auto) 31.2 [place] % (Auto) 8.1 Eos % (Auto) 1.6 Baso % (Auto) 0.7 Neut # (Auto) 3.26 Lymph # (Auto) 1.8 [place] # (Auto) 0.5 Eos # (Auto) 0.1 Baso # (Auto) 0.0 Nucleated RBC % (auto) 0.5 Nucleated RBCs # 0.0 Sodium 137 Potassium 4.9 Chloride 100 Carbon Dioxide 28 Anion Gap 13.9 BUN 17 Creatinine 0.4 L GFR Calculation Not Reportable Glucose 136 H Calculated Osmolality 288 Calcium 9.6 Total Bilirubin 3.4 H AST 41 H ALT 51 H Alkaline Phosphatase 74 Troponin T Baseline 17 H Troponin T 120 Minute Delta Troponin T Total Protein 6.4 L Albumin 4.7 Globulin 1.7 Urine Color Urine Appearance Urine pH Ur Specific [place] Urine Protein Urine Glucose (UA) Urine Ketones Urine Blood Urine Nitrate Urine Bilirubin Urine Urobilinogen Ur Leukocyte Esterase Urine RBC Urine WBC Ur Squamous Epith Cells Amorphous Sediment Urine Bacteria Urine Mucus Digoxin Blood Type Rho(D) Type Antibody Screen 06/08/20 06/08/20 06/08/20 14:10 14:52 17:00 WBC RBC Hgb Hct MCV MCH MCHC RDW Plt Count MPV Neut % (Auto) Lymph % (Auto) [place] % (Auto) Eos % (Auto) Baso % (Auto) Neut # (Auto) Lymph # (Auto) [place] # (Auto) Eos # (Auto) Baso # (Auto) Nucleated RBC % (auto) Nucleated RBCs # Sodium Potassium Chloride Carbon Dioxide Anion Gap BUN Creatinine GFR Calculation Glucose Calculated Osmolality Calcium Total Bilirubin AST ALT Alkaline Phosphatase Troponin T Baseline Troponin T 120 Minute 14.68 Delta Troponin T -2.32 L Total Protein Albumin Globulin Urine Color Urine Appearance Urine pH Ur Specific [place] Urine Protein Urine Glucose (UA) Urine Ketones Urine Blood Urine Nitrate Urine Bilirubin Urine Urobilinogen Ur Leukocyte Esterase Urine RBC Urine WBC Ur Squamous Epith Cells Amorphous Sediment Urine Bacteria Urine Mucus Digoxin 0.3 L Blood Type A Negative Rho(D) Type Negative / 0 Antibody Screen Negative 06/08/20 06/09/20 06/09/20 18:13 04:42 04:42 WBC 7.3 RBC 2.63 L Hgb 7.8 L Hct 24.6 L MCV 93.5 MCH 29.7 MCHC 31.7 RDW 19.7 H Plt Count 266 MPV 11.9 H Neut % (Auto) 80.8 Lymph % (Auto) 6.9 [place] % (Auto) 11.0 Eos % (Auto) 0.0 Baso % (Auto) 0.3 Neut # (Auto) 5.93 Lymph # (Auto) 0.5 L [place] # (Auto) 0.8 Eos # (Auto) 0.0 Baso # (Auto) 0.0 Nucleated RBC % (auto) 0 Nucleated RBCs # 0.0 Sodium 136 Potassium 4.0 Chloride 101 Carbon Dioxide 26 Anion Gap 13.0 BUN 17 Creatinine 0.3 L GFR Calculation Not Reportable Glucose 183 H Calculated Osmolality 288 Calcium 8.8 Total Bilirubin AST ALT Alkaline Phosphatase Troponin T Baseline Troponin T 120 Minute Delta Troponin T Total Protein Albumin Globulin Urine Color Straw Urine Appearance Sl hazy Urine pH 7 Ur Specific [place] 1.010 Urine Protein Neg Urine Glucose (UA) Norm Urine Ketones 1+ H Urine Blood 2+ H Urine Nitrate Negative Urine Bilirubin Neg Urine Urobilinogen 4 H Ur Leukocyte Esterase Negative Urine RBC 0-4 H Urine WBC None Ur Squamous Epith Cells Rare Amorphous Sediment Not Reportable Urine Bacteria Trace Urine Mucus Trace Digoxin Blood Type Rho(D) Type Antibody Screen 06/10/20 06/10/20 02:34 02:34 WBC 9.3 RBC 2.49 L Hgb 7.5 L Hct 23.3 L MCV 93.6 MCH 30.1 MCHC 32.2 RDW 19.9 H Plt Count 284 MPV 11.9 H Neut % (Auto) 81.7 Lymph % (Auto) 6.8 [place] % (Auto) 9.9 Eos % (Auto) 0.0 Baso % (Auto) 0.2 Neut # (Auto) 7.57 Lymph # (Auto) 0.6 L [place] # (Auto) 0.9 Eos # (Auto) 0.0 Baso # (Auto) 0.0 Nucleated RBC % (auto) 0.2 Nucleated RBCs # 0.0 Sodium 137 Potassium 3.7 Chloride 101 Carbon Dioxide 27 Anion Gap 12.7 BUN 19 Creatinine 0.3 L GFR Calculation Not Reportable Glucose 183 H Calculated Osmolality 291 Calcium 8.7 Total Bilirubin 3.8 H AST 28 ALT 46 H Alkaline Phosphatase 66 Troponin T Baseline Troponin T 120 Minute Delta Troponin T Total Protein 6.1 L Albumin 4.1 Globulin 2.0 Urine Color Urine Appearance Urine pH Ur Specific [place] Urine Protein Urine Glucose (UA) Urine Ketones Urine Blood Urine Nitrate Urine Bilirubin Urine Urobilinogen Ur Leukocyte Esterase Urine RBC Urine WBC Ur Squamous Epith Cells Amorphous Sediment Urine Bacteria Urine Mucus Digoxin Blood Type Rho(D) Type Antibody Screen Cardiac Studies: No Data to Display
--- NOTE | 2020-06-10 07:59 | PM.OP ---
Operative Report Date of procedure: June 10, 2020 Pre-op Diagnosis: Right Intertrochateric hip fracture Post-op diagnosis: same Post-op Findings: Same Procedure Done: Open reduction and internal fixation right intratrochanteric hip fracture with intramedullary device Implants: [place] gamma nail 11 x 420 mm, 105 mm lag Anesthesia: General Estimated blood loss (mL): 50 Complications: None Findings: The patient has the previously described 2 part right intratrochanteric hip fracture Condition: stable Disposition: PACU Procedure: The patient was taken to the operating room. They were given 1 g of Ancef. They were positioned on the fracture table with the right lower extremity in gentle traction. A timeout was performed. A 2 cm long incision was made proximal to the greater trochanter scalpel blade. Dissection was carried down to tip the greater trochanter. A guidepin was passed manually from the tip of the trochanter down the shaft. The proximal reamer was utilized to open up the proximal canal. An 11 mm by 420 [place] gamma nail was passed down the canal without difficulty. Under visualization of fluoroscopy a guidepin was driven up into the head and neck at 125? angle. It was measured at 105 mm in length and a lag screw similar length was then placed and locked into place with the proximal locking screw. [The static guides were then used to pass the distal locking screw.] Intraoperative imaging was obtained verifying satisfactory position of the hardware and reduction of the fracture. Deep tissues were closed with 0 Vicryl as were subcutaneous tissues. The skin was closed with skin olinda. Sterile dressings were applied. The patient was extubated and taken to recovery room in stable condition.
--- NOTE | 2020-06-10 08:04 | SUR.PHASEI ---
PT AWAKES TO VOICE, VERBALLY DENIES PAIN, GOOD RESP EFFORT, RT THIGH DRESSING X 2 SITES D/I THAI STRAP TO RT THIGH MAXWELL WITH LT YELLOW URINE IN TUBING, NOT EMPTIED IN OR. STRONG REGULAR PULSE TO RT FOOT.
--- NOTE | 2020-06-10 08:33 | SUR.PHASEI ---
0820 PT TO ROOM AWAKE ALERT TALKATIVE WITH HIS DAUGHTER AT BEDSIDE VSS.
[2020-06-10] MEDS: aspirin 81 mg EC Tablet PO (09:43)
[2020-06-10] MEDS: tamsulosin 0.4 mg Capsule PO ×2 (09:43→17:16)
[2020-06-10] MEDS: sennosides-docusate Tablet 1 TAB PO (09:43)
[2020-06-10] MEDS: folic acid 1 mg Tablet PO (09:43)
[2020-06-10] MEDS: metoprolol succinate ER (24 HR) 50 mg Tablet PO (09:43)
[2020-06-10] MEDS: fentaNYL 25 mcg Patch 1 PATCH TRANSDERMA (09:43)
[2020-06-10] MEDS: chlorhexidine gluconate 0.12% Btl 473 mL 30 ML MUCOUS MEM ×4 (09:44→21:26)
[2020-06-10] MEDS: mupirocin oint 22 gm 1 APPLIC NASAL ×2 (09:44→17:16)
[2020-06-10] MEDS: oxyCODONE 5 mg IR Tab/Cap 10 MG PO (09:55)
--- NOTE | 2020-06-10 11:08 | PC.PHAR ---
pt states he takes care of his own medications-ok faxed med list-[facility]lex[facility] 20mg po qam,colace 100mg bid and percocet 10-325mg 1-2 tabs qid prn pain pt states he DOESNT take those medications anymore-
[2020-06-10] MEDS: morphine 4 mg/mL SDV 1 mL IVP (11:46)
[2020-06-10] MEDS: pyridoxine 50 mg Tablet 250 MG PO ×3 (11:53→21:26)
--- NOTE | 2020-06-10 12:20 | ANE.PACU2 ---
Inpatient post-anesthesia follow up: Airway intact: Yes Vital signs: Temperature 97.6 F Pulse Rate [Monito r] 66 Pulse Rate 88 Respiratory Rate 16 Blood Pressure [Ri ght Arm] 107/51 Blood Pressure 105/48 Pulse Oximetry 96 Oxygen Delivery Me thod Room Air Oxygen Flow Rate 8 Fraction of Inspir ed Oxygen Hydration adequate: Yes Nausea and vomiting: No Pain level: 2 Mental status: Baseline
[2020-06-10] MEDS: sodium chloride 0.9% 1,000 ML 100 ML IV ×2 (13:38→23:55)
[2020-06-10] MEDS: sennosides-docusate Tablet 2 TAB PO (17:15)
--- NOTE | 2020-06-10 17:28 | P.PN_ITS ---
Subjective Subjective: Interval history: Patient underwent open reduction and internal fixation of hip fracture this morning, postoperatively states pain is suboptimally controlled, requesting switch to his home doses of fentanyl patch and also hydrocodone. Estimated blood loss in surgery at 50 mL, hemodynamically stable. Medications: Reviewed: Yes Vitals/I&O/Wt Last Vital Signs Temp 98.4 F 06/10/20 15:07 Pulse 82 06/10/20 15:25 Resp 18 06/10/20 15:25 BP 112/73 06/10/20 15:07 Pulse Ox 98 06/10/20 15:25 06/10/20 06/10/20 06/10/20 06:59 14:59 22:59 Intake Total 770 / 770 Output Total 225 / 825 670 / 670 Balance -225 / -725 100 / 100 Physical Exam Narrative: EXAM NARRATIVE: GEN: Awake, alert and oriented, no acute distress CVS: S1S2 N RS: CTA B/L anteriorly Abd: Soft, nt/nd , bs+ SUPERVISOR SHRIMP POND: no focal neuro deficits grossly Urinary Catheter Management^: West: Cath Placed During This Visit: yes Reason for Continuing Indwelling Catheter: Perioperative Use in Selected Surgeries Urinary Catheter Date of Insertion: 06/09/20 Urinary Catheter Time of Insertion: 00:14 Data : 06/10/20 02:34 06/10/20 02:34 A&P Assessment and plan (1) Hip fracture: Status: Acute (2) Carotid artery disease: Status: Acute Qualifiers: Carotid artery disease type: stenosis Laterality: bilateral Qualified Code(s): I65.23 - Occlusion and stenosis of bilateral carotid arteries (3) Myelodysplasia (myelodysplastic syndrome): Status: Acute (4) Abdominal aortic aneurysm: Status: Acute Qualifiers: Presence of rupture: without rupture Qualified Code(s): I71.4 - Abdom inal aortic aneurysm, without rupture (5) Anemia: Status: Acute Qualifiers: Anemia type: unspecified type Qualified Code(s): D64.9 - Anemia, uns pecified Additional A&P Information Pathological hip fracture No trauma or fall Open reduction and internal fixation right intratrochanteric hip fracture with intramedullary device today. Pain control changed to home regimen of 50 mics of fentanyl patch and hydro codone 10/325 every 4 hours as needed Oxycodone and morphine discontinued Myelodysplastic syndrome Hemoglobin seems to be at baseline Monitor closely, check with roselinem. labs Transfuse if hemoglobin is less than [address] Lew Abdominal aortic aneurysm status post repair: No acute decompensation Continue aspirin and atorvastatin Goals of care discussed with the patient: He is expressing his wishes to stay DNR/DNI however agreeable for perioperative intubation and general anesthesia Disposition: Home versus SNF depending on PT assessment DVT prophylaxis as per Ortho Attestations Medical Necessity Statement*: Postop day 0 from ORIF for hip fracture Coding Level of Care Code Acute Metaphysician for [facility] Fwd Diagnoses Hip fracture S72.009A Carotid artery disease I65.23 Carotid artery disease type: stenosis Laterality: bilateral Myelodysplasia (myelodysplastic syndrome) D46.9 Abdominal aortic aneurysm I71.4 Presence of rupture: without rupture Anemia D64.9 Anemia type: unspecified type
[2020-06-10] MEDS: fentaNYL 50 mcg Patch 1 PATCH TRANSDERMA (18:13)
[2020-06-10] MEDS: HYDROcodone-acetaminophen 10-325 mg Tablet 1 TAB PO ×2 (18:13→23:54)
[2020-06-11] VITALS (15 sets, daily range): BP systolic 103–133; BP diastolic 58–73; PULSE 92–104; RESP 15–19; TEMP 36.1–37.3; O2SAT 91–99
[2020-06-11 03:04] LABS: Basophils % 0.4 %; Eosinophils % 0.1 %; Lymphocytes # 1.2 10^3/uL (0.8-4.8); Lymphocytes % 13.2 %; Mean Corpuscular HGB Conc 32.1 g/dL (30.0-36.0); Mean Corpuscular Hemoglobin 29.9 pg (28.0-34.0); Mean Corpuscular Volume 93.1 fL (80-94); Mean Platelet Volume 11.3 fL (7.4-10.4); Monocytes # 0.9 10^3/uL (0.2-0.9); Monocytes % 10.4 %; Neutrophils # 6.67 10^3/uL (1.8-7.7); Neutrophils % 74.4 %; Nucleated Red Blood Cells % 0 %; Platelet Count 291 10^3/cmm (130-400); Red Blood Count 2.04 10^6/uL (4.1-5.3); Red Cell Distribution Width 19.9 % (12.1-15.1)
[2020-06-11 03:07] LABS: Hemoglobin 6.1 g/dL (11.7-16.6)
[2020-06-11 03:17] LABS: Alanine Aminotransferase 36 U/L (0-41); Albumin Level 3.7 g/dL (3.5-5.2); Alkaline Phosphatase 62 IU/L (40-130); Anion Gap 10.7 (5-19); Aspartate Amino Transferase 24 U/L (0-40); Blood Urea Nitrogen 16 mg/dL (8-23); Calcium 8.6 mg/dL (8.5-10.5); Carbon Dioxide 28 mmol/L (22-29); Chloride 101 mmol/L (98-107); Globulin 1.8 g/dL (1.3-4.6); Glucose 180 mg/dL (65-115); Osmolality Calculated 288 mOsm/kg (285-295); Potassium 3.7 mmol/L (3.5-5.1); Sodium 136 mmol/L (136-145); Total Bilirubin 2.6 mg/dL (0.15-1.2); Total Protein 5.5 g/dL (6.6-8.7)
--- NOTE | 2020-06-11 07:28 | PC.OT ---
OT note: Pt's hgb 6.1 from chart review. Will attempt evaluation later as able.
--- NOTE | 2020-06-11 07:41 | P.PN_ITS ---
Subjective Subjective: Interval history: Up with theray yesterday. Pain controlled. Vitals/I&O/Wt Last Vital Signs Temp 97.0 F L 06/11/20 07:09 Pulse 100 06/11/20 07:09 Resp 18 06/11/20 07:09 BP 122/73 06/11/20 07:09 Pulse Ox 99 06/11/20 07:09 06/10/20 06/11/20 06/11/20 22:59 06:59 14:59 Intake Total 50 / 820 1050 / 1870 Output Total 800 / 1470 Balance 50 / 150 250 / 400 Physical Exam Narrative: EXAM NARRATIVE: Expected swelling right thigh. Minimal staining right up dressing. Urinary Catheter Management^: West: Cath Placed During This Visit: yes Reason for Continuing Indwelling Catheter: Perioperative Use in Selected Surgeries Urinary Catheter Date of Insertion: 06/09/20 Urinary Catheter Time of Insertion: 00:14 Data : 06/11/20 02:49 06/11/20 02:49 A&P Assessment and plan (1) Hip fracture: Status: Acute (2) Postoperative state: Continue to mobilize. Supportive care per medicine. OK for dc per ortho. Status: Acute Attestations Medical Necessity Statement*: As per medicine Coding Level of Care Code Acute Automotive Service Professional for [facility] Diagnoses Hip fracture S72.009A Postoperative state Z98.890
[2020-06-11] MEDS: aspirin 81 mg EC Tablet PO (08:12)
[2020-06-11] MEDS: atorvastatin 40 mg Tablet 20 MG PO (08:12)
[2020-06-11] MEDS: folic acid 1 mg Tablet PO (08:12)
[2020-06-11] MEDS: tamsulosin 0.4 mg Capsule PO ×2 (08:13→17:24)
[2020-06-11] MEDS: metoprolol succinate ER (24 HR) 50 mg Tablet PO (08:13)
[2020-06-11] MEDS: HYDROcodone-acetaminophen 10-325 mg Tablet 1 TAB PO ×3 (08:14→20:57)
[2020-06-11] MEDS: digoxin 125 mcg Tablet PO (08:14)
[2020-06-11] MEDS: chlorhexidine gluconate 0.12% Btl 473 mL 30 ML MUCOUS MEM ×4 (08:20→20:52)
[2020-06-11] MEDS: mupirocin oint 22 gm 1 APPLIC NASAL ×2 (08:21→17:25)
[2020-06-11] MEDS: pyridoxine 50 mg Tablet 250 MG PO ×3 (08:21→20:50)
[2020-06-11] MEDS: sodium chloride 0.9% (100 ml) 100 ML 125 ML (08:24)
--- NOTE | 2020-06-11 09:05 | PC.SOCIAL ---
Pg 2 IMM Explained to pt & his daughter Pg 2 IMM. No questions voiced. Provided pt a copy. Signed, dated, & timed a copy & placed in chart.
--- NOTE | 2020-06-11 10:26 | PM.PN ---
Subjective Subjective: Interval history: Hemoglobin at 6.1 this morning, ordered for 1 unit blood transfusion, repeat H&H ordered for 3 PM. Pain is better controlled after switching to home regimen. Patient has adequate p.o. intake today. Heart rate ranging 100 to 106/min, digoxin resumed yesterday. Working with PT this morning Medications: Reviewed: Yes Vitals/I&O/Wt Last Vital Signs Temp 97.0 F L 06/11/20 07:09 Pulse 104 H 06/11/20 08:14 Resp 18 06/11/20 07:09 BP 122/73 06/11/20 07:09 Pulse Ox 99 06/11/20 07:09 06/10/20 06/11/20 06/11/20 22:59 06:59 14:59 Intake Total 50 / 820 1050 / 1870 740 / 740 Output Total 800 / 1470 350 / 350 Balance 50 / 150 250 / 400 390 / 390 Physical Exam Narrative: EXAM NARRATIVE: GEN: Awake, alert and oriented, no acute distress CVS: S1S2 N RS: CTA B/L Abd: Soft, nt/nd , bs+ SPORTSPERSONS: no focal neuro deficits Urinary Catheter Management^: West: Cath Placed During This Visit: yes Reason for Continuing Indwelling Catheter: Perioperative Use in Selected Surgeries Urinary Catheter Date of Insertion: 06/09/20 Urinary Catheter Time of Insertion: 00:14 Data : 06/11/20 02:49 06/11/20 02:49 A&P Assessment and plan (1) Hip fracture: Status: Acute (2) Carotid artery disease: Status: Acute Qualifiers: Carotid artery disease type: stenosis Laterality: bilateral Qualified Code(s): I65.23 - Occlusion and stenosis of bilateral carotid arteries (3) Myelodysplasia (myelodysplastic syndrome): Status: Acute (4) Abdominal aortic aneurysm: Status: Acute Qualifiers: Presence of rupture: without rupture Qualified Code(s): I71.4 - Abdominal aortic aneurysm, without rupture (5) Anemia: Status: Acute Qualifiers: Anemia type: unspecified type Qualified Code(s): D64.9 - Anemia, unspecified Additional A&P Information Right intertrochanteric hip fracture status post ORIF with intramedullary nailing on June 10, 2020. Tolerated procedure well Pain control changed to home regimen of 50 mics of fentanyl patch and hydrocodone 10/325 every 4 hours as needed Pain is better controlled on his home regimen Remove West Postop wound care per orthopedics Myelodysplastic syndrome with chronic anemia Hemoglobin at 6 this morning, likely contributed by blood loss during surgery, Transfused 1 unit of packed red blood cells this morning. Repeat H&H at 3 PM Follows up with Dr. Lew Abdominal aortic aneurysm status post repair: No acute decompensation Continue aspirin and atorvastatin, resume Plavix when feasible from a surgical perspective DNR/DNI Disposition: SNF placement DVT prophylaxis as per Ortho Attestations Medical Necessity Statement*: Postoperative anemia, receiving packed red blood cell transfusion today, closely monitor hemoglobin, pending SNF placement Coding Level of Care Code Acute Vice President Research for [facility] Fwd Diagnoses Hip fracture S72.009A Carotid artery disease I65.23 Carotid artery disease type: stenosis Laterality: bilateral Myelodysplasia (myelodysplastic syndrome) D46.9 Abdominal aortic aneurysm I71.4 Presence of rupture: without rupture Anemia D64.9 Anemia type: unspecified type
[2020-06-11 15:41] LABS: Hemoglobin 6.7 g/dL (11.7-16.6)
[2020-06-11 16:06] LABS: Hematocrit 20.7 % (42.0-52.0)
[2020-06-12] VITALS (15 sets, daily range): BP systolic 101–129; BP diastolic 58–70; PULSE 89–120; RESP 16–19; TEMP 36.5–37.2; O2SAT 91–99
[2020-06-12] MEDS: HYDROcodone-acetaminophen 10-325 mg Tablet 1 TAB PO ×4 (02:48→16:54)
[2020-06-12] MEDS: sodium chloride 0.9% (100 ml) 100 ML 125 ML ×2 (02:49→04:46)
[2020-06-12 07:08] LABS: Hematocrit 26.3 % (42.0-52.0); Hemoglobin 8.7 g/dL (11.7-16.6)
[2020-06-12] MEDS: tamsulosin 0.4 mg Capsule PO (08:46)
[2020-06-12] MEDS: folic acid 1 mg Tablet PO (08:46)
[2020-06-12] MEDS: metoprolol succinate ER (24 HR) 50 mg Tablet PO (08:46)
[2020-06-12] MEDS: digoxin 125 mcg Tablet PO (08:46)
[2020-06-12] MEDS: aspirin 81 mg EC Tablet PO (08:46)
[2020-06-12] MEDS: atorvastatin 40 mg Tablet 20 MG PO (08:46)
[2020-06-12] MEDS: chlorhexidine gluconate 0.12% Btl 473 mL 30 ML MUCOUS MEM ×2 (08:47→12:40)
[2020-06-12] MEDS: pyridoxine 50 mg Tablet 250 MG PO (08:47)
[2020-06-12] MEDS: mupirocin oint 22 gm 1 APPLIC NASAL (08:47)
--- NOTE | 2020-06-12 14:01 | P.PN_ITS ---
Subjective Subjective: Interval history: Hemoglobin today at 8.7, pain remains controlled, West has been removed, patient is urinating, working with physical therapy Medications: Reviewed: Yes Vitals/I&O/Wt Last Vital Signs Temp 98.3 F 06/12/20 10:53 Pulse 89 06/12/20 10:53 Resp 16 06/12/20 10:53 BP 116/62 06/12/20 10:53 Pulse Ox 98 06/12/20 10:53 06/11/20 06/12/20 06/12/20 22:59 06:59 14:59 Intake Total 240 / 2900 900 / 3800 360 / 360 Output Total 200 / 550 400 / 950 300 / 300 Balance 40 / 2350 500 / 2850 60 / 60 Physical Exam Narrative: EXAM NARRATIVE: GEN: Awake, alert and oriented, no acute distress CVS: S1S2 N RS: CTA B/L Abd: Soft, nt/nd , bs+ LINER REPLACER: no focal neuro deficits Urinary Catheter Management^: West: Cath Placed During This Visit: yes Reason for Continuing Indwelling Catheter: Perioperative Use in Selected Surgeries Urinary Catheter Date of Insertion: 06/09/20 Urinary Catheter Time of Insertion: 00:14 Data : 06/12/20 06:59 06/11/20 02:49 A&P Assessment and plan (1) Hip fracture: Status: Acute (2) Carotid artery disease: Status: Acute Qualifiers: Carotid artery disease type: stenosis Laterality: bilateral Qualified Code(s): I65.23 - Occlusion and stenosis of bilateral carotid arteries (3) Myelodysplasia (myelodysplastic syndrome): Status: Acute (4) Abdominal aortic aneurysm: Status: Acute Qualifiers: Presence of rupture: without rupture Qualified Code(s): I71.4 - Abdominal aortic aneurysm, without rupture (5) Anemia: Status: Acute Qualifiers: Anemia type: unspecified type Qualified Code(s): D64.9 - Anemia, unspecified Additional A&P Information Right intertrochanteric hip fracture status post ORIF with intramedullary nailing on June 10, 2020. Tolerated procedure well Pain control is currently optimal on fentanyl 50 mics patch and oxycodone Postop wound care per orthopedics Myelodysplastic syndrome with chronic anemia Hemoglobin dropped to ~6 on June 11, 2020, status post transfusion of 3 units of packed red blood cells Hemoglobin currently at 8.7, prefer hemoglobin target of 8 given cardiac history Follows up with Dr. Lew as outpatient for MDS Abdominal aortic aneurysm status post repair: No acute decompensation Continue aspirin and atorvastatin, resume Plavix when feasible from a surgical perspective, last PCI w/stenting 2017 DNR/DNI Disposition: SNF placement DVT prophylaxis Heparin [id number] PT/OT Attestations Medical Necessity Statement*: pending SNF placement Coding Level of Care Code Acute Classroom Technology Technician for [facility] Fwd Diagnoses Hip fracture S72.009A Carotid artery disease I65.23 Carotid artery disease type: stenosis Laterality: bilateral Myelodysplasia (myelodysplastic syndrome) D46.9 Abdominal aortic aneurysm I71.4 Presence of rupture: without rupture Anemia D64.9 Anemia type: unspecified type
--- NOTE | 2020-06-12 15:44 | PM.DCS ---
Discharge Providers Date of Admission: 06/08/20 19:13 Date of Discharge: June 12, 2020 Attending Provider at Admission: Caterina Read MD Attending Provider at Discharge: Elizabeth Gan MD Primary Care Provider: José Miguel Calixto Diagnoses at Discharge Discharge Diagnosis (1) Hip fracture: Status: Acute (2) Carotid artery disease: Status: Acute Qualifiers: Carotid artery disease type: stenosis Laterality: bilateral Qualified Code(s): I65.23 - Occlusion and stenosis of bilateral carotid arteries (3) Myelodysplasia (myelodysplastic syndrome): Status: Acute (4) Abdominal aortic aneurysm: Status: Acute Qualifiers: Presence of rupture: without rupture Qualified Code(s): I71.4 - Abdominal aortic aneurysm, without rupture (5) Anemia: Status: Acute Qualifiers: Anemia type: unspecified type Qualified Code(s): D64.9 - Anemia, unspecified Reason for Visit Reason for Visit: RIGHT HIP PAIN Hospital Course Hospital Course Please refer to my progress note from today. Patient is being discharged to SNF in stable condition today. Addition to progress note as below: Plavix is being held at discharge given hemoglobin dropped to 6. Patient's cardiac notes reviewed. Last history of PCI with stenting in 2018, patient on dual antiplatelet therapy to optimize medical management. Would be okay to transiently hold Plavix at this point. Recommend checking hemoglobin again in 3 to 4 days and if remaining stable, can resume Plavix. Aspirin 81 mg is being continued. Physical Exam Urinary Catheter Management^: West: Cath Placed During This Visit: yes Reason for Continuing Indwelling Catheter: Perioperative Use in Selected Surgeries Urinary Catheter Date of Insertion: 06/09/20 Urinary Catheter Time of Insertion: 00:14 Discharge Data Data Completed and Pending: Completed Studies During Hospitalization Category Date Time Status XR femur RT min 2 V* [id number] Routine Exams 06/10/20 Completed XR hip RT 2-3V wo /w pel* [id number] Stat Exams 06/08/20 14:43 Completed XR ribs LT mn 3V w CXR1V [id number] Stat Exams 06/08/20 14:44 Completed Pending at discharge Category Date Time Status Complete Blood Co unt w/Auto AM LABS Lab 06/13/20 04:00 Ordered Labs from last 24 hours 06/12/20 06/11/20 06/11/20 06:59 16:55 15:20 Hgb 8.7 L 6.7 L Hct 26.3 L 20.7 L* Blood Type A Negative Rho(D) Type Negative / 0 Antibody Screen Negative Crossmatch See Detail Vitals: Last Vital Signs Temp 97.9 F 06/12/20 15:10 Pulse 89 06/12/20 15:10 Resp 16 06/12/20 15:10 BP 101/58 06/12/20 15:10 Pulse Ox 91 06/12/20 15:10 Discharge Plan Discharge Patient Disposition: Xfer SNF Condition: Stable Prescriptions: New hydrocodone-acetaminophen 10-325 mg Tablet 1 tab PO Q4H PRN (Reason: Moderate Pain) 7 Days Qty: 28 RF: 0 Continued pyridoxine (vitamin B6) 250 mg tablet 250 mg PO TID RF: 0 tamsulosin 0.4 mg capsule 0.4 mg PO BID RF: 0 aspirin 81 mg tablet,delayed release (DR/EC) 81 mg PO BEDTIME RF: 0 Hold Instructions: Resume on 07/13/19. folic acid 1 mg tablet 1 mg PO DAILY RF: 0 cholecalciferol (vitamin D3) 25 mcg (1,000 unit) capsule 25 mcg PO DAILY RF: 0 metoprolol succinate 50 mg tablet extended release 24 hr 50 mg PO DAILY Qty: 90 RF: 3 digoxin 125 mcg (0.125 mg) tablet 125 mcg PO DAILY 90 Days Qty: 90 RF: 3 pravastatin 20 mg tablet 20 mg PO DAILY 90 Days Qty: 90 RF: 3 nitroglycerin 0.4 mg tablet, sublingual 0.4 mg sublingual Q5M PRN (Reason: chest pain) 30 Days Qty: 30 RF: 3 fentanyl 50 mcg/hr Patch 72 Hour 1 patch TRANSDERMAL Q72H RF: 0 Vitamin D2 1,250 mcg (50,000 unit) capsule 50,000 unit PO Q7D RF: 0 Held clopidogrel 75 mg tablet 75 mg PO DAILY Qty: 90 RF: 3 Hold Instructions: Resume on 06/16/20. after HB check Discharge Orders: Discharge Order (Routine); Ordered 06/12/20 Ordered By: Elizabeth Gan Referrals: José Miguel Calixto [Primary Care Provider] - 7-10 days Discharge Diet: Usual diet and Cardiac Discharge Activity: As per PT/OT instructions Patient Instructions: Hydrocodone/Acetaminophen (By mouth), Open Reduction and Internal Fixation of a Hip Fracture (DC), Opioid Safety Discharge Attestations Time Spent in Discharge Care*: greater than 30 min Quality Metrics Clinical Quality Measures During this hospital stay, did patient experience: None Coding Level of Care Code Acute Chg FW DC note Diagnoses Hip fracture S72.009A Carotid artery disease I65.23 Carotid artery disease type: stenosis Laterality: bilateral Myelodysplasia (myelodysplastic syndrome) D46.9 Abdominal aortic aneurysm I71.4 Presence of rupture: without rupture Anemia D64.9 Anemia type: unspecified type
== END 2020-06-12 16:55 | disposition skilled nursing facility (03) | DRG 482 ==
LOC: ER 19:17 → MEDSURG 19:22
PROVIDERS: Orthopaedic Surgery; Admitting Provider Internal Medicine; Emergency Provider Family Medicine; PCP Internal Medicine; Visit Provider Student in an Organized Health Care Education/Training Program
PROC: 0QS606Z Reposition Right Upper Femur with Intramedullary Internal Fixation Device, Open Approach (ICD-10-PCS; CPT 27245; principal; 2020-06-10 07:00)
DX: M84.459A Pathological fracture, hip, unspecified, initial encounter for fracture (principal); D46.9 Myelodysplastic syndrome, unspecified; Z87.11 Personal history of peptic ulcer disease; N20.0 Calculus of kidney; Z87.442 Personal history of urinary calculi; I48.91 Unspecified atrial fibrillation; I25.10 Atherosclerotic heart disease of native coronary artery without angina pectoris; E78.5 Hyperlipidemia, unspecified; I73.9 Peripheral vascular disease, unspecified; Z95.820 Peripheral vascular angioplasty status with implants and grafts; Z87.891 Personal history of nicotine dependence; I65.23 Occlusion and stenosis of bilateral carotid arteries; I71.4 Abdominal aortic aneurysm, without rupture; Z79.82 Long term (current) use of aspirin; Z66 Do not resuscitate; I10 Essential (primary) hypertension
CPT/HCPCS: 36415; 36430; 51702; 71101; 73502; 73552; 76000; 80048; 80053; 80162; 81001; 84484; 85014; 85018; 85025; 86850; 86900; 86920; 93005; 96361; 96365; 96375; 96376; 97110; 97162; 97166; 97530; 99285; C1713; C9113; J0690; J1100; J1170; J2270; J2405; J2704; J3010; J7030; P9016

== ENCOUNTER 2020-07-03 05:37 | Outpatient (RCR) | payer OTHER, SELFPAY ==
[2020-06-24 07:37] LABS: Basophils # 0.1 10^3/uL (0.0-0.1); Basophils % 0.8 %; Eosinophils # 0.1 10^3/uL (0.0-0.8); Eosinophils % 1.1 %; Hematocrit 27.4 % (42.0-52.0); Hemoglobin 8.2 g/dL (11.7-16.6); Lymphocytes % 29.9 %; Mean Corpuscular HGB Conc 29.9 g/dL (30.0-36.0); Mean Corpuscular Hemoglobin 29.2 pg (28.0-34.0); Mean Corpuscular Volume 97.5 fL (80-94); Mean Platelet Volume 10.2 fL (7.4-10.4); Monocytes # 0.6 10^3/uL (0.2-0.9); Monocytes % 9.1 %; Neutrophils % 57.6 %; Nucleated Red Blood Cells % 0.5 %; Platelet Count 408 10^3/cmm (130-400); Red Blood Count 2.81 10^6/uL (4.1-5.3); Red Cell Distribution Width 22.5 % (12.1-15.1); White Blood Count 6.6 10^3/uL (4.0-10.0)
[2020-06-24 08:02] LABS: Alanine Aminotransferase 63 U/L (0-41); Albumin Level 3.9 g/dL (3.5-5.2); Alkaline Phosphatase 125 IU/L (40-130); Anion Gap 11.5 (5-19); Aspartate Amino Transferase 54 U/L (0-40); Blood Urea Nitrogen 10 mg/dL (8-23); Calcium 8.6 mg/dL (8.5-10.5); Carbon Dioxide 31 mmol/L (22-29); Chloride 98 mmol/L (98-107); Globulin 2.5 g/dL (1.3-4.6); Glucose 125 mg/dL (65-115); Iron 58 ug/dL (59-158); Lactate Dehydrogenase 258 U/L (135-225); Osmolality Calculated 283 mOsm/kg (285-295); Percent Saturation 39.1 % (20-50); Potassium 4.5 mmol/L (3.5-5.1); Sodium 136 mmol/L (136-145); Total Bilirubin 2.6 mg/dL (0.15-1.2); Total Iron Binding Capacity 148 mcg/dl; Total Protein 6.4 g/dL (6.6-8.7); Unsaturated Iron Binding 90 ug/dL (112-347)
[2020-06-24 08:16] LABS: Ferritin 2719 ng/mL (30-400)
[2020-07-01 07:44] LABS: Basophils % 0.5 %; Eosinophils % 0.8 %; Hematocrit 24.7 % (42.0-52.0); Hemoglobin 7.3 g/dL (11.7-16.6); Lymphocytes # 0.8 10^3/uL (0.8-4.8); Lymphocytes % 20.2 %; Mean Corpuscular HGB Conc 29.6 g/dL (30.0-36.0); Mean Corpuscular Hemoglobin 29.1 pg (28.0-34.0); Mean Corpuscular Volume 98.4 fL (80-94); Mean Platelet Volume 10.9 fL (7.4-10.4); Monocytes # 0.3 10^3/uL (0.2-0.9); Monocytes % 6.9 %; Neutrophils # 2.65 10^3/uL (1.8-7.7); Neutrophils % 70.3 %; Nucleated Red Blood Cells % 0 %; Platelet Count 315 10^3/cmm (130-400); Red Blood Count 2.51 10^6/uL (4.1-5.3); Red Cell Distribution Width 24.6 % (12.1-15.1); White Blood Count 3.8 10^3/uL (4.0-10.0)
[2020-07-03] VITALS (10 sets, daily range): BP systolic 99–139; BP diastolic 55–72; PULSE 82–98; RESP 18; TEMP 36.3–36.6; O2SAT 96–98
[2020-07-03] MEDS: diphenhydrAMINE 25 mg Capsule PO (08:30)
[2020-07-03] MEDS: sodium chloride 0.9% 250 ML 999 ML IV (08:30)
[2020-07-03] MEDS: FUROsemide 10 mg/mL SDV 2mL 20 MG IV (11:00)
== END 2020-07-04 23:59 | disposition home or self-care (01) ==
LOC: ONCMED 05:37
PROVIDERS: Nurse Practitioner; PCP Internal Medicine; Visit Provider Internal Medicine Medical Oncology
DX: E83.111 Hemochromatosis due to repeated red blood cell transfusions (principal); D46.Z Other myelodysplastic syndromes
CPT/HCPCS: 36430; 80053; 82728; 83540; 83550; 83615; 85025; 86850; 86900; 86920; J1940; J7050; P9040

== ENCOUNTER 2020-07-08 09:30 | Outpatient (RCR) | payer OTHER, SELFPAY ==
[2020-07-08 15:41] LABS: Eosinophils # 0.1 10^3/uL (0.0-0.8); Eosinophils % 1.6 %; Hematocrit 30.2 % (42.0-52.0); Hemoglobin 9.2 g/dL (11.7-16.6); Lymphocytes # 1.1 10^3/uL (0.8-4.8); Lymphocytes % 29.6 %; Mean Corpuscular HGB Conc 30.5 g/dL (30.0-36.0); Mean Corpuscular Hemoglobin 29.5 pg (28.0-34.0); Mean Corpuscular Volume 96.8 fL (80-94); Mean Platelet Volume 12.1 fL (7.4-10.4); Monocytes # 0.3 10^3/uL (0.2-0.9); Monocytes % 8.1 %; Neutrophils # 2.27 10^3/uL (1.8-7.7); Neutrophils % 58.9 %; Nucleated Red Blood Cells % 0.5 %; Platelet Count 349 10^3/cmm (130-400); Red Blood Count 3.12 10^6/uL (4.1-5.3); Red Cell Distribution Width 21.9 % (12.1-15.1); White Blood Count 3.9 10^3/uL (4.0-10.0)
== END 2020-07-09 06:00 | disposition home or self-care (01) ==
LOC: ONCMED 09:30
PROVIDERS: PCP Internal Medicine; Visit Provider Internal Medicine Medical Oncology
DX: E83.111 Hemochromatosis due to repeated red blood cell transfusions (principal); D46.Z Other myelodysplastic syndromes
CPT/HCPCS: 85025

== ENCOUNTER → 2020-07-16 11:30 | Outpatient (BNVA) | payer OTHER, SELFPAY | PROVIDERS: PCP Internal Medicine; Visit Provider Orthopaedic Surgery | DX: Z48.89 Encounter for other specified surgical aftercare (principal) | CPT/HCPCS: 73502 ==

== ENCOUNTER 2020-07-17 08:23 | Outpatient (CLI) | payer OTHER, MEDICARE, SELFPAY ==
--- NOTE | 2020-07-17 08:30 | XR_ITS ---
WS: [id number] KUB, AP view, 07/17/2020 Clinical Data: N20.1 - Calculus of ureter Comparison: KUB, 01/17/2020. Findings: There is a bilobed calcification overlying the medial aspect of the left kidney measuring 3.3 cm. The re is an aortic stent graft in position. Vertebroplasty cement is present at the T9, L1 and L2 verteb ral bodies. There is a dextroscoliosis of the lumbar spine. The stomach is full. There is fecal mater ial throughout the colon. A metal fragment overlies the right 12th rib. There is a right hip nail reducing an old intertrochant annia fracture. XR/XR KUB [id number] Impression: 1. Calcification overlying medial aspect of left kidney measuring 3.3 cm. 2. Aortic stent graft.
== END 2020-07-17 08:24 | disposition home or self-care (01) ==
PROVIDERS: PCP Internal Medicine; Visit Provider Urology
DX: N20.1 Calculus of ureter (principal); N20.0 Calculus of kidney
CPT/HCPCS: 74018; 81003; 87077; 87086; 87184

== ENCOUNTER 2020-07-24 07:56 | Outpatient (RCR) | payer OTHER, MEDICARE, SELFPAY ==
[2020-07-22 16:48] LABS: Basophils % 0.7 %; Eosinophils % 0.5 %; Hematocrit 26.9 % (42.0-52.0); Hemoglobin 8.2 g/dL (11.7-16.6); Lymphocytes % 23.2 %; Mean Corpuscular HGB Conc 30.5 g/dL (30.0-36.0); Mean Corpuscular Hemoglobin 30.3 pg (28.0-34.0); Mean Corpuscular Volume 99.3 fL (80-94); Monocytes # 0.4 10^3/uL (0.2-0.9); Monocytes % 9.5 %; Neutrophils # 2.62 10^3/uL (1.8-7.7); Neutrophils % 63.9 %; Nucleated Red Blood Cells # 0.1 /100WBC; Nucleated Red Blood Cells % 1.5 %; Platelet Count 342 10^3/cmm (130-400); Red Blood Count 2.71 10^6/uL (4.1-5.3); Red Cell Distribution Width 24.1 % (12.1-15.1); White Blood Count 4.1 10^3/uL (4.0-10.0)
[2020-07-24] VITALS (8 sets, daily range): BP systolic 110–121; BP diastolic 46–60; PULSE 74–87; RESP 18; TEMP 36.2–36.6; O2SAT 96–99
[2020-07-24] MEDS: sodium chloride 0.9% 250 ML 75 ML IV (08:43)
[2020-07-24] MEDS: diphenhydrAMINE 25 mg Capsule PO (08:43)
== END 2020-07-24 10:20 | disposition home or self-care (01) ==
LOC: ONCMED 07:56
PROVIDERS: Internal Medicine Medical Oncology; PCP Internal Medicine; Visit Provider Nurse Practitioner
DX: E83.111 Hemochromatosis due to repeated red blood cell transfusions (principal); D46.Z Other myelodysplastic syndromes
CPT/HCPCS: 36430; 85025; 86850; 86900; 86920; J7050; P9016

== ENCOUNTER 2020-07-24 10:25 | Outpatient (CLI) | payer OTHER, MEDICARE, SELFPAY ==
--- NOTE | 2020-07-24 13:00 | CT_ITS ---
WS: [id number] CT ABDOMEN PELVIS TECHNIQUE: Noncontrast CT of the abdomen and pelvis with coronal and sagittal reformatted images. CLINICAL INFORMATION: URETERAL STONE COMPARISON: CT August 19, 2019 DLP: 707.[address] scans at [facility] use at least one of these dose optimization techniques: automat ed exposure control; mA and/or kV adjustment per patient size (includes targeted exams where dose is matched to clinical indication); or iterative reconstruction. FINDINGS: Noncontrast liver and spleen are normal. Normal GE junction. Emphysematous changes in lung bases. Sub segmental atelectasis in the lung bases. Adrenal glands are normal. Stable small right renal cyst viola suring 3.1 CM. Left renal pelvocaliectasis slightly improved compared to previous. 2 left renal pelvi c calculi the largest at the UPJ measuring 18 mm. Smaller adjacent calculus in the renal pelvis measu ring 10 mm. Additional tiny calculus in the left UVJ is new from previous 3 mm. No ureterectasis. Tiny subcentimeter right renal calyceal tip calculi. No obstructing right renal parenchymal calculi. No hydronephrosis. Fatty atrophy of the pancreas. Splenic artery calcification. Aortic endograft with biiliac extension. Stable excluded aneurysm sac. Proximal renal artery stents. Sigmoid diverticulosis. No evidence of acute diverticulitis. No evidence of small or large bowel obst ruction. Multilevel biconcave compression deformities in the lower thoracic and lumbar spine. Prior v ertebroplasty changes at L1 and L2. CT/CT kidney stone [id number] IMPRESSION: 1. 2 left renal pelvic calculi the largest at the UPJ measuring 18 mm. Smaller adjacent calculus in the renal pelvis measuring 10 mm. 2. Left ureter is decompressed. Additional tiny left ureteral calculus at the distal UVJ measuring 3 mm. 3. No obstructing right renal or ureteral calculi. 4. Aortic endograft with biiliac extension. 5. Sigmoid diverticulosis. No evidence of acute diverticulitis. 6. Chronic biconcave compression fractures lower thoracic and upper lumbar spi ne.
== END 2020-07-24 10:26 | disposition home or self-care (01) ==
LOC: RAD 10:30
PROVIDERS: PCP Internal Medicine; Visit Provider Nurse Practitioner Family
DX: N20.1 Calculus of ureter (principal); K57.90 Diverticulosis of intestine, part unspecified, without perforation or abscess without bleeding
CPT/HCPCS: 74176; 81003

== ENCOUNTER 2020-08-08 06:47 | Outpatient (CLI) | payer OTHER, SELFPAY ==
--- NOTE | 2020-08-08 07:15 | USCV_ITS ---
José Miguel Bonilla Age: 80 Gender: M : 1940 Exam Date: 08/08/2020 07:21 Ordering Phys: Reilly Reece MD ([email or web address]) Technologist: Jenny Thomas Exam Location: [facility] [place] Indication: AAA HISTORY: Diameter (cm) AP x Transverse x Length Velocity (cm/s) Waveform Prox Aorta: 2.07 x 2.29 x 38.60 Mid Aorta: x x Distal Aorta: x x Right Iliac Prox: x x Left Iliac Prox: x x Stent Prox Landing x x 43.80 Aneurysmal Sac Max 3.65 x 4.65 x 7.18 33.10 Lt Lat Sac Dim Rt Lat Sac Dim Stent Dist Landing x x Right Iliac Stent 1.43 x 1.31 x 97.20 Left Iliac Stent 1.27 x 1.45 x 115.40 Right Renal Art 50.75 Left Renal Art 46.10 FINDINGS: TDS PT UNABLE TO POSITION DUE TO BROKEN LEG COULD NOT SEE ESCOBAR OF STENT CLEARLY The stent and the landing zones could not be visualized well. Moderate diffuse plaques in the iliac and in the abdominal aorta CONCLUSIONS The aortic aneurysm sac measured 3.65 x 4.65 cm at its maximal diameter Moderate diffuse plaques in the abdominal aorta and proximal common iliac arteries. The iliac artery aneurysmal sacs appears to be shrinking. Patent abdominal aortic and iliac artery stents No evidence of any endoleak. Technically difficult study The stents and the landing zones could not be visualized. Dr Reilly Reece MD [facility] (Electronically Signed) Final Date: 11 August 2020 09:16 S
--- NOTE | 2020-08-08 08:00 | USCV_ITS ---
José Miguel Bonilla Age: 80 Gender: M : 1940 Exam Date: 08/08/2020 07:03 Ordering Phys: Reilly Reece MD ([email or web address]) Technologist: Jenny Thomas Exam Location: [facility] [place] Indication: DISORDER OF ARTERIES AND ARTERIOLES Risk Factors: Previous Vascular Surgery: Right Brachial BP: / Left Brachial BP: / Right Left Velocity (cm/s) Spectral Plaque Velocity (cm/s) Spectral Plaque Syst/Diast Broadening Syst/Diast Broadening 88.60/ 19.70 Prox CCA 91.10 / 19.30 78.80/ 15.20 Mid CCA 80.30 / 13.30 65.40/ 16.10 Distal CCA 99.20 / 17.60 70.70/ 21.50 Prox ICA 82.70 / 23.20 78.80/ 23.30 Mid ICA 110.30/ 27.60 62.80/ 17.90 Distal ICA 102.50/ 27.60 48.00 ECA 111.40 1.00 ICA/CCA 1.37 Antegrade Vertebral Antegrade 56.10/ 14.90 cm/s 77.20/ 19.80 cm/s Bi Subclavian Tri 82.30 88.20 FINDINGS HIGH CCA BIFURICATION BILATERALLY Moderate dense irregular plaques at the bifurcations and internal carotid arteries bilaterally Intimal thickening in the common carotid arteries bilaterally. Antegrade flow in the vertebral arteries bilaterally Normal Doppler flow velocities in the external carotid arteries bilaterally CONCLUSIONS Moderate dense irregular plaques at the bifurcations and internal carotid arteries bilaterally with Doppler features consistent with less than 50% stenosis. No significant stenosis in the external carotid or subclavian arteries bilaterally Antegrade flow in the vertebral arteries bilaterally Dr Reilly Reece MD [facility] (Electronically Signed) Final Date: 11 August 2020 09:00 S
== END 2020-08-08 06:48 | disposition home or self-care (01) ==
PROVIDERS: PCP Internal Medicine; Visit Provider Internal Medicine Cardiovascular Disease
DX: I71.4 Abdominal aortic aneurysm, without rupture (principal); I65.23 Occlusion and stenosis of bilateral carotid arteries
CPT/HCPCS: 93880; 93978

== ENCOUNTER 2020-08-11 09:24 | Outpatient (CLI) | payer OTHER, SELFPAY ==
--- NOTE | 2020-08-11 09:30 | XRR_ITS ---
PROCEDURE INFORMATION: Exam: XR Abdomen Exam date and time: 08/11/2020 9:30 AM Age: 80 years old Clinical indication: Condition or disease; Kidney or ureter condition; Calculus (stone) in ureter; Prior surgery; Surgery type: Gb, hernia; Patient HX: HX of bone cancer; Additional info: Ureteral stone TECHNIQUE: Imaging protocol: XR of the abdomen. Views: Frontal supine view of the abdomen. 1 View. COMPARISON: CR XR KUB [id number] 07/17/2020 8:49 AM FINDINGS: Gastrointestinal tract: The bowel gas pattern is nonspecific. Air filled large bowel including distal rectal gas. Organs: Calcifications times 04/07/2019 5 mm and adjacent calcification of 13 mm consistent with the given history. Correlate. Likely left renal pelvis/proximal ureter. Vasculature: Aortoiliac stent graft Bones/joints: Unremarkable. XR/XR KUB [id number] IMPRESSION: The bowel gas pattern is nonspecific. Air filled large bowel including distal rectal gas.
== END 2020-08-11 09:25 | disposition home or self-care (01) ==
LOC: RAD 09:26
PROVIDERS: PCP Family Medicine; Visit Provider Urology
DX: N20.1 Calculus of ureter (principal)
CPT/HCPCS: 74018; 81003

== ENCOUNTER 2020-09-02 05:47 | Outpatient (RCR) | payer OTHER, SELFPAY ==
[2020-08-15 10:49] LABS: Basophils # 0.1 10^3/uL (0.0-0.1); Basophils % 1.2 %; Eosinophils # 0.1 10^3/uL (0.0-0.8); Eosinophils % 0.9 %; Hematocrit 22.4 % (42.0-52.0); Lymphocytes # 0.8 10^3/uL (0.8-4.8); Lymphocytes % 13.6 %; Mean Corpuscular HGB Conc 31.3 g/dL (30.0-36.0); Mean Corpuscular Hemoglobin 29.7 pg (28.0-34.0); Mean Corpuscular Volume 94.9 fL (80-94); Mean Platelet Volume 11.6 fL (7.4-10.4); Monocytes # 0.6 10^3/uL (0.2-0.9); Neutrophils # 3.83 10^3/uL (1.8-7.7); Neutrophils % 66.5 %; Nucleated Red Blood Cells # 0.2 /100WBC; Nucleated Red Blood Cells % 3.7 %; Platelet Count 361 10^3/cmm (130-400); Positive C 1; Positive M 1; Red Blood Count 2.36 10^6/uL (4.1-5.3); Red Cell Distribution Width 23.9 % (12.1-15.1); White Blood Count 5.8 10^3/uL (4.0-10.0)
[2020-08-15 11:00] LABS: Slide Review Slide Review Perform
[2020-08-18] VITALS (11 sets, daily range): BP systolic 99–106; BP diastolic 50–64; PULSE 78–86; RESP 18; TEMP 36.6–36.8; O2SAT 97–98
[2020-08-18] MEDS: diphenhydrAMINE 25 mg Capsule PO (09:45)
[2020-08-18] MEDS: sodium chloride 0.9% 250 ML 999 ML IV (10:00)
[2020-08-18] MEDS: FUROsemide 10 mg/mL SDV 2mL 20 MG IV (12:20)
[2020-08-27 08:54] LABS: Basophils % 0.6 %; Eosinophils % 0.6 %; Hematocrit 25.9 % (42.0-52.0); Hemoglobin 7.8 g/dL (11.7-16.6); Lymphocytes # 0.8 10^3/uL (0.8-4.8); Mean Corpuscular HGB Conc 30.1 g/dL (30.0-36.0); Mean Corpuscular Hemoglobin 29.4 pg (28.0-34.0); Mean Corpuscular Volume 97.7 fL (80-94); Mean Platelet Volume 11.9 fL (7.4-10.4); Monocytes # 0.3 10^3/uL (0.2-0.9); Monocytes % 8.4 %; Neutrophils # 1.94 10^3/uL (1.8-7.7); Neutrophils % 62.4 %; Nucleated Red Blood Cells % 0 %; Platelet Count 297 10^3/cmm (130-400); Red Blood Count 2.65 10^6/uL (4.1-5.3); Red Cell Distribution Width 23.2 % (12.1-15.1); White Blood Count 3.1 10^3/uL (4.0-10.0)
[2020-08-27 10:12] LABS: Alanine Aminotransferase 77 U/L (0-41); Albumin Level 4.2 g/dL (3.5-5.2); Alkaline Phosphatase 86 IU/L (40-130); Anion Gap 11.5 (5-19); Aspartate Amino Transferase 63 U/L (0-40); Blood Urea Nitrogen 16 mg/dL (8-23); Calcium 8.9 mg/dL (8.5-10.5); Carbon Dioxide 31 mmol/L (22-29); Chloride 99 mmol/L (98-107); Glucose 162 mg/dL (65-115); Iron 173 ug/dL (59-158); Lactate Dehydrogenase 240 U/L (135-225); Osmolality Calculated 289 mOsm/kg (285-295); Potassium 4.5 mmol/L (3.5-5.1); Sodium 137 mmol/L (136-145); Total Protein 6.2 g/dL (6.6-8.7)
[2020-08-27 10:24] LABS: Ferritin 2976 ng/mL (30-400)
[2020-08-27 10:28] LABS: Unsaturated Iron Binding < 17 ug/dL (112-347)
[2020-08-28] MEDS: diphenhydrAMINE 25 mg Capsule PO (09:15)
[2020-08-28] MEDS: sodium chloride 0.9% 250 ML 75 ML IV (09:15)
[2020-08-28 09:30] VITALS: BP 103/39; PULSE 82; RESP 18; TEMP 36.3; O2SAT 96
[2020-08-28 09:45] VITALS: BP 104/52; PULSE 74; RESP 18; TEMP 36.3; O2SAT 97
[2020-08-28] MEDS: FUROsemide 10 mg/mL SDV 2mL 20 MG IV (11:20)
[2020-08-28 13:00] VITALS: BP 94/46; PULSE 74; RESP 18; TEMP 36.6; O2SAT 97
[2020-09-02 13:36] LABS: Basophils % 0.3 %; Hematocrit 28.1 % (42.0-52.0); Hemoglobin 8.7 g/dL (11.7-16.6); Lymphocytes # 1.1 10^3/uL (0.8-4.8); Lymphocytes % 27.7 %; Mean Corpuscular Hemoglobin 29.9 pg (28.0-34.0); Mean Corpuscular Volume 96.6 fL (80-94); Mean Platelet Volume 12.3 fL (7.4-10.4); Monocytes # 0.3 10^3/uL (0.2-0.9); Monocytes % 7.6 %; Neutrophils # 2.46 10^3/uL (1.8-7.7); Neutrophils % 62.6 %; Nucleated Red Blood Cells % 0 %; Platelet Count 291 10^3/cmm (130-400); Red Blood Count 2.91 10^6/uL (4.1-5.3); Red Cell Distribution Width 22.4 % (12.1-15.1); White Blood Count 3.9 10^3/uL (4.0-10.0)
[2020-09-02 13:55] LABS: Digoxin 0.6 ng/mL (0.6-1.2)
[2020-09-02 14:07] LABS: Cholesterol 95 mg/dL (0-200); HDL Cholesterol 56 mg/dL (60-100); LDL Cholesterol Calculated 28 mg/dL (50-129); Triglycerides 56 mg/dL (0-150)
== END 2020-09-03 23:59 | disposition home or self-care (01) ==
LOC: ONCMED 05:47
PROVIDERS: Internal Medicine Cardiovascular Disease; PCP Family Medicine; Visit Provider Internal Medicine Medical Oncology
DX: E83.111 Hemochromatosis due to repeated red blood cell transfusions (principal); D46.Z Other myelodysplastic syndromes; Z79.899 Other long term (current) drug therapy
CPT/HCPCS: 36415; 36430; 80053; 80061; 80162; 82728; 83540; 83550; 83615; 85025; 86850; 86900; 86920; J1940; J7050; P9040

== ENCOUNTER 2020-09-30 05:39 | Outpatient (RCR) | payer OTHER, MEDICARE, SELFPAY ==
[2020-09-09 13:35] LABS: Basophils % 0.6 %; Eosinophils % 0.6 %; Hematocrit 24.7 % (42.0-52.0); Hemoglobin 7.5 g/dL (11.7-16.6); Lymphocytes # 1.2 10^3/uL (0.8-4.8); Lymphocytes % 24.9 %; Mean Corpuscular HGB Conc 30.4 g/dL (30.0-36.0); Mean Corpuscular Hemoglobin 29.2 pg (28.0-34.0); Mean Corpuscular Volume 96.1 fL (80-94); Mean Platelet Volume 11.7 fL (7.4-10.4); Monocytes # 0.4 10^3/uL (0.2-0.9); Nucleated Red Blood Cells % 0 %; Platelet Count 387 10^3/cmm (130-400); Red Blood Count 2.57 10^6/uL (4.1-5.3); Red Cell Distribution Width 22.4 % (12.1-15.1); White Blood Count 4.6 10^3/uL (4.0-10.0)
[2020-09-09 14:42] LABS: Alanine Aminotransferase 54 U/L (0-41); Albumin Level 4.6 g/dL (3.5-5.2); Alkaline Phosphatase 90 IU/L (40-130); Anion Gap 15.4 (5-19); Aspartate Amino Transferase 50 U/L (0-40); Blood Urea Nitrogen 17 mg/dL (8-23); Calcium 9.4 mg/dL (8.5-10.5); Carbon Dioxide 30 mmol/L (22-29); Chloride 100 mmol/L (98-107); Globulin 2.2 g/dL (1.3-4.6); Glucose 104 mg/dL (65-115); Iron 162 ug/dL (59-158); Lactate Dehydrogenase 248 U/L (135-225); Osmolality Calculated 294 mOsm/kg (285-295); Potassium 4.4 mmol/L (3.5-5.1); Sodium 141 mmol/L (136-145); Total Bilirubin 1.9 mg/dL (0.15-1.2); Total Protein 6.8 g/dL (6.6-8.7)
[2020-09-09 14:58] LABS: Ferritin 2738 ng/mL (30-400)
[2020-09-09 15:00] LABS: Unsaturated Iron Binding < 17 ug/dL (112-347)
[2020-09-10] MEDS: diphenhydrAMINE 25 mg Capsule PO (13:50)
[2020-09-10] MEDS: sodium chloride 0.9% 250 ML 30 ML IV (13:50)
[2020-09-10 14:00] VITALS: BP 103/55; PULSE 74; RESP 18; TEMP 36.8; O2SAT 99
[2020-09-10 14:15] VITALS: BP 106/57; PULSE 74; RESP 18; TEMP 36.8; O2SAT 99
[2020-09-10] MEDS: FUROsemide 10 mg/mL SDV 2mL 20 MG IV (15:40)
[2020-09-10 15:45] VITALS: BP 106/51; PULSE 65; RESP 18; TEMP 36.6; O2SAT 99
[2020-09-16 12:32] LABS: Basophils % 0.7 %; Hematocrit 28.8 % (42.0-52.0); Hemoglobin 8.9 g/dL (11.7-16.6); Lymphocytes # 1.1 10^3/uL (0.8-4.8); Lymphocytes % 27.3 %; Mean Corpuscular HGB Conc 30.9 g/dL (30.0-36.0); Mean Corpuscular Hemoglobin 29.8 pg (28.0-34.0); Mean Corpuscular Volume 96.3 fL (80-94); Mean Platelet Volume 12.4 fL (7.4-10.4); Monocytes # 0.4 10^3/uL (0.2-0.9); Monocytes % 8.7 %; Neutrophils # 2.47 10^3/uL (1.8-7.7); Neutrophils % 61.3 %; Nucleated Red Blood Cells % 0 %; Platelet Count 271 10^3/cmm (130-400); Red Blood Count 2.99 10^6/uL (4.1-5.3); Red Cell Distribution Width 22.9 % (12.1-15.1)
[2020-09-16 12:54] LABS: Alanine Aminotransferase 46 U/L (0-41); Albumin Level 4.2 g/dL (3.5-5.2); Alkaline Phosphatase 69 IU/L (40-130); Anion Gap 13.7 (5-19); Aspartate Amino Transferase 33 U/L (0-40); Blood Urea Nitrogen 19 mg/dL (8-23); Calcium 8.6 mg/dL (8.5-10.5); Carbon Dioxide 28 mmol/L (22-29); Chloride 99 mmol/L (98-107); Glucose 106 mg/dL (65-115); Iron 168 ug/dL (59-158); Lactate Dehydrogenase 185 U/L (135-225); Osmolality Calculated 285 mOsm/kg (285-295); Potassium 4.7 mmol/L (3.5-5.1); Sodium 136 mmol/L (136-145); Total Bilirubin 3.7 mg/dL (0.15-1.2); Total Protein 6.2 g/dL (6.6-8.7)
[2020-09-16 13:07] LABS: Ferritin 2544 ng/mL (30-400)
[2020-09-16 13:08] LABS: Percent Saturation 90.8 % (20-50); Total Iron Binding Capacity 185 mcg/dl; Unsaturated Iron Binding < 17 ug/dL (112-347)
--- NOTE | 2020-09-20 12:11 | ONC FU_ITS ---
Dr. Lew Patient Follow-Up Note Patient: José Miguel Bonilla Unit #: [id number]: [id number] Dicatated By: Ammon Lew M.D.Date of Visit:Sep 16, 2020 Onc Med Follow-up/Prog Note Chief Complaint: Myelodysplastic syndrome. History of Present Illness: This is a 80 year-old man with myelodysplastic syndrome (MDS with unilineage dysplasia). He was seen initially on 09/30/2015 in regard to a moderately severe anemia. The available records included multiple blood counts dating back to August 2014. At that time his hemoglobin was 10.3 g with white blood cell count 6400 and platelet count 325,000. The red cell indices were macrocytic with MCV 110 and MCH 37. A more recent CBC, from 08/20/2015, showed a hemoglobin down to 9.7 g with hematocrit 29%. The red cell indices were similar. White blood cell count was 4900 and platelet count was 337,000. The differential showed 56% neutrophils, 30% lymphocytes, and 10% monocytes. B12 was checked several times and was normal. Folate level was low at 6.7 ng/mL. The serum iron was normal at 141 mcg/dL. 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 He had negative stool Hemoccult, though an upper GI endoscopy apparently did show ulcers. Colonoscopy was unremarkable. His evaluation also included CT abdomen/pelvis in May 2015. It showed an aneurysm of the distal abdominal aorta extending to, but not into, the bifurcation. It appeared stable compared to a previous study from March 2013. There were no acute findings noted on that study. His laboratory studies on 09/30/2015 included CBC showing hemoglobin 9.4 g, white blood cell count 6400, and platelet count 420,000. The red cell indices were macrocytic with MCV 110 and MCH 37. The uncorrected reticulocyte count was 2.0%. Comprehensive metabolic profile was unremarkable except for mildly elevated total bilirubin at 2.9 mg/dL. The liver enzymes were normal.. LDH was normal at 183 mg/dL and haptoglobin was low normal at 53 mg/dL. Ferritin was elevated at 520 ng/mL. The homocysteine level was slightly elevated at 11.6 ???mol/L with methylmalonic acid normal at 198 nmol/L. Protein electrophoresis was normal. He underwent bone marrow aspiration/biopsy on 10/15/2015. The marrow was hypercellular, estimated at 90-95%. There was limited erythroid dyspoiesis. There was no evidence of infiltrative process. Blasts were reported at 0%. Iron stores were 3+ with occasional ring sideroblasts identified, estimated at less than 5-10% of the population. There was 1+/4+ reticulin staining. The chromosome analysis showed no metaphase cells for analysis. The FISH panel for MDS showed no abnormalities. 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 During subsequent follow-up his hemoglobin had declined to a low of 8.2 g/dL on 12/16/2015. His baseline erythropoietin level was 152 mIU/mL. On 12/18/2015 he began a trial of therapy with Procrit, initially at 40,000 units weekly. As of 01/13/2016, after 4 weeks of treatment, the hemoglobin was basically stable at 8.5 g. At that point the Procrit dosage was escalated to 60,000 U weekly. His hemoglobin level had subsequently increased to a maximum level 10.1 g on 03/09/2016. It then drifted downward gradually. As of 07/20/2016 it was down to 8.7 g. As of his followup visit on 08/04/2016 he had remained transfusion independent. However, after that his hemoglobin had shown further decline to 7.9 g, and at that point I did opt to stop the Procrit and transition his treatment to Revlimid. He began his treatment with Revlimid 10 mg daily on 08/16/2016. His baseline hemoglobin was 8.2 g. He did opt to have a transfusion of 2 units of packed red blood cells. Thus far he has tolerated the Revlimid well and during follow-up his blood count had stabilized with hemoglobin in the range of 9.5 g. His CBC on 11/23/2016 showed further increase in the hemoglobin to 10.4 g. As of 02/15/2017 his hemoglobin had declined somewhat, to 8 g with WBC moderately decreased at 2700 and platelet count normal at 200,000. He continued treatment with Revlimid. On 03/11/2017 he was seen [facility] with flu-like symptoms. His nasal swab reportedly was positive for influenza, and he did start treatment with Tamiflu. His CBC showed a further decline in his hemoglobin to 6.5 g, and he was found to be jaundiced, total bilirubin 6.1 mg/dL. He was transfused 2 units of PRBC. On his further laboratory evaluation on 03/14/2017 his hemoglobin had increased to only 7.8 g. The uncorrected reticulocyte count was 3.2%. His total bilirubin was still elevated at 5.7 mg/dL with the direct bilirubin normal at 0.60 mg/dL. LDH was normal at 218 U/L. The haptoglobin level was low at 21.9 mg/dL. HEMA was negative. B12 and folate levels were normal. He was advised to stop Revlimid. During subsequent follow-up his haptoglobin level showed further decline, to as low as 9.3 mg/dL on 03/28/2017. However, at that point his hemoglobin remained adequate at 9.4 g, his bilirubin was down to 3.0 mg/dL, and his LDH remained normal. He had a follow-up CTA of the abdomen/pelvis on 03/22/2017. It again showed evidence infrarenal abdominal aortic aneurism extending to the aortic bifurcaton. It measured 4.5 x 4.6 x 4.7 cm. 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 On 05/13/2017 he underwent coronary angioplasty with stent placement of the right coronary artery. On 05/30/2017 he underwent endovascular repair of infrarenal abdominal aortic aneurysm. He tolerated both procedures well, though during that time he did require transfusion of a total of 9 U of packed red blood cells. He hen continued on aspirin 81 mg daily together with Plavix 75 mg daily. He remained off Revlimid. During subsequent follow-up, he remained transfusion dependent. He then underwent repeat bone marrow aspiration/biopsy on 08/04/2017. The marrow was hypercellular, 100% cellularity. Megakaryocytes were noted to be increased in number and there was associated megakaryocyte dyspoiesis. There was just limited dyserythropoiesis. Ring sideroblasts were present, comprising more than 50% of the nrbc population. Blasts were estimated at 9% by morphology and 4% by flow cytometry. The FISH panel for MDS was unrevealing and the standard chromosome analysis was normal. 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 His IPSS-R score calculated to 3.5 or 4.5, depending on which blast count was used. Either score was intermediate risk category. With those findings, he was advised to undergo trial of therapy with 5-azacytidine. As of 08/26/2017 his ferritin level had increased to 1076 ng/mL. At that point he began chelation therapy with Jadenu 1440 mg daily. On 08/29/2017 he began cycle 1 of treatment with 5-azacytidine. It was administered subcutaneously for 7 days. He tolerated the 5-azacytidine without acute toxicity. He subsequently developed nausea with the Jadenu, and the dosage was reduced to 720 mg daily. He continued treatment with 5-azacytidine at 4-week intervals. He required further transfusions on 10/11/2017, on 10/18/2017, and on 11/09/2017. Thereafter his hemoglobin level stabilized above transfusion threshold. During subsequent follow-up, he had some adjustments in his treatment interval, but he remained transfusion independent. As of July 2018 he was able to stop Jadenu, with his ferritin level having decreased to 357 ng/mL. His other medical illnesses include hypertension, hyperlipidemia, atrial fibrillation, coronary artery disease, peripheral arterial disease, GERD, and nephrolithiasis. He also has fairly long-standing psoriasis. In the past he had been on treatment with methotrexate. His procedural history includes coronary angioplasty/stent placement followed by endovascular repair of abdominal aortic aneurysm in May 2017. He had previously smoked 2 packs of cigarettes daily, but he quit smoking more than 20 years ago. INTERIM HISTORY: In November 2018 he began to show gradual decline in his hemoglobin, though it continued to fluctuate between 8 and 9 g. As of 01/15/2019 it had further decreased to 7.5 g, at which point he did receive a PRBC transfusion. He continued with cycle 15 of 5-azacytidine on 02/12/2019. He was then transfused again on 02/27/2019 with his hemoglobin back down to 7.1 g. During the past month or so he had developed significant worsening of his back pain. He also is having pain in his left rib cage area following some minor trauma. A bone scan on 03/12/2019 showed a punctate area of bony uptake involving the left anterior approximately fifth rib, consistent with trauma. There was noted to be a compression fracture with bony uptake involving a midthoracic vertebral body. Diffuse patchy uptake involving the calvarium was felt to be likely related to the myelodysplastic syndrome and bone marrow hyperplasia. On 04/13/2019 he presented to the emergency room with worsening back pain. CT abdomen/pelvis at that time showed multiple chronic compression fracture deformities but with progressed height loss of L1 compared to the prior exam and with mild adjacent soft tissue edema compatible with new/progressive L1 fracture. There was minimal retropulsed bone measuring up to 3 mm. There was no critical stenosis. Also noted was a new fracture of the superior endplate of T9 without any retropulsed bone. There was evidence of partial small bowel obstruction with a gradual change to collapsed loops of bowel. I had seen him for a follow-up visit on 05/10/2019. At that point he was still having severe back pain, presumably due to the vertebral compression fractures, and he had very limited activity. He continued transfusion support for the anemia. [facility] [place] [facility], I assume either a vertebroplasty or a kyphoplasty. On 06/26/2019 he began a trial of therapy with luspatercept 1 mg/kg by subcutaneous injection every 3 weeks for the myelodysplastic syndrome. On 07/09/2019 he underwent open right inguinal hernia repair with mesh placement. He tolerated the procedure well. On 07/17/2019 he received a 2nd dose of luspatercept. He required PRBC transfusion on 08/01/2019. As of 08/09/2019 the luspatercept dosage was increased to 105 mg, but he again required transfusion on 08/16/2019 and on 09/13/2019. At that point I did opt to stop treatment with luspatercept. His blood counts initially stabilized, but he then required transfusion again on 10/18/2019, and he has since then remained transfusion dependent. He is seen for a follow-up visit. He continues to have very limited activity. He is able to ambulate short distances with a walker, but he mostly gets around in a wheelchair. He does require a lot of assistance at home. His ECOG score is 3. His appetite has been okay. He does not have fever or night sweats. He complains that his rib cage is tight when he breathes, and he has been having some mild pain in the right rib area. He does have some shortness of breath. He has cough attributable to postnasal drip. In addition to the rib discomfort, he also has occasional stinging pain in his chest. He has no GI complaints other than constipation, which is chronic. It is being managed adequately with medication. Bladder function also remains adequate, though he says that lately his urine has looked cloudy. He has back pain, but his back is not bothering him as much now as it had been. The pain is managed adequately with medication. He does not complain of headache. He sometimes has dizziness. He has numbness/tingling in his hands and feet. Medications: Aspirin 1 (81 mg) Tablet, enteric coated Oral daily, B-6 1 (200 mg) Tablet Oral t.i.d., Digoxin 1 (125 mcg) Tablet Oral daily, Duragesic-50 1 Patch(es) (of 50 mcg/hr) Patch 72 Hr Transdermal q 72 hours PRN, Folic Acid 1 (1 mg) Tablet Oral daily, Metoprolol Tartrate 1 Tablet (of 50 mg) Oral daily, oxyCODONE-Acetaminophen 1 Tablet (of 10-325 mg) Oral four times a day PRN, Plavix 1 (75 mg) Tablet Oral daily, Pravastatin Sodium 1 Tablet (of 20 mg) Oral daily, Reblozyl 1 Subcutaneous q 3 weeks, Tamsulosin HCl 1 Tablet (of 0.4 mg) Capsule Oral b.i.d. Allergies: No Known Allergies. Vital Signs: Performed on Sep 16, 2020 15:45 Height - 76.00 in Weight - 169.2 lbs (LOW) BSA - 2.06 sq.m BMI - 20.60 Temperature - 97.3 F (LOW) Pulse - 74 /min Respiration - 18 /min BP - 96/58 mm(hg) O2 Sat - 95 % (LOW) Pain - 4 Fatigue - 7 Physical Examination: Constitutional - He appears generally weak, Eyes - Sclerae nonicteric. Conjunctivae clear, ENMT - No lesions noted in the oral cavity, Hematologic/Lymphatic - No cervical, clavicular, or axillary adenopathy, Respiratory - Lungs sound clear with some decrease in air movement bilaterally, Cardiovascular - Heart rhythm is irregular. There is a II/ systolic murmur. There is no gallop or rub noted, Abdomen - Soft. Liver and spleen are not enlarged. There is no abdominal mass or ascites noted and there is no inguinal adenopathy, Extremities - There are mild venous stasis changes bilaterally. There is mild lower extremity edema, and there is also some chronic swelling of the right ankle, Neurologic - No focal neurologic deficits noted. Lab/Imaging: Test performed on Sep 16, 2020 12:14 Ferritin 2544 ng/mL Iron 168 mcg/dL LDH (Total) 185 U/L Sodium 136 mmol/L Iron Binding Capacity (TIBC) 185 mcg/dl Potassium 4.7 mmol/L % Iron Saturation 90.8 % Chloride 99 mmol/L CO2 28 mmol/L UIBC < 17 mcg/dL Anion Gap 13.7 BUN 19 mg/dL Creatinine 0.3 mg/dL Cr Clearance (Est) 216.75 mL/min Glucose 106 mg/dL Osmolality - Calculated 285 mOsm/kg Calcium 8.6 mg/dL Protein, Total 6.2 g/dL Albumin 4.2 g/dL Globulin 2.0 g/dL Bilirubin, Total 3.7 mg/dL ALT (SGPT) 46 U/L AST (SGOT) 33 U/L Alkaline Phosphatase 69 IU/L WBC 4.0 10 3/uL RBC 2.99 10 6/uL HGB 8.9 g/dL HCT 28.8 % MCV 96.3 fL MCH 29.8 pg MCHC 30.9 g/dL RDW 22.9 % Platelet Count 271 10 3/cmm MPV 12.4 fL Neutrophils 2.47 10 3/uL Lymphocytes 1.1 10 3/uL Monocytes 0.4 10 3/uL Eosinophils 0.0 10 3/uL Basophils 0.0 10 3/uL Neutrophil % 61.3 % Lymphocyte % 27.3 % Monocyte % 8.7 % Eosinophil % 1.0 % Basophils % 0.7 % NRBC % 0 % Problem List: 1. Myelodysplastic syndrome (refractory cytopenia with unileage dysplasia), intermediate risk by IPSS-R. 2. 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 3. Hypertension. 4. Hyperlipidemia. 5. Coronary artery diease. He underwent coronary angioplasty/stent placement on 05/12/2017. 6. On 05/30/2017 he underwent endovascular repair of infrarenal abdominal aortic aneurysm. 7. Atrial fibrillation. 8. Peptic ulcer disease/GERD. 9. Nephrolithiasis. 10. Osteoporosis with vertebral compression fractures. Problems Addressed with this Encounter and Plan: 1. Patient with myelodysplastic syndrome presenting with moderately severe macrocytic anemia. Bone marrow aspiration/biopsy on 10/15/2015 showed hypercellular marrow, estimated at 90-95%. There was mild erythroid dyspoiesis and there were ring sideroblasts identified, estimated at less than 5-10% of the population. Iron stores were 3+. The FISH panel for MDS showed no abnormalities. A standard chromosome study showed no metaphases for analysis. Overall, the findings were consistent with myelodysplastic syndrome (refractory cytopenia with unileage dysplasia). In December 2015 he began a trial of therapy with Procrit after his hemoglobin had dropped to 8.2 g. As of 01/13/2016 the dosage was escalated to 60,000 U weekly, as his hemoglobin at that point was basically stable at 8.5 g. He did show some response, with his hemoglobin increasing to 10.1g. It had subsequently drifted downward. As of his visit on 08/04/2016 his hemoglobin was down to 7.9 g. At that point the Procrit was discontinued. He began treatment with Revlimid 10 mg daily on 08/16/2016. He had noticed some worsening of his psoriasis after starting the Revlimid, but he had otherwise tolerated it well. His hemoglobin initially appeared to have stabilized in the range of 9.5 to 10 g. As of 02/15/2017 his hemoglobin had declined to 8 g. On 03/11/2017 he was confirmed to have influenza by nasal swab. His hemoglobin at that point had dropped to 6.5 g and he had become overtly jaundiced. He was transfused PRBC. 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 At that point I did opt to stop the Revlimid. During subsequent follow-up, his haptoglobin level recovered to normal and his bilirubin level returned to baseline. His LDH remained normal. He remained transfusion dependent. His repeat bone marrow aspiration/bipsy on 08/04/2017 showed 100% cellularity with associated megakaryocyte dyspoiesis and limited dyserythropoiesis. Ring sideroblasts were present, comprising more than 50% of the nrbc population. Blasts were estimated at 9% by morphology and 4% by flow cytometry. The FISH panel for MDS was unrevealing and the standard chromosome analysis was normal. 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 His IPSS-R score calculated to 3.5 or 4.5, depending on which blast count was used. Either score was intermediate risk category. He then began a course of treatment of 5-azacytidine, cycle 1 day 1 on 08/29/2017. It was administered subcutaneously for 7 days. He tolerated the treatment without any acute toxicity. He proceeded with cycle 2 of 5-azacytidine on 10/03/2017, and he then continued treatment at 4-week intervals. He continued to require transfusion up until 11/08/2017, but his hemoglobin then stabilized in the range of 10-11 g. During that time he had mild to moderately severe neutropenia and thrombocytopenia, and beginning with the 6th cycle I did make some adjustments in the treatment interval. He then continued to tolerate the treatment well, and he remained transfusion independent. However, by November 2018 there had been a gradual decline in his hemoglobin, which at that point was fluctuating between 8 and 9 g. As of 01/15/2019 the hemoglobin had dropped to 7.5 g, and he was then transfused 2 units PRBC. It was his first transfusion since November 2017. On 02/12/2019 he continued with cycle 15 of 5-azacytidine. He required transfusion again on 02/27/2019 with hemoglobin back down to 7.1 g. During followup he had been showing some decline in his performance status. He had developed significant worsening of his back pain, and bone scan did show evidence of a vertebral compression fracture in the mid thoracic spine. As he was clearly not responding to the 5-azacytidine, I did opt to stop the treatment. On 06/26/2019 he began a trial of therapy with luspatercept 1 mg/kg by subcutaneous injection. He then continued with his 2nd dose of luspatercept on 07/17/2019. He remained transfusion dependent, requiringd PRBC transfusion on 08/01/2019 and again on 08/16/2019 despite having an increase in the luspatercept dosage on 08/09/2019. He was then transfused again on 09/13/2019. Although initially he did appeared to have some response to the Luspatercept, it was very short-term, and treatment was stopped after the 4th injection. His further management was then limited to transfusion support with PRBC and symptomatic treatment measures. At this point he continues to have very limited activity, largely due to the back issues. He remains transfusion dependent, and he will continue PRBC transfusions as needed for hemoglobin less than 8 g. Blood counts are being monitored weekly. He will be scheduled for a follow-up visit in 3 months. 2. 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 This is probably of no clinical significance other than he may be more prone to iron overload if he does become transfusion dependent. As of 08/26/2017 his serum ferritin had increased to 1076 ng/mL, and he began treatment with Jadenu 1440 mg daily. He subsequently required a dose reduction to 720 mg due to GI side effects. It was stopped in July 2018 with his ferritin level decreased to 357 ng/mL. His ferritin level has since then increased significantly, now greater than 2000 ng/mL. As such, the Jadenu will be restarted. I will have him try the 1440 mg dosage. 3. He has osteoporosis with multiple vertebral compression fractures. He has had limited activity due to the back pain. The pain now is being managed adequately with oxycodone. Signed By: Ammon Lew M.D. <<Signature on File>>
[2020-09-23 11:56] LABS: Basophils % 0.8 %; Eosinophils # 0.1 10^3/uL (0.0-0.8); Eosinophils % 1.4 %; Hematocrit 26.4 % (42.0-52.0); Lymphocytes % 20.7 %; Mean Corpuscular HGB Conc 30.3 g/dL (30.0-36.0); Mean Corpuscular Hemoglobin 29.7 pg (28.0-34.0); Mean Corpuscular Volume 98.1 fL (80-94); Mean Platelet Volume 11.2 fL (7.4-10.4); Monocytes # 0.5 10^3/uL (0.2-0.9); Monocytes % 9.2 %; Neutrophils # 3.38 10^3/uL (1.8-7.7); Neutrophils % 67.3 %; Nucleated Red Blood Cells % 0 %; Platelet Count 297 10^3/cmm (130-400); Red Blood Count 2.69 10^6/uL (4.1-5.3); Red Cell Distribution Width 23.3 % (12.1-15.1)
[2020-09-30] VITALS (10 sets, daily range): BP systolic 99–112; BP diastolic 47–53; PULSE 67–82; RESP 18; TEMP 36.1–36.7; O2SAT 94–99
[2020-09-30 08:56] LABS: Basophils # 0.1 10^3/uL (0.0-0.1); Basophils % 0.8 %; Eosinophils # 0.1 10^3/uL (0.0-0.8); Eosinophils % 1.1 %; Hematocrit 26.9 % (42.0-52.0); Hemoglobin 8.2 g/dL (11.7-16.6); Lymphocytes # 0.9 10^3/uL (0.8-4.8); Lymphocytes % 14.2 %; Mean Corpuscular HGB Conc 30.5 g/dL (30.0-36.0); Mean Corpuscular Hemoglobin 30.4 pg (28.0-34.0); Mean Corpuscular Volume 99.6 fL (80-94); Monocytes # 0.4 10^3/uL (0.2-0.9); Monocytes % 7.1 %; Neutrophils # 4.69 10^3/uL (1.8-7.7); Neutrophils % 75.7 %; Nucleated Red Blood Cells % 0.3 %; Platelet Count 341 10^3/cmm (130-400); Red Cell Distribution Width 24.7 % (12.1-15.1); White Blood Count 6.2 10^3/uL (4.0-10.0)
[2020-09-30] MEDS: sodium chloride 0.9% 250 ML 999 ML IV (10:20)
[2020-09-30] MEDS: diphenhydrAMINE 25 mg Capsule PO (10:20)
[2020-09-30] MEDS: FUROsemide 10 mg/mL SDV 2mL 20 MG IV (12:12)
== END 2020-10-04 23:59 | disposition home or self-care (01) ==
LOC: ONCMED 05:39
PROVIDERS: PCP Family Medicine; Visit Provider Internal Medicine Medical Oncology
DX: E83.111 Hemochromatosis due to repeated red blood cell transfusions (principal); D46.Z Other myelodysplastic syndromes; D50.9 Iron deficiency anemia, unspecified; I10 Essential (primary) hypertension; E78.5 Hyperlipidemia, unspecified; I25.10 Atherosclerotic heart disease of native coronary artery without angina pectoris; Z95.5 Presence of coronary angioplasty implant and graft; I48.20 Chronic atrial fibrillation, unspecified; K21.9 Gastro-esophageal reflux disease without esophagitis; K27.7 Chronic peptic ulcer, site unspecified, without hemorrhage or perforation; N20.0 Calculus of kidney; M81.0 Age-related osteoporosis without current pathological fracture; M48.50XA Collapsed vertebra, not elsewhere classified, site unspecified, initial encounter for fracture; Z79.899 Other long term (current) drug therapy
CPT/HCPCS: 36415; 36430; 80053; 82728; 83540; 83550; 83615; 85025; 86850; 86900; 86920; 99215; J1940; J7050; P9040

== ENCOUNTER 2020-10-29 08:25 | Outpatient (RCR) | payer OTHER, MEDICARE, SELFPAY ==
[2020-10-07 10:41] LABS: Basophils % 0.6 %; Eosinophils % 0.6 %; Hematocrit 29.1 % (42.0-52.0); Lymphocytes # 1.1 10^3/uL (0.8-4.8); Lymphocytes % 21.1 %; Mean Corpuscular HGB Conc 30.9 g/dL (30.0-36.0); Mean Corpuscular Hemoglobin 30.1 pg (28.0-34.0); Mean Corpuscular Volume 97.3 fL (80-94); Mean Platelet Volume 10.4 fL (7.4-10.4); Monocytes # 0.4 10^3/uL (0.2-0.9); Monocytes % 8.7 %; Neutrophils # 3.47 10^3/uL (1.8-7.7); Neutrophils % 68.2 %; Nucleated Red Blood Cells % 0 %; Platelet Count 306 10^3/cmm (130-400); Red Blood Count 2.99 10^6/uL (4.1-5.3); Red Cell Distribution Width 23.9 % (12.1-15.1); White Blood Count 5.1 10^3/uL (4.0-10.0)
[2020-10-14] VITALS (10 sets, daily range): BP systolic 95–105; BP diastolic 56–64; PULSE 72–79; RESP 18; TEMP 36.6–36.9; O2SAT 94–97
[2020-10-14 08:46] LABS: Basophils % 0.8 %; Eosinophils # 0.1 10^3/uL (0.0-0.8); Eosinophils % 1.1 %; Hematocrit 25.8 % (42.0-52.0); Hemoglobin 7.9 g/dL (11.7-16.6); Lymphocytes # 0.9 10^3/uL (0.8-4.8); Lymphocytes % 17.4 %; Mean Corpuscular HGB Conc 30.6 g/dL (30.0-36.0); Mean Corpuscular Volume 98.1 fL (80-94); Mean Platelet Volume 11.4 fL (7.4-10.4); Monocytes # 0.4 10^3/uL (0.2-0.9); Monocytes % 7.5 %; Neutrophils % 72.6 %; Nucleated Red Blood Cells % 0 %; Platelet Count 333 10^3/cmm (130-400); Red Blood Count 2.63 10^6/uL (4.1-5.3); Red Cell Distribution Width 23.8 % (12.1-15.1); White Blood Count 5.2 10^3/uL (4.0-10.0)
[2020-10-14 09:03] LABS: Alanine Aminotransferase 47 U/L (0-41); Albumin Level 4.2 g/dL (3.5-5.2); Alkaline Phosphatase 66 IU/L (40-130); Anion Gap 12.9 (5-19); Aspartate Amino Transferase 47 U/L (0-40); Blood Urea Nitrogen 19 mg/dL (8-23); Calcium 8.8 mg/dL (8.5-10.5); Carbon Dioxide 30 mmol/L (22-29); Chloride 103 mmol/L (98-107); Globulin 2.3 g/dL (1.3-4.6); Glucose 188 mg/dL (65-115); Iron 155 ug/dL (59-158); Lactate Dehydrogenase 174 U/L (135-225); Osmolality Calculated 301 mOsm/kg (285-295); Percent Saturation 55.3 % (20-50); Potassium 3.9 mmol/L (3.5-5.1); Sodium 142 mmol/L (136-145); Total Bilirubin 2.1 mg/dL (0.15-1.2); Total Iron Binding Capacity 280 mcg/dl; Total Protein 6.5 g/dL (6.6-8.7); Unsaturated Iron Binding 125 ug/dL (112-347)
[2020-10-14 09:21] LABS: Ferritin 2850 ng/mL (30-400)
[2020-10-14] MEDS: diphenhydrAMINE 25 mg Capsule PO (10:15)
[2020-10-14] MEDS: sodium chloride 0.9% 250 ML 999 ML IV (13:10)
[2020-10-14] MEDS: FUROsemide 10 mg/mL SDV 2mL 20 MG IV (13:10)
[2020-10-21 12:09] LABS: Basophils % 0.8 %; Eosinophils % 0.5 %; Hematocrit 29.1 % (42.0-52.0); Hemoglobin 9.2 g/dL (11.7-16.6); Lymphocytes # 1.1 10^3/uL (0.8-4.8); Lymphocytes % 29.3 %; Mean Corpuscular HGB Conc 31.6 g/dL (30.0-36.0); Mean Corpuscular Hemoglobin 30.6 pg (28.0-34.0); Mean Corpuscular Volume 96.7 fl (80-94); Mean Platelet Volume 12.9 fL (7.4-10.4); Monocytes # 0.3 10^3/uL (0.2-0.9); Monocytes % 7.7 %; Neutrophils # 2.31 10^3/uL (1.8-7.7); Neutrophils % 61.4 %; Nucleated Red Blood Cells % 0 %; Platelet Count 266 10^3/cmm (130-400); Red Blood Count 3.01 10^6/uL (4.1-5.3); Red Cell Distribution Width 21.7 % (12.1-15.1); White Blood Count 3.8 10^3/uL (4.0-10.0)
[2020-10-28 13:12] LABS: Basophils % 0.7 %; Eosinophils # 0.1 10^3/uL (0.0-0.8); Eosinophils % 1.7 %; Hematocrit 24.7 % (42.0-52.0); Hemoglobin 7.7 g/dL (11.7-16.6); Lymphocytes # 0.9 10^3/uL (0.8-4.8); Lymphocytes % 20.7 %; Mean Corpuscular HGB Conc 31.2 g/dL (30.0-36.0); Mean Corpuscular Hemoglobin 30.8 pg (28.0-34.0); Mean Corpuscular Volume 98.8 fl (80-94); Mean Platelet Volume 11.9 fL (7.4-10.4); Monocytes # 0.4 10^3/uL (0.2-0.9); Monocytes % 8.6 %; Neutrophils # 2.86 10^3/uL (1.8-7.7); Neutrophils % 68.1 %; Nucleated Red Blood Cells % 0 %; Platelet Count 344 10^3/cmm (130-400); Red Cell Distribution Width 21.8 % (12.1-15.1); White Blood Count 4.2 10^3/uL (4.0-10.0)
[2020-10-29] VITALS (10 sets, daily range): BP systolic 108–118; BP diastolic 69–74; PULSE 71–76; RESP 18; TEMP 36.6; O2SAT 96–98
[2020-10-29] MEDS: diphenhydrAMINE 25 mg Capsule PO (08:30)
[2020-10-29] MEDS: sodium chloride 0.9% 250 ML 999 ML IV (08:40)
[2020-10-29] MEDS: FUROsemide 10 mg/mL SDV 2mL 20 MG IV (10:55)
== END 2020-10-29 20:39 | disposition home or self-care (01) ==
LOC: ONCMED 08:25
PROVIDERS: PCP Family Medicine; Visit Provider Internal Medicine Medical Oncology
DX: E83.111 Hemochromatosis due to repeated red blood cell transfusions (principal); D46.Z Other myelodysplastic syndromes; D64.9 Anemia, unspecified; Z79.899 Other long term (current) drug therapy
CPT/HCPCS: 36415; 36430; 80053; 82728; 83540; 83550; 83615; 85025; 86850; 86900; 86920; J1940; J7050; P9040

== ENCOUNTER 2020-10-29 20:39 | Emergency (ER) | payer OTHER, MEDICARE, SELFPAY ==
[2020-10-29 21:38] VITALS: BP 97/54; PULSE 75; RESP 16; TEMP 37.3; O2SAT 94; BMI 21.7
--- NOTE | 2020-10-29 21:54 | CTR_ITS ---
PROCEDURE INFORMATION: Exam: CT Abdomen And Pelvis Without Contrast Exam date and time: 10/29/2020 9:54 PM Age: 80 years old Clinical indication: Prior surgery; Surgery type: Gb. Aortic graft. Hip. ; Patient HX: Hematuria. Hisory of nephrolithiasis. TECHNIQUE: Imaging protocol: Computed tomography of the abdomen and pelvis without contrast. Radiation optimization: All CT scans at this facility use at least one of these dose optimization techniques: automated exposure control; mA and/or kV adjustment per patient size (includes targeted exams where dose is matched to clinical indication); or iterative reconstruction. COMPARISON: CT kidney stone [id number] 08/19/2019 4:26 PM RADIATION DOSE METRICS: Total DLP (mGy-cm): 1408.49 FINDINGS: Lungs: Moderate severity emphysema. Liver: Normal. No mass. Gallbladder and bile ducts: Cholecystectomy. Nonobstructed biliary system. Pancreas: Fatty replacement changes of pancreas without focal lesion. Spleen: Normal. No splenomegaly. Adrenal glands: Normal. No mass. Kidneys and ureters: Multiple calcified stones in the mid right ureter. Largest stone measures 6-7 mm transverse diameter. Moderate severity proximal hydroureteronephrosis of the right collecting system. Additional nonobstructing right lower pole stones. Simple right renal upper pole cortical cyst. Multiple large calcified stones in the left renal pelvis. Infiltration of left renal sinus fat with fatty induration changes. Stomach and bowel: Large diffuse fecal volume. Negative for small bowel obstruction. Negative for bowel perforation. Appendix: No evidence of appendicitis. Intraperitoneal space: Unremarkable. No free air. No significant fluid collection. Vasculature: Abdominal aortic aneurysm previously treated with EVAR. Negative for acute periaortic hematoma. Excluded abdominal aortic aneurysm sac measures 4.5 cm transverse diameter which is stable from comparison. Lymph nodes: Unremarkable. No enlarged lymph nodes. Urinary bladder: Unremarkable bladder. Reproductive: Unremarkable as visualized. Bones/joints: Surgically fixated proximal right femur with grossly unremarkable alignment. Hip joints are intact. Old right posterior iliac wing fractures are stable from prior. Bones are demineralized diffusely. Vertebral compression fractures are present at each level of the lumbar spine unchanged from the prior imaging. Multiple thoracic spine fractures also noted in the included lower levels. Vertebroplasty changes are present at T9, L1, L2. Previous right femoral neck fracture fixated with intramedullary angie and hip screw. Soft tissues: Mild body wall anasarca. CT/CT kidney stone [id number] IMPRESSION: 1. Obstructive uropathy of the right collecting system secondary to multiple stacked right mid ureter stones. 2. Large left renal pelvis stones with inflammatory changes of the left renal sinus fat. 3. Multiple additional bilateral nonobstructing renal stones. COMMENTS: Consistent with the [employer]'s Incidental Findings Committee white paper (J Am Tiara Radiol 2018): Any incidental renal lesion less than 1 cm or classified as too small to characterize, or any incidental cystic renal lesion characterized as simple-appearing, is likely benign. No follow-up imaging is recommended for these lesions per consensus recommendations based on imaging criteria. Radiation Dose CTDIVOL = (mGy): DLP = 1408.49 (mGy-cm)
--- NOTE | 2020-10-29 21:55 | ED_ITS ---
HPI - Male Genitourinary General: Chief complaint: Urogenital-Male Stated complaint: peeing blood Time Seen by Provider: 10/29/20 21:54 History of Present Illness: HPI Narrative: 80-year-old male patient comes in today with complaints of blood in his urine. 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 Patient does report some mild flank pain radiating into his groin. Patient also states he has a history of mild dysplastic bone cancer. Patient appears chronically ill and jaundiced. Patient does use fentanyl and oxycodone now for pain in his pain is fairly controlled. Patient has recently had a hip fracture and is recovering from it. Associated symptoms: Reports hematuria Review of Systems General: Reports: 10 or more systems reviewed and unremarkable except in HPI and below : Reports: flank pain and hematuria PFSH ED PFSH: Medical History Abdominal aortic aneurysm Anemia ASHD (arteriosclerotic heart disease) Atherosclerosis of coronary artery Atypical chest pain CAD (coronary artery disease) Calculus, ureteral Carotid artery disease Edema of extremities History of hypertension History of lower leg fracture Hyperlipemia Hyperlipidemia Hypertension Leukemia Myelodysplasia (myelodysplastic syndrome) Systolic CHF Surgical History H/O endovascular stent graft for abdominal aortic aneurysm History of cholecystectomy History of kyphoplasty History of right inguinal hernia repair Family History Father , AT AGE 80 Stroke Mother , AT AGE 80 Myocardial infarction CAD (coronary artery disease) Diabetes Stroke Sister Cancer CAD (coronary artery disease) Grandfather Diabetes Grandmother Diabetes Father Diabetes Denies family history of Clotting disorder Dementia Chronic kidney disease (CKD) Suicide Anesthesia complication Bleeding disorder Lung disease Social History Smoking and tobacco status: former smoker Alcohol intake: never Adopted: No Caregiver/support person: No Lives independently: No Household members: spouse Marital status: Current occupational status: retired Previous occupational history: Served in the [employer] History of recent travel: No Physical Exam Const: COMMON NORMALS: no acute distress and patient oriented x3 GENERAL APPEARANCE: cooperative HENMT: COMMON NORMALS: normocephalic and Normal external nose present HEAD & SCALP: normal to inspection and normocephalic NOSE: Normal external nose present MOUTH: Normal oral and palatal mucosa present Eye: GENERAL EYE: appearance normal, both eyes and all related structures Neck/C-Spine: COMMON NORMALS: full ROM Lymph: LYMPHATIC: no lymphadenopathy noted Chest: COMMONS NORMALS: normal inspection of the chest Resp: COMMON NORMALS: normal respiratory effort EFFORT & INSPECTION: Yes ab le to speak in complete sentences Cardio: COMMON NORMALS: regular rate and regular rhythm RATE: regular rate RHYTHM: regular rhythm GI: COMMON NORMALS: Soft to palpation and non-tender PALPATION: Yes Soft to palpation and Yes Tenderness to palpation present (GI) Details: LLQ : COMMON NORMALS: Yes no CVA tenderness BLADDER/KIDNEY EXAM: Yes no CVA tenderness Back/Pelvis: COMMON NORMALS: no CVA tenderness and thoracic and lumbar spine normal to inspection Extremity: COMMON NORMALS: normal to inspection Neuro: COMMON NORMALS: patient oriented x3 and moves all extremities Psych: COMMON NORMALS: mental status grossly normal and cooperative Skin: COMMON NORMALS: no rashes or lesions noted GENERAL SKIN EXAM: no rashes or lesions noted Course Vital Signs: Vital signs: Vital Signs Temperature 99.2 F 10/29/20 21:38 Pulse Rate 74 10/29/20 22:21 Respiratory Rate 18 10/29/20 22:21 Blood Pressure 101/50 10/29/20 22:21 Pulse Oximetry 97 10/29/20 22:21 MDM - Male MDM Narrative: Medical decision making narrative: 80-year-old male patient comes in today with complaints of left abdominal pain. Patient also noticed some blood in his urine. Patient thinks he is passing a kidney stone. On exam patient is alert oriented. Patient appears in mild pain. Palpation of the abdomen notes some left-sided abdominal tenderness. Respirations are even lungs are clear to auscultation. Skin is warm and dry. Differential diagnosis includes renal colic, obstructive renal stone, UTI. CT scan of the abdomen and pelvis noted a obstructive urinary calculi in the right ureter about midway. Patient also had a renal pelvis stone in the left kidney. I reviewed this with Dr. Zavala who agreed to follow-up with patient in his office tomorrow. Patient's pain was well controlled. Patient was recommended to monitor for fever and return as needed. Patient and family both reported understanding agreed to plan. Lab Data: Labs: Lab Results 10/29/20 10/29/20 10/29/20 Range/Units 22:30 22:30 22:30 WBC 7.8 (4.0-10.0) 10^3/ uL RBC 3.15 L (4.1-5.3) 10^6/u L Hgb 9.5 L (11.7-16.6) g/dL Hct 29.4 L (42.0-52.0) % MCV 93.3 (80-94) fl MCH 30.2 (28.0-34.0) pg MCHC 32.3 (30.0-36.0) g/dL RDW 22.4 H (12.1-15.1) % Plt Count 331 (130-400) 10^3/c mm MPV 11.1 H (7.4-10.4) fL Neut % (Auto) 74.4 % Lymph % (Auto) 11.3 % [place] % (Auto) 12.5 % Eos % (Auto) 0.9 % Baso % (Auto) 0.3 % Neut # (Auto) 5.78 (1.8-7.7) 10^3/u L Lymph # (Auto) 0.9 (0.8-4.8) 10^3/u L [place] # (Auto) 1.0 H (0.2-0.9) 10^3/u L Eos # (Auto) 0.1 (0.0-0.8) 10^3/u L Baso # (Auto) 0.0 (0.0-0.1) 10^3/u L Nucleated RBC % (a uto) 0 % Nucleated RBCs # 0.0 /100WBC PT 16.00 H (12.1-14.9) SECO NDS INR 1.25 H (0.8-1.2) APTT 38.0 H (23.9-36.7) SECO NDS Sodium 140 (136-145) mmol/L Potassium 4.3 (3.5-5.1) mmol/L Chloride 103 (98-107) mmol/L Carbon Dioxide 30 H (22-29) mmol/L Anion Gap 11.3 (5-19) BUN 19 (8-23) mg/dL Creatinine 0.3 L (0.7-1.2) mg/dL GFR Calculation Not Reportable Glucose 122 H (65-115) mg/dL Calculated Osmolal ity 294 (285-295) mOsm/k g Calcium 9.4 (8.5-10.5) mg/dL Total Bilirubin 5.8 H (0.15-1.2) mg/dL AST 31 (0-40) U/L ALT 40 (0-41) U/L Alkaline Phosphata se 72 (40-130) IU/L Total Protein 7.1 (6.6-8.7) g/dL Albumin 4.4 (3.5-5.2) g/dL Globulin 2.7 (1.3-4.6) g/dL Urine Color (Yellow) Urine Appearance (CLEAR) Urine pH (5-7) Ur Specific Gravit y (1.005-1.030) Urine Protein (Negative) Urine Glucose (UA) (Normal) Urine Ketones (Negative) Urine Blood (Negative) Urine Nitrate (Negative) Urine Bilirubin (Negative) Urine Urobilinogen (Negative) mg/dL Ur Leukocyte Mariana ase (Negative) Urine RBC (0-2) /hpf Urine WBC (0-5) /hpf Ur Squamous Epith Cells (0-5) /hpf Amorphous Sediment Urine Bacteria (NONE) /hpf 10/29/20 Range/Units 22:45 WBC (4.0-10.0) 10^3/ uL RBC (4.1-5.3) 10^6/u L Hgb (11.7-16.6) g/dL Hct (42.0-52.0) % MCV (80-94) fl MCH (28.0-34.0) pg MCHC (30.0-36.0) g/dL RDW (12.1-15.1) % Plt Count (130-400) 10^3/c mm MPV (7.4-10.4) fL Neut % (Auto) % Lymph % (Auto) % [place] % (Auto) % Eos % (Auto) % Baso % (Auto) % Neut # (Auto) (1.8-7.7) 10^3/u L Lymph # (Auto) (0.8-4.8) 10^3/u L [place] # (Auto) (0.2-0.9) 10^3/u L Eos # (Auto) (0.0-0.8) 10^3/u L Baso # (Auto) (0.0-0.1) 10^3/u L Nucleated RBC % (a uto) % Nucleated RBCs # /100WBC PT (12.1-14.9) SECO NDS INR (0.8-1.2) APTT (23.9-36.7) SECO NDS Sodium (136-145) mmol/L Potassium (3.5-5.1) mmol/L Chloride (98-107) mmol/L Carbon Dioxide (22-29) mmol/L Anion Gap (5-19) BUN (8-23) mg/dL Creatinine (0.7-1.2) mg/dL GFR Calculation Glucose (65-115) mg/dL Calculated Osmolal ity (285-295) mOsm/k g Calcium (8.5-10.5) mg/dL Total Bilirubin (0.15-1.2) mg/dL AST (0-40) U/L ALT (0-41) U/L Alkaline Phosphata se (40-130) IU/L Total Protein (6.6-8.7) g/dL Albumin (3.5-5.2) g/dL Globulin (1.3-4.6) g/dL Urine Color Red (Yellow) Urine Appearance Cloudy (CLEAR) Urine pH 7 (5-7) Ur Specific Gravit y 1.010 (1.005-1.030) Urine Protein 3+ H (Negative) Urine Glucose (UA) Norm (Normal) Urine Ketones Negative (Negative) Urine Blood 3+ H (Negative) Urine Nitrate Negative (Negative) Urine Bilirubin 1+ H (Negative) Urine Urobilinogen 1 H (Negative) mg/dL Ur Leukocyte Mariana ase 2+ H (Negative) Urine RBC Too numerous to c nt H (0-2) /hpf Urine WBC 5-10 H (0-5) /hpf Ur Squamous Epith Cells 0-4 H (0-5) /hpf Amorphous Sediment Not Reportable Urine Bacteria Trace (NONE) /hpf Discharge Plan Discharge Patient Disposition: Home Clinical Impression: Calculus, ureteral Condition: Stable Prescriptions: No Action tamsulosin 0.4 mg capsule 0.4 mg PO BID RF: 0 aspirin 81 mg tablet,delayed release (DR/EC) 81 mg PO BEDTIME RF: 0 Hold Instructions: Resume on 07/13/19. pyridoxine (vitamin B6) 250 mg tablet 250 mg PO TID RF: 0 folic acid 1 mg tablet 1 mg PO DAILY RF: 0 calcium carbonate 500 mg calcium (1,250 mg) tablet,chewable 500 mg PO TID RF: 0 oxycodone-acetaminophen 10-325 mg tablet 1 tab PO Q8H PRNRF: 0 metoprolol succinate 50 mg tablet extended release 24 hr 50 mg PO DAILY Qty: 90 RF: 3 digoxin 125 mcg (0.125 mg) tablet 125 mcg PO DAILY 90 Days Qty: 90 RF: 3 clopidogrel 75 mg tablet 75 mg PO DAILY Qty: 90 RF: 3 Hold Instructions: Resume on 06/16/20. after HB check pravastatin 20 mg tablet 20 mg PO DAILY 90 Days Qty: 90 RF: 3 nitroglycerin 0.4 mg tablet, sublingual 0.4 mg sublingual Q5M PRN (Reason: chest pain) 30 Days Qty: 30 RF: 3 fentanyl 50 mcg/hr Patch 72 Hour 1 patch TRANSDERMAL Q72H RF: 0 Vitamin D2 1,250 mcg (50,000 unit) capsule 50,000 unit PO Q7D RF: 0 Discharge Orders: Discharge ED (Routine); Ordered 10/29/20 Ordered By: Lauro Fields Referrals: Lo Kern MD [Primary Care Provider] - Discharge Diet: Usual diet Discharge Activity: Increase activity as tolerated Patient Instructions: Kidney Stones (ED), Opioid Safety Activity Restrictions/Additional Instructions: Contact Dr. Zavala's office in the morning for follow-up appointment. Return to the ER for worsening pain, high fever, or new concerns. Coding Level of Care Code ED Cloth Shearing Supervisor for Chg Fwd Exam Comprehensive
[2020-10-29 22:21] VITALS: BP 101/50; PULSE 74; RESP 18; O2SAT 97
[2020-10-29 22:37] LABS: Basophils % 0.3 %; Eosinophils # 0.1 10^3/uL (0.0-0.8); Eosinophils % 0.9 %; Hematocrit 29.4 % (42.0-52.0); Hemoglobin 9.5 g/dL (11.7-16.6); Lymphocytes # 0.9 10^3/uL (0.8-4.8); Lymphocytes % 11.3 %; Mean Corpuscular HGB Conc 32.3 g/dL (30.0-36.0); Mean Corpuscular Hemoglobin 30.2 pg (28.0-34.0); Mean Corpuscular Volume 93.3 fl (80-94); Mean Platelet Volume 11.1 fL (7.4-10.4); Monocytes % 12.5 %; Neutrophils # 5.78 10^3/uL (1.8-7.7); Neutrophils % 74.4 %; Nucleated Red Blood Cells % 0 %; Platelet Count 331 10^3/cmm (130-400); Red Blood Count 3.15 10^6/uL (4.1-5.3); Red Cell Distribution Width 22.4 % (12.1-15.1); White Blood Count 7.8 10^3/uL (4.0-10.0)
[2020-10-29 22:49] LABS: INR 1.25 (0.8-1.2)
[2020-10-29 22:54] LABS: Alanine Aminotransferase 40 U/L (0-41); Albumin Level 4.4 g/dL (3.5-5.2); Alkaline Phosphatase 72 IU/L (40-130); Anion Gap 11.3 (5-19); Aspartate Amino Transferase 31 U/L (0-40); Blood Urea Nitrogen 19 mg/dL (8-23); Calcium 9.4 mg/dL (8.5-10.5); Carbon Dioxide 30 mmol/L (22-29); Chloride 103 mmol/L (98-107); Globulin 2.7 g/dL (1.3-4.6); Glucose 122 mg/dL (65-115); Osmolality Calculated 294 mOsm/kg (285-295); Potassium 4.3 mmol/L (3.5-5.1); Sodium 140 mmol/L (136-145); Total Bilirubin 5.8 mg/dL (0.15-1.2); Total Protein 7.1 g/dL (6.6-8.7)
[2020-10-29 23:04] LABS: Urine Appearance Cloudy (CLEAR)
[2020-10-29 23:05] LABS: Bilirubin Urine 1+ (Negative); Blood Urine 3+ (Negative); Glucose Urine UA Norm (Normal); Ketones Urine Negative (Negative); Leukocyte Esterase Urine 2+ (Negative); Nitrate Urine Negative (Negative); Protein Urine 3+ (Negative); Urine Color Red (Yellow); Urobilinogen Urine 1 mg/dL (Negative); pH Urine 7 (5-7)
[2020-10-29 23:06] LABS: Add Urine Culture? Yes; Add Urine Microscopic? YES; Bacteria Urine TRACE /hpf; RBC Urine TOO NUMEROUS TO CNT /hpf (0-2); Squamous Epithelial Cell Urine 0-4 /hpf (0-5)
== END 2020-10-29 23:42 | disposition home or self-care (01) ==
PROVIDERS: Emergency Provider Nurse Practitioner Family; PCP Family Medicine
DX: N20.2 Calculus of kidney with calculus of ureter (principal); I11.0 Hypertensive heart disease with heart failure; I50.20 Unspecified systolic (congestive) heart failure; I10 Essential (primary) hypertension; E78.5 Hyperlipidemia, unspecified; I25.10 Atherosclerotic heart disease of native coronary artery without angina pectoris; Z79.82 Long term (current) use of aspirin; Z87.891 Personal history of nicotine dependence
CPT/HCPCS: 74176; 80053; 81001; 85025; 85610; 85730; 87077; 87086; 87186; 99283

== ENCOUNTER 2020-10-31 10:35 | Outpatient (CLI) | payer OTHER, MEDICARE, SELFPAY ==
--- NOTE | 2020-10-31 10:15 | XR_ITS ---
WS: [id number] Exam: XR KUB [id number] Date/Time of Exam: 10/31/2020 10:15 AM Reason For Exam: STONES No bowel obstruction or free air. 2 prominent calcification superimposing left kidney apparently repr esent known renal stones. There are also calcifications overlying the lower pole the right kidney whi ch likely also represent renal calculi. A bifurcated abdominal aortic graft is in place. Signs of dania tebral plasty involving L1 and L2. Hardware partially visualized in the proximal right femur. XR/XR KUB [id number] IMPRESSION: 1. Calcifications superimposing both renal silhouettes apparently representing known renal stones. 2. No acute abdominal process. 3. Additional findings as detailed above.
== END 2020-10-31 10:36 | disposition home or self-care (01) ==
PROVIDERS: PCP Family Medicine; Visit Provider Urology
DX: N20.9 Urinary calculus, unspecified (principal)
CPT/HCPCS: 74018; 81003

== ENCOUNTER 2020-11-04 05:58 | Outpatient (RCR) | payer OTHER, MEDICARE, SELFPAY ==
[2020-11-04] VITALS (8 sets, daily range): BP systolic 88–100; BP diastolic 48–57; PULSE 56–62; RESP 18; TEMP 36.6; O2SAT 96–97
[2020-11-04 11:33] LABS: Basophils # 0.1 10^3/uL (0.0-0.1); Basophils % 0.9 %; Eosinophils # 0.2 10^3/uL (0.0-0.8); Eosinophils % 3.8 %; Hematocrit 24.6 % (42.0-52.0); Hemoglobin 7.7 g/dL (11.7-16.6); Lymphocytes # 1.2 10^3/uL (0.8-4.8); Lymphocytes % 22.2 %; Mean Corpuscular HGB Conc 31.3 g/dL (30.0-36.0); Mean Corpuscular Hemoglobin 30.4 pg (28.0-34.0); Mean Corpuscular Volume 97.2 fl (80-94); Mean Platelet Volume 11.9 fL (7.4-10.4); Monocytes # 0.4 10^3/uL (0.2-0.9); Monocytes % 7.7 %; Neutrophils % 63.8 %; Nucleated Red Blood Cells % 0.4 %; Platelet Count 296 10^3/cmm (130-400); Red Blood Count 2.53 10^6/uL (4.1-5.3); Red Cell Distribution Width 20.7 % (12.1-15.1); White Blood Count 5.5 10^3/uL (4.0-10.0)
[2020-11-04] MEDS: sodium chloride 0.9% 250 ML 999 ML IV (13:20)
[2020-11-04] MEDS: FUROsemide 10 mg/mL SDV 2mL 20 MG IV (15:15)
== END 2020-11-04 23:59 | disposition home or self-care (01) ==
LOC: ONCMED 05:58
PROVIDERS: PCP Family Medicine; Visit Provider Internal Medicine Medical Oncology
DX: E83.111 Hemochromatosis due to repeated red blood cell transfusions (principal); D46.Z Other myelodysplastic syndromes; D64.9 Anemia, unspecified; Z79.899 Other long term (current) drug therapy
CPT/HCPCS: 36430; 85025; 86850; 86900; 86920; J1940; J7050; P9040

== ENCOUNTER 2020-11-07 09:55 | Outpatient (CLI) | payer OTHER, SELFPAY ==
--- NOTE | 2020-11-07 10:02 | XR_ITS ---
WS: [id number] KUB, AP view, 11/07/2020 Clinical Data: stones Comparison: KUB, 10/31/2020. Findings: The 2 large calcifications overlying the left kidney have not changed. Again there are smaller calcif ications overlying the inferior pole of the right kidney. There is vertebroplasty cement at the T9, L 1 and L2 vertebral bodies. There is an aortic iliac stent graft. There is a right hip nail. XR/XR KUB [id number] Impression: No change in bilateral renal calcifications
== END 2020-11-07 09:56 | disposition home or self-care (01) ==
PROVIDERS: PCP Family Medicine; Visit Provider Urology
DX: N20.1 Calculus of ureter (principal); N20.0 Calculus of kidney
CPT/HCPCS: 74018; 81003

== ENCOUNTER 2020-11-18 05:41 | Outpatient (RCR) | payer OTHER, MEDICARE, SELFPAY ==
[2020-11-11 09:48] LABS: Basophils % 0.5 %; Eosinophils # 0.1 10^3/uL (0.0-0.8); Eosinophils % 1.6 %; Hematocrit 28.7 % (42.0-52.0); Hemoglobin 8.9 g/dL (11.7-16.6); Lymphocytes # 0.9 10^3/uL (0.8-4.8); Lymphocytes % 22.9 %; Mean Corpuscular Hemoglobin 30.1 pg (28.0-34.0); Mean Platelet Volume 12.6 fL (7.4-10.4); Monocytes # 0.4 10^3/uL (0.2-0.9); Monocytes % 9.5 %; Neutrophils # 2.45 10^3/uL (1.8-7.7); Neutrophils % 64.4 %; Nucleated Red Blood Cells % 0 %; Platelet Count 321 10^3/cmm (130-400); Red Blood Count 2.96 10^6/uL (4.1-5.3); Red Cell Distribution Width 19.8 % (12.1-15.1); White Blood Count 3.8 10^3/uL (4.0-10.0)
[2020-11-18] VITALS (12 sets, daily range): BP systolic 94–100; BP diastolic 49–64; PULSE 67–71; RESP 18; TEMP 36.6–36.9; O2SAT 97–98
[2020-11-18 09:56] LABS: Basophils % 0.9 %; Eosinophils # 0.1 10^3/uL (0.0-0.8); Eosinophils % 1.4 %; Hematocrit 25.9 % (42.0-52.0); Lymphocytes # 1.1 10^3/uL (0.8-4.8); Lymphocytes % 25.4 %; Mean Corpuscular HGB Conc 30.9 g/dL (30.0-36.0); Mean Corpuscular Hemoglobin 29.5 pg (28.0-34.0); Mean Corpuscular Volume 95.6 fl (80-94); Monocytes # 0.4 10^3/uL (0.2-0.9); Monocytes % 9.3 %; Neutrophils # 2.75 10^3/uL (1.8-7.7); Neutrophils % 62.3 %; Nucleated Red Blood Cells % 0 %; Platelet Count 304 10^3/cmm (130-400); Red Blood Count 2.71 10^6/uL (4.1-5.3); Red Cell Distribution Width 20.1 % (12.1-15.1); White Blood Count 4.4 10^3/uL (4.0-10.0)
[2020-11-18] MEDS: sodium chloride 0.9% 250 ML 999 ML IV (10:00)
[2020-11-18] MEDS: diphenhydrAMINE 25 mg Capsule PO (10:30)
[2020-11-18] MEDS: FUROsemide 10 mg/mL SDV 2mL 20 MG IV (13:00)
== END 2020-11-24 08:29 | disposition home or self-care (01) ==
LOC: ONCMED 05:41
PROVIDERS: PCP Family Medicine; Visit Provider Internal Medicine Medical Oncology
DX: E83.111 Hemochromatosis due to repeated red blood cell transfusions (principal); D46.Z Other myelodysplastic syndromes; Z79.899 Other long term (current) drug therapy
CPT/HCPCS: 36415; 36430; 85025; 86850; 86900; 86920; J1940; J7050; P9040; P9058

== ENCOUNTER 2020-11-24 08:30 | Outpatient (CLI) | payer OTHER, MEDICARE, SELFPAY ==
--- NOTE | 2020-11-24 08:39 | XRR_ITS ---
PROCEDURE INFORMATION: Exam: XR Abdomen Exam date and time: 11/24/2020 8:39 AM Age: 80 years old Clinical indication: Condition or disease; Kidney or ureter condition; Calculus (stone) in kidney; Prior surgery; Surgery type: Stent, gb, hernia repair; Patient HX: History--kidney stone bi-lat follow up. PT done upright per drs request; Additional info: Ureteral calculus, per Dr. Zavala. . . Stand patient while taking images TECHNIQUE: Imaging protocol: XR of the abdomen. Views: Frontal supine view of the abdomen. 1 View. COMPARISON: CR XR KUB [id number] 11/07/2020 10:12 AM FINDINGS: Gastrointestinal tract: Normal. No bowel dilation. Organs: 2 calcifications project on the left renal pelvis and are unchanged. Small calcifications project on the right kidney. Vasculature: An aortoiliac stent graft is present. Bones/joints: Degenerative changes are present in the spine. The patient has undergone L1 and L2 vertebral plasty. XR/XR KUB [id number] IMPRESSION: Bilateral nephrolithiasis unchanged.
--- NOTE | 2020-11-24 08:45 | US_ITS ---
WS: [id number] ULTRASOUND RENAL TECHNIQUE: Ultrasound examination of both kidneys. CLINICAL INFORMATION: CALCULUS, URETERAL COMPARISON: None. FINDINGS: RIGHT: Simple right renal cyst measuring 3.1 x 3.1 x 2.7 cm Dilatation of the right ureter with mild hydronephrosis. Echogenicity: Normal. Cortical thickness: 1.8 cm; Normal. Hydronephrosis: Mild Perinephric fluid: None. Right kidney measures: 12.6 cm x 5.6 cm x 6.1 cm. LEFT: Left kidney is normal in size and appearance. Echogenicity: Normal. Cortical thickness: 1.9 cm; Normal. Hydronephrosis: None. Perinephric fluid: None. Left kidney measures: 12.2 cm x 7.4 cm x 5.9 cm. Normal visualized aorta. Normal bladder US/US renal BI* [id number] IMPRESSION: 1. Simple right renal cyst measuring 3.1 x 3.1 x 2.7 cm 2. Dilated right ureter measuring 2.5 cm similar to the CT October 29, 2020. Mi ld hydronephrosis right kidney. 3. No hydronephrosis in the left kidney.
== END 2020-11-24 08:31 | disposition home or self-care (01) ==
PROVIDERS: PCP Family Medicine; Visit Provider Urology
DX: N20.1 Calculus of ureter (principal); N28.1 Cyst of kidney, acquired; N20.0 Calculus of kidney; R82.71 Bacteriuria
CPT/HCPCS: 74018; 76770; 81003; 87077; 87086; 87184

== ENCOUNTER 2020-11-25 06:38 | Outpatient (RCR) | payer OTHER, MEDICARE, SELFPAY ==
[2020-11-25 09:35] LABS: Basophils % 0.2 %; Hematocrit 28.3 % (42.0-52.0); Hemoglobin 8.9 g/dL (11.7-16.6); Lymphocytes # 0.6 10^3/uL (0.8-4.8); Lymphocytes % 3.2 %; Mean Corpuscular HGB Conc 31.4 g/dL (30.0-36.0); Mean Corpuscular Hemoglobin 29.2 pg (28.0-34.0); Mean Corpuscular Volume 92.8 fl (80-94); Mean Platelet Volume 11.9 fL (7.4-10.4); Monocytes # 1.1 10^3/uL (0.2-0.9); Monocytes % 6.3 %; Neutrophils # 15.52 10^3/uL (1.8-7.7); Neutrophils % 89.8 %; Nucleated Red Blood Cells % 0 %; Platelet Count 277 10^3/cmm (130-400); Red Blood Count 3.05 10^6/uL (4.1-5.3); Red Cell Distribution Width 19.3 % (12.1-15.1); White Blood Count 17.3 10^3/uL (4.0-10.0)
[2020-11-25 11:58] LABS: Alanine Aminotransferase 25 U/L (0-41); Alkaline Phosphatase 67 IU/L (40-130); Anion Gap 12.1 (5-19); Aspartate Amino Transferase 22 U/L (0-40); Blood Urea Nitrogen 23 mg/dL (8-23); Carbon Dioxide 29 mmol/L (22-29); Chloride 102 mmol/L (98-107); Globulin 2.1 g/dL (1.3-4.6); Glucose 175 mg/dL (65-115); Osmolality Calculated 296 mOsm/kg (285-295); Potassium 4.1 mmol/L (3.5-5.1); Sodium 139 mmol/L (136-145); Total Protein 6.1 g/dL (6.6-8.7)
== END 2020-11-26 20:30 | disposition home or self-care (01) ==
LOC: ONCMED 06:38
PROVIDERS: PCP Family Medicine; Visit Provider Internal Medicine Medical Oncology
DX: E83.111 Hemochromatosis due to repeated red blood cell transfusions (principal); D46.Z Other myelodysplastic syndromes; Z79.899 Other long term (current) drug therapy
CPT/HCPCS: 36415; 80053; 85025; 86850; 86900

== ENCOUNTER 2020-11-26 20:48 | Inpatient (IN) | payer OTHER, MEDICARE, SELFPAY ==
[2020-11-26 21:21] VITALS: BP 85/49; PULSE 84; RESP 18; TEMP 36.9; O2SAT 95; BMI 22.4
--- NOTE | 2020-11-26 21:48 | XRR_ITS ---
PROCEDURE INFORMATION: Exam: XR Chest Exam date and time: 11/26/2020 9:48 PM Age: 80 years old Clinical indication: Fever TECHNIQUE: Imaging protocol: XR of the chest. Views: 1 view. COMPARISON: CR (CHEST, ) 06/08/2020 3:08 PM FINDINGS: Lungs: Previously seen left mid lung nodule is no longer identified. As seen in mid inspiration the lungs are clear. There is minimal bibasilar subsegmental atelectasis. Pleural spaces: Unremarkable. No pleural effusion. No pneumothorax. Heart/Mediastinum: Unremarkable. No cardiomegaly. Bones/joints: Chronic cement kyphoplasty in the midthoracic spine. Other findings: No effusion. XR/XR chest 1V portable [id number] IMPRESSION: 1. No acute findings 2. Minimal bibasilar atelectasis
--- NOTE | 2020-11-26 21:48 | ECG_ITS ---
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 Measurements Intervals [place] Rate: 78 P: 75 VT: 167 QRS: 62 QRSD: 112 T: 39 QT: 364 QTc: 417 Interpretive Statements SINUS RHYTHM MODERATE INTRAVENTRICULAR CONDUCTION DELAY [110+ ms QRS DURATION] NONSPECIFIC T-WAVE ABNORMALITY Compared to ECG 06/08/2020 15:42:35 Intraventricular conduction delay now present T-wave abnormality now present Sinus arrhythmia no longer present Electronically Signed On 11-26-2020 23:35:15 CDT by Reilly Reece M.D. [email or web address]
[2020-11-26 21:51] LABS: Glucose Urine UA Norm (Normal); Protein Urine 1+ (Negative); Urine Appearance Hazy (CLEAR); Urine Color Yellow (Yellow); pH Urine 5 (5-7)
--- NOTE | 2020-11-26 21:51 | ED_ITS ---
HPI - Fever General: Chief Complaint: Fever Stated Complaint: fever @ home Time Seen by Provider: 11/26/20 21:42 Source: patient Mode of arrival: ambulatory Limitations: no limitations History of Present Illness: HPI Narrative: 80-year-old male who has a history of myelodysplastic syndrome states that over the last 2 days he is not been feeling well and today has had a fever up to 101. He states his oncologist Dr. Lew started him on Bactrim yesterday for his fever. He does have known kidney stones as well. He denies any nausea vomiting. He has had some slight abdominal pain. Patient is hypotensive here he states that due to his cancer his blood pressure typically runs low he states it runs in the 90s. He denies any worsening or improving factors. Associated symptoms: Deny abdominal pain, chest pain, diarrhea, dysuria, headache(s), nausea or vomiting Review of Systems Const: Reports: fever(s) and body aches Eyes: Denies: blurry vision or eye discomfort ENMT: Denies: throat pain or dental pain Card: Denies: chest pain Resp: Denies: dyspnea GI: Denies: abdominal pain, nausea, vomiting or diarrhea : Denies: dysuria Musc: Denies: neck pain or back pain Skin/Breast: Denies: rash Neuro: Denies: headache(s) Psych: Denies: depression Marc/Lymph: Denies: easy bruising All/Imm: Denies: urticaria PFSH ED PFSH: Medical History Abdominal aortic aneurysm Anemia ASHD (arteriosclerotic heart disease) Atherosclerosis of coronary artery Atypical chest pain CAD (coronary artery disease) Calculus, ureteral Carotid artery disease Edema of extremities History of hypertension History of lower leg fracture Hyperlipemia Hyperlipidemia Hypertension Leukemia Myelodysplasia (myelodysplastic syndrome) Systolic CHF Surgical History H/O endovascular stent graft for abdominal aortic aneurysm History of cholecystectomy History of kyphoplasty History of right inguinal hernia repair Family History Father , AT AGE 80 Stroke Mother , AT AGE 80 Myocardial infarction CAD (coronary artery disease) Diabetes Stroke Sister Cancer CAD (coronary artery disease) Grandfather Diabetes Grandmother Diabetes Father Diabetes Denies family history of Clotting disorder Dementia Chronic kidney disease (CKD) Suicide Anesthesia complication Bleeding disorder Lung disease Social History Smoking and tobacco status: former smoker Alcohol intake: never Adopted: No Caregiver/support person: No Lives independently: No Household members: spouse Marital status: Current occupational status: retired Previous occupational history: Served in the [employer] History of recent travel: No Physical Exam Const: COMMON NORMALS: no acute distress and patient oriented x3 GENERAL APPEARANCE: ill appearing and frail appearing HENMT: COMMON NORMALS: normocephalic and atraumatic HEAD & SCALP: normocephalic and atraumatic Eye: COMMON NORMALS: Equal, round and reactive pupils present and EOMs intact bilaterally PUPIL: Yes Equal, round and reactive pupils present Neck/C-Spine: COMMON NORMALS: full ROM and supple Chest: COMMONS NORMALS: normal inspection of the chest and normal palpation of entire chest wall Resp: COMMON NORMALS: normal respiratory effort, No retractions, No use of accessory muscles and clear to auscultation bilaterally AUSCULTATION: clear to auscultation bilaterally Cardio: COMMON NORMALS: regular rate, regular rhythm and No murmurs present (Cardio) RATE: regular rate RHYTHM: regular rhythm GI: COMMON NORMALS: Normal to inspection, nondistended, normoactive bowel sounds present, Soft to palpation, non-tender and no masses PALPATION: Yes Soft to palpation Extremity: COMMON NORMALS: normal to inspection and full ROM Neuro: COMMON NORMALS: patient oriented x3, moves all extremities and no focal motor deficits Psych: COMMON NORMALS: mental status grossly normal, Normal thought process present and cooperative THOUGHT PROCESS: Normal thought process present Skin: COMMON NORMALS: no rashes or lesions noted and no wounds GENERAL SKIN EXAM: no rashes or lesions noted Course Vital Signs: Vital signs: Vital Signs Temperature 98.7 F 11/27/20 00:37 Pulse Rate 77 11/27/20 00:37 Respiratory Rate 18 11/27/20 00:37 Blood Pressure 103/51 11/27/20 00:37 Pulse Oximetry 99 11/27/20 00:37 MDM - Fever MDM Narrative: Medical decision making narrative: Patient presents here with fever likely from acute cystitis and does have a kidney stone as well. His blood pressure here improved greatly after transfusion and IV fluids. His white count lactate are normal he has no signs of septic shock. He has a baseline hypotension from his MDS as well. His blood pressures now are in the 100s. Will admit at this time also spoke to urology who is consulted who will likely place a stent in the morning. Lab Data: Labs: Lab Results 11/25/20 11/26/20 11/26/20 09:15 21:43 21:55 WBC 7.5 10^3/uL 10^3/ uL (4.0-10.0) RBC 2.45 10^6/uL L 10 ^6/uL (4.1-5.3) Hgb 7.1 g/dL L g/dL (11.7-16.6) Hct 22.6 % L % (42.0-52.0) MCV 92.2 fl fl (80-94) MCH 29.0 pg pg (28.0-34.0) MCHC 31.4 g/dL g/dL (30.0-36.0) RDW 19.4 % H % (12.1-15.1) Plt Count 203 10^3/cmm 10^3 /cmm (130-400) MPV 11.5 fL H fL (7.4-10.4) Neut % (Auto) 92.9 % % Lymph % (Auto) 2.5 % % Person % (Auto) 3.9 % % Eos % (Auto) 0.1 % % Baso % (Auto) 0.1 % % Neut # (Auto) 6.94 10^3/uL 10^3 /uL (1.8-7.7) Lymph # (Auto) 0.2 10^3/uL L 10^ 3/uL (0.8-4.8) Person # (Auto) 0.3 10^3/uL 10^3/ uL (0.2-0.9) Eos # (Auto) 0.0 10^3/uL 10^3/ uL (0.0-0.8) Baso # (Auto) 0.0 10^3/uL 10^3/ uL (0.0-0.1) Nucleated RBC % (a uto) 0 % % Nucleated RBCs # 0.0 /100WBC /100W BC Sodium Potassium Chloride Carbon Dioxide Anion Gap BUN Creatinine GFR Calculation Glucose Calculated Osmolal ity Lactic Acid Calcium Total Bilirubin AST ALT Alkaline Phosphata se Total Protein Albumin Globulin Urine Color Yellow (Yellow) Urine Appearance Hazy A (CLEAR) Urine pH 5 (5-7) Ur Specific Gravit y 1.020 (1.005-1.030) Urine Protein 1+ H (Negative) Urine Glucose (UA) Norm (Normal) Urine Ketones Negative (Negative) Urine Blood 3+ H (Negative) Urine Nitrate Negative (Negative) Urine Bilirubin 1+ H (Negative) Urine Urobilinogen Norm mg/dL mg/dL (Negative) Ur Leukocyte Mariana ase 2+ H (Negative) Urine RBC 10-15 /hpf H /hpf (0-2) Urine WBC >100 /hpf H /hpf (0-5) Ur Squamous Epith Cells 0-4 /hpf H /hpf (0-5) Amorphous Sediment Not Reportable Urine Bacteria 1+ /hpf H /hpf (NONE) Urine Mucus 1+ /hpf /hpf Digoxin SARS-CoV-2 Ag (Rap id) Blood Type Cancelled Rho(D) Type Cancelled Antibody Screen Cancelled Crossmatch See Detail 11/26/20 11/26/20 11/26/20 21:55 21:55 22:30 WBC RBC Hgb Hct MCV MCH MCHC RDW Plt Count MPV Neut % (Auto) Lymph % (Auto) Person % (Auto) Eos % (Auto) Baso % (Auto) Neut # (Auto) Lymph # (Auto) Person # (Auto) Eos # (Auto) Baso # (Auto) Nucleated RBC % (a uto) Nucleated RBCs # Sodium 134 mmol/L L mmol /L (136-145) Potassium 3.9 mmol/L mmol/L (3.5-5.1) Chloride 98 mmol/L mmol/L (98-107) Carbon Dioxide 25 mmol/L mmol/L (22-29) Anion Gap 14.9 (5-19) BUN 43 mg/dL H mg/dL (8-23) Creatinine 1.3 mg/dL H mg/dL (0.7-1.2) GFR Calculation Not Reportable Glucose 146 mg/dL H mg/dL (65-115) Calculated Osmolal ity 291 mOsm/kg mOsm/ kg (285-295) Lactic Acid 1.9 mmol/L mmol/L (0.5-2.2) Calcium 9.5 mg/dL mg/dL (8.5-10.5) Total Bilirubin 2.6 mg/dL H mg/dL (0.15-1.2) AST 46 U/L H U/L (0-40) ALT 44 U/L H U/L (0-41) Alkaline Phosphata se 78 IU/L IU/L (40-130) Total Protein 6.4 g/dL L g/dL (6.6-8.7) Albumin 4.1 g/dL g/dL (3.5-5.2) Globulin 2.3 g/dL g/dL (1.3-4.6) Urine Color Urine Appearance Urine pH Ur Specific Gravit y Urine Protein Urine Glucose (UA) Urine Ketones Urine Blood Urine Nitrate Urine Bilirubin Urine Urobilinogen Ur Leukocyte Mariana ase Urine RBC Urine WBC Ur Squamous Epith Cells Amorphous Sediment Urine Bacteria Urine Mucus Digoxin 0.6 ng/mL ng/mL (0.6-1.2) SARS-CoV-2 Ag (Rap id) Negative (Negative) Blood Type Rho(D) Type Antibody Screen Crossmatch Imaging Data^: CXR: Radiologist's impression: [address] [place] [address] XRay Report Signed Patient: José Miguel Bonilla Unit #: [id number] : 1940 Age/Sex: 80 / M ADM Date: 11/26/20 Loc: ER Room/Bed: Attending Dr: Ordering Provider/Ordering MD: Philip Polanco MD Date of Service: 11/26/20 Procedure(s): XR chest 1V portable [id number] Accession Number(s): [id number] Report Number: [id number] PROCEDURE INFORMATION: Exam: XR Chest Exam date and time: 11/26/2020 9:48 PM Age: 80 years old Clinical indication: Fever TECHNIQUE: Imaging protocol: XR of the chest. Views: 1 view. COMPARISON: CR (CHEST, ) 06/08/2020 3:08 PM FINDINGS: Lungs: Previously seen left mid lung nodule is no longer identified. As seen in mid inspiration the lungs are clear. There is minimal bibasilar subsegmental atelectasis. Pleural spaces: Unremarkable. No pleural effusion. No pneumothorax. Heart/Mediastinum: Unremarkable. No cardiomegaly. Bones/joints: Chronic cement kyphoplasty in the midthoracic spine. Other findings: No effusion. XR/XR chest 1V portable [id number] IMPRESSION: 1. No acute findings 2. Minimal bibasilar atelectasis Dictated By: Dora Huerta MD Signed By: Dora Huerta MD Signed Date/Time: 11/26/202237 DD/ 36 CT Abd/Pel: Radiologist's impression: [address] [place] [address] CT Scan Report Signed Patient: José Miguel Bonilla Unit #: [id number] : 1940 Age/Sex: 80 / M ADM Date: 11/26/20 Loc: ER Room/Bed: Attending Dr: Ordering Provider/Ordering MD: Philip Polanco MD Date of Service: 11/26/20 Procedure(s): CT abdomen pelvis w con* [id number] Accession Number(s): [id number] Report Number: [id number] PROCEDURE INFORMATION: Exam: CT Abdomen And Pelvis With Contrast Exam date and time: 11/26/2020 9:57 PM Age: 80 years old Clinical indication: Abdominal pain; Prior surgery; Surgery type: Aaa, kypho, hernia, gb; Additional info: Abd pain TECHNIQUE: Imaging protocol: Computed tomography of the abdomen and pelvis with contrast. Radiation optimization: All CT scans at this facility use at least one of these dose optimization techniques: automated exposure control; mA and/or kV adjustment per patient size (includes targeted exams where dose is matched to clinical indication); or iterative reconstruction. Contrast material: OMNI 300; Contrast volume: 95 ml; Contrast route: INTRAVENOUS (IV); COMPARISON: CT kidney stone [id number] 10/29/2020 10:05 PM RADIATION DOSE METRICS: Total DLP (mGy-cm): 1365.77 FINDINGS: Liver: Parenchyma slightly dense suggesting deposition of disease but is unchanged. No mass. Gallbladder and bile ducts: The gallbladder is surgically absent. There is secondary enlargement of the biliary tree and common duct. Pancreas: Normal. No ductal dilation. Spleen: The spleen is upper limits of normal in size which is unchanged. Adrenal glands: Normal. No mass. Kidneys and ureters: 2 large renal calculi persist in the left renal pelvis and UPJ. The stones measure 1.9 x 1.8 cm and 1.1 x 0.8 cm respectively. There is persisting or recurrent fatty stranding in the renal hilum suggesting some degree of inflammation and mild obstruction. There is persisting moderate right hydronephrosis due to a 7 x 5 mm mid ureteral calculus. The 2nd smaller mid ureteral calculus now lies in the distal ampullary portion of the ureter. There are multiple additional small nonobstructing right intrarenal calculi. Simple 2 cm right renal cortical cyst. Stomach and bowel: Unremarkable. No obstruction. No mucosal thickening. Appendix: No evidence of appendicitis. Intraperitoneal space: Unremarkable. No free air. No significant fluid collection. Vasculature: Chronic metallic stent in the abdominal aorta excluding a nonruptured aneurysm. The extent extends into both iliac arteries and remains patent. Numerous calcified plaques in the coronary arteries Lymph nodes: Unremarkable. No enlarged lymph nodes. Urinary bladder: Unremarkable as visualized. Reproductive: Unremarkable as visualized. Bones/joints: Chronic right hip internal fixation. Chronic abnormal bone marrow throughout the skeleton with innumerable chronic thoracolumbar fractures. This is probably due to metabolic bone disease. Soft tissues: Chronic 10 cm left lateral abdominal wall hernia. The aperture is broad and there is no entrapment or inflammation. . Evidence of prior right inguinal hernia repair. CT/CT abdomen pelvis w con* [id number] IMPRESSION: 1. Persisting partly obstructing stones in the left UPJ. 2. Persisting moderate right hydronephrosis due to a mid ureteral calculus. The 2nd right ureteral calculus now lies distally in the ampullary portion of the ureter. 3. Unchanged aorto bi-iliac graft without hemorrhage. 4. The chronic diffusely abnormal bone marrow with multiple chronic fractures and splenomegaly. This suggests metabolic bone disease. 5. Other chronic and incidental findings as described. COMMENTS: Consistent with the [employer]'s Incidental Findings Committee white paper (J Am Tiara Radiol 2018): Any incidental renal lesion less than 1 cm or classified as too small to characterize, or any incidental cystic renal lesion characterized as simple-appearing, is likely benign. No follow-up imaging is recommended for these lesions per consensus recommendations based on imaging criteria. Radiation Dose CTDIVOL = (mGy): DLP = 1365.77 (mGy-cm) Dictated By: Dora Huerta MD Signed By: Dora Huerta MD Signed Date/Time: 11/26/202248 DD/ 47 EKG Data^: EKG 1: Attestation: I personally reviewed and interpreted this EKG as follows: EKG interpretation date: 11/26/20 EKG interpretation time: 22:27 Interpretation: nsr hr [address] or t wave abnormalities qrs 112 qtc 398 Discharge Plan Discharge Admit Provider: Elizabeth Gan Coding Level of Care Code ED Floor And Wall Applier Liquid for Chg Fwd Exam Comprehensive
[2020-11-26 21:52] LABS: Add Urine Culture? Yes; Add Urine Microscopic? YES; Bacteria Urine 1+ /hpf; Bilirubin Urine 1+ (Negative); Blood Urine 3+ (Negative); Ketones Urine Negative (Negative); Leukocyte Esterase Urine 2+ (Negative); Mucus Urine 1+ /hpf; Nitrate Urine Negative (Negative); Squamous Epithelial Cell Urine 0-4 /hpf (0-5); Urobilinogen Urine Norm (Negative); WBC Urine >100 /hpf (0-5)
--- NOTE | 2020-11-26 21:57 | CTR_ITS ---
PROCEDURE INFORMATION: Exam: CT Abdomen And Pelvis With Contrast Exam date and time: 11/26/2020 9:57 PM Age: 80 years old Clinical indication: Abdominal pain; Prior surgery; Surgery type: Aaa, kypho, hernia, gb; Additional info: Abd pain TECHNIQUE: Imaging protocol: Computed tomography of the abdomen and pelvis with contrast. Radiation optimization: All CT scans at this facility use at least one of these dose optimization techniques: automated exposure control; mA and/or kV adjustment per patient size (includes targeted exams where dose is matched to clinical indication); or iterative reconstruction. Contrast material: OMNI 300; Contrast volume: 95 ml; Contrast route: INTRAVENOUS (IV); COMPARISON: CT kidney stone [id number] 10/29/2020 10:05 PM RADIATION DOSE METRICS: Total DLP (mGy-cm): 1365.77 FINDINGS: Liver: Parenchyma slightly dense suggesting deposition of disease but is unchanged. No mass. Gallbladder and bile ducts: The gallbladder is surgically absent. There is secondary enlargement of the biliary tree and common duct. Pancreas: Normal. No ductal dilation. Spleen: The spleen is upper limits of normal in size which is unchanged. Adrenal glands: Normal. No mass. Kidneys and ureters: 2 large renal calculi persist in the left renal pelvis and UPJ. The stones measure 1.9 x 1.8 cm and 1.1 x 0.8 cm respectively. There is persisting or recurrent fatty stranding in the renal hilum suggesting some degree of inflammation and mild obstruction. There is persisting moderate right hydronephrosis due to a 7 x 5 mm mid ureteral calculus. The 2nd smaller mid ureteral calculus now lies in the distal ampullary portion of the ureter. There are multiple additional small nonobstructing right intrarenal calculi. Simple 2 cm right renal cortical cyst. Stomach and bowel: Unremarkable. No obstruction. No mucosal thickening. Appendix: No evidence of appendicitis. Intraperitoneal space: Unremarkable. No free air. No significant fluid collection. Vasculature: Chronic metallic stent in the abdominal aorta excluding a nonruptured aneurysm. The extent extends into both iliac arteries and remains patent. Numerous calcified plaques in the coronary arteries Lymph nodes: Unremarkable. No enlarged lymph nodes. Urinary bladder: Unremarkable as visualized. Reproductive: Unremarkable as visualized. Bones/joints: Chronic right hip internal fixation. Chronic abnormal bone marrow throughout the skeleton with innumerable chronic thoracolumbar fractures. This is probably due to metabolic bone disease. Soft tissues: Chronic 10 cm left lateral abdominal wall hernia. The aperture is broad and there is no entrapment or inflammation. . Evidence of prior right inguinal hernia repair. CT/CT abdomen pelvis w con* [id number] IMPRESSION: 1. Persisting partly obstructing stones in the left UPJ. 2. Persisting moderate right hydronephrosis due to a mid ureteral calculus. The 2nd right ureteral calculus now lies distally in the ampullary portion of the ureter. 3. Unchanged aorto bi-iliac graft without hemorrhage. 4. The chronic diffusely abnormal bone marrow with multiple chronic fractures and splenomegaly. This suggests metabolic bone disease. 5. Other chronic and incidental findings as described. COMMENTS: Consistent with the [employer]'s Incidental Findings Committee white paper (J Am Tiara Radiol 2018): Any incidental renal lesion less than 1 cm or classified as too small to characterize, or any incidental cystic renal lesion characterized as simple-appearing, is likely benign. No follow-up imaging is recommended for these lesions per consensus recommendations based on imaging criteria. Radiation Dose CTDIVOL = (mGy): DLP = 1365.77 (mGy-cm)
[2020-11-26 22:10] LABS: Basophils % 0.1 %; Eosinophils % 0.1 %; Hematocrit 22.6 % (42.0-52.0); Hemoglobin 7.1 g/dL (11.7-16.6); Lymphocytes # 0.2 10^3/uL (0.8-4.8); Lymphocytes % 2.5 %; Mean Corpuscular HGB Conc 31.4 g/dL (30.0-36.0); Mean Corpuscular Volume 92.2 fl (80-94); Mean Platelet Volume 11.5 fL (7.4-10.4); Monocytes # 0.3 10^3/uL (0.2-0.9); Monocytes % 3.9 %; Neutrophils # 6.94 10^3/uL (1.8-7.7); Neutrophils % 92.9 %; Nucleated Red Blood Cells % 0 %; Platelet Count 203 10^3/cmm (130-400); Red Blood Count 2.45 10^6/uL (4.1-5.3); Red Cell Distribution Width 19.4 % (12.1-15.1); White Blood Count 7.5 10^3/uL (4.0-10.0)
[2020-11-26] MEDS: iohexol 300 mg/mL 100 mL Btl IV (22:11)
[2020-11-26 22:31] LABS: Alanine Aminotransferase 44 U/L (0-41); Albumin Level 4.1 g/dL (3.5-5.2); Alkaline Phosphatase 78 IU/L (40-130); Anion Gap 14.9 (5-19); Aspartate Amino Transferase 46 U/L (0-40); Blood Urea Nitrogen 43 mg/dL (8-23); Calcium 9.5 mg/dL (8.5-10.5); Carbon Dioxide 25 mmol/L (22-29); Chloride 98 mmol/L (98-107); Digoxin 0.6 ng/mL (0.6-1.2); Globulin 2.3 g/dL (1.3-4.6); Glucose 146 mg/dL (65-115); Osmolality Calculated 291 mOsm/kg (285-295); Potassium 3.9 mmol/L (3.5-5.1); Sodium 134 mmol/L (136-145); Total Bilirubin 2.6 mg/dL (0.15-1.2); Total Protein 6.4 g/dL (6.6-8.7)
[2020-11-26 22:33] LABS: Lactic Sepsis W/Reflex 1.9 mmol/L (0.5-2.2)
[2020-11-26] MEDS: sodium chloride 0.9% 1,000 ML 999 ML IV (22:51)
[2020-11-26] MEDS: piperacillin-tazobactam 3.375 GM in sodium chloride 0.9% (plus) 50 ML IV (22:52)
[2020-11-26 23:01] VITALS: BP 79/45
[2020-11-26 23:06] LABS: SARS Covid-2 Antigen Negative (Negative)
[2020-11-26 23:30] VITALS: BP 79/45
[2020-11-26 23:56] VITALS: BP 84/45; PULSE 76; RESP 18; TEMP 37.1
[2020-11-27] VITALS (22 sets, daily range): BP systolic 78–116; BP diastolic 45–65; PULSE 77–126; RESP 14–80; TEMP 36.6–37.2; O2SAT 92–100
--- NOTE | 2020-11-27 | SCC_ITS ---
Procedure Done: 1. Cystoscopy with right ureteral stent placement (8.5 Kyrgyz by 30 cm double-pigtail without string) 26.7 seconds of fluoroscopic guidance, for a cumulative dose of 5.78 mGy, was provided to Dr. Zavala by the radiology department. C-arm images of the abdomen were saved for the patient's permanent record. [facility]
[2020-11-27] MEDS: vancomycin 1,000 MG in sodium chloride 0.9% 250 ML 250 MG IV (00:07)
[2020-11-27] MEDS: sodium chloride 0.9% 1,000 ML 999 ML IV (00:08)
--- NOTE | 2020-11-27 00:43 | PC.PHAR ---
Pharmacokinetic dosing service Date: 11/27/20 Time: 1800 Objective: Patient: José Miguel Bonilla Floor: 276-2 Age: 80 yo Serum creatinine: 1.3 mg/dL Height: 72.0 Inches Weight (kg): 74.843 Diagnosis: Relevant medical/social history: Cultures and sensitivities: Other labs: Assessment: IBW (kg): 77.60 Dosing wt(kg): 74.843 Estimated Creatinine clearance (ml/min): 48.8 CRCL method: Cockcroft and Gault using ibw(default). Drug selected: Vancomycin Loading dose (mg): 0 Vd (liters): 67.4 (factor used: 0.9 L/kg) Conrad (hr-1): 0.045 Half life (hrs): 15.40 Recommended dose: 1250 mg Interval: 18 hrs Infusion time (hrs): 1.5 Predicted peak (mcg/mL): 32.3 Predicted trough (mcg/mL): 15.37 Total body weight is being used for vancomycin dosing. Renal function is stable [ ] /unstable [ ] Recommendations: Give Vancomycin 1250 mg q 18 hrs with an expected Cpeak of 32.3 mcg/ml and an expected Ctrough of 15.37 mcg/ml Renal dosing of other antibiotics (review renal dosing of other medications and list guidelines here): Thank you for the consult, will continue to follow. Signature: Lori Bishop [facility]
--- NOTE | 2020-11-27 01:01 | PC.NURSE ---
pt's daughter needs to be contacted when pt goes to surgery. Daughter's name is Eleonora,
[2020-11-27] MEDS: enoxaparin 40 mg/0.4 mL Syringe SUBCUT (01:31)
[2020-11-27] MEDS: sodium chloride 0.9% 1,000 ML 75 ML IV (01:31)
[2020-11-27] MEDS: fentaNYL 50 mcg Patch 1 PATCH TRANSDERMA (01:45)
[2020-11-27] MEDS: meropenem 1,000 MG in sodium chloride 0.9% (plus) 50 ML 100 MG IV (01:46)
[2020-11-27] MEDS: oxyCODONE-APAP 10-325 mg Tablet 1 TAB PO ×2 (04:17→18:37)
--- NOTE | 2020-11-27 05:20 | P.HP_ITS ---
Providers/Chief Complaint Admitting Physician: Elizabeth Gan MD Primary Care Provider: Lo Kern MD Chief Complaint: fever @ home History of Present Illness José Miguel Bonilla is a 80 year old male with myelodysplastic syndrome currently on management limited to transfusion support with PRBC and symptomatic treatment measures, known nephrolithiasis presenting today after developing one week of fever at home. He is additionally complaining of increased urinary frequency and dysuria over the same timeframe. States that his urine appears a little cloudy. He was recently started on Bactrim as outpatient due to concern for UTI. Urine culture from 11/24 is showing Enterococcus species, pending further identification and susceptibility testing. He presented to cardiology office for outpatient follow-up today where he was noted to be febrile and sent into the emergency room. UA shows 2+ leuk esterase, greater than 100 WBCs, 1+ urine bacteria. WBC count yesterday at 17, today noted to be at 7. Abdomen pelvis CT with partially obstructing stones in the left UPJ, persisting moderate right hydronephrosis due to a mid ureteral calculus. Denies any URI symptoms. ROS negative for cough dyspnea chest pain palpitations. CXR without consolidation. He has received 3 doses of moderna mRNA vaccine. Review of Systems General: Reports: 10 or more systems reviewed and unremarkable except in HPI and below Const: Denies: fever(s), chills or body aches Eyes: Denies: change in vision, blurry vision or photophobia ENMT: Reports: hoarseness; Denies: throat pain, enlarged tonsils, odynophagia or nasal congestion Card: Denies: chest pain, palpitations, irregular heart rhythm, edema, swelling of feet/ankles, lightheadedness, pre-syncope, dyspnea on exertion or orthopnea Resp: Denies: dyspnea, productive cough, non-productive cough, wheezing, stridor, pain on inspiration, change in phlegm color, hemoptysis or chest congestion GI: Denies: abdominal pain, nausea, vomiting, hematemesis, coffee ground emesis, dysphagia, heartburn, diarrhea, constipation, GI cramping, change in stool character, hematochezia or melena : Denies: flank pain, dysuria, urinary frequency, urinary urgency, urinary hesitancy or hematuria Musc: Denies: neck pain, back pain, extremity pain, joint swelling, joint warmth or deformity Neuro: Denies: headache(s), numbness in extremities, weakness in extremities, sensory changes, difficulty walking, frequent falls, dizziness, vertigo, behavioral changes, Slurred speech present or seizure-like activity Psych: Denies: anxiety, depression, suicidal ideation or homicidal ideation Endo: Denies: polyuria, polydipsia, tired all the time, cold intolerance or hot flashes Marc/Lymph: Denies: easy bruising or easy bleeding Medications/Allergies Home Medications Medication Instructions Recorded Confirmed Last Taken Type aspirin 81 mg tablet,delayed 81 mg PO BEDTIME 07/04/19 11/27/20 11/26/20 History release 1800 tamsulosin 0.4 mg capsule 0.4 mg PO BID 07/04/19 11/27/20 08/19/19 History folic acid 1 mg tablet 1 mg PO DAILY 08/24/19 11/27/20 Unknown History clopidogrel 75 mg tablet 75 mg PO DAILY #90 tab 05/28/20 11/27/20 11/26/20 Rx 1800 digoxin 125 mcg (0.125 mg) tablet 125 mcg PO DAILY 90 Days #90 tab 05/28/20 11/27/20 Unknown Rx metoprolol succinate 50 mg 50 mg PO DAILY #90 tab 05/28/20 11/27/20 Unknown Rx tablet,extended release 24 hr nitroglycerin 0.4 mg sublingual 0.4 mg SUBLINGUAL Q5M PRN 30 Days 05/28/20 11/27/20 Unknown Rx tablet #30 tab pravastatin 20 mg tablet 20 mg PO DAILY 90 Days #90 tab 05/28/20 11/27/20 Unknown Rx ergocalciferol (vitamin D2) 50,000 unit PO Q7D 06/10/20 11/27/20 Unknown History [Vitamin D2] fentanyl 1 patch TRANSDERMAL Q72H 06/10/20 11/27/20 06/10/20 History oxycodone-acetaminophen 10 mg-325 1 tab PO Q8H PRN 07/17/20 11/27/20 Unknown History mg tablet pyridoxine (vitamin B6) 250 mg 250 mg PO TID tab 07/24/20 11/27/20 Unknown History tablet calcium carbonate 500 mg calcium 500 mg PO TID 08/11/20 11/27/20 11/26/20 History (1,250 mg) chewable tablet 1800 deferasirox 90 mg tablet 360 mg PO DAILY tab 11/07/20 11/27/20 Unknown History methenamine hippurate 1 gram tablet 1 g PO BID #60 tab 11/24/20 11/27/20 Unknown Rx sulfamethoxazole 800 1 tab PO BID #20 tab 11/25/20 11/27/20 Unknown Rx mg-trimethoprim 160 mg tablet Allergies Allergy/AdvReac Type Severity Reaction Status Date / Time No Known Allergies Allergy Verified 11/26/20 08:50 PFSH Acute PFSH: Medical History (Updated 11/27/20 @ 05:34 by Elizabeth Gan MD) Abdominal aortic aneurysm Anemia ASHD (arteriosclerotic heart disease) Atherosclerosis of coronary artery Atypical chest pain CAD (coronary artery disease) Calculus, ureteral Carotid artery disease Edema of extremities History of hypertension History of lower leg fracture Hx of fracture of right hip Hyperlipemia Hyperlipidemia Hypertension Kidney stone Leukemia Myelodysplasia (myelodysplastic syndrome) Systolic CHF Surgical History H/O endovascular stent graft for abdominal aortic aneurysm History of cholecystectomy History of kyphoplasty History of right inguinal hernia repair Family History Father , AT AGE 80 Stroke Mother , AT AGE 80 Myocardial infarction CAD (coronary artery disease) Diabetes Stroke Sister Cancer CAD (coronary artery disease) Grandfather Diabetes Grandmother Diabetes Father Diabetes Denies family history of Clotting disorder Dementia Chronic kidney disease (CKD) Suicide Anesthesia complication Bleeding disorder Lung disease Social History Smoking and tobacco status: former smoker Alcohol intake: never Adopted: No Caregiver/support person: No Lives independently: No Household members: spouse Marital status: Current occupational status: retired Previous occupational history: Served in the [employer] History of recent travel: No Vitals/I&O/Wt Last Vital Signs Temp 98.2 F 11/27/20 04:00 Pulse 85 11/27/20 04:00 Resp 18 11/27/20 04:17 BP 96/54 11/27/20 04:00 Pulse Ox 95 11/27/20 04:00 11/26/20 11/26/20 11/27/20 14:59 22:59 06:59 Intake Total 2700 / 2700 Output Total 180 / 180 Balance 2520 / 2520 Weight last 48 hrs Weight 74.843 kg Physical Exam Narrative: EXAM NARRATIVE: General: No acute distress, AO x3, pallor+ HEENT: PERRLA, pupils bilaterally equal and reactive, pallors not present Chest: Normal vesicular breath sounds, no added sounds, equal good air entry bilaterally CVS: S1-S2 regular, no murmurs, no tachycardia, no gallops, no rubs Abdomen: Soft, nontender, no organomegaly, bowel sounds present Neuro: No focal deficits, no facial deformity, AO x3, power 5/5 in all limbs Extremities: no cyanosis, clubbing or edema Data : 11/26/20 21:55 11/26/20 21:55 Micro: Microbiology 11/26/20 22:30 Blood Culture - Preliminary Blood SPECIMEN COLLECTED 11/26/20 21:55 Blood Culture - Preliminary Blood SPECIMEN COLLECTED A&P Assessment and plan (1) Complicated UTI (urinary tract infection): Patient presenting today with complaint of increased urgency and frequency. Signs and symptoms consistent with a complicated UTI in the setting of known nephrolithiasis. Admit to [facility]. Start empiric antibiotic coverage with meropenem(renally dosed for creatinine clearance of 43) and vancomycin, based on prior recent urine cultures with Proteus ESBL and Enterococcus faecalis. Blood culture taken prior to initiation of antibiotics. Pending urine culture today. Blood pressure noted to be 85-90 systolic, patient reports this is baseline for him. Denies any complains of dizziness. IV fluids normal saline at 75 cc an hour for now. Blood pressure is improved to 106 systolic after being given a liter of fluid bolus and started on blood transfusion Status: Acute (2) Bilateral nephrolithiasis: CT abdomen with bilateral renal stones, moderate right hydronephrosis. Urology consulted, plan for likely OR, stenting in a.m. Status: Acute (3) Anemia: Hemoglobin today at 7.1, transfusion already started with 1 packed red blo od cells in the ER. Recheck hemoglobin posttransfusion. Status: Acute Qualifiers: Anemia type: unspecified type Qualified Code(s): D64.9 - Anemia, unspecified Additional A&P Information Continue home doses of aspirin, atorvastatin Continue home doses of fentanyl 50 mcg patch and oxycodone per home dosing. Attestations Medical Necessity Statement*: Anticipate greater than 2 midnight admission for above defined care Coding Level of Care Code Acute Sharepoint Web Developer for Chg Fwd Diagnoses Complicated UTI (urinary tract infection) N39.0 Bilateral nephrolithiasis N20.0 Anemia D64.9 Anemia type: unspecified type
--- NOTE | 2020-11-27 05:37 | PM.CONSULT ---
Providers/Reason For Consult Consulting Physician/Specialty*: Zavala/Urology Reason for Consult*: Right ureteral stones/ UTI Attending Physician: Elizabeth Gan MD Primary Care Provider: Lo Kern MD History of Present Illness History of Present Illness José Miguel Bonilla is a 80 year old male well-known to me for history of bilateral urolithiasis. I have been following two large stones in his left renal pelvis without clear evidence of significant obstruction. Also has been known to have right renal calculi though more recently progressed to 2 stones in his right ureter with obstructive changes. Not really having any significant symptoms related to them. Elected prolonged course of conservative trial see if he could pass the stones based on his multiple comorbidities related to surgical intervention. Has had a history also of Enterococcus UTI. His last office visit was 3 days ago without evidence of infectious complication. We reviewed symptoms of systemic infection and concerns related to the risk associated with that. Urine culture was sent. Scheduled for follow-up. Since that time he developed a fever and presented to emergency department yesterday for evaluation. White count had improved (had been taken at oncology and found to be 17,000 the day before). Family stated that he had some confusion that was much worse than baseline. Was not overtly septic but due to the concern for infection and obstruction from the stone he was admitted for further evaluation and treatment. He has been likely stable since admission. Review of Systems Const: Reports: fever(s), fatigue and malaise Eyes: Denies: change in vision or yellow eyes ENMT: Denies: hoarseness Card: Denies: chest pain or palpitations Resp: Denies: productive cough or wheezing GI: Reports: abdominal pain (left) : Denies: dysuria or hematuria Musc: Reports: back pain (Chronic and severe); Denies: joint redness Skin/Breast: Denies: rash Neuro: Reports: confusion; Denies: Slurred speech present or seizure-like activity Psych: Reports: memory loss; Denies: anxiety Endo: Denies: polyuria or hot flashes Marc/Lymph: Reports: easy bruising and easy bleeding All/Imm: Denies: urticaria or acute wheezing Meds/Allergies Home Medications and Allergies Home Medications Medication Instructions Recorded Confirmed Last Taken Type aspirin 81 mg tablet,delayed 81 mg PO BEDTIME 07/04/19 11/27/20 11/26/20 History release 1800 tamsulosin 0.4 mg capsule 0.4 mg PO BID 07/04/19 11/27/20 08/19/19 History folic acid 1 mg tablet 1 mg PO DAILY 08/24/19 11/27/20 Unknown History clopidogrel 75 mg tablet 75 mg PO DAILY #90 tab 05/28/20 11/27/20 11/26/20 Rx 1800 digoxin 125 mcg (0.125 mg) tablet 125 mcg PO DAILY 90 Days #90 tab 05/28/20 11/27/20 Unknown Rx metoprolol succinate 50 mg 50 mg PO DAILY #90 tab 05/28/20 11/27/20 Unknown Rx tablet,extended release 24 hr nitroglycerin 0.4 mg sublingual 0.4 mg SUBLINGUAL Q5M PRN 30 Days 05/28/20 11/27/20 Unknown Rx tablet #30 tab pravastatin 20 mg tablet 20 mg PO DAILY 90 Days #90 tab 05/28/20 11/27/20 Unknown Rx ergocalciferol (vitamin D2) 50,000 unit PO Q7D 06/10/20 11/27/20 Unknown History [Vitamin D2] fentanyl 1 patch TRANSDERMAL Q72H 06/10/20 11/27/20 06/10/20 History oxycodone-acetaminophen 10 mg-325 1 tab PO Q8H PRN 07/17/20 11/27/20 Unknown History mg tablet pyridoxine (vitamin B6) 250 mg 250 mg PO TID tab 07/24/20 11/27/20 Unknown History tablet calcium carbonate 500 mg calcium 500 mg PO TID 08/11/20 11/27/20 11/26/20 History (1,250 mg) chewable tablet 1800 deferasirox 90 mg tablet 360 mg PO DAILY tab 11/07/20 11/27/20 Unknown History methenamine hippurate 1 gram tablet 1 g PO BID #60 tab 11/24/20 11/27/20 Unknown Rx sulfamethoxazole 800 1 tab PO BID #20 tab 11/25/20 11/27/20 Unknown Rx mg-trimethoprim 160 mg tablet Allergies Allergy/AdvReac Type Severity Reaction Status Date / Time No Known Allergies Allergy Verified 11/26/20 08:50 Current Medications Current Medications Generic Name Dose Route Start Last Admin Trade Name Freq PRN Reason Stop Dose Admin Enoxaparin Sodium 40 mg 11/27/20 00:00 11/27/20 01:31 Enoxaparin 40 Mg/0.4 Ml Syringe SUBCUT 40 mg Q24H JORJE Administration Fentanyl 1 patch 11/27/20 02:00 11/27/20 01:45 Fentanyl 50 Mcg Patch TRANSDERMA 1 patch Q72H JORJE Administration Sodium Chloride 1,000 mls @ 75 mls/hr 11/26/20 23:30 11/27/20 01:31 Sodium Chloride 0.9% IV 75 mls/hr .[id number] JORJE Administration Meropenem 1,000 mg/ Sodium 50 mls @ 100 mls/hr 11/27/20 01:00 11/27/20 02:16 Chloride IV Infused Q12H JORJE Infusion Oxycodone/Acetaminophen 1 tab 11/27/20 00:10 11/27/20 04:17 Oxycodone-Apap 10-325 Mg Tablet PO 1 tab Q8H PRN Administration pain PFSH Acute PFSH: Medical History (Updated 11/27/20 @ 05:53 by Néstor Zavala MD) Abdominal aortic aneurysm Anemia ASHD (arteriosclerotic heart disease) Atherosclerosis of coronary artery Atypical chest pain CAD (coronary artery disease) Calculus, ureteral Carotid artery disease Edema of extremities History of hypertension History of lower leg fracture Hx of fracture of right hip Hyperlipemia Hyperlipidemia Hypertension Kidney stone Left renal stone Leukemia Myelodysplasia (myelodysplastic syndrome) Systolic CHF Surgical History H/O endovascular stent graft for abdominal aortic aneurysm History of cholecystectomy History of kyphoplasty History of right inguinal hernia repair Family History Father , AT AGE 80 Stroke Mother , AT AGE 80 Myocardial infarction CAD (coronary artery disease) Diabetes Stroke Sister Cancer CAD (coronary artery disease) Grandfather Diabetes Grandmother Diabetes Father Diabetes Denies family history of Clotting disorder Dementia Chronic kidney disease (CKD) Suicide Anesthesia complication Bleeding disorder Lung disease Social History Smoking and tobacco status: former smoker Alcohol intake: never Adopted: No Caregiver/support person: No Lives independently: No Household members: spouse Marital status: Current occupational status: retired Previous occupational history: Served in the [employer] History of recent travel: No Vitals/I&O/Wt Last Vital Signs Temp 98.2 F 11/27/20 04:00 Pulse 85 11/27/20 04:00 Resp 18 11/27/20 04:17 BP 96/54 11/27/20 04:00 Pulse Ox 95 11/27/20 04:00 11/26/20 11/26/20 11/27/20 14:59 22:59 06:59 Intake Total 2700 / 2700 Output Total 180 / 180 Balance 2520 / 2520 Weight last 48 hrs Weight 165 lb Physical Exam Const: COMMON NORMALS: no acute distress, patient oriented x3 and alert; negative for healthy appearing GENERAL APPEARANCE: well kempt and well developed ORIENTATION/CONSCIOUSNESS: not confused HENMT: COMMON NORMALS: normocephalic HEAD & SCALP: normocephalic Eye: COMMON NORMALS: conjunctivae normal and no scleral icterus CONJUNCTIVA: Yes conjunctivae normal Neck/C-Spine: COMMON NORMALS: full ROM Lymph: LYMPHATIC: no lymphadenopathy noted Resp: COMMON NORMALS: normal respiratory effort and clear to auscultation bilaterally EFFORT & INSPECTION: No labored and No Actively coughing AUSCULTATION: clear to auscultation bilaterally Cardio: COMMON NORMALS: regular rate and regular rhythm RATE: regular rate RHYTHM: regular rhythm GI: COMMON NORMALS: Soft to palpation PALPATION: Yes Soft to palpation and Yes Tenderness to palpation present (GI) : COMMON NORMALS: Yes normal external exam and Yes no scrotal swelling PENIS: normal penis MEATUS: meatus normal Extremity: COMMON NORMALS: no clubbing, cyanosis or edema Neuro: COMMON NORMALS: patient oriented x3 SENSORIUM/ORIENTATION: Yes alert Psych: COMMON NORMALS: mental status grossly normal APPEARANCE: Yes grossly normal and Yes well kempt ATTITUDE: Yes calm and Yes engaged Skin: COMMON NORMALS: no rashes or lesions noted and no jaundice GENERAL SKIN EXAM: no rashes or lesions noted Data Micro: Micro: Microbiology 11/26/20 22:30 Blood Culture - Pr eliminary Blood SPECIMEN [facility] 11/26/20 21:55 Blood Culture - Pr eliminary Blood SPECIMEN [facility] A&P Assessment and plan (1) Right ureteral calculus: Status is changed with symptomatic UTI. Previously was hoping to pass the stone spontaneously but due to the UTI status change I recommended stent placement, treat infection, and then deal with the stones after recovery of infection. We will plan on adding that to the schedule today for urgent intervention. Status: Acute (2) Left renal stone: Status: Chronic (3) Hydronephrosis of right kidney: Status: Acute (4) Complicated UTI (urinary tract infection): Status: Acute Consult Attestations Medical Necessity Statement: UTI with stones causing obstruction Coding Level of Care Code Acute Clerical Production Worker for Chg Fwd Exam Comprehensive Diagnoses Right ureteral calculus N20.1 Left renal stone N20.0 Hydronephrosis of right kidney N13.30 Complicated UTI (urinary tract infection) N39.0
[2020-11-27 05:42] LABS: Basophils % 0.1 %; Eosinophils % 0.3 %; Hematocrit 23.4 % (42.0-52.0); Hemoglobin 7.4 g/dL (11.7-16.6); Lymphocytes # 0.1 10^3/uL (0.8-4.8); Lymphocytes % 1.4 %; Mean Corpuscular HGB Conc 31.6 g/dL (30.0-36.0); Mean Corpuscular Hemoglobin 28.6 pg (28.0-34.0); Mean Corpuscular Volume 90.3 fl (80-94); Mean Platelet Volume 13.1 fL (7.4-10.4); Monocytes # 0.3 10^3/uL (0.2-0.9); Monocytes % 3.3 %; Neutrophils # 7.43 10^3/uL (1.8-7.7); Neutrophils % 94.4 %; Nucleated Red Blood Cells % 0 %; Platelet Count 186 10^3/cmm (130-400); Red Blood Count 2.59 10^6/uL (4.1-5.3); Red Cell Distribution Width 18.7 % (12.1-15.1); White Blood Count 7.9 10^3/uL (4.0-10.0)
[2020-11-27 06:01] LABS: Alanine Aminotransferase 59 U/L (0-41); Albumin Level 3.5 g/dL (3.5-5.2); Alkaline Phosphatase 84 IU/L (40-130); Anion Gap 13.9 (5-19); Aspartate Amino Transferase 80 U/L (0-40); Blood Urea Nitrogen 36 mg/dL (8-23); Calcium 8.5 mg/dL (8.5-10.5); Carbon Dioxide 24 mmol/L (22-29); Chloride 102 mmol/L (98-107); Globulin 2.3 g/dL (1.3-4.6); Glucose 149 mg/dL (65-115); Osmolality Calculated 293 mOsm/kg (285-295); Potassium 3.9 mmol/L (3.5-5.1); Sodium 136 mmol/L (136-145); Total Bilirubin 2.9 mg/dL (0.15-1.2); Total Protein 5.8 g/dL (6.6-8.7)
[2020-11-27 06:16] LABS: Slide Review Slide Review Perform
[2020-11-27] MEDS: atorvastatin 40 mg Tablet 20 MG PO (08:26)
[2020-11-27] MEDS: tamsulosin 0.4 mg Capsule PO ×2 (08:26→17:57)
[2020-11-27] MEDS: pantoprazole DR 40 mg Tablet PO (08:26)
[2020-11-27] MEDS: digoxin 125 mcg Tablet PO (10:47)
[2020-11-27] MEDS: sodium chloride 0.9% 1,000 ML 30 ML IV (11:42)
--- NOTE | 2020-11-27 12:14 | P.ANESASSM_ITS ---
Pre-Anesthetic Assessment Pre-Anesthetic Assessment: Height/Weight: Height 1.83 m Weight 74.843 kg Temp Pulse Resp BP Pulse Ox 98.7 F 88 80 H 116/65 95 11/27/20 11:28 11/27/20 10:47 11/27/20 11:28 11/27/20 11:28 11/27/20 11:28 Preop Diagnosis: Right Intertrochateric hip fracture Proposed Procedure: Operation Date: 11/27/20 12:00 Proposed Procedures p Cystoscopy(Right) - Néstor Zavala MD s Ureteral Stent Placement(Right) - Néstor Zavala MD Was Beta Shadi taken within 24 hours: Yes Was Clonidine taken within 24 hours: N/A Social: Social History: No alcohol and No tobacco Exam: Pre-Anes Outpt Exam: alert, oriented x 3, clear to auscultation bilaterally and regular rate & rhythm Airway: Submandibular: WNL Cervical ROM: WNL MP: 2 Dentition: Chipped CV/HEM: CV/HEM: Anemia, CAD, CHF, HTN and PVD Comments: AAA-repaired, leukemia Metabolic: Metabolic: Hyperlipidemia Anesthetic Plan: ASA status: 3 Anesthesia: General Risk of > 500 ml blood loss (7ml/kg in children): No Meds/Allergies Current Medications: Current Medications Generic Name Dose Route Start Last Admin Trade Name Freq PRN Reason Stop Dose Admin Atorvastatin Calci um 20 mg 11/27/20 09:00 11/27/20 08:26 Atorvastatin 40 Mg Tablet PO 20 mg DAILY JORJE Administration Digoxin 125 mcg 11/27/20 09:00 11/27/20 10:47 Digoxin 125 Mcg Tablet PO 125 mcg DAILY JORJE Administration Enoxaparin Sodium 40 mg 11/27/20 00:00 11/27/20 01:31 Enoxaparin 40 Mg /0.4 Ml Syringe SUBCUT 40 mg Q24H JORJE Administration Fentanyl 1 patch 11/27/20 02:00 11/27/20 01:45 Fentanyl 50 Mcg Patch TRANSDERMA 1 patch Q72H JORJE Administration Sodium Chloride 1,000 mls @ 75 ml s/hr 11/26/20 23:30 11/27/20 01:31 Sodium Chloride 0.9% IV 75 mls/hr .[id number] JORJE Administration Meropenem 1,000 mg / Sodium 50 mls @ 100 mls/ hr 11/27/20 01:00 11/27/20 02:16 Chloride IV Infused Q12H JORJE Infusion Sodium Chloride 1,000 mls @ 30 ml s/hr 11/27/20 11:30 11/27/20 11:42 Sodium Chloride 0.9% IV 11/28/20 11:29 30 mls/hr .Q24H JORJE Administration Oxycodone/Acetamin ophen 1 tab 11/27/20 00:10 11/27/20 04:17 Oxycodone-Apap 1 0-325 Mg Tablet PO 1 tab Q8H PRN Administration pain Pantoprazole Sod[place] m 40 mg 11/27/20 09:00 11/27/20 08:[address] 40 Mg Tablet PO 40 mg DAILY JORJE Administration Tamsulosin HCl 0.4 mg 11/27/20 09:00 11/27/20 08:26 Tamsulosin 0.4 M g Capsule PO 0.4 mg BID JORJE Administration White Petrol/Government Program Manager al Oil/Lanolin 1 applic 11/27/20 09:00 11/27/20 08:32 Diaper Rash Oint ment 71 Gm TOPICAL 1 applic BID JORJE Administration PFSH Anesthesia PFSH: Medical History (Updated 11/27/20 @ 05:53 by Néstor Zavala MD) Abdominal aortic aneurysm Anemia ASHD (arteriosclerotic heart disease) Atherosclerosis of coronary artery Atypical chest pain CAD (coronary artery disease) Calculus, ureteral Carotid artery disease Edema of extremities History of hypertension History of lower leg fracture Hx of fracture of right hip Hyperlipemia Hyperlipidemia Hypertension Kidney stone Left renal stone Leukemia Myelodysplasia (myelodysplastic syndrome) Systolic CHF Surgical History H/O endovascular stent graft for abdominal aortic aneurysm History of cholecystectomy History of kyphoplasty History of right inguinal hernia repair Family History Father , AT AGE 80 Stroke Mother , AT AGE 80 Myocardial infarction CAD (coronary artery disease) Diabetes Stroke Sister Cancer CAD (coronary artery disease) Grandfather Diabetes Grandmother Diabetes Father Diabetes Denies family history of Clotting disorder Dementia Chronic kidney disease (CKD) Suicide Anesthesia complication Bleeding disorder Lung disease Social History Smoking and tobacco status: former smoker Alcohol intake: never Adopted: No Caregiver/support person: No Lives independently: No Household members: spouse Marital status: Current occupational status: retired Previous occupational history: Served in the [employer] History of recent travel: No Data Anesthesia CBC & Chem 7: 11/27/20 05:20 11/27/20 05:20 Other Labs: Laboratory Results - last 48 hr 11/25/20 11/26/20 11/26/20 09:15 21:43 21:55 WBC 7.5 RBC 2.45 L Hgb 7.1 L Hct 22.6 L MCV 92.2 MCH 29.0 MCHC 31.4 RDW 19.4 H Plt Count 203 MPV 11.5 H Neut % (Auto) 92.9 Lymph % (Auto) 2.5 [place] % (Auto) 3.9 Eos % (Auto) 0.1 Baso % (Auto) 0.1 Neut # (Auto) 6.94 Lymph # (Auto) 0.2 L [place] # (Auto) 0.3 Eos # (Auto) 0.0 Baso # (Auto) 0.0 Nucleated RBC % (auto) 0 Nucleated RBCs # 0.0 Sodium Potassium Chloride Carbon Dioxide Anion Gap BUN Creatinine GFR Calculation Glucose Calculated Osmolality Lactic Acid Calcium Total Bilirubin AST ALT Alkaline Phosphatase Total Protein Albumin Globulin Urine Color Yellow Urine Appearance Hazy A Urine pH 5 Ur Specific Sixes 1.020 Urine Protein 1+ H Urine Glucose (UA) Norm Urine Ketones Negative Urine Blood 3+ H Urine Nitrate Negative Urine Bilirubin 1+ H Urine Urobilinogen Norm Ur Leukocyte Esterase 2+ H Urine RBC 10-15 H Urine WBC >100 H Ur Squamous Epith Cells 0-4 H Amorphous Sediment Not Reportable Urine Bacteria 1+ H Urine Mucus 1+ Digoxin SARS-CoV-2 Ag (Rapid) Blood Type Cancelled Rho(D) Type Cancelled Antibody Screen Cancelled Crossmatch See Detail 11/26/20 11/26/20 11/26/20 21:55 21:55 22:30 WBC RBC Hgb Hct MCV MCH MCHC RDW Plt Count MPV Neut % (Auto) Lymph % (Auto) [place] % (Auto) Eos % (Auto) Baso % (Auto) Neut # (Auto) Lymph # (Auto) [place] # (Auto) Eos # (Auto) Baso # (Auto) Nucleated RBC % (auto) Nucleated RBCs # Sodium 134 L Potassium 3.9 Chloride 98 Carbon Dioxide 25 Anion Gap 14.9 BUN 43 H Creatinine 1.3 H GFR Calculation Not Reportable Glucose 146 H Calculated Osmolality 291 Lactic Acid 1.9 Calcium 9.5 Total Bilirubin 2.6 H AST 46 H ALT 44 H Alkaline Phosphatase 78 Total Protein 6.4 L Albumin 4.1 Globulin 2.3 Urine Color Urine Appearance Urine pH Ur Specific Sixes Urine Protein Urine Glucose (UA) Urine Ketones Urine Blood Urine Nitrate Urine Bilirubin Urine Urobilinogen Ur Leukocyte Esterase Urine RBC Urine WBC Ur Squamous Epith Cells Amorphous Sediment Urine Bacteria Urine Mucus Digoxin 0.6 SARS-CoV-2 Ag (Rapid) Negative Blood Type Rho(D) Type Antibody Screen Crossmatch 11/27/20 11/27/20 05:20 05:20 WBC 7.9 RBC 2.59 L Hgb 7.4 L Hct 23.4 L MCV 90.3 MCH 28.6 MCHC 31.6 RDW 18.7 H Plt Count 186 MPV 13.1 H Neut % (Auto) 94.4 Lymph % (Auto) 1.4 [place] % (Auto) 3.3 Eos % (Auto) 0.3 Baso % (Auto) 0.1 Neut # (Auto) 7.43 Lymph # (Auto) 0.1 L [place] # (Auto) 0.3 Eos # (Auto) 0.0 Baso # (Auto) 0.0 Nucleated RBC % (auto) 0 Nucleated RBCs # 0.0 Sodium 136 Potassium 3.9 Chloride 102 Carbon Dioxide 24 Anion Gap 13.9 BUN 36 H Creatinine 1.0 GFR Calculation Not Reportable Glucose 149 H Calculated Osmolality 293 Lactic Acid Calcium 8.5 Total Bilirubin 2.9 H AST 80 H ALT 59 H Alkaline Phosphatase 84 Total Protein 5.8 L Albumin 3.5 Globulin 2.3 Urine Color Urine Appearance Urine pH Ur Specific Sixes Urine Protein Urine Glucose (UA) Urine Ketones Urine Blood Urine Nitrate Urine Bilirubin Urine Urobilinogen Ur Leukocyte Esterase Urine RBC Urine WBC Ur Squamous Epith Cells Amorphous Sediment Urine Bacteria Urine Mucus Digoxin SARS-CoV-2 Ag (Rapid) Blood Type Rho(D) Type Antibody Screen Crossmatch Micro: Microbiology 11/26/20 22:30 Blood Culture - Preliminary Blood SPECIMEN COLLECTED 11/26/20 21:55 Blood Culture - Preliminary Blood SPECIMEN COLLECTED Cardiac Studies: No Data to Display
[2020-11-27] MEDS: lidocaine 2% Urojet 20 mL TOPICAL (12:50)
--- NOTE | 2020-11-27 12:55 | SC_ITS ---
WS: [id number] C-arm fluoroscopy for renal stent placement, 11/27/2020 Clinical Data: intra-op Comparison: None. Findings: Dr. Zavala placed a right ureteral stent. SC/C-arm [place] for Urology Impression: Right ureteral stent.
--- NOTE | 2020-11-27 13:15 | P.OP_ITS ---
Operative Report Date of procedure: November 27, 2020 Pre-op Diagnosis: Right ureteral obstructing stones with UTI Post-op diagnosis: same Procedure Done: 1. Cystoscopy with right ureteral stent placement (8.5 Russian by 30 cm double-pigtail without string) Pathology: none sent Surgeon: Lucas Anesthesia: General Estimated blood loss: None Urine output: Not measured Complications: None Findings: The more distal of the 2 stones had migrated to the distal ureter and the other larger stone was still in the same place in the mid ureter. Stent placed without difficulty. Condition: stable Disposition: PACU Brief History: Mr. Bonilla is a very pleasant 80-year-old white male with a complex history of urolithiasis with fairly recently diagnosed right mid ureteral stones with obstructive changes and longstanding known large left renal pelvic stones. He is a high surgical risk anyone to see if he could pass the stones but had failed to see significant progression over time. He developed fever and confusion and it was decided to admit him to the hospital for anticipated intervention for drainage of the right collecting system to be followed with definitive treatment of the stones after antibiotics have been utilized to clear the infection. Procedure: After urgent evaluation examination and obtaining of informed consent he was taken to the operating suite on 11/27/2020 where general anesthesia was administered without difficulty after appropriate timeout was performed, adequate level of anesthesia was obtained, preoperative antibiotics confirmed, beta-blockers confirmed. Prepped and draped in usual sterile fashion in dorsolithotomy position paying careful attention to avoiding pressure points. 21 Russian cystoscope with 30 degree lens was introduced into the urethra meatus and advanced into the bladder under videoscopy after the urethral meatus which was somewhat narrowed was dilated with [place] sounds enough to accommodate the scope. The bladder was inspected had mild trabeculation and chronic trabeculation but no stones. There appeared to be a stone just inside the intramural tunnel. The stone migrated proximally when attempts are made to secure it and grasp it. A flexible tip guidewire was then advanced up the right ureter bypassing that stone and curling in the ureter just below the mid ureteral stone. An open-ended ureteral catheter was then advanced over the guid ewire which allowed facilitation of easy passage of the wire beyond the more proximal stone curling in the area of the upper pole calyx. There was still some contrast retained within the collecting system which confirmed its position in the appropriate position. The open ended catheter was removed and an 8.5 Russian by 30 cm double-pigtail stent was advanced over the guidewire through the cystoscope into appropriate position as confirmed via fluoroscopy and cystoscopy. The stent was draining cloudy urine at the completion. Bladder was drained with a 16 [place] and the procedure was completed. He tolerated the procedure well without complications and was awakened in the operating room and returned to the PACU in stable condition. PLANS: 1. Maintain stent until stones are definitively treated 2. Antibiotic protocol per hospitalist service
--- NOTE | 2020-11-27 13:51 | P.PN_ITS ---
Subjective Subjective: Interval history: Seen postoperatively. Denies any nausea vomiting, headache. Has remained hemodynamically stable. Currently on room air saturating 94%. Afebrile since admission. Vitals/I&O/Wt Last Vital Signs Temp 98.9 F 11/27/20 13:20 Pulse 81 11/27/20 13:20 Resp 16 11/27/20 13:20 BP 103/51 11/27/20 13:20 Pulse Ox 94 11/27/20 13:20 11/26/20 11/27/20 11/27/20 22:59 06:59 14:59 Intake Total 2700 / 2700 0 / 0 Output Total 180 / 180 500 / 500 Balance 2520 / 2520 -500 / -500 Weight last 48 hrs Weight 74.843 kg Physical Exam Narrative: EXAM NARRATIVE: General: No acute distress, AO x3, pallor+ HEENT: PERRLA, pupils bilaterally equal and reactive, pallors not present Chest: Normal vesicular breath sounds, no added sounds, equal good air entry bilaterally CVS: S1-S2 regular, no murmurs, no tachycardia, no gallops, no rubs Abdomen: Soft, nontender, no organomegaly, bowel sounds present Neuro: No focal deficits, no facial deformity, AO x3, power 5/5 in all limbs Extremities: no cyanosis, clubbing or edema Urinary Catheter Management^: West: Cath Placed During This Visit: yes Urinary Catheter Date of Insertion: 11/27/20 Urinary Catheter Time of Insertion: 12:56 Data : 11/27/20 05:20 11/27/20 05:20 Micro: Microbiology 11/26/20 22:30 Blood Culture - Preliminary Blood SPECIMEN COLLECTED 11/26/20 21:55 Blood Culture - Preliminary Blood SPECIMEN COLLECTED A&P Assessment and plan (1) Complicated UTI (urinary tract infection): UTI complicated in setting of nephrolithiasis. History of Proteus ESBL and Enterococcus faecalis earlier this year. For now continue with empiric coverage with meropenem and vancomycin. Dosed as per creatinine clearance. Follow-up blood cultures and urine culture and change antibiotics accordingly. Keep mean arterial pressure over 65. Appreciate urology recommendations. Status: Acute (2) Bilateral nephrolithiasis: CT abdomen with bilateral renal stones, moderate right hydronephrosis. Post cystoscopy and right ureteral stenting on November 27. Status: Acute (3) Anemia: Secondary to MDS. Post 1 unit of blood transfusion. Target hemoglobin over 8. Status: Acute Qualifiers: Anemia type: unspecified type Qualified Code(s): D64.9 - Anemia, unspecified (4) ASHD (arteriosclerotic heart disease): Status: Acute (5) History of hypertension: Status: Acute (6) Myelodysplasia (myelodysplastic syndrome): Status: Acute Additional A&P Information Continue other chronic medications including aspirin, statin, digoxin, metoprolol, Flomax. Hypertension: Goal blood pressure less than 140/90 mmHg keeping mean over 65. Continue with home dose of metoprolol. History of CAD: No active chest pain. Check HbA1c, lipid panel. Continue with aspirin, statin, beta-miriam. MDS: Follows up with oncology. Monitor hemoglobin and platelet counts. Continue home doses of fentanyl 50 mcg patch and oxycodone per home dosing. Full code. Cardiac diet. Lovenox for DVT prophylaxis. Attestations Medical Necessity Statement*: Requires further hospitalization for management of sepsis secondary to complicated UTI, nephrolithiasis Time Spent in Patient Care: Greater than 35 minutes (>than 50% of time spent in counselling and/or direct pt care on unit) . Coding Level of Care Code Acute Shipfitters Supervisor for g Fwd Diagnoses Complicated UTI (urinary tract infection) N39.0 Bilateral nephrolithiasis N20.0 Anemia D64.9 Anemia type: unspecified type ASHD (arteriosclerotic heart disease) I25.10 History of hypertension Z86.79 Myelodysplasia (myelodysplastic syndrome) D46.9
--- NOTE | 2020-11-27 14:23 | ANE.PACU2 ---
Inpatient post-anesthesia follow up: Airway intact: Yes Vital signs: Temperature 98.9 F Pulse Rate [Left B rachial] 84 Pulse Rate 81 Respiratory Rate 16 Blood Pressure [Ri ght Arm] 85/49 Blood Pressure 103/51 Pulse Oximetry 94 Oxygen Delivery Me thod Room Air Oxygen Flow Rate 6 Fraction of Inspir ed Oxygen Hydration adequate: Yes Nausea and vomiting: No Pain level: 2 Mental status: Baseline
[2020-11-27 14:37] LABS: Iron 131 ug/dL (59-158); Percent Saturation 20.2 % (20-50); Total Iron Binding Capacity 646 mcg/dl; Unsaturated Iron Binding 515 ug/dL (112-347)
[2020-11-27 14:46] LABS: Thyroid Stimulating Hormone 2.08 uIU/mL (0.27-4.20)
[2020-11-27] MEDS: polyethylene glycol 3350 Pkt 17 gm PO (17:57)
[2020-11-27] MEDS: vancomycin 1,250 MG/250 ML PIGGYBACK 250 MG IV (17:58)
[2020-11-27] MEDS: aspirin 81 mg EC Tablet PO (20:41)
[2020-11-28] VITALS (13 sets, daily range): BP systolic 89–96; BP diastolic 40–61; PULSE 74–106; RESP 13–20; TEMP 36.4–37.4; O2SAT 94–97
[2020-11-28] MEDS: meropenem 1,000 MG in sodium chloride 0.9% (plus) 50 ML 100 MG IV ×3 (00:03→20:41)
[2020-11-28] MEDS: enoxaparin 40 mg/0.4 mL Syringe SUBCUT ×2 (00:04→23:35)
[2020-11-28] MEDS: sodium chloride 0.9% 1,000 ML 75 ML IV (01:31)
[2020-11-28 02:58] LABS: Basophils % 0.5 %; Eosinophils # 0.3 10^3/uL (0.0-0.8); Eosinophils % 8.1 %; Hematocrit 22.5 % (42.0-52.0); Lymphocytes # 0.2 10^3/uL (0.8-4.8); Lymphocytes % 5.5 %; Mean Corpuscular HGB Conc 31.1 g/dL (30.0-36.0); Mean Corpuscular Hemoglobin 28.7 pg (28.0-34.0); Mean Corpuscular Volume 92.2 fl (80-94); Mean Platelet Volume 12.7 fL (7.4-10.4); Monocytes # 0.3 10^3/uL (0.2-0.9); Monocytes % 6.5 %; Neutrophils # 3.29 10^3/uL (1.8-7.7); Neutrophils % 78.7 %; Nucleated Red Blood Cells % 0 %; Platelet Count 167 10^3/cmm (130-400); Red Blood Count 2.44 10^6/uL (4.1-5.3); Red Cell Distribution Width 19.3 % (12.1-15.1); White Blood Count 4.2 10^3/uL (4.0-10.0)
[2020-11-28] MEDS: acetaminophen 325 mg Tablet 650 MG PO (03:11)
[2020-11-28 03:16] LABS: Alanine Aminotransferase 61 U/L (0-41); Albumin Level 3.2 g/dL (3.5-5.2); Alkaline Phosphatase 83 IU/L (40-130); Anion Gap 12.5 (5-19); Aspartate Amino Transferase 62 U/L (0-40); Blood Urea Nitrogen 29 mg/dL (8-23); Calcium 8.1 mg/dL (8.5-10.5); Carbon Dioxide 23 mmol/L (22-29); Chloride 107 mmol/L (98-107); Creatinine Clr Calc Pharmacy 81.0127; Globulin 2.3 g/dL (1.3-4.6); Glucose 109 mg/dL (65-115); Osmolality Calculated 294 mOsm/kg (285-295); Potassium 3.5 mmol/L (3.5-5.1); Sodium 139 mmol/L (136-145); Total Bilirubin 1.5 mg/dL (0.15-1.2); Total Protein 5.5 g/dL (6.6-8.7)
[2020-11-28 03:25] LABS: Chol HDL Ratio 2.03 mg/dL (1.0-5.00); Cholesterol 73 mg/dL (0-200); Estmated Average Glucose 108; HDL Cholesterol 36 mg/dL (60-100); Hemoglobin A1C 5.4 % (4.0-6.0); LDL Cholesterol Calculated 21 mg/dL (50-129); Triglycerides 81 mg/dL (0-150); VLDL Cholestrol Calculation 16 mg/dL (0-30)
[2020-11-28 04:20] LABS: Procalcitonin 0.38 ng/mL (0-0.5)
[2020-11-28] MEDS: pantoprazole DR 40 mg Tablet PO (08:32)
[2020-11-28] MEDS: tamsulosin 0.4 mg Capsule PO ×2 (08:32→17:50)
[2020-11-28] MEDS: atorvastatin 40 mg Tablet 20 MG PO (08:34)
[2020-11-28] MEDS: sodium chloride 0.9% (100 ml) 100 ML 20 ML (11:34)
--- NOTE | 2020-11-28 13:16 | PM.PN ---
Subjective Subjective: Interval history: No acute events overnight. Patient has remained hemodynamically stable and afebrile. T-max in last 24 hours 99.3 Fahrenheit. States he is feeling a little tight in his chest. Currently on room air. Denies any nausea, vomiting, headache. Complaining of constipation. Vitals/I&O/Wt Last Vital Signs Temp 99.3 F 11/28/20 11:30 Pulse 98 11/28/20 11:30 Resp 16 11/28/20 11:30 BP 96/49 11/28/20 11:30 Pulse Ox 96 11/28/20 11:30 11/27/20 11/28/20 11/28/20 22:59 06:59 14:59 Intake Total 2450 / 2450 50 / 2500 120 / 120 Output Total 500 / 1000 800 / 1800 Balance 1950 / 1450 -750 / 700 120 / 120 Weight last 48 hrs Weight 74.843 kg Physical Exam Narrative: EXAM NARRATIVE: General: No acute distress, AO x3, pallor+ + HEENT: PERRLA, pupils bilaterally equal and reactive, pallors not present Chest: Normal vesicular breath sounds, no added sounds, equal good air entry bilaterally CVS: S1-S2 regular, no murmurs, no tachycardia, no gallops, no rubs Abdomen: Soft, nontender, no organomegaly, bowel sounds present Neuro: No focal deficits, no facial deformity, AO x3, power 5/5 in all limbs Extremities: no cyanosis, clubbing or edema Urinary Catheter Management^: West: Cath Placed During This Visit: yes Reason for Continuing Indwelling Catheter: Acute Urinary Retention or Obstruction Urinary Catheter Date of Insertion: 11/27/20 Urinary Catheter Time of Insertion: 12:56 Data : 11/28/20 02:43 11/28/20 02:43 Micro: Microbiology 11/26/20 21:43 Urine Culture - Preliminary Urine,Clean Catch Enterococcus faecalis 11/26/20 22:30 Blood Culture - Preliminary Blood NEGATIVE TO DATE 11/26/20 21:55 Blood Culture - Preliminary Blood NEGATIVE TO DATE A&P Assessment and plan (1) Complicated UTI (urinary tract infection): UTI complicated in setting of nephrolithiasis. History of Proteus ESBL and Enterococcus faecalis earlier this year. For now urine culture preliminary growing Enterococcus faecalis. For now continue with empiric coverage with meropenem and vancomycin. Pharmacy consult to redose antibiotics as per creatinine clearance. Follow-up blood cultures and urine culture and change antibiotics accordingly. Keep mean arterial pressure over 65. Appreciate urology recommendations. Status: Acute (2) Bilateral nephrolithiasis: CT abdomen with bilateral renal stones, moderate right hydronephrosis. Post cystoscopy and right ureteral stenting on November 27. Status: Acute (3) Anemia: Secondary to MDS. Post 1 unit of blood transfusion. Target hemoglobin over 8. Will repeat 1 more unit of PRBC today. Status: Acute Qualifiers: Anemia type: unspecified type Qualified Code(s): D64.9 - Anemia, unspecified (4) ASHD (arteriosclerotic heart disease): Status: Acute (5) History of hypertension: Status: Acute (6) Myelodysplasia (myelodysplastic syndrome): Status: Acute Additional A&P Information Continue other chronic medications including aspirin, statin, digoxin, metoprolol, Flomax. Hypertension: Goal blood pressure less than 140/90 mmHg keeping mean over 65. Continue with metoprolol tartrate at 25 mg twice daily History of CAD: No active chest pain. A1c 5.4, lipid panel appreciated. Decrease dose of Lipitor to 10 mg daily. Continue with aspirin, statin, beta-miriam. Check echocardiogram. MDS: Follows up with oncology. Monitor hemoglobin and platelet counts. Continue home doses of fentanyl 50 mcg patch and oxycodone per home dosing. Full code. Cardiac diet. Lovenox for DVT prophylaxis. Out of bed to chair. Physical therapy. Stop IV fluids. Lasix 20 mg IV with 1 unit of blood. Attestations Medical Necessity Statement*: Requires further hospitalization for management of sepsis secondary to complicated UTI post cystoscopy, anemia secondary to MDS Time Spent in Patient Care: Greater than 35 minutes (>than 50% of time spent in counselling and/or direct pt care on unit). Coding Level of Care Code Acute Artificial Snow Making Machine Operator for Chg Fwd Diagnoses Complicated UTI (urinary tract infection) N39.0 Bilateral nephrolithiasis N20.0 Anemia D64.9 Anemia type: unspecified type ASHD (arteriosclerotic heart disease) I25.10 History of hypertension Z86.79 Myelodysplasia (myelodysplastic syndrome) D46.9
[2020-11-28] MEDS: FUROsemide 10 mg/mL SDV 2mL 20 MG IVP (13:20)
--- NOTE | 2020-11-28 14:00 | USCV_ITS ---
José Miguel Bonilla Age: 80 Gender: M : 1940 Exam Date: 11/28/2020 06:56 Ordering Phys: Lennox Ramsay MD Technologist: Helga Martinez [place]am [place] [facility] [place]: CAD SEPSIS BP: / HR: 90 Rhythm: Sinus Technical Quality: Adequate MEASUREMENTS (Male / Female) Normal Values 2D ECHO LV Diastolic Diameter PLAX 4.9 cm 4.2 - 5.9 / 3.9 - 5.3 cm LV Systolic Diameter PLAX 3.1 cm LV Chamber Size 4.1 cm IVS Diastolic Thickness 1.8 cm 0.6 - 1.0 / 0.6 - 0.9 cm IVS Systolic Thickness 1.5 cm LVPW Diastolic Thickness 1.4 cm 0.6 - 1.0 / 0.6 - 0.9 cm LVPW Systolic Thickness 1.6 cm RV Chamber Size 4.5 cm LVOT Diameter 2.1 cm LV Ejection Fraction 2D Teich 66.9 % LV Ejection Fraction MOD 2C 55.1 % LV Ejection Fraction 2C AL 56.9 % LA Diameter 3.7 cm LA Width 4.3 cm LA Height 3.3 cm RA Width 4.8 cm RA Height 4.4 cm Aorta at Sinotubular Diameter 3.3 cm M-MODE Aortic Annulus Diameter 3.8 cm LA Ao Ratio MM 1.0 DOPPLER AV Peak Velocity 211.0 cm/s LVOT Peak Velocity 109.0 cm/s AV Area Cont Eq vti 1.8 cm squared AV Area Cont Eq pk 1.7 cm squared MV Area PHT 3.2 cm squared Mitral E to A Ratio 1.3 MV E' Velocity 65.0 cm/s Mitral E to MV E' Ratio 10.9 Mitral E to LV E' Lateral Ratio 11.5 Mitral E to LV E' Septal Ratio 10.3 TR Peak Velocity 268.6 cm/s TR Peak Gradient 28.9 mmHg TR Mean Velocity 211.0 cm/s TR Mean Gradient 19.6 mmHg TR Velocity Time Integral 102.6 cm TV Peak E Velocity 58.0 cm/s Right Atrial Pressure 3.0 mmHg Pulmonary Artery Systolic Pressu 31.9 mmHg PV Peak Velocity 81.0 cm/s RV Acceleration Time 0.1 s RV Ejection Time 0.4 s RV AcT/ET 0.4 FINDINGS Left Ventricle Normal left ventricular size. LV systolic function is normal with EF of 50-55%. No regional wall motion abnormalities. Diastolic function is normal Right Ventricle The right ventricle is normal in size and function. Right Atrium The right atrium is normal in size. Left Atrium The left atrium is severely dilated Mitral Valve Structurally normal mitral valve without significant stenosis or prolapse. There is mild to moderate mitral regurgitation. Aortic Valve Calcified aortic valve with mild aortic stenosis with aortic valve area of 1.7mmHg and mean gradient across the valve of 10.5mmHg. There is mild aortic regurgitation. Tricuspid Valve Structurally normal tricuspid valve without significant stenosis. Mild tricuspid regurgitation. RVSP is 35-40mmHg. Mild pulmonary hypertension Pulmonic Valve Structurally normal pulmonic valve without significant stenosis. There is no pulmonic regurgitation. Pericardium Normal pericardium without effusion. Aorta Normal ascending aorta dimension. CONCLUSIONS LV systolic function is normal with EF of 50-55% Diastolic function is normal Severely dilated left atrium Mild to moderate mitral regurgitation Calcified aortic valve with mild aortic stenosis. Mild aortic regurgitation Mild tricuspid regurgitation Mild pulmonary hypertension No comparison studies are available Ben Berry MD (Electronically Signed) Final Date: 28 November 2020 21:00 S
[2020-11-28] MEDS: vancomycin 1,250 MG/250 ML PIGGYBACK 250 MG IV (14:33)
--- NOTE | 2020-11-28 14:44 | PC.CHAP ---
Pastoral Care Encounter/Spiritual Assessment Type of Contact [xx] Declined monument erector visit [] Patient/Family/Request visit [] Outpatient visit [] Follow-up visit [] Physician referral [] Code/Alert [] Routine visit [] Staff referral [] Actively dying [] Patient sleeping [] Family support [] [] Out of room [] Palliative care [] [] Receiving care in room [] Pre-surgical visit [] Trauma [] Long length of stay [] ICU visit [] Other: Relational/Emotional Strength [] Patient feels connected with others/family/visitors/staff [] Distress [] Loneliness/isolation [] Abandonment Spirituality of Patient [] Person of Arlin [] Attends Tenriism of their Arlin [] Believes in Prayer [] Reads Bible or Gnosticism materials [] There are Spiritual issues to be addressed Pharmacy Analyst Interventions [] Prayer [] Active listening [] Non-anxious presence [] Spiritual/emotional support [] Crisis/trauma care [] Spiritual counseling [] Bereavement support [] Provided bereavement packet [] Provided Bible/devotional materials [] Provided toy/stuffed animal, coloring book to patient or family member [] Provided Communion [] Anointing/[place] [] Salvation [] Completed spiritual assessment [] Other: Impact on Illness or Injury [] Angry [] Fearful [] Anxious [] Often cries [] Exhaustion [] Unable to work [] Unable to attend gnosticism [] Unable to walk/stand [] Unable to read [] Unable to drive [] Unable to eat/drink [] Unable to sleep [] Unable to be with family [] Patient intubated [] Other: Summary Patient declined monument erector visit. Time spent with patient 1 minute
[2020-11-28] MEDS: polyethylene glycol 3350 Pkt 17 gm PO (17:22)
[2020-11-28] MEDS: oxyCODONE-APAP 10-325 mg Tablet 1 TAB PO (17:26)
--- NOTE | 2020-11-28 17:27 | P.PN_ITS ---
Subjective Subjective: Interval history: Postop day #1 right ureteral stent placement for UTI with obstructing right ureteral stones Doing well. Feels stronger. No progressive septic concerns. Catheter indwelling with clear urine Vitals/I&O/Wt Last Vital Signs Temp 98.1 F 11/28/20 15:28 Pulse 88 11/28/20 15:28 Resp 18 11/28/20 17:26 BP 96/48 11/28/20 15:28 Pulse Ox 95 11/28/20 17:26 11/28/20 11/28/20 11/28/20 06:59 14:59 22:59 Intake Total 50 / 2500 590 / 590 Output Total 800 / 1800 600 / 600 Balance -750 / 700 -10 / -10 Weight last 48 hrs Weight 165 lb Physical Exam Narrative: EXAM NARRATIVE: Urine is clear. Catheter functioning well Const: COMMON NORMALS: no acute distress, alert and well nourished GENERAL APPEARANCE: well kempt and well developed ORIENTATION/CONSCIOUSNESS: not confused Resp: COMMON NORMALS: normal respiratory effort EFFORT & INSPECTION: No labored and No Actively coughing Neuro: SENSORIUM/ORIENTATION: Yes alert Psych: COMMON NORMALS: mental status grossly normal APPEARANCE: Yes grossly normal and Yes well kempt ATTITUDE: Yes calm and Yes engaged Urinary Catheter Management^: West: Cath Placed During This Visit: yes Reason for Continuing Indwelling Catheter: Acute Urinary Retention or Obstruction Urinary Catheter Date of Insertion: 11/27/20 Urinary Catheter Time of Insertion: 12:56 Data : 11/28/20 02:43 11/28/20 02:43 Micro: Microbiology 11/26/20 21:43 Urine Culture - Preliminary Urine,Clean Catch Enterococcus faecalis 11/26/20 22:30 Blood Culture - Preliminary Blood NEGATIVE TO DATE 11/26/20 21:55 Blood Culture - Preliminary Blood NEGATIVE TO DATE A&P Assessment and plan (1) Right ureteral calculus: Status post stenting. We will plan on definitive treatment of the stone after infection is cleared Status: Acute (2) Left renal stone: Asymptomatic. Status: Chronic (3) Hydronephrosis of right kidney: Secondary to to right ureteral stones. Status post stenting. Status: Acute (4) Complicated UTI (urinary tract infection): Improving status post stenting and continued antibiotics Status: Acute Attestations Medical Necessity Statement*: See attending Coding Level of Care Code Acute Sales Agent Food Vending Service for [facility] Fwd Diagnoses Right ureteral calculus N20.1 Left renal stone N20.0 Hydronephrosis of right kidney N13.30 Complicated UTI (urinary tract infection) N39.0
--- NOTE | 2020-11-28 18:57 | PC.NURSE ---
Report to Vipin HOLLEY at this time.
[2020-11-28] MEDS: aspirin 81 mg EC Tablet PO (21:36)
[2020-11-28] MEDS: metoprolol tartrate 25 mg Tablet PO (21:36)
[2020-11-29] VITALS (11 sets, daily range): BP systolic 83–104; BP diastolic 43–60; PULSE 69–78; RESP 16–19; TEMP 36.5–36.7; O2SAT 93–97
[2020-11-29] MEDS: oxyCODONE-APAP 10-325 mg Tablet 1 TAB PO ×3 (00:19→18:46)
[2020-11-29] MEDS: meropenem 1,000 MG in sodium chloride 0.9% (plus) 50 ML 100 MG IV ×2 (03:23→11:31)
[2020-11-29 05:18] LABS: Basophils % 0.5 %; Eosinophils # 0.6 10^3/uL (0.0-0.8); Eosinophils % 13.7 %; Hematocrit 24.2 % (42.0-52.0); Hemoglobin 7.7 g/dL (11.7-16.6); Lymphocytes # 0.5 10^3/uL (0.8-4.8); Lymphocytes % 11.5 %; Mean Corpuscular HGB Conc 31.8 g/dL (30.0-36.0); Mean Corpuscular Hemoglobin 28.6 pg (28.0-34.0); Mean Platelet Volume 11.9 fL (7.4-10.4); Monocytes # 0.3 10^3/uL (0.2-0.9); Monocytes % 7.2 %; Neutrophils # 2.77 10^3/uL (1.8-7.7); Neutrophils % 66.4 %; Nucleated Red Blood Cells % 0 %; Platelet Count 160 10^3/cmm (130-400); Red Blood Count 2.69 10^6/uL (4.1-5.3); Red Cell Distribution Width 18.6 % (12.1-15.1); White Blood Count 4.2 10^3/uL (4.0-10.0)
[2020-11-29 05:52] LABS: Alanine Aminotransferase 63 U/L (0-41); Albumin Level 3.3 g/dL (3.5-5.2); Alkaline Phosphatase 90 IU/L (40-130); Anion Gap 9.6 (5-19); Aspartate Amino Transferase 60 U/L (0-40); Blood Urea Nitrogen 18 mg/dL (8-23); Calcium 8.2 mg/dL (8.5-10.5); Carbon Dioxide 24 mmol/L (22-29); Chloride 103 mmol/L (98-107); Creatinine Clr Calc Pharmacy 81.0127; Globulin 2.1 g/dL (1.3-4.6); Glucose 111 mg/dL (65-115); Osmolality Calculated 279 mOsm/kg (285-295); Potassium 3.6 mmol/L (3.5-5.1); Sodium 133 mmol/L (136-145); Total Bilirubin 1.6 mg/dL (0.15-1.2); Total Protein 5.4 g/dL (6.6-8.7)
[2020-11-29 06:04] LABS: Vancomycin Trough 10.8 ug/mL (10-15)
[2020-11-29] MEDS: vancomycin 1,250 MG/250 ML PIGGYBACK 250 MG IV (06:12)
[2020-11-29] MEDS: atorvastatin 40 mg Tablet 10 MG PO (08:26)
[2020-11-29] MEDS: pantoprazole DR 40 mg Tablet PO (08:27)
[2020-11-29] MEDS: tamsulosin 0.4 mg Capsule PO ×2 (08:28→17:57)
--- NOTE | 2020-11-29 09:51 | P.PN_ITS ---
Subjective Subjective: Interval history: Postoperative day #2, urgent right ureteral stent placement for obstructive pyelonephritis. Clinically he looks stable. Reviewed his options related to treating the stones more definitively. I recommended adding him onto the schedule on 12/02/2019 1 in the afternoon for right ureteroscopy laser lithotripsy stent. Vitals/I&O/Wt Last Vital Signs Temp 98.0 F 11/29/20 07:32 Pulse 70 11/29/20 07:32 Resp 18 11/29/20 07:32 BP 94/60 11/29/20 07:32 Pulse Ox 96 11/29/20 07:32 11/28/20 11/29/20 11/29/20 22:59 06:59 14:59 Intake Total 1930 / 2520 200 / 2720 490 / 490 Output Total 1449 / 0 650 / 2700 Balance 480 / 470 -450 / 20 490 / 490 Physical Exam Const: COMMON NORMALS: no acute distress, alert and well nourished GENERAL APPEARANCE: well kempt and well developed ORIENTATION/CONSCIOUSNESS: not confused Eye: COMMON NORMALS: conjunctivae normal and no scleral icterus CONJUNCTIVA: Yes conjunctivae normal Resp: COMMON NORMALS: normal respiratory effort EFFORT & INSPECTION: No labored and No Actively coughing : BLADDER/KIDNEY EXAM: Yes catheter in place Catheter type (Male): other (Draining clear yellow urine) Neuro: SENSORIUM/ORIENTATION: Yes alert Psych: COMMON NORMALS: mental status grossly normal APPEARANCE: Yes grossly normal and Yes well kempt ATTITUDE: Yes calm and Yes engaged Skin: COMMON NORMALS: no rashes or lesions noted and no jaundice GENERAL SKIN EXAM: no rashes or lesions noted Urinary Catheter Management^: West: Cath Placed During This Visit: yes Reason for Continuing Indwelling Catheter: Acute Urinary Retention or Obstruction Urinary Catheter Date of Insertion: 11/27/20 Urinary Catheter Time of Insertion: 12:56 Data : 11/29/20 05:11 11/29/20 05:11 Micro: Microbiology 11/26/20 21:43 Urine Culture - Final Urine,Clean Catch Enterococcus faecalis A&P Assessment and plan (1) Right ureteral calculus: 2 obstructing right ureteral stones complicated by development of urinary tract infection with fever. Underwent urgent ureteral stenting. Improving now on antibiotics. Have recommended ureteroscopy, laser lithotripsy on 12/01/2020. Contingent upon hospitalist approval regarding his recovery from the infection. Status: Acute (2) Bilateral nephrolithiasis: In addition to the ureteral stones on the right he has 2 moderate to large size stones at the left renal pelvis with no clear evidence of obstruction Status: Acute (3) Complicated UTI (urinary tract infection): Complicated by stones Status: Acute Attestations Medical Necessity Statement*: See attending Coding Level of Care Code Acute Academic Services Professional for [facility] Fwd Exam Detailed Diagnoses Right ureteral calculus N20.1 Bilateral nephrolithiasis N20.0 Complicated UTI (urinary tract infection) N39.0 Time Spent (min) 35
[2020-11-29] MEDS: polyethylene glycol 3350 Pkt 17 gm PO (11:46)
--- NOTE | 2020-11-29 12:58 | PM.PN ---
Subjective Subjective: Interval history: Postoperative day #2, urgent right ureteral stent placement for obstructive pyelonephritis. No acute events overnight. Patient has remained hemodynamically stable. Today morning examination patient is a lot more awake and alert. States he is feeling a lot better but still has mild tightness in his chest. Denies any nausea, vomiting, headache. Vitals/I&O/Wt Last Vital Signs Temp 97.7 F 11/29/20 11:27 Pulse 74 11/29/20 11:27 Resp 17 11/29/20 11:27 BP 94/43 11/29/20 11:27 Pulse Ox 97 11/29/20 11:27 11/28/20 11/29/20 11/29/20 22:59 06:59 14:59 Intake Total 1930 / 2520 200 / 2720 540 / 540 Output Total 1450 / 2050 650 / 2700 350 / 350 Balance 480 / 470 -450 / 20 190 / 190 Physical Exam Narrative: EXAM NARRATIVE: General: No acute distress, AO x3, pallor+ + HEENT: PERRLA, pupils bilaterally equal and reactive, pallors not present Chest: Normal vesicular breath sounds, no added sounds, equal good air entry bilaterally CVS: S1-S2 regular, no murmurs, no tachycardia, no gallops, no rubs Abdomen: Soft, nontender, no organomegaly, bowel sounds present Neuro: No focal deficits, no facial deformity, AO x3, power 5/5 in all limbs Extremities: no cyanosis, clubbing or edema Urinary Catheter Management^: West: Cath Placed During This Visit: yes Reason for Continuing Indwelling Catheter: Acute Urinary Retention or Obstruction Urinary Catheter Date of Insertion: 11/27/20 Urinary Catheter Time of Insertion: 12:56 Data : 11/29/20 05:11 11/29/20 05:11 Micro: Microbiology 11/26/20 21:43 Urine Culture - Final Urine,Clean Catch Enterococcus faecalis A&P Assessment and plan (1) Complicated UTI (urinary tract infection): UTI complicated in setting of nephrolithiasis. History of Proteus ESBL and Enterococcus faecalis earlier this year. Currently urine culture only grew Enterococcus faecalis. Stop meropenem. Continue with vancomycin. Plan for possible lithotripsy on Tuesday. Follow-up blood cultures and urine culture and change antibiotics accordingly. Keep mean arterial pressure over 65. Appreciate urology recommendations. Status: Acute (2) Bilateral nephrolithiasis: CT abdomen with bilateral renal stones, moderate right hydronephrosis. Post cystoscopy and right ureteral stenting on November 27. Status: Acute (3) Anemia: Secondary to MDS. Post 2 units of blood transfusion during this hospitalization. Continue to monitor hemoglobin. Status: Acute Qualifiers: Anemia type: unspecified type Qualified Code(s): D64.9 - Anemia, unspecified (4) ASHD (arteriosclerotic heart disease): Status: Acute (5) History of hypertension: Status: Acute (6) Myelodysplasia (myelodysplastic syndrome): Status: Acute Additional A&P Information Continue other chronic medications including aspirin, statin, digoxin, metoprolol, Flomax. Hypertension: Goal blood pressure less than 140/90 mmHg keeping mean over 65. Continue with metoprolol tartrate at 25 mg twice daily History of CAD: No active chest pain. A1c 5.4, lipid panel appreciated. Decrease dose of Lipitor to 10 mg daily. Continue with aspirin, statin, beta-miriam. Check echocardiogram. MDS: Follows up with oncology. Monitor hemoglobin and platelet counts. Continue home doses of fentanyl 50 mcg patch and oxycodone per home dosing. Full code. Cardiac diet. Lovenox for DVT prophylaxis. Out of bed to chair. Physical therapy. Stop IV fluids. Lasix 20 mg IV with 1 unit of blood. Attestations Medical Necessity Statement*: Requires further hospitalization for management of sepsis secondary to complicated UTI needing lithotripsy Time Spent in Patient Care: Greater than 35 minutes (>than 50% of time spent in counselling and/or direct pt care on unit). Coding Level of Care Code Acute Ip Paralegal for [facility] Diagnoses Complicated UTI (urinary tract infection) N39.0 Bilateral nephrolithiasis N20.0 Anemia D64.9 Anemia type: unspecified type ASHD (arteriosclerotic heart disease) I25.10 History of hypertension Z86.79 Myelodysplasia (myelodysplastic syndrome) D46.9
[2020-11-29] MEDS: FUROsemide 10 mg/mL SDV 2mL 20 MG IVP (13:39)
[2020-11-29 14:45] LABS: NT Pro B Type Natriuretic Pept 1803 pg/mL (0-450)
--- NOTE | 2020-11-29 19:28 | PC.NURSE ---
Report to Ruben BRUCE at this time.
[2020-11-29] MEDS: aspirin 81 mg EC Tablet PO (21:58)
[2020-11-29] MEDS: metoprolol tartrate 25 mg Tablet PO (21:59)
[2020-11-30] VITALS (11 sets, daily range): BP systolic 95–130; BP diastolic 57–67; PULSE 64–84; RESP 15–20; TEMP 36.5–36.7; O2SAT 93–96
[2020-11-30] MEDS: enoxaparin 40 mg/0.4 mL Syringe SUBCUT (01:33)
[2020-11-30] MEDS: vancomycin 1,250 MG/250 ML PIGGYBACK 250 MG IV ×2 (01:34→16:55)
[2020-11-30] MEDS: fentaNYL 50 mcg Patch 1 PATCH TRANSDERMA (01:34)
[2020-11-30] MEDS: digoxin 125 mcg Tablet PO (08:23)
[2020-11-30] MEDS: tamsulosin 0.4 mg Capsule PO ×2 (08:24→16:55)
[2020-11-30] MEDS: atorvastatin 40 mg Tablet 10 MG PO (08:24)
[2020-11-30] MEDS: pantoprazole DR 40 mg Tablet PO (08:24)
[2020-11-30] MEDS: metoprolol tartrate 25 mg Tablet PO ×2 (08:24→21:11)
--- NOTE | 2020-11-30 08:33 | PC.NURSE ---
notified Dr Ramsay that patient is requesting something for diarrhea.
[2020-11-30] MEDS: oxyCODONE-APAP 10-325 mg Tablet 1 TAB PO ×2 (10:17→18:15)
--- NOTE | 2020-11-30 13:19 | PM.PN ---
Subjective Subjective: Interval history: No events overnight. Has remained hemodynamically stable and afebrile. Denies any nausea vomiting, headache. Documented urine output in last 24 hours around 5 L. States breathing better. Having 2 episodes of diarrhea since last night. C. difficile checked and negative. Started on Imodium as needed. States feeling a lot better now. Vitals/I&O/Wt Last Vital Signs Temp 97.7 F 11/30/20 11:55 Pulse 72 11/30/20 11:55 Resp 15 11/30/20 11:55 BP 95/61 11/30/20 11:55 Pulse Ox 95 11/30/20 11:55 11/29/20 11/30/20 11/30/20 22:59 06:59 14:59 Intake Total 250 / 1150 1810 / 1810 Output Total 3950 / 4300 1100 / 5400 Balance -3700 / -3150 -1100 / -4250 1810 / 1810 Physical Exam Narrative: EXAM NARRATIVE: General: No acute distress, AO x3, pallor+ + HEENT: PERRLA, pupils bilaterally equal and reactive, pallors not present Chest: Normal vesicular breath sounds, no added sounds, equal good air entry bilaterally CVS: S1-S2 regular, no murmurs, no tachycardia, no gallops, no rubs Abdomen: Soft, nontender, no organomegaly, bowel sounds present Neuro: No focal deficits, no facial deformity, AO x3, power 5/5 in all limbs Extremities: no cyanosis, clubbing or edema Urinary Catheter Management^: West: Cath Placed During This Visit: yes Reason for Continuing Indwelling Catheter: Accurate Measurement of Urinary Output in Critically Ill Patients Urinary Catheter Date of Insertion: 11/27/20 Urinary Catheter Time of Insertion: 12:56 Data : 11/29/20 05:11 11/29/20 05:11 Micro: Microbiology 11/30/20 10:25 C.difficile Toxin B Gene (PCR) - Final Stool Routine Collection 11/26/20 21:43 Urine Culture - Final Urine,Clean Catch Enterococcus faecalis A&P Assessment and plan (1) Complicated UTI (urinary tract infection): Postoperative day 3. UTI complicated in setting of nephrolithiasis. History of Proteus ESBL and Enterococcus faecalis earlier this year. Currently urine culture only grew Enterococcus faecalis. Stop meropenem. Continue with vancomycin. Plan for possible lithotripsy on Tuesday. Follow-up blood cultures and urine culture and change antibiotics accordingly. Keep mean arterial pressure over 65. Appreciate urology recommendations. Status: Acute (2) Bilateral nephrolithiasis: CT abdomen with bilateral renal stones, moderate right hydronephrosis. Post cystoscopy and right ureteral stenting on November 27. Status: Acute (3) Anemia: Secondary to MDS. Post 2 units of blood transfusion during this hospitalization. Continue to monitor hemoglobin. Status: Acute Qualifiers: Anemia type: unspecified type Qualified Code(s): D64.9 - Anemia, unspecified (4) ASHD (arteriosclerotic heart disease): Status: Acute (5) History of hypertension: Status: Acute (6) Myelodysplasia (myelodysplastic syndrome): Status: Acute Additional A&P Information Continue other chronic medications including aspirin, statin, digoxin, metoprolol, Flomax. Hypertension: Goal blood pressure less than 140/90 mmHg keeping mean over 65. Continue with metoprolol tartrate at 25 mg twice daily History of CAD: No active chest pain. A1c 5.4, lipid panel appreciated. Decrease dose of Lipitor to 10 mg daily. Continue with aspirin, statin, beta-miriam. Check echocardiogram. MDS: Follows up with oncology. Monitor hemoglobin and platelet counts. Continue home doses of fentanyl 50 mcg patch and oxycodone per home dosing. Full code. Cardiac diet. Lovenox for DVT prophylaxis. Out of bed to chair. Physical therapy. Plan for the day: Continue to monitor hemodynamics. Plan for the OR tomorrow morning. Continue with vancomycin. Imodium as needed for diarrhea. Awaiting CMP and will replete electrolytes accordingly. Attestations Medical Necessity Statement*: Requires further hospitalization for management of sepsis secondary to complicated UTI from Enterococcus, awaiting lithotripsy, MDS Time Spent in Patient Care: Greater than 35 minutes (>than 50% of time spent in counselling and/or direct pt care on unit). 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
[2020-11-30 14:33] LABS: Alanine Aminotransferase 55 U/L (0-41); Albumin Level 3.6 g/dL (3.5-5.2); Alkaline Phosphatase 103 IU/L (40-130); Anion Gap 12.6 (5-19); Aspartate Amino Transferase 44 U/L (0-40); Blood Urea Nitrogen 14 mg/dL (8-23); Calcium 8.4 mg/dL (8.5-10.5); Carbon Dioxide 26 mmol/L (22-29); Chloride 101 mmol/L (98-107); Creatinine Clr Calc Pharmacy 81.0127; Globulin 2.1 g/dL (1.3-4.6); Glucose 173 mg/dL (65-115); Osmolality Calculated 287 mOsm/kg (285-295); Potassium 3.6 mmol/L (3.5-5.1); Sodium 136 mmol/L (136-145); Total Bilirubin 1.4 mg/dL (0.15-1.2); Total Protein 5.7 g/dL (6.6-8.7)
[2020-11-30] MEDS: acetaminophen 325 mg Tablet 650 MG PO (17:02)
[2020-11-30] MEDS: aspirin 81 mg EC Tablet PO (21:11)
[2020-12-01] VITALS (18 sets, daily range): BP systolic 91–129; BP diastolic 50–80; PULSE 62–83; RESP 16–19; TEMP 36.4–37.1; O2SAT 90–98
--- NOTE | 2020-12-01 | SC_ITS ---
WS: [id number] Exam: C-arm FL for Urology Date/Time of Exam: 12/01/2020 12:00 AM Reason For Exam: GOLD PICS A single AP C-arm image of the upper right abdomen demonstrates a pigtail ureteral catheter in place ending in the expected region of the renal pelvis. There are calcifications also noted adjacent to th e catheter which may represent renal calculi. 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
--- NOTE | 2020-12-01 | SCC_ITS ---
Procedure Done: 1. Cystoscopy with removal of right ureteral stent 2. Right ureteroscopy, laser lithotripsy, stent 37.6 seconds of fluoroscopic guidance, for a cumulative dose of 11.06 mGy, was provided to Dr. Zavala by the radiology department. C-arm images of the abdomen were saved for the patient's permanent record. [facility]
[2020-12-01] MEDS: enoxaparin 40 mg/0.4 mL Syringe SUBCUT ×2 (00:58→23:42)
[2020-12-01 06:36] LABS: Basophils # 0.1 10^3/uL (0.0-0.1); Basophils % 1.1 %; Eosinophils # 0.3 10^3/uL (0.0-0.8); Eosinophils % 5.7 %; Hematocrit 28.4 % (42.0-52.0); Hemoglobin 8.9 g/dL (11.7-16.6); Lymphocytes # 1.2 10^3/uL (0.8-4.8); Mean Corpuscular HGB Conc 31.3 g/dL (30.0-36.0); Mean Corpuscular Hemoglobin 28.3 pg (28.0-34.0); Mean Corpuscular Volume 90.2 fl (80-94); Mean Platelet Volume 11.3 fL (7.4-10.4); Monocytes # 0.4 10^3/uL (0.2-0.9); Monocytes % 8.4 %; Neutrophils # 2.36 10^3/uL (1.8-7.7); Neutrophils % 52.2 %; Nucleated Red Blood Cells # 0.1 /100WBC; Nucleated Red Blood Cells % 1.1 %; Platelet Count 209 10^3/cmm (130-400); Red Blood Count 3.15 10^6/uL (4.1-5.3); Red Cell Distribution Width 18.4 % (12.1-15.1); White Blood Count 4.5 10^3/uL (4.0-10.0)
[2020-12-01 07:01] LABS: Alanine Aminotransferase 43 U/L (0-41); Albumin Level 3.4 g/dL (3.5-5.2); Alkaline Phosphatase 101 IU/L (40-130); Anion Gap 12.5 (5-19); Aspartate Amino Transferase 31 U/L (0-40); Blood Urea Nitrogen 12 mg/dL (8-23); Calcium 8.5 mg/dL (8.5-10.5); Carbon Dioxide 28 mmol/L (22-29); Chloride 102 mmol/L (98-107); Creatinine Clr Calc Pharmacy 81.0127; Globulin 2.5 g/dL (1.3-4.6); Glucose 110 mg/dL (65-115); Osmolality Calculated 288 mOsm/kg (285-295); Potassium 3.5 mmol/L (3.5-5.1); Sodium 139 mmol/L (136-145); Total Bilirubin 1.3 mg/dL (0.15-1.2); Total Protein 5.9 g/dL (6.6-8.7)
[2020-12-01 07:29] LABS: Slide Review Slide Review Perform
[2020-12-01] MEDS: digoxin 125 mcg Tablet PO (07:32)
[2020-12-01] MEDS: atorvastatin 40 mg Tablet 10 MG PO (07:33)
[2020-12-01] MEDS: metoprolol tartrate 25 mg Tablet PO (07:33)
[2020-12-01] MEDS: tamsulosin 0.4 mg Capsule PO ×2 (07:34→17:38)
[2020-12-01] MEDS: pantoprazole DR 40 mg Tablet PO (07:34)
[2020-12-01] MEDS: oxyCODONE-APAP 10-325 mg Tablet 1 TAB PO ×2 (07:38→17:46)
--- NOTE | 2020-12-01 07:44 | PM.PN ---
Subjective Subjective: Interval history: Feeling better. Good weekend. No fever or chills. He had a lot of diuresis and is having easier breathing. No stone passage. Catheter draining clear urine. Still having a lot of chronic musculoskeletal back pain. I reviewed his options which would include continued antibiotic therapy at home and scheduling outpatient endoscopic treatment of the stones versus proceeding while he is in the hospital with cystoscopy, retrograde, ureteroscopy, laser, stent. Benefits and risks of the procedure were thoroughly discussed. After hearing all the details he has elected to proceed with intervention today, decision for surgery. Informed consent was obtained. Vitals/I&O/Wt Last Vital Signs Temp 98.3 F 12/01/20 03:29 Pulse 64 12/01/20 07:32 Resp 17 12/01/20 07:38 BP 106/60 12/01/20 03:29 Pulse Ox 94 12/01/20 07:38 11/30/20 12/01/20 12/01/20 22:59 06:59 14:59 Intake Total 970 / 2780 Output Total 2675 / 2675 1775 / 4450 Balance -1705 / 105 -1775 / -1670 Physical Exam Const: COMMON NORMALS: no acute distress, alert and well nourished GENERAL APPEARANCE: well kempt and well developed ORIENTATION/CONSCIOUSNESS: not confused Neck/C-Spine: COMMON NORMALS: full ROM Resp: COMMON NORMALS: normal respiratory effort EFFORT & INSPECTION: No labored and No Actively coughing Neuro: SENSORIUM/ORIENTATION: Yes alert Psych: COMMON NORMALS: mental status grossly normal APPEARANCE: Yes grossly normal and Yes well kempt ATTITUDE: Yes calm and Yes engaged Skin: COMMON NORMALS: no rashes or lesions noted and no jaundice GENERAL SKIN EXAM: no rashes or lesions noted Urinary Catheter Management^: West: Cath Placed During This Visit: yes Reason for Continuing Indwelling Catheter: Accurate Measurement of Urinary Output in Critically Ill Patients Urinary Catheter Date of Insertion: 11/27/20 Urinary Catheter Time of Insertion: 12:56 Data : 12/01/20 05:55 12/01/20 05:55 Micro: Microbiology 11/30/20 10:25 C.difficile Toxin B Gene (PCR) - Final Stool Routine Collection A&P Assessment and plan (1) Right ureteral calculus: Plan for endoscopic treatment of the stones today. Recovering well from obstructive pyelonephritis Status: Acute (2) Complicated UTI (urinary tract infection): Doing well on antibiotic therapy following stent placement. No further progression of infectious concerns. Status: Acute (3) Hydronephrosis of right kidney: Secondary to a couple stones in the right ureter Status: Acute (4) Left renal stone: Nonobstructing. Status: Chronic Attestations Medical Necessity Statement*: To the operating room today. Anticipate discharge tomorrow Coding Level of Care Code Acute Fruit Buyer for [facility] Fwd Diagnoses Right ureteral calculus N20.1 Complicated UTI (urinary tract infection) N39.0 Hydronephrosis of right kidney N13.30 Left renal stone N20.0
[2020-12-01] MEDS: vancomycin 1,250 MG/250 ML PIGGYBACK 250 MG IV (12:08)
--- NOTE | 2020-12-01 12:36 | PC.SOCIAL ---
IMM Updated Updated pt on Pg 2 IMM. No questions voiced. Provided pt a copy. Initialed, dated, & timed copy in chart.
--- NOTE | 2020-12-01 13:08 | ANES.PREANE2 ---
Pre-Anesthetic Assessment Pre-Anesthetic Assessment: Height/Weight: Height 1.83 m Weight 74.843 kg Temp Pulse Resp BP Pulse Ox 97.7 F 63 18 112/61 95 12/01/20 12:59 12/01/20 12:59 12/01/20 12:59 12/01/20 12:59 12/01/20 12:59 Preop Diagnosis: Right ureteral obstructing stones with UTI Proposed Procedure: Operation Date: 11/27/20 12:00 Proposed Procedures p Cystoscopy(Right) - Néstor Zavala MD s Ureteral Stent Placement(Right) - Néstor Zavala MD Operation Date: 12/01/20 14:25 Proposed Procedures p Cystoscopy(Right) - Néstor Zavala MD s Ureteroscopy(Right) - Néstor Zavala MD s Laser Lithotripsy(Right) - Néstor Zavala MD s Ureteral Stent Placement(Right) - Néstor Zavala MD Was Beta Shadi taken within 24 hours: Yes Was Clonidine taken within 24 hours: N/A Social: Social History: No alcohol and No tobacco Exam: Pre-Anes Outpt Exam: alert, oriented x 3, clear to auscultation bilaterally and regular rate & rhythm Airway: Cervical ROM: WNL MP: 2 Dentition: Chipped CV/HEM: CV/HEM: Anemia (myelodysplasia - 2 units trasnfused), CAD, CHF and HTN Comments: AAA status post repair ECho CONCLUSIONS LV systolic function is normal with EF of 50-55% Diastolic function is normal Severely dilated left atrium Mild to moderate mitral regurgitation Calcified aortic valve with mild aortic stenosis. Mild aortic regurgitation Mild tricuspid regurgitation Mild pulmonary hypertension No comparison studies are available Metabolic: Metabolic: Hyperlipidemia [facility] [place]/skel: Comments: leukemia Anesthetic Plan: ASA status: 3 Anesthesia: General Risk of > 500 ml blood loss (7ml/kg in children): No Meds/Allergies Current Medications: Current Medications Generic Name Dose Route Start Last Admin Trade Name Freq PRN Reason Stop Dose Admin Acetaminophen 650 mg 11/26/20 23:19 11/30/20 17:02 Acetaminophen 32 5 Mg Tablet PO 650 mg Q6H PRN Administration Mild/Mod Pain Or Temp >/= 101 Aspirin 81 mg 11/28/20 21:15 11/30/20 21:11 Aspirin 81 Mg Ec Tablet PO 81 mg BEDTIME JORJE Administration Atorvastatin Calci um 10 mg 11/29/20 09:00 12/01/20 07:33 Atorvastatin 40 Mg Tablet PO 10 mg DAILY JORJE Administration Digoxin 125 mcg 11/27/20 09:00 12/01/20 07:32 Digoxin 125 Mcg Tablet PO 125 mcg DAILY JORJE Administration Enoxaparin Sodium 40 mg 11/27/20 00:00 12/01/20 00:58 Enoxaparin 40 Mg /0.4 Ml Syringe SUBCUT 40 mg Q24H JORJE Administration Fentanyl 1 patch 11/27/20 02:00 11/30/20 01:34 Fentanyl 50 Mcg Patch TRANSDERMA 1 patch Q72H JORJE Administration Vancomycin/PEG/NAD A/Lysine/Water 1,250 mg in 250 m ls @ 250 mls/hr 11/27/20 18:00 12/01/20 12:08 Vancocin IV 250 mls/hr Q18H JORJE Administration Metoprolol Tartrat e 25 mg 11/28/20 21:30 12/01/20 07:33 Metoprolol Tartr ate 25 Mg Tablet PO 25 mg BID@0900,2100 JORJE Administration Non-Formulary Medi cation 360 mg 11/27/20 09:00 12/01/20 07:43 Deferasirox [Jhonny enu] PO Not Given DAILY [facility] Oxycodone/Acetamin ophen 1 tab 11/27/20 00:10 12/01/20 07:38 Oxycodone-Apap 1 0-325 Mg Tablet PO 1 tab Q8H PRN Administration pain Pantoprazole Sodiu m 40 mg 11/27/20 09:00 12/01/20 07:[address] 40 Mg Tablet PO 40 mg DAILY [facility] Administration Polyethylene Glyco l 17 gm 11/27/20 17:42 11/29/20 11:46 Polyethylene Gly col 3350 Pkt 17 Gm PO 17 gm DAILY PRN Administration CONSTIPATION Tamsulosin HCl 0.4 mg 11/27/20 09:00 12/01/20 07:34 Tamsulosin 0.4 M g Capsule PO 0.4 mg BID JORJE Administration White Petrol/[place] al Oil/Lanolin 1 applic 11/27/20 09:00 12/01/20 07:44 Diaper Rash Oint ment 71 Gm TOPICAL 1 applic BID JORJE Administration PFSH Anesthesia PFSH: Medical History (Updated 11/27/20 @ 13:55 by Lennox Ramsay MD) Abdominal aortic aneurysm Anemia ASHD (arteriosclerotic heart disease) Atherosclerosis of coronary artery Atypical chest pain CAD (coronary artery disease) Calculus, ureteral Carotid artery disease Edema of extremities History of hypertension History of lower leg fracture Hx of fracture of right hip Hyperlipemia Hyperlipidemia Hypertension Kidney stone Left renal stone Leukemia Myelodysplasia (myelodysplastic syndrome) Right groin hernia Systolic CHF Surgical History H/O endovascular stent graft for abdominal aortic aneurysm History of cholecystectomy History of kyphoplasty History of right inguinal hernia repair Family History Father , AT AGE 80 Stroke Mother , AT AGE 80 Myocardial infarction CAD (coronary artery disease) Diabetes Stroke Sister Cancer CAD (coronary artery disease) Grandfather Diabetes Grandmother Diabetes Father Diabetes Denies family history of Clotting disorder Dementia Chronic kidney disease (CKD) Suicide Anesthesia complication Bleeding disorder Lung disease Social History Smoking and tobacco status: former smoker Alcohol intake: never Adopted: No Caregiver/support person: No Lives independently: No Household members: spouse Marital status: Current occupational status: retired Previous occupational history: Served in the [employer] History of recent travel: No Data Anesthesia CBC & Chem 7: 12/01/20 05:55 12/01/20 05:55 Other Labs: Laboratory Results - last 48 hr 11/29/20 11/30/20 12/01/20 05:11 13:45 05:55 WBC 4.5 RBC 3.15 L Hgb 8.9 L Hct 28.4 L MCV 90.2 MCH 28.3 MCHC 31.3 RDW 18.4 H Plt Count 209 MPV 11.3 H Neut % (Auto) 52.2 Lymph % (Auto) 26.0 [place] % (Auto) 8.4 Eos % (Auto) 5.7 Baso % (Auto) 1.1 Neut # (Auto) 2.36 Lymph # (Auto) 1.2 [place] # (Auto) 0.4 Eos # (Auto) 0.3 Baso # (Auto) 0.1 Nucleated RBC % (auto) 1.1 Nucleated RBCs # 0.1 Sodium 136 Potassium 3.6 Chloride 101 Carbon Dioxide 26 Anion Gap 12.6 BUN 14 Creatinine 0.7 GFR Calculation Not Reportable Glucose 173 H Calculated Osmolality 287 Calcium 8.4 L Total Bilirubin 1.4 H AST 44 H ALT 55 H Alkaline Phosphatase 103 NT-Pro-B Natriuret Pep 1803 H Total Protein 5.7 L Albumin 3.6 Globulin 2.1 12/01/20 05:55 WBC RBC Hgb Hct MCV MCH MCHC RDW Plt Count MPV Neut % (Auto) Lymph % (Auto) [place] % (Auto) Eos % (Auto) Baso % (Auto) Neut # (Auto) Lymph # (Auto) [place] # (Auto) Eos # (Auto) Baso # (Auto) Nucleated RBC % (auto) Nucleated RBCs # Sodium 139 Potassium 3.5 Chloride 102 Carbon Dioxide 28 Anion Gap 12.5 BUN 12 Creatinine 0.7 GFR Calculation Not Reportable Glucose 110 Calculated Osmolality 288 Calcium 8.5 Total Bilirubin 1.3 H AST 31 ALT 43 H Alkaline Phosphatase 101 NT-Pro-B Natriuret Pep Total Protein 5.9 L Albumin 3.4 L Globulin 2.5 Micro: Microbiology 11/30/20 10:25 C.difficile Toxin B Gene (PCR) - Final Stool Routine Collection Cardiac Studies: Echocardiogram 11/28/20
--- NOTE | 2020-12-01 13:11 | PM.PN ---
Subjective Subjective: Interval history: States he is doing all right, no trouble breathing, no chest pain. States he is hungry. He is awaiting lithotripsy procedure this afternoon. Is n.p.o. Vitals/I&O/Wt Last Vital Signs Temp 97.7 F 12/01/20 12:59 Pulse 63 12/01/20 12:59 Resp 18 12/01/20 12:59 BP 112/61 12/01/20 12:59 Pulse Ox 95 12/01/20 12:59 11/30/20 12/01/20 12/01/20 22:59 06:59 14:59 Intake Total 970 / 2780 Output Total 2675 / 2675 1775 / 4450 500 / 500 Balance -1705 / 105 -1775 / -1670 -500 / -500 Physical Exam Urinary Catheter Management^: West: Cath Placed During This Visit: yes Reason for Continuing Indwelling Catheter: Accurate Measurement of Urinary Output in Critically Ill Patients Urinary Catheter Date of Insertion: 11/27/20 Urinary Catheter Time of Insertion: 12:56 Data : 12/01/20 05:55 12/01/20 05:55 Micro: Microbiology 11/30/20 10:25 C.difficile Toxin B Gene (PCR) - Final Stool Routine Collection A&P Assessment and plan (1) Complicated UTI (urinary tract infection): Awaiting endoscopic lithotripsy this afternoon. Discussed with him Enterococcus faecalis growing in the urine. Sensitivities not yet available. Continue vancomycin. UTI complicated in setting of nephrolithiasis. History of Proteus ESBL and Enterococcus faecalis earlier this year. Follow-up blood cultures and urine culture and change antibiotics accordingly. Keep mean arterial pressure over 65. Appreciate urology recommendations. Status: Acute (2) Bilateral nephrolithiasis: CT abdomen with bilateral renal stones, moderate right hydronephrosis. Post cystoscopy and right ureteral stenting on November 27. Status: Acute (3) Anemia: Secondary to MDS. Post 2 units of blood transfusion during this hospitalization. Continue to monitor hemoglobin. Status: Acute Qualifiers: Anemia type: unspecified type Qualified Code(s): D64.9 - Anemia, unspecified (4) ASHD (arteriosclerotic heart disease): Status: Acute (5) History of hypertension: Status: Acute (6) Myelodysplasia (myelodysplastic syndrome): Status: Acute Additional A&P Information Continue other chronic medications including aspirin, statin, digoxin, metoprolol, Flomax. Hypertension: At goal. Continue with metoprolol tartrate at 25 mg twice daily History of CAD: No active chest pain. A1c 5.4, lipid panel appreciated. Decreased dose of Lipitor. Continue with aspirin, statin, beta-miriam. Check echocardiogram. MDS: Follows up with oncology. Monitor hemoglobin and platelet counts. Continue home doses of fentanyl 50 mcg patch and oxycodone per home dosing. Attestations Medical Necessity Statement*: Continue admission for assessment of management of complicated urinary tract infection. Coding Level of Care Code Acute Psychologist Engineering for g Fwd Diagnoses Complicated UTI (urinary tract infection) N39.0 Bilateral nephrolithiasis N20.0 Anemia D64.9 Anemia type: unspecified type ASHD (arteriosclerotic heart disease) I25.10 History of hypertension Z86.79 Myelodysplasia (myelodysplastic syndrome) D46.9
[2020-12-01] MEDS: sodium chloride 0.9% 1,000 ML 30 ML IV (13:33)
--- NOTE | 2020-12-01 15:32 | PM.OP ---
Operative Report Date of procedure: December 01, 2020 Pre-op Diagnosis: Right ureteral obstructing stones with UTI Post-op diagnosis: same Procedure Done: 1. Cystoscopy with removal of right ureteral stent 2. Right ureteroscopy, laser lithotripsy, stent Pathology: Stone fragments Surgeon: Lucas Anesthesia: General Estimated blood loss: Minimal Urine output: Not measured Complications: None Condition: stable Disposition: PACU Brief History: Mr. Bonilla is a very pleasant 80-year-old white male who is quite debilitated from multiple medical problems. He has been recently followed in the clinic for couple months now for right ureteral stones that showed originally some progression but then later did not. He also has a couple large stones at the left UPJ that are not causing obstruction. He was hoping that he could pass the 2 right ureteral stones to avoid surgery but recently during that surveillance mode he developed a fever and was found to have a UTI. He underwent urgent right ureteral stenting about 4 to 5 days ago and has done well from an infection perspective and is taken back to the operating room today for attempt at definitive treatment of the stones. Originally the stones were located about L5 level. When the stent was placed one of them was identified in the very distal aspect of the ureter. The larger of the 2 which was more proximal appear to be roughly in the same as at diagnosis. Procedure: After routine preoperative evaluation examination and obtaining of informed consent he was taken to the operating suite on 12/01/2020 where general anesthesia was administered without difficulty after appropriate timeout was performed, SCDs confirmed to be functioning, preoperative antibiotics administered, beta-miriam protocol confirmed. Prepped and draped in usual sterile fashion in dorsolithotomy position paying careful attention to avoiding pressure points. 21 [place] Lucian cystoscope with 30 degree lens was introduced into the urethra meatus and advanced into the bladder to videoscopy. The bladder was systematically examined. The stent was in the expected position. A flexible tip guidewire was advanced next to the stent up the right ureter bypassing the stones and curling in the area of the kidney and the stent was removed with grasping forceps. The curl of the stent caught on the more proximal stone but it was easily withdrawn after passing a wire up the stent and straightening it out. The ureter appeared to be adequately dilated from the stent grossly. A 7 [address] Lucian offset semirigid ureteroscope was then advanced up the right ureter the distal stone was not encountered. It was presumed that it had passed into the bladder. The scope was then passed up to the more proximal stone which was in the expected position. It was clearly larger than the other stone that had been seen. It was fragmented with a 365 ?m thulium superpulse laser fiber into small fragments that were basketed with a parachute basket and removed with several different passes. Most of the stone actually was turned into sand with a dusting technique. The ureter was carefully inspected. No residual fragments of any consequence remained. The ureter was mildly inflamed where the stone had been located and it was decided to leave a stent in. The cystoscope was then backloaded over the guidewire and a 4.5 [address] Lucian by 30 cm double-pigtail stent was advanced over the guidewire through the cystoscope into appropriate position as confirmed via fluoroscopy and cystoscopy. The bladder was then reinspected and there were large amounts of stone fragments that were flushed free from the scope. The more distal ureteral stone was found in one of the folds of the bladder obviously having passed next to the previously placed stent. Grasping forceps were utilized to remove the stone without difficulty. On final inspection no significant fragments remained in the bladder. The ureteral stent was in appropriate position. There was functioning well. Bladder was drained. No West catheter. Tolerated procedure well without complications and was awakened in the operating room and returned to the recovery room in stable condition. PLANS: 1. Transfer back to the floor with anticipation of discharge tomorrow if he remains stable from an infectious perspective 2. Anticipate follow-up in my office next week for cystoscopy and stent removal.
--- NOTE | 2020-12-01 17:42 | PC.NURSE ---
worley catheter removed in OR.
--- NOTE | 2020-12-01 18:00 | ANE.PACU2 ---
Inpatient post-anesthesia follow up: Airway intact: Yes Vital signs: Temperature 97.1 F Pulse Rate [Left B rachial] 84 Pulse Rate 66 Respiratory Rate 14 Blood Pressure [Ri ght Arm] 85/49 Blood Pressure 115/60 Pulse Oximetry 98 Oxygen Delivery Me thod Room Air Oxygen Flow Rate 6 Fraction of Inspir ed Oxygen Hydration adequate: Yes Nausea and vomiting: No Pain level: 1 Mental status: Baseline
[2020-12-01] MEDS: aspirin 81 mg EC Tablet PO (20:36)
[2020-12-02] VITALS: BP 98/42; PULSE 67; RESP 18; TEMP 36.1; O2SAT 96
[2020-12-02 03:10] LABS: Basophils # 0.1 10^3/uL (0.0-0.1); Basophils % 0.9 %; Eosinophils # 0.2 10^3/uL (0.0-0.8); Eosinophils % 4.3 %; Hematocrit 26.9 % (42.0-52.0); Hemoglobin 8.4 g/dL (11.7-16.6); Lymphocytes # 1.7 10^3/uL (0.8-4.8); Lymphocytes % 31.3 %; Mean Corpuscular HGB Conc 31.2 g/dL (30.0-36.0); Mean Corpuscular Hemoglobin 28.8 pg (28.0-34.0); Mean Corpuscular Volume 92.1 fl (80-94); Mean Platelet Volume 11.7 fL (7.4-10.4); Monocytes # 0.4 10^3/uL (0.2-0.9); Monocytes % 6.5 %; Neutrophils # 2.54 10^3/uL (1.8-7.7); Neutrophils % 47.3 %; Nucleated Red Blood Cells # 0.1 /100WBC; Nucleated Red Blood Cells % 1.3 %; Platelet Count 236 10^3/cmm (130-400); Red Blood Count 2.92 10^6/uL (4.1-5.3); Red Cell Distribution Width 18.7 % (12.1-15.1); White Blood Count 5.4 10^3/uL (4.0-10.0)
[2020-12-02 03:28] LABS: Alanine Aminotransferase 39 U/L (0-41); Albumin Level 3.3 g/dL (3.5-5.2); Alkaline Phosphatase 88 IU/L (40-130); Anion Gap 10.5 (5-19); Aspartate Amino Transferase 33 U/L (0-40); Blood Urea Nitrogen 10 mg/dL (8-23); Calcium 8.3 mg/dL (8.5-10.5); Carbon Dioxide 28 mmol/L (22-29); Chloride 102 mmol/L (98-107); Globulin 2.3 g/dL (1.3-4.6); Glucose 99 mg/dL (65-115); Osmolality Calculated 283 mOsm/kg (285-295); Potassium 3.5 mmol/L (3.5-5.1); Sodium 137 mmol/L (136-145); Total Bilirubin 1.3 mg/dL (0.15-1.2); Total Protein 5.6 g/dL (6.6-8.7)
[2020-12-02 03:35] LABS: Creatinine Clr Calc Pharmacy 81.0127
[2020-12-02 03:41] LABS: Slide Review Slide Review Perform
[2020-12-02 03:57] VITALS: BP 115/60; PULSE 66; RESP 17; TEMP 36.2; O2SAT 98
[2020-12-02 04:12] VITALS: RESP 14
[2020-12-02] MEDS: oxyCODONE-APAP 10-325 mg Tablet 1 TAB PO (04:12)
[2020-12-02] MEDS: vancomycin 1,250 MG/250 ML PIGGYBACK 250 MG IV (05:07)
--- NOTE | 2020-12-02 06:55 | PM.PN ---
Subjective Subjective: Interval history: UROLOGY follow-up postop day #1 right ureteroscopy laser lithotripsy stent. West catheter was removed at time of surgery. He has been voiding okay since then. No fever or chills. Feels like he is doing well. From a urologic perspective I think he is reasonable for discharge to continue antibiotics until stent is removed early next week. Vitals/I&O/Wt Last Vital Signs Temp 97.1 F L 12/02/20 03:57 Pulse 66 12/02/20 03:57 Resp 14 12/02/20 04:12 BP 115/60 12/02/20 03:57 Pulse Ox 98 12/02/20 03:57 12/01/20 12/01/20 12/02/20 14:59 22:59 06:59 Intake Total 670 / 670 250 / 920 Output Total 500 / 500 250 / 750 275 / 1025 Balance -500 / -500 420 / -80 -25 / -105 Physical Exam Const: COMMON NORMALS: no acute distress, alert and well nourished GENERAL APPEARANCE: well kempt and well developed ORIENTATION/CONSCIOUSNESS: not confused HENMT: COMMON NORMALS: normocephalic and atraumatic HEAD & SCALP: normocephalic and atraumatic Neck/C-Spine: COMMON NORMALS: full ROM Resp: COMMON NORMALS: normal respiratory effort EFFORT & INSPECTION: No labored and No Actively coughing Neuro: SENSORIUM/ORIENTATION: Yes alert Psych: COMMON NORMALS: mental status grossly normal APPEARANCE: Yes grossly normal and Yes well kempt ATTITUDE: Yes calm and Yes engaged Urinary Catheter Management^: West: Cath Placed During This Visit: yes Reason for Continuing Indwelling Catheter: Accurate Measurement of Urinary Output in Critically Ill Patients Urinary Catheter Date of Insertion: 11/27/20 Urinary Catheter Time of Insertion: 12:56 Data : 12/02/20 02:34 12/02/20 02:34 Micro: Microbiology 11/26/20 22:30 Blood Culture - Final Blood NO GROWTH AFTER 5 DAYS 11/26/20 21:55 Blood Culture - Final Blood NO GROWTH AFTER 5 DAYS A&P Assessment and plan (1) Complicated UTI (urinary tract infection): Clinically improved. No evidence of postoperative infectious concerns. Status: Acute (2) Right ureteral calculus: Status: Resolved (3) Hydronephrosis of right kidney: Status: Resolved (4) Left renal stone: Status: Chronic (5) Bilateral nephrolithiasis: Status: Acute Attestations Medical Necessity Statement*: See attending Coding Level of Care Code Acute Executive Personal Assistant for g Fwd Exam Detailed Diagnoses Complicated UTI (urinary tract infection) N39.0 Right ureteral calculus N20.1 Hydronephrosis of right kidney N13.30 Left renal stone N20.0 Bilateral nephrolithiasis N20.0
[2020-12-02 07:24] VITALS: BP 114/60; PULSE 63; RESP 17; TEMP 37.1; O2SAT 97
[2020-12-02] MEDS: atorvastatin 40 mg Tablet 10 MG PO (08:32)
[2020-12-02] MEDS: tamsulosin 0.4 mg Capsule PO (08:32)
[2020-12-02] MEDS: pantoprazole DR 40 mg Tablet PO (08:32)
[2020-12-02 08:33] VITALS: PULSE 63
[2020-12-02] MEDS: digoxin 125 mcg Tablet PO (08:33)
--- NOTE | 2020-12-02 11:13 | PM.DCS ---
Discharge Providers Date of Admission: 11/26/20 23:31 Date of Discharge: December 02, 2020 Attending Provider at Admission: Elizabeth Gan MD Attending Provider at Discharge: Ghassan Guzman Primary Care Provider: Lo Kern MD Diagnoses at Discharge Discharge Diagnosis (1) Complicated UTI (urinary tract infection): Status: Acute (2) Right ureteral calculus: Status: Resolved (3) Hydronephrosis of right kidney: Status: Resolved (4) Left renal stone: Status: Chronic (5) Bilateral nephrolithiasis: Status: Acute Reason for Visit Reason for Visit: fever @ home Hospital Course Hospital Course Pleasant 80-year-old gentleman with history of MDS, requiring blood transfusions, recurrent kidney stones was admitted with finding of complicated urinary tract infection with bilateral nephrolithiasis, right side ureterolithiasis, hydronephrosis, also noted with anemia, received 2 units PRBC transfusion in the hospital. Was assessed by urology. Underwent cystoscopy with right ureteral stent placement on 11/27. Was treated with antibiotics for UTI in the hospital with Zosyn, vancomycin, subsequently only vancomycin with cultures growing Enterococcus. This is pansensitive and he will complete antibiotic course as per recommendation by urology for additional 10 days while the stent remains in place with ampicillin. He underwent endoscopic lithotripsy on 12/01 which was successful and uneventful. He is doing well subsequently. He is asked to follow-up with urology in office next week for stent removal. Please reassess for continued improvement. Reassess his hemoglobin level. 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 Physical Exam Const: COMMON NORMALS: no acute distress and patient oriented x3 GENERAL APPEARANCE: frail appearing HENMT: COMMON NORMALS: oropharynx normal Neck/C-Spine: COMMON NORMALS: no JVD Resp: COMMON NORMALS: normal respiratory effort and clear to auscultation bilaterally AUSCULTATION: clear to auscultation bilaterally Cardio: COMMON NORMALS: no JVD, regular rhythm, S1 normal heart sound present, S2 normal heart sound present and No murmurs present (Cardio) RHYTHM: regular rhythm HEART SOUNDS: S1 normal heart sound present and S2 normal heart sound present GI: COMMON NORMALS: Normal to inspection, nondistended, normoactive bowel sounds present, Soft to palpation and non-tender PALPATION: Yes Soft to palpation Extremity: COMMON NORMALS: no joint enlargement and no pedal edema OTHER: Healed old wound changes and ankle deformity of the right lower leg. No edema. Neuro: COMMON NORMALS: patient oriented x3 and moves all extremities Skin: COMMON NORMALS: no rashes or lesions noted GENERAL SKIN EXAM: no rashes or lesions noted Urinary Catheter Management^: [place]: Cath Placed During This Visit: yes Reason for Continuing Indwelling Catheter: Accurate Measurement of Urinary Output in Critically Ill Patients Urinary Catheter Date of Insertion: 11/27/20 Urinary Catheter Time of Insertion: 12:56 Discharge Data Data Completed and Pending: Completed Studies During Hospitalization Category Date Time Status CT abdomen pelvis w con* [id number] Urge nt Cat Scan 11/26/20 21:57 Completed XR chest 1V derek ble [id number] Stat Exams 11/26/20 21:48 Completed CV. echo complete * [id number] Routine Ultrasound 11/28/20 14:00 Completed Pending at discharge Category Date Time Status Complete Blood Co unt w/Auto AM LABS Lab 12/03/20 04:00 Ordered Complete Blood Co unt w/Auto AM LABS Lab 12/04/20 04:00 Ordered Comprehensive Met abolic Panel AM LA BS Lab 12/03/20 04:00 Ordered Comprehensive Met abolic Panel AM LA BS Lab 12/04/20 04:00 Ordered Pathology: Surgic al [PTH] Routine Pth 12/01/20 17:01 Received Labs from last 24 hours 12/02/20 12/02/20 02:34 02:34 WBC 5.4 RBC 2.92 L Hgb 8.4 L Hct 26.9 L MCV 92.1 MCH 28.8 MCHC 31.2 RDW 18.7 H Plt Count 236 MPV 11.7 H Neut % (Auto) 47.3 Lymph % (Auto) 31.3 Traill % (Auto) 6.5 Eos % (Auto) 4.3 Baso % (Auto) 0.9 Neut # (Auto) 2.54 Lymph # (Auto) 1.7 Traill # (Auto) 0.4 Eos # (Auto) 0.2 Baso # (Auto) 0.1 Nucleated RBC % (a uto) 1.3 Nucleated RBCs # 0.1 Sodium 137 Potassium 3.5 Chloride 102 Carbon Dioxide 28 Anion Gap 10.5 BUN 10 Creatinine 0.5 L GFR Calculation Not Reportable Glucose 99 Calculated Osmolal ity 283 L Calcium 8.3 L Total Bilirubin 1.3 H AST 33 ALT 39 Alkaline Phosphata se 88 Total Protein 5.6 L Albumin 3.3 L Globulin 2.3 Vitals: Last Vital Signs Temp 98.7 F 12/02/20 07:24 Pulse 63 12/02/20 08:33 Resp 17 12/02/20 07:24 BP 114/60 12/02/20 07:24 Pulse Ox 97 12/02/20 07:24 Discharge Plan Discharge Patient Disposition: Home Condition: Stable Prescriptions: New ampicillin 500 mg capsule 500 mg PO Q6H 10 Days Qty: 40 RF: 0 Continued tamsulosin 0.4 mg capsule 0.4 mg PO BID RF: 0 aspirin 81 mg tablet,delayed release (DR/EC) 81 mg PO BEDTIME RF: 0 Hold Instructions: Resume on 07/13/19. pyridoxine (vitamin B6) 250 mg tablet 250 mg PO TID RF: 0 folic acid 1 mg tablet 1 mg PO DAILY RF: 0 calcium carbonate 500 mg calcium (1,250 mg) tablet,chewable 500 mg PO TID RF: 0 methenamine hippurate 1 gram tablet 1 g PO BID Qty: 60 RF: 12 Hold Instructions: Home Medication placed on hold at Doctor's office deferasirox [Jadenu] 90 mg tablet 360 mg PO DAILY RF: 0 oxycodone-acetaminophen 10-325 mg tablet 1 tab PO Q8H PRN (Reason: Pain) RF: 0 digoxin 125 mcg (0.125 mg) tablet 125 mcg PO DAILY 90 Days Qty: 90 RF: 3 clopidogrel 75 mg tablet 75 mg PO DAILY Qty: 90 RF: 3 Hold Instructions: Resume on 06/16/20. after HB check pravastatin 20 mg tablet 20 mg PO DAILY 90 Days Qty: 90 RF: 3 nitroglycerin 0.4 mg tablet, sublingual 0.4 mg sublingual Q5M PRN (Reason: chest pain) 30 Days Qty: 30 RF: 3 fentanyl 50 mcg/hr Patch 72 Hour 1 patch TRANSDERMAL Q72H RF: 0 ergocalciferol (vitamin D2) [Vitamin D2] 1,250 mcg (50,000 unit) capsule 50,000 unit PO Q7D RF: 0 Changed metoprolol succinate 50 mg tablet extended release 24 hr 25 mg PO DAILY Qty: 90 RF: 3 Discontinued sulfamethoxazole-trimethoprim 800-160 mg tablet 1 tab PO BID Qty: 20 RF: 0 Discharge Orders: Discharge Order (Routine); Ordered 12/02/20 Ordered By: Néstor Zavala Referrals: Néstor Zavala MD [Physician] - 12/09/20 3:15 pm (Cystoscopy stent removal No KUB required.) Lo Kern MD [Primary Care Provider] - 4-7 days Discharge Diet: Usual diet Discharge Activity: Increase activity as tolerated Patient Instructions: Ampicillin (By mouth), Kidney Stones (GEN), Opioid Safety Activity Restrictions/Additional Instructions: Urology instructions: 1. The right ureteral stones were fragmented with laser lithotripsy and fragments removed 2. Stent was left indwelling and will be removed in my office Please complete antibiotics course. Please have your primary doctor recheck your hemoglobin level at the next appointment in 4-7 days due to anemia which required transfusion in the hospital. 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 Discharge Attestations Time Spent in Discharge Care*: greater than 30 min Quality Metrics Clinical Quality Measures During this hospital stay, did patient experience: None Coding Level of Care Code Acute g [facility] note Diagnoses Complicated UTI (urinary tract infection) N39.0 Right ureteral calculus N20.1 Hydronephrosis of right kidney N13.30 Left renal stone N20.0 Bilateral nephrolithiasis N20.0
[2020-12-02 12:18] VITALS: BP 114/60; PULSE 63; RESP 17; TEMP 37.1; O2SAT 97
--- NOTE | 2020-12-02 12:18 | PC.NURSE ---
discharge instructions given to patient. patient verbalized understanding of instructions. patient's son-in-law took patient home.
--- NOTE | 2020-12-03 11:22 | PC.SOCIAL ---
discharge follow up call made, spoke with patient. patient had a follow up appointment with dr. tan today, and has another appointment scheduled for 12-08. patient had ampicillin delivered by [facility] prior to discharge and is taking as directed, along with regular home medications. patient given follow up appointment date and time for pcp. patient denies any questions or concerns.
== END 2020-12-02 12:20 | disposition home or self-care (01) | DRG 660 ==
LOC: ER 23:32 → ER IP 11-27 00:14 → MEDSURG 11-27 00:32
PROVIDERS: Nurse Practitioner Family; Student in an Organized Health Care Education/Training Program; Urology; Admitting Provider Student in an Organized Health Care Education/Training Program; Emergency Provider Emergency Medicine; PCP Family Medicine; Visit Provider Internal Medicine
PROC: 0TJB8ZZ Inspection of Bladder, Via Natural or Artificial Opening Endoscopic (ICD-10-PCS; CPT 52000; principal; 2020-11-27 12:00)
PROC: 0T768DZ Dilation of Right Ureter with Intraluminal Device, Via Natural or Artificial Opening Endoscopic (ICD-10-PCS; CPT 50605; 2020-11-27 12:00)
PROC: 0TJ98ZZ Inspection of Ureter, Via Natural or Artificial Opening Endoscopic (ICD-10-PCS; CPT 52351; 2020-12-01 14:15)
PROC: 0TC68ZZ Extirpation of Matter from Right Ureter, Via Natural or Artificial Opening Endoscopic (ICD-10-PCS; 2020-12-01 14:15)
PROC: 0TC68ZZ Extirpation of Matter from Right Ureter, Via Natural or Artificial Opening Endoscopic (ICD-10-PCS; CPT 50605; 2020-12-01 14:15)
DX: N13.6 Pyonephrosis (principal); I50.22 Chronic systolic (congestive) heart failure; C95.90 Leukemia, unspecified not having achieved remission; N39.0 Urinary tract infection, site not specified; B95.2 Enterococcus as the cause of diseases classified elsewhere; D46.9 Myelodysplastic syndrome, unspecified; I11.0 Hypertensive heart disease with heart failure; I25.10 Atherosclerotic heart disease of native coronary artery without angina pectoris; E78.5 Hyperlipidemia, unspecified; I73.9 Peripheral vascular disease, unspecified; Z86.79 Personal history of other diseases of the circulatory system; Z79.02 Long term (current) use of antithrombotics/antiplatelets; Z87.891 Personal history of nicotine dependence
CPT/HCPCS: 36415; 36430; 71045; 74177; 76000; 80053; 80061; 80162; 80202; 81001; 82365; 83036; 83540; 83550; 83605; 83880; 84145; 84443; 85025; 86920; 87040; 87086; 87426; 87493; 88300; 93005; 93306; 96365; 96367; 96372; 97110; 97116; 97161; 97530; 99285; C2625; J1650; J1940; J2185; J2370; J2405; J2543; J2704; J3010; J3370; J7030; J7050; P9016; Q9967

== ENCOUNTER 2020-12-03 08:34 | Outpatient (RCR) | payer OTHER, SELFPAY ==
[2020-12-03 09:30] LABS: Basophils # 0.1 10^3/uL (0.0-0.1); Basophils % 1.1 %; Eosinophils # 0.2 10^3/uL (0.0-0.8); Eosinophils % 2.1 %; Hematocrit 28.1 % (42.0-52.0); Hemoglobin 8.8 g/dL (11.7-16.6); Lymphocytes # 1.8 10^3/uL (0.8-4.8); Lymphocytes % 17.4 %; Mean Corpuscular HGB Conc 31.3 g/dL (30.0-36.0); Mean Corpuscular Hemoglobin 28.6 pg (28.0-34.0); Mean Corpuscular Volume 91.2 fl (80-94); Mean Platelet Volume 11.1 fL (7.4-10.4); Monocytes # 0.7 10^3/uL (0.2-0.9); Monocytes % 6.6 %; Neutrophils # 5.35 10^3/uL (1.8-7.7); Neutrophils % 51.5 %; Nucleated Red Blood Cells # 0.2 /100WBC; Nucleated Red Blood Cells % 1.8 %; Platelet Count 332 10^3/cmm (130-400); Red Blood Count 3.08 10^6/uL (4.1-5.3); Red Cell Distribution Width 18.8 % (12.1-15.1); White Blood Count 10.4 10^3/uL (4.0-10.0)
[2020-12-03 10:28] LABS: Slide Review Slide Review Perform
== END 2020-12-04 23:59 | disposition home or self-care (01) ==
LOC: ONCMED 08:34
PROVIDERS: PCP Family Medicine; Visit Provider Internal Medicine Medical Oncology
DX: E83.111 Hemochromatosis due to repeated red blood cell transfusions (principal); D46.Z Other myelodysplastic syndromes
CPT/HCPCS: 36415; 85025

== ENCOUNTER → 2020-12-09 15:15 | Outpatient (BNVA) | payer OTHER, SELFPAY | PROVIDERS: PCP Family Medicine; Visit Provider Urology | DX: N39.0 Urinary tract infection, site not specified (principal); R82.71 Bacteriuria | CPT/HCPCS: 81003; 87086 ==

== ENCOUNTER 2020-12-16 06:00 | Outpatient (RCR) | payer OTHER, SELFPAY | END 2021-01-04 23:59 | disposition home or self-care (01) | LOC: ONCMED 06:00 | PROVIDERS: PCP Family Medicine; Visit Provider Internal Medicine Medical Oncology | DX: E83.111 Hemochromatosis due to repeated red blood cell transfusions (principal); D46.Z Other myelodysplastic syndromes; Z79.899 Other long term (current) drug therapy | CPT/HCPCS: 96360 ==

== ENCOUNTER 2020-12-16 06:19 | Outpatient (RCR) | payer OTHER, SELFPAY ==
[2020-12-08 10:46] LABS: Basophils % 0.6 %; Eosinophils % 0.7 %; Hematocrit 28.3 % (42.0-52.0); Hemoglobin 8.5 g/dL (11.7-16.6); Lymphocytes % 17.6 %; Mean Corpuscular Hemoglobin 28.2 pg (28.0-34.0); Mean Platelet Volume 10.9 fL (7.4-10.4); Monocytes # 0.5 10^3/uL (0.2-0.9); Monocytes % 8.8 %; Neutrophils # 3.58 10^3/uL (1.8-7.7); Neutrophils % 65.9 %; Nucleated Red Blood Cells % 0 %; Platelet Count 283 10^3/cmm (130-400); Red Blood Count 3.01 10^6/uL (4.1-5.3); Red Cell Distribution Width 20.5 % (12.1-15.1); White Blood Count 5.4 10^3/uL (4.0-10.0)
[2020-12-08 11:48] LABS: Slide Review Slide Review Perform
[2020-12-16] MEDS: sodium chloride 0.9% 250 ML 999 ML IV (09:00)
[2020-12-16] MEDS: ondansetron 2 mg/ML SDV 2 mL 8 MG IVP (09:45)
[2020-12-16 10:28] LABS: Alanine Aminotransferase 39 U/L (0-41); Albumin Level 3.9 g/dL (3.5-5.2); Alkaline Phosphatase 71 IU/L (40-130); Anion Gap 21.8 (5-19); Aspartate Amino Transferase 34 U/L (0-40); Blood Urea Nitrogen 41 mg/dL (8-23); Calcium 9.2 mg/dL (8.5-10.5); Carbon Dioxide 23 mmol/L (22-29); Chloride 101 mmol/L (98-107); Globulin 2.3 g/dL (1.3-4.6); Glucose 260 mg/dL (65-115); Osmolality Calculated 313 mOsm/kg (285-295); Potassium 3.8 mmol/L (3.5-5.1); Sodium 142 mmol/L (136-145); Total Bilirubin 2.2 mg/dL (0.15-1.2); Total Protein 6.2 g/dL (6.6-8.7)
== END 2020-12-16 10:45 | disposition home or self-care (01) ==
LOC: ONCMED 06:19
PROVIDERS: PCP Family Medicine; Visit Provider Internal Medicine Medical Oncology
DX: E83.111 Hemochromatosis due to repeated red blood cell transfusions (principal); D46.Z Other myelodysplastic syndromes; Z79.899 Other long term (current) drug therapy
CPT/HCPCS: 36415; 80053; 85025; J2405; J7050

== ENCOUNTER 2020-12-16 10:59 | Inpatient (IN) | payer OTHER, MEDICARE, SELFPAY ==
[2020-12-16] VITALS (32 sets, daily range): BP systolic 66–117; BP diastolic 41–99; PULSE 97–129; RESP 0–200; TEMP 36.5–36.9; O2SAT 90–100; BMI 22.2
[2020-12-16 09:44] LABS: Basophils # 0.1 10^3/uL (0.0-0.1); Basophils % 0.4 %; Lymphocytes # 1.6 10^3/uL (0.8-4.8); Lymphocytes % 13.4 %; Mean Corpuscular HGB Conc 29.1 g/dL (30.0-36.0); Mean Corpuscular Hemoglobin 29.2 pg (28.0-34.0); Mean Corpuscular Volume 100.6 fl (80-94); Monocytes # 0.8 10^3/uL (0.2-0.9); Monocytes % 6.5 %; Neutrophils # 9.02 10^3/uL (1.8-7.7); Neutrophils % 78.2 %; Nucleated Red Blood Cells # 0.1 /100WBC; Nucleated Red Blood Cells % 0.8 %; Platelet Count 320 10^3/cmm (130-400); Red Blood Count 1.71 10^6/uL (4.1-5.3); Red Cell Distribution Width 21.3 % (12.1-15.1); White Blood Count 11.5 10^3/uL (4.0-10.0)
[2020-12-16 09:54] LABS: Hematocrit 17.2 % (42.0-52.0)
--- NOTE | 2020-12-16 11:03 | ECG_ITS ---
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 Measurements Intervals Plush Rate: 97 P: 21 TN: 173 QRS: 10 QRSD: 96 T: 0 QT: 282 QTc: 360 Interpretive Statements SINUS RHYTHM NONSPECIFIC T-WAVE ABNORMALITY Compared to ECG 11/26/2020 22:27:08 Intraventricular conduction delay no longer present T-wave abnormality still present Electronically Signed On 12-16-2020 22:12:17 CDT by Lizet Calderón M.D. [id number]
--- NOTE | 2020-12-16 11:03 | CT_ITS ---
WS: [id number] CT ABDOMEN AND PELVIS NONCONTRAST HISTORY: Flank Pain TECHNIQUE: Imaging performed through the abdomen and pelvis. Coronal and sagittal reformats are submi tted. All CT scans at [facility] use at least one of these dose optimization techniques: auto mated exposure control; mA and/or kV adjustment per patient size (includes targeted exams where dose is matched to clinical indication); or iterative reconstruction. DLP: 1703.44 mGy.cm COMPARISON: 11/24/2020 Lower thorax: Emphysema with no pneumonia. Normal size heart. Liver: Normal size liver. Mild central bile duct dilatation is similar to the prior study. No liver m ass. Gallbladder: Prior cholecystectomy. Mildly dilated common bile duct. Pancreas: Severe atrophy of the pancreas. Pancreatic duct is not identified. Spleen: Normal. Adrenal glands: Normal. No mass. Right kidney: Normal size kidney. Stable cyst upper pole. Nonobstructing calcifications in the lower pole. There is a focus of air in the RIGHT renal pelvis. This air was not present on the prior study. Left kidney: 2 adjacent large calcification centered at the LEFT UP junction. The largest measures 2. 0 cm. The smaller more distal measures 1.2 cm. Very minimal dilatation of the renal pelvis. There is mild stranding within the renal pelvis. The distal ureter is not dilated. Aorta: Prior endovascular stent grafting. Configuration of the aorta is similar to the prior study. M ild aneurysmal dilatation RIGHT iliac artery. No free fluid, intraperitoneal air or significant lymphadenopathy. GI tract: There is severe fluid dilatation of the stomach. There is a change in caliber at the duoden al C-loop. No obstructing mass identified. Mild constipation. Numerous diverticula in the sigmoid col on. No acute diverticulitis identified. No free air appreciated. Abdominal wall: Soft tissue anasarca. Pelvis: Well-distended urinary bladder. No free fluid in the pelvis. Osseous structures: 0 severe osteopenia. Numerous osteoporotic compression fractures within the lower thoracic and entire lumbar spines. Several prior vertebroplasties. Prior ORIF RIGHT hip. CT/CT abdomen pelvis wo con [id number] IMPRESSION: 1. Severe fluid distention of the stomach and proximal duodenum. Consider naso gastric tube placement. 2. Mild intrahepatic and extra hepatic bile duct dilatation in a patient statu s post cholecystectomy. Similar to the prior study of 04/13/2019. 3. Large calcifications at the LEFT UP junction with only mild hydronephrosis. Similar to the prior study of 11/26/2020. 4. Prior endovascular stent grafting of the aorta is similar configuration and no progression of the aneurysm. Stable RIGHT iliac artery aneurysm. 5. Sigmoid diverticulosis without acute diverticulitis. 6. Tiny single focus of air in the RIGHT RIGHT renal pelvis. New since the gurpreet or study. Consider pyelonephritis as a possible etiology.
--- NOTE | 2020-12-16 11:06 | XR_ITS ---
WS: [id number] XR chest 1V portable [id number] REASON FOR EXAM: Cough FINDINGS: Compared to previous examination of 11/26/2020, no significant interval change in the chest. Tortuous thoracic aorta. Calcified granulomatous disease. No acute pulmonary parenchymal or pleural abnormality. Increased elevation of left hemidiaphragm which appears to be due to significant gaseous distention o f the stomach. (Patient scheduled for CT scan of the abdomen). XR/XR chest 1V portable [id number] IMPRESSION: No acute chest abnormality. Upper abdominal abnormality which will be evaluated on the scheduled CT scan of the abdomen.
--- NOTE | 2020-12-16 11:07 | W.ED.GENADLT ---
HPI - General Adult General: Chief complaint: General Medical Stated complaint: WEAKNESS/ LOW BP Time Seen by Provider: 12/16/20 11:01 History of Present Illness: HPI narrative: This patient is a 80-year-old male who presents to the emergency department for weakness and low blood pressure from local cancer treatment facility. 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 Patient states that this morning started having black tarry stools. And had his blood count checked at the cancer center. And a hemoglobin of 5. Patient last week had a hemoglobin of 8. Patient skin is pale and conjunctive is pale. Patient describes weakness. Patient does take aspirin and Plavix chronically. Patient states the dark tarry stool happened this morning. Patient complains of fatigue. But does denies chest pain. Will do medical evaluation treat as needed. Onset (ago): hour(s) Associated symptoms: Reports malaise; Deny chest pain, dyspnea, headache(s), nausea, rash, palpitations or vomiting Review of Systems General: Reports: 10 or more systems reviewed and unremarkable except in HPI and below Const: Reports: fatigue and malaise; Denies: fever(s), chills or body aches Eyes: Denies: change in vision or blurry vision ENMT: Denies: throat pain, hoarseness or mouth pain Card: Denies: chest pain, palpitations, irregular heart rhythm, edema, swelling of feet/ankles or lightheadedness Resp: Denies: dyspnea, productive cough, non-productive cough, wheezing or pain on inspiration GI: Reports: melena; Denies: abdominal pain, nausea or vomiting : Denies: flank pain, dysuria, urinary frequency, urinary urgency or urinary hesitancy Musc: Denies: neck pain, back pain, extremity pain, extremity swelling, joint pain, joint swelling, joint redness, joint warmth or limited range of motion Skin/Breast: Denies: rash, pruritus, erythema or skin tenderness Neuro: Denies: headache(s), numbness in extremities or weakness in extremities Psych: Denies: anxiety or depression PFSH ED PFSH: Medical History Abdominal aortic aneurysm Anemia ASHD (arteriosclerotic heart disease) Atherosclerosis of coronary artery Atypical chest pain Bilateral nephrolithiasis CAD (coronary artery disease) Carotid artery disease Edema of extremities History of hypertension History of lower leg fracture Hx of fracture of right hip Hyperlipemia Hyperlipidemia Hypertension Kidney stone Left renal stone Leukemia Myelodysplasia (myelodysplastic syndrome) Right groin hernia Systolic CHF Surgical History H/O endovascular stent graft for abdominal aortic aneurysm History of cholecystectomy History of kyphoplasty History of right inguinal hernia repair Family History Father , AT AGE 80 Stroke Mother , AT AGE 80 Myocardial infarction CAD (coronary artery disease) Diabetes Stroke Sister Cancer CAD (coronary artery disease) Grandfather Diabetes Grandmother Diabetes Father Diabetes Denies family history of Clotting disorder Dementia Chronic kidney disease (CKD) Suicide Anesthesia complication Bleeding disorder Lung disease Social History Alcohol intake: never Adopted: No Caregiver/support person: No Lives independently: No Household members: spouse Marital status: Current occupational status: retired Previous occupational history: Served in the [employer] History of recent travel: No Physical Exam Const: COMMON NORMALS: no acute distress, average body habitus, patient oriented x3, no limitations, healthy appearing, alert and well nourished HENMT: COMMON NORMALS: normocephalic, atraumatic, hearing grossly normal bilaterally, external ears normal, EAC's normal, TM's normal bilaterally, Normal external nose present, Normal nasal mucous membranes and turbinates present, moist oral mucous membranes, oropharynx normal, dentition normal and gingiva normal HEAD & SCALP: normocephalic and atraumatic NOSE: Normal external nose present and Normal nasal mucous membranes and turbinates present EXTERNAL EAR: Yes external ears normal EXTERNAL AUDITORY CANAL: EAC's normal TYMPANIC MEMBRANE: TM's normal bilaterally Neck/C-Spine: COMMON NORMALS: full ROM, no lymphadenopathy, supple, no meningeal signs, no JVD, Thyroid normal and No carotid bruits THYROID: Thyroid normal Chest: COMMONS NORMALS: normal inspection of the chest, normal palpation of entire chest wall, normal inspection of the breasts and normal palpation of the breasts Breast/axilla inspection: Yes normal inspection of the breasts BREAST/AXILLA PALPATION: Yes normal palpation of the breasts Resp: COMMON NORMALS: normal respiratory effort, No retractions, No use of accessory muscles, clear to auscultation bilaterally and percussion normal AUSCULTATION: clear to auscultation bilaterally PERCUSSION: percussion normal Cardio: COMMON NORMALS: no JVD, regular rate, regular rhythm, S1 normal heart sound present, S2 normal heart sound present, No gallops present (Cardio), No clicks present (Cardio), No murmurs present (Cardio), No rub (Cardio) and Peripheral pulses 2+ throughout RATE: regular rate RHYTHM: regular rhythm HEART SOUNDS: S1 normal heart sound present and S2 normal heart sound present PERIPHERAL PULSES: Peripheral pulses 2+ throughout GI: COMMON NORMALS: Normal to inspection, nondistended, normoactive bowel sounds present, Soft to palpation, non-tender, No hepatosplenomegaly present, no masses and no bruits PALPATION: Yes Soft to palpation and Yes No hepatosplenomegaly present : COMMON NORMALS: Yes no CVA tenderness BLADDER/KIDNEY EXAM: Yes no CVA tenderness Back/Pelvis: COMMON NORMALS: no CVA tenderness, thoracic and lumbar spine normal to inspection, no thoracic nor lumbar tenderness, thoraco-lumbar ROM normal and straight leg raise negative bilaterally Extremity: COMMON NORMALS: normal to inspection, full ROM, capillary refill normal, no joint enlargement, no clubbing, cyanosis or edema, no calf tenderness and no pedal edema Neuro: COMMON NORMALS: patient oriented x3 SENSORIUM/ORIENTATION: Yes alert MENINGEAL SIGNS: Yes no meningeal signs Skin: GENERAL SKIN EXAM: dry skin, pallor and turgor decreased Course Reevaluation(s): Reevaluation #1: Patient is feeling much improved after NG tube placement. Heart rate down to 115 blood pressure 92/55. Did return quite a bit of coffee-ground emesis concerning for GI bleed. Patient is on a Protonix drip at this time. Time: 13:57 Consultations: Consultation #1: I did discuss at length with Dr. Janeth bashir surgery. About see patient CT scan and concerns for possible GI bleed. He is agreeable with NG tube placement. Time: 13:27 Consultation #2: I did discuss at length with Dr. Janeth bashir surgery about NG tube placement return of coffee-ground emesis type bleeding. He request discussed with hospitalist about admission. Time: 13:39 Consultation #3: I did speak with Dr. Uribe hospitalist. He is agreed admit the patient to the hospital for further evaluation treatment. Time: 13:56 Vital Signs: Vital signs: Vital Signs Temperature 98.0 F 12/16/20 11:42 Pulse Rate 97 12/16/20 12:08 Respiratory Rate 20 H 12/16/20 12:08 Blood Pressure 83/46 12/16/20 12:08 Pulse Oximetry 92 12/16/20 12:08 MDM - General Adult MDM Narrative: Medical decision making narrative: This patient is a 80-year-old male who presents to the emergency department for weakness and low blood pressure from local cancer treatment facility. 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 Patient states that this morning started having black tarry stools. And had his blood count checked at the cancer center. And a hemoglobin of 5. Patient last week had a hemoglobin of 8. Patient skin is pale and conjunctive is pale. Patient describes weakness. Patient does take aspirin and Plavix chronically. Patient states the dark tarry stool happened this morning. Patient complains of fatigue. But does denies chest pain. Will do medical evaluation treat as needed. Patient is feeling much improved after NG tube placement. Heart rate down to 115 blood pressure 92/55. Did return quite a bit of coffee-ground emesis concerning for GI bleed. Patient is on a Protonix drip at this time. I did discuss at length with Dr. Fowler general surgery about NG tube placement return of coffee-ground emesis type bleeding. He request discussed with hospitalist about admission. I did speak with Dr. Uribe hospitalist. He is agreed admit the patient to the hospital for further evaluation treatment. Lab Data: Labs: Lab Results 12/16/20 12/16/20 12/16/20 09:17 09:17 11:12 WBC 11.5 10^3/uL H 10 ^3/uL 9.6 10^3/uL 10^3/ uL (4.0-10.0) (4.0-10.0) RBC 1.71 10^6/uL L 10 ^6/uL 1.56 10^6/uL L 10 ^6/uL (4.1-5.3) (4.1-5.3) Hgb 5.0 g/dL L* g/dL 4.5 g/dL L* g/dL (11.7-16.6) (11.7-16.6) Hct 17.2 % L* % 15.5 % L* % (42.0-52.0) (42.0-52.0) MCV 100.6 fl H fl 99.4 fl H fl (80-94) (80-94) MCH 29.2 pg pg 28.8 pg pg (28.0-34.0) (28.0-34.0) MCHC 29.1 g/dL L g/dL 29.0 g/dL L g/dL (30.0-36.0) (30.0-36.0) RDW 21.3 % H % 21.5 % H % (12.1-15.1) (12.1-15.1) Plt Count 320 10^3/cmm 10^3 /cmm 275 10^3/cmm 10^3 /cmm (130-400) (130-400) MPV 12.0 fL H fL 12.3 fL H fL (7.4-10.4) (7.4-10.4) Neut % (Auto) 78.2 % % 77.4 % % Lymph % (Auto) 13.4 % % 7.3 % % Hall % (Auto) 6.5 % % 13.6 % % Eos % (Auto) 0.0 % % 0.0 % % Baso % (Auto) 0.4 % % 0.2 % % Neut # (Auto) 9.02 10^3/uL H 10 ^3/uL 7.43 10^3/uL 10^3 /uL (1.8-7.7) (1.8-7.7) Lymph # (Auto) 1.6 10^3/uL 10^3/ uL 0.7 10^3/uL L 10^ 3/uL (0.8-4.8) (0.8-4.8) Hall # (Auto) 0.8 10^3/uL 10^3/ uL 1.3 10^3/uL H 10^ 3/uL (0.2-0.9) (0.2-0.9) Eos # (Auto) 0.0 10^3/uL 10^3/ uL 0.0 10^3/uL 10^3/ uL (0.0-0.8) (0.0-0.8) Baso # (Auto) 0.1 10^3/uL 10^3/ uL 0.0 10^3/uL 10^3/ uL (0.0-0.1) (0.0-0.1) Nucleated RBC % (a uto) 0.8 % % 1.4 % % Nucleated RBCs # 0.1 /100WBC /100W BC 0.1 /100WBC /100W BC PT INR APTT Sodium Potassium Chloride Carbon Dioxide Anion Gap BUN Creatinine GFR Calculation Glucose Calculated Osmolal ity Calcium Total Bilirubin AST ALT Alkaline Phosphata se Troponin T Gen 5 n g/L NT-Pro-B Natriuret Pep Total Protein Albumin Globulin Blood Type A Negative Rho(D) Type Negative Antibody Screen Negative 12/16/20 12/16/20 12/16/20 11:12 11:12 11:12 WBC RBC Hgb Hct MCV MCH MCHC RDW Plt Count MPV Neut % (Auto) Lymph % (Auto) Hall % (Auto) Eos % (Auto) Baso % (Auto) Neut # (Auto) Lymph # (Auto) Hall # (Auto) Eos # (Auto) Baso # (Auto) Nucleated RBC % (a uto) Nucleated RBCs # PT 18.20 SECONDS H S ECONDS (12.1-14.9) INR 1.47 H (0.8-1.2) APTT 30.0 SECONDS SECO NDS (23.9-36.7) Sodium 143 mmol/L mmol/L (136-145) Potassium 3.9 mmol/L mmol/L (3.5-5.1) Chloride 103 mmol/L mmol/L (98-107) Carbon Dioxide 23 mmol/L mmol/L (22-29) Anion Gap 20.9 H (5-19) BUN 47 mg/dL H mg/dL (8-23) Creatinine 0.9 mg/dL mg/dL (0.7-1.2) GFR Calculation Not Reportable Glucose 186 mg/dL H mg/dL (65-115) Calculated Osmolal ity 313 mOsm/kg H mOs m/kg (285-295) Calcium 9.0 mg/dL mg/dL (8.5-10.5) Total Bilirubin 2.1 mg/dL H mg/dL (0.15-1.2) AST 32 U/L U/L (0-40) ALT 37 U/L U/L (0-41) Alkaline Phosphata se 63 IU/L IU/L (40-130) Troponin T Gen 5 n g/L 83 ng/L H ng/L (0-15) NT-Pro-B Natriuret Pep 598 pg/mL H pg/mL (0-450) Total Protein 5.8 g/dL L g/dL (6.6-8.7) Albumin 3.5 g/dL g/dL (3.5-5.2) Globulin 2.3 g/dL g/dL (1.3-4.6) Blood Type Rho(D) Type Antibody Screen Imaging Data^: CXR: Attestation: I personally reviewed and interpreted this imaging study as follows: Radiologist's impression: FINDINGS: Compared to previous examination of 11/26/2020, no significant interval change in the chest. Tortuous thoracic aorta. Calcified granulomatous disease. No acute pulmonary parenchymal or pleural abnormality. Increased elevation of left hemidiaphragm which appears to be due to significant gaseous distention of the stomach. (Patient scheduled for CT scan of the abdomen). XR/XR chest 1V portable [id number] IMPRESSION: No acute chest abnormality. Upper abdominal abnormality which will be evaluated on the scheduled CT scan of the abdomen. CT Abd/Pel: Attestation: I personally reviewed and interpreted this imaging study as follows: Radiologist's impression: GI tract: There is severe fluid dilatation of the stomach. There is a change in caliber at the duodenal C-loop. No obstructing mass identified. Mild constipation. Numerous diverticula in the sigmoid colon. No acute diverticulitis identified. No free air appreciated. Abdominal wall: Soft tissue anasarca. Pelvis: Well-distended urinary bladder. No free fluid in the pelvis. Osseous structures: 0 severe osteopenia. Numerous osteoporotic compression fractures within the lower thoracic and entire lumbar spines. Several prior vertebroplasties. Prior ORIF RIGHT hip. CT/CT abdomen pelvis wo con [id number] IMPRESSION: 1. Severe fluid distention of the stomach and proximal duodenum. Consider nasogastric tube placement. 2. Mild intrahepatic and extra hepatic bile duct dilatation in a patient status post cholecystectomy. Similar to the prior study of 04/13/2019. 3. Large calcifications at the LEFT UP junction with only mild hydronephrosis. Similar to the prior study of 11/26/2020. 4. Prior endovascular stent grafting of the aorta is similar configuration and no progression of the aneurysm. Stable RIGHT iliac artery aneurysm. 5. Sigmoid diverticulosis without acute diverticulitis. 6. Tiny single focus of air in the RIGHT RIGHT renal pelvis. New since the prior study. Consider pyelonephritis as a possible etiology. EKG Data^: EKG 1: Attestation: I personally reviewed and interpreted this EKG as follows: EKG interpretation date: 12/16/20 EKG interpretation time: : Prior EKG tracings: available for review Interpretation: Sinus rhythm with nonspecific T wave changes heart rate 97. Computer generated interpretation: Abdomen/Pelvis CT 12/16/20 11:03 IMPRESSION: 1. Severe fluid distention of the stomach and proximal duodenum. Consider nasogastric tube placement. 2. Mild intrahepatic and extra hepatic bile duct dilatation in a patient status post cholecystectomy. Similar to the prior study of 04/13/2019. 3. Large calcifications at the LEFT UP junction with only mild hydronephrosis. Similar to the prior study of 11/26/2020. 4. Prior endovascular stent grafting of the aorta is similar configuration and no progression of the aneurysm. Stable RIGHT iliac artery aneurysm. 5. Sigmoid diverticulosis without acute diverticulitis. 6. Tiny single focus of air in the RIGHT RIGHT renal pelvis. New since the prior study. Consider pyelonephritis as a possible etiology. Chest X-Ray 12/16/20 11:06 IMPRESSION: No acute chest abnormality. Upper abdominal abnormality which will be evaluated on the scheduled CT scan of the abdomen. Discharge Plan Discharge Patient Disposition: Admitted As Inpatient Clinical Impression: Acute upper gastrointestinal bleeding, Acute hypotension, Acute blood loss anemia, Myelodysplasia (myelodysplastic syndrome) Condition: Stable Prescriptions: No Action tamsulosin 0.4 mg capsule 0.4 mg PO BID RF: 0 aspirin 81 mg tablet,delayed release (DR/EC) 81 mg PO BEDTIME RF: 0 Hold Instructions: Resume on 07/13/19. pyridoxine (vitamin B6) 250 mg tablet 250 mg PO TID RF: 0 folic acid 1 mg tablet 1 mg PO QAM RF: 0 oxycodone-acetaminophen 10-325 mg tablet 1 tab PO Q6H PRN (Reason: Pain) RF: 0 nitroglycerin 0.4 mg tablet, sublingual 0.4 mg sublingual Q5M PRN (Reason: chest pain) 30 Days Qty: 30 RF: 3 metoprolol succinate 50 mg tablet extended release 24 hr 25 mg PO DAILY Qty: 90 RF: 3 fentanyl 50 mcg/hr Patch 72 Hour 1 patch TRANSDERMAL Q72H RF: 0 ergocalciferol (vitamin D2) [Vitamin D2] 1,250 mcg (50,000 unit) capsule 50,000 unit PO Q7D RF: 0 calcium carbonate 650 mg calcium (1,625 mg) Tablet 650 mg PO BID RF: 0 clopidogrel 75 mg tablet 75 mg PO QAM RF: 0 deferasirox [Jadenu] 360 mg Tablet 1,440 mg PO DAILY@12 RF: 0 methenamine hippurate 1 gram tablet 1 g PO BID RF: 0 pravastatin 20 mg tablet 20 mg PO BEDTIME RF: 0 digoxin 125 mcg (0.125 mg) tablet 125 mcg PO QAM RF: 0 Referrals: Lo Kern MD [Primary Care Provider] - Coding Level of Care Code ED Certified Medication Aide for Chg Fwd Exam Comprehensive
[2020-12-16 11:19] LABS: Basophils % 0.2 %; Lymphocytes # 0.7 10^3/uL (0.8-4.8); Lymphocytes % 7.3 %; Mean Corpuscular Hemoglobin 28.8 pg (28.0-34.0); Mean Corpuscular Volume 99.4 fl (80-94); Mean Platelet Volume 12.3 fL (7.4-10.4); Monocytes # 1.3 10^3/uL (0.2-0.9); Monocytes % 13.6 %; Neutrophils # 7.43 10^3/uL (1.8-7.7); Neutrophils % 77.4 %; Nucleated Red Blood Cells # 0.1 /100WBC; Nucleated Red Blood Cells % 1.4 %; Platelet Count 275 10^3/cmm (130-400); Red Blood Count 1.56 10^6/uL (4.1-5.3); Red Cell Distribution Width 21.5 % (12.1-15.1); White Blood Count 9.6 10^3/uL (4.0-10.0)
[2020-12-16 11:22] LABS: Hemoglobin 4.5 g/dL (11.7-16.6)
[2020-12-16 11:23] LABS: Hematocrit 15.5 % (42.0-52.0)
[2020-12-16 11:33] LABS: INR 1.47 (0.8-1.2)
[2020-12-16] MEDS: sodium chloride 0.9% 100 mL Bag 50 ML IV (11:45)
[2020-12-16 11:50] LABS: Troponin T (5th) Once 83 ng/L (0-15)
[2020-12-16 11:53] LABS: Alanine Aminotransferase 37 U/L (0-41); Albumin Level 3.5 g/dL (3.5-5.2); Alkaline Phosphatase 63 IU/L (40-130); Anion Gap 20.9 (5-19); Aspartate Amino Transferase 32 U/L (0-40); Blood Urea Nitrogen 47 mg/dL (8-23); Carbon Dioxide 23 mmol/L (22-29); Chloride 103 mmol/L (98-107); Globulin 2.3 g/dL (1.3-4.6); Glucose 186 mg/dL (65-115); NT Pro B Type Natriuretic Pept 598 pg/mL (0-450); Osmolality Calculated 313 mOsm/kg (285-295); Potassium 3.9 mmol/L (3.5-5.1); Sodium 143 mmol/L (136-145); Total Bilirubin 2.1 mg/dL (0.15-1.2); Total Protein 5.8 g/dL (6.6-8.7)
--- NOTE | 2020-12-16 12:40 | PC.PHAR ---
pt and pts daughter verified pts medications-pt and pts daughter state they are unsure if the pt is taking methenamine hippurate rx filled on 11/24/20 30d/s-ilia nurse from [facility] and the pts daughter both state the pt takes jadenu 4 of the 360mg (=1440mg)tabs once a day ilia nurse from [facility] states dr duran changed it in oct 2020-dr tan wrote rx on 11/07/20 for 360mg daily
--- NOTE | 2020-12-16 14:52 | P.HP_ITS ---
Providers/Chief Complaint Primary Care Provider: Lo Kern MD Chief Complaint: WEAKNESS/ LOW BP History of Present Illness 80 year old male with myelodysplastic syndrome currently on blood transfusion, coronary artery disease s/p stent ( 2018 ) on aspirin and Plavix, s/p AAA repair, heart failure with preservation ejection fraction, came in with chief complaint of worsening fatigue, for the last for 5 days, worsening shortness of breath , dizziness , as well as black tarry stool started this morning. Upon arrival in the ER he was worked up for above-mentioned complaint. Pertinent imaging studies: CT abdomen and pelvis without contrast: Severe fluid distention of the stomach and proximal duodenum.Mild intrahepatic and extra hepatic bile duct dilatation in a patient status post cholecystectomy. Similar to the prior study of 04/13/2019. Large calcifications at the LEFT UP junction with only mild hydronephrosis. Similar to the prior study of 11/26/2020.Prior endovascular stent grafting of the aorta is similar configuration and no progression of the aneurysm. Stable RIGHT iliac artery aneurysm.Sigmoid diverticulosis without acute diverticulitis. X-ray chest: No infiltrates no effusion no pneumothorax, Calcified granulomatous disease. EKG: Sinus tachycardia Pertinent labs: WBC 8.9, H&H: 4.5/15,plt:231 , serum sodium 143 serum potassium 3.9 BUN/ serum creatinine: 47/ 0.9 , PT/INR: 18/1.47 , troponin trend without significant delta. Received 2 unit PRBC in the ER, as well as 1 L normal saline. Review of Systems Const: Denies: fever(s), chills, body aches or diaphoresis Card: Denies: palpitations, edema, swelling of feet/ankles or orthopnea Resp: Denies: dyspnea, productive cough, wheezing or pain on inspiration GI: Denies: diarrhea or constipation : Denies: flank pain or difficulty urinating Musc: Denies: back pain, extremity pain or extremity swelling Neuro: Denies: headache(s), difficulty walking or confusion Medications/Allergies Home Medications Medication Instructions Recorded Confirmed Last Taken Type aspirin 81 mg tablet,delayed 81 mg PO BEDTIME 07/04/19 12/16/20 12/15/20 History release tamsulosin 0.4 mg capsule 0.4 mg PO BID 07/04/19 12/16/20 12/16/20 History folic acid 1 mg tablet 1 mg PO QAM 08/24/19 12/16/20 12/16/20 History nitroglycerin 0.4 mg sublingual 0.4 mg SUBLINGUAL Q5M PRN 30 Days 05/28/20 12/16/20 Unknown Rx tablet #30 tab ergocalciferol (vitamin D2) 50,000 unit PO Q7D 06/10/20 12/16/20 12/11/20 History [Vitamin D2] fentanyl 1 patch TRANSDERMAL Q72H 06/10/20 12/16/20 12/15/20 History oxycodone-acetaminophen 10 mg-325 1 tab PO Q6H PRN 07/17/20 12/16/20 12/15/20 History mg tablet pyridoxine (vitamin B6) 250 mg 250 mg PO TID tab 07/24/20 12/16/20 Unknown History tablet metoprolol succinate 25 mg PO DAILY #90 tab 12/02/20 12/16/20 Unknown Rx calcium carbonate 650 mg PO BID 12/16/20 12/16/20 12/16/20 History clopidogrel 75 mg PO QAM 12/16/20 12/16/20 12/16/20 History deferasirox [Jadenu] 1,440 mg PO DAILY@12 12/16/20 12/16/20 Unknown History digoxin 125 mcg PO QAM 12/16/20 12/16/20 12/16/20 History methenamine hippurate 1 g PO BID 12/16/20 12/16/20 Unknown History pravastatin 20 mg PO BEDTIME 12/16/20 12/16/20 12/15/20 History Allergies Allergy/AdvReac Type Severity Reaction Status Date / Time No Known Allergies Allergy Verified 12/16/20 12:40 PFSH Acute PFSH: Medical History Abdominal aortic aneurysm Anemia ASHD (arteriosclerotic heart disease) Atherosclerosis of coronary artery Atypical chest pain Bilateral nephrolithiasis CAD (coronary artery disease) Carotid artery disease Edema of extremities History of hypertension History of lower leg fracture Hx of fracture of right hip Hyperlipemia Hyperlipidemia Hypertension Kidney stone Left renal stone Leukemia Myelodysplasia (myelodysplastic syndrome) Right groin hernia Systolic CHF Surgical History H/O endovascular stent graft for abdominal aortic aneurysm History of cholecystectomy History of kyphoplasty History of right inguinal hernia repair Family History Father , AT AGE 80 Stroke Mother , AT AGE 80 Myocardial infarction CAD (coronary artery disease) Diabetes Stroke Sister Cancer CAD (coronary artery disease) Grandfather Diabetes Grandmother Diabetes Father Diabetes Denies family history of Clotting disorder Dementia Chronic kidney disease (CKD) Suicide Anesthesia complication Bleeding disorder Lung disease Social History Alcohol intake: never Adopted: No Caregiver/support person: No Lives independently: No Household members: spouse Marital status: Current occupational status: retired Previous occupational history: Served in the [employer] History of recent travel: No Vitals/I&O/Wt Last Vital Signs Temp 98.0 F 12/16/20 11:42 Pulse 97 12/16/20 12:08 Resp 20 H 12/16/20 12:08 BP 83/46 12/16/20 12:08 Pulse Ox 92 12/16/20 12:08 12/15/20 12/16/20 12/16/20 22:59 06:59 14:59 Intake Total 0 / 0 Balance 0 / 0 Physical Exam Const: COMMON NORMALS: patient oriented x3 HENMT: COMMON NORMALS: normocephalic and atraumatic HEAD & SCALP: normocephalic and atraumatic Resp: AUSCULTATION: clear to auscultation bilaterally Cardio: COMMON NORMALS: regular rate, regular rhythm, S1 normal heart sound present, S2 normal heart sound present, No gallops present (Cardio), No murmurs present (Cardio), No rub (Cardio) and Peripheral pulses 2+ throughout RATE: regular rate RHYTHM: regular rhythm HEART SOUNDS: S1 normal heart sound present and S2 normal heart sound present PERIPHERAL PULSES: Peripheral pulses 2+ throughout GI: COMMON NORMALS: Normal to inspection, nondistended, normoactive bowel sounds present, Soft to palpation, non-tender, No hepatosplenomegaly present and no masses AUSCULTATION: Yes normoactive bowel sounds PALPATION: Yes Soft to palpation and Yes No hepatosplenomegaly present RECTAL EXAM: Yes deferred Extremity: COMMON NORMALS: no clubbing, cyanosis or edema and no pedal edema Neuro: COMMON NORMALS: patient oriented x3 Data : 10/12/21 18:38 12/16/20 11:12 A&P Assessment and plan (1) Shock: Hypovolemic shock: Secondary to acute blood loss secondary to upper GI bleed. Current plan is to transfuse the patient to maintain H&H greater than 7. Status post 2 unit PRBC transfusion, plan is to transfuse another 2 units. 1 FFP Protonix 40 mg IV twice daily Continue IV fluids 2 wide bore IV lines N.p.o. Possible EGD Status: Acute (2) Anemia due to blood loss: Status: Acute (3) Acute upper gastrointestinal bleeding: Status: Acute (4) Myelodysplasia (myelodysplastic syndrome): Status: Acute Additional A&P Information History of coronary artery disease status post stent CODE STATUS: Full code DVT prophylaxis: SCDs Attestations Medical Necessity Statement*: Patient needs to be hospital for management of severe anemia, shock. Anticipated length of stay greater than 2 midnights. Coding Level of Care Code Acute Student Ambassador for g Fwd Diagnoses Shock R57.9 Anemia due to blood loss D50.0 Acute upper gastrointestinal bleeding K92.2 Myelodysplasia (myelodysplastic syndrome) D46.9
[2020-12-16] MEDS: pantoprazole 40 mg SDV 80 MG IVP (14:53)
[2020-12-16] MEDS: pantoprazole 40 MG in sodium chloride 0.9% (plus) 100 ML 20 MG IV (14:54)
[2020-12-16 16:21] LABS: Add Urine Microscopic? YES; Bilirubin Urine Neg (Negative); Blood Urine 2+ (Negative); Glucose Urine UA Norm (Normal); Ketones Urine Negative (Negative); Leukocyte Esterase Urine Trace (Negative); Nitrate Urine Negative (Negative); Protein Urine 1+ (Negative); Urine Appearance Clear (CLEAR); Urine Color Amber (Yellow); Urobilinogen Urine Norm (Negative); pH Urine 6.5 (5-7)
[2020-12-16 16:41] LABS: Add Urine Culture? Yes; Bacteria Urine TRACE /hpf; Hyaline Casts Urine 0-4 /lpf; Mucus Urine 2+ /hpf; WBC Urine 0-4 /hpf (0-5)
--- NOTE | 2020-12-16 17:30 | PC.NURSE ---
pt up to bed side commode, pt has passed two large loose black tarry stools.
[2020-12-16 17:42] LABS: Troponin 5 6HR 79.75 ng/L (0-15)
[2020-12-16] MEDS: sodium chloride 0.9% 500 ML 999 ML IV (17:42)
--- NOTE | 2020-12-16 17:43 | P.CONIM_ITS ---
Providers/Reason For Consult Consulting Physician/Specialty*: General Surgery Jamil Fowler MD Reason for Consult*: Coffee-ground gastric contents, melena, anemia with blood loss. Attending Physician: Raf Uribe MD Primary Care Provider: Lo Kern MD History of Present Illness History of Present Illness José Miguel Bonilla is a 80 year old male with myelodysplastic syndrome who came in the emergency room from oncology today because he was weak and was found to be hypotensive. His hemoglobin was found to be 4.5. He is currently being transfused. A CAT scan showed a severely fluid distended stomach and a nasogastric tube was passed and revealed coffee-ground appearing material. The patient says that he is on Plavix daily at home. He has noticed jet black stool for the past 4 days. He says he has had some abdominal pain and moves his hand up and down on the left side of his abdomen off of the midline. He does not ever remember being diagnosed with peptic ulcer disease. He thinks he takes some NSAIDs for arthritis but does not seem certain. He seems to recall some kind of a scope that they stuck in my nose down to my stomach in the past. Review of Systems General: Reports: 10 or more systems reviewed and unremarkable except in HPI and below Const: Reports: fatigue; Denies: fever(s) GI: Reports: abdominal pain and melena Meds/Allergies Home Medications and Allergies Home Medications Medication Instructions Recorded Confirmed Last Taken Type aspirin 81 mg tablet,delayed 81 mg PO BEDTIME 07/04/19 12/16/20 12/15/20 History release tamsulosin 0.4 mg capsule 0.4 mg PO BID 07/04/19 12/16/20 12/16/20 History folic acid 1 mg tablet 1 mg PO QAM 08/24/19 12/16/20 12/16/20 History nitroglycerin 0.4 mg sublingual 0.4 mg SUBLINGUAL Q5M PRN 30 Days 05/28/20 12/16/20 Unknown Rx tablet #30 tab ergocalciferol (vitamin D2) 50,000 unit PO Q7D 06/10/20 12/16/20 12/11/20 History [Vitamin D2] fentanyl 1 patch TRANSDERMAL Q72H 06/10/20 12/16/20 12/15/20 History oxycodone-acetaminophen 10 mg-325 1 tab PO Q6H PRN 07/17/20 12/16/20 12/15/20 History mg tablet pyridoxine (vitamin B6) 250 mg 250 mg PO TID tab 07/24/20 12/16/20 Unknown History tablet metoprolol succinate 25 mg PO DAILY #90 tab 12/02/20 12/16/20 Unknown Rx calcium carbonate 650 mg PO BID 12/16/20 12/16/20 12/16/20 History clopidogrel 75 mg PO QAM 12/16/20 12/16/20 12/16/20 History deferasirox [Jadenu] 1,440 mg PO DAILY@12 12/16/20 12/16/20 Unknown History digoxin 125 mcg PO QAM 12/16/20 12/16/20 12/16/20 History methenamine hippurate 1 g PO BID 12/16/20 12/16/20 Unknown History pravastatin 20 mg PO BEDTIME 12/16/20 12/16/20 12/15/20 History Allergies Allergy/AdvReac Type Severity Reaction Status Date / Time No Known Allergies Allergy Verified 12/16/20 12:40 Current Medications Current Medications Generic Name Dose Route Start Last Admin Trade Name Freq PRN Reason Stop Dose Admin Pantoprazole Sodium 40 mg/ 100 mls @ 20 mls/hr 12/16/20 13:36 12/16/20 14:54 Sodium Chloride IV 12/16/20 18:35 8 mg/hr .Q5H ONE 20 mls/hr Administration 8 MG/HR Sodium Chloride 500 mls @ 999 mls/hr 12/16/20 17:26 12/16/20 17:42 Sodium Chloride 0.9% IV 12/16/20 17:56 999 mls/hr .Q31M ONE Administration PFSH Acute PFSH: Medical History Abdominal aortic aneurysm Anemia ASHD (arteriosclerotic heart disease) Atherosclerosis of coronary artery Atypical chest pain Bilateral nephrolithiasis CAD (coronary artery disease) Carotid artery disease Edema of extremities History of hypertension History of lower leg fracture Hx of fracture of right hip Hyperlipemia Hyperlipidemia Hypertension Kidney stone Left renal stone Leukemia Myelodysplasia (myelodysplastic syndrome) Right groin hernia Systolic CHF Surgical History H/O endovascular stent graft for abdominal aortic aneurysm History of cholecystectomy History of kyphoplasty History of right inguinal hernia repair Family History Father , AT AGE 80 Stroke Mother , AT AGE 80 Myocardial infarction CAD (coronary artery disease) Diabetes Stroke Sister Cancer CAD (coronary artery disease) Grandfather Diabetes Grandmother Diabetes Father Diabetes Denies family history of Clotting disorder Dementia Chronic kidney disease (CKD) Suicide Anesthesia complication Bleeding disorder Lung disease Social History Alcohol intake: never Adopted: No Caregiver/support person: No Lives independently: No Household members: spouse Marital status: Current occupational status: retired Previous occupational history: Served in the [employer] History of recent travel: No Vitals/I&O/Wt Last Vital Signs Temp 98.0 F 12/16/20 11:42 Pulse 114 H 12/16/20 17:01 Resp 22 H 12/16/20 17:01 BP 73/48 12/16/20 17:01 Pulse Ox 90 12/16/20 17:01 12/16/20 12/16/20 12/16/20 06:59 14:59 22:59 Intake Total 0 / 0 0 / 0 Balance 0 / 0 0 / 0 Physical Exam Narrative: EXAM NARRATIVE: The patient was encountered in his room in the emergency department. He does not appear to be in any acute distress but seems tired. The pupils seem equal. No carotid bruits are heard. The lungs are clear anteriorly. The heart is regular but he is tachycardic. The abdomen reveals bowel sounds, is mildly obese, but is soft with minimal tenderness. The extremities reveal some changes of arterial venous insufficiency, a little bit more noticeable on the right lower leg than the left. The patient can move all limbs to command. Data Imaging^: CT Abd/Pel: Radiologist's impression: CT scan abdomen/pelvis 12/16/2020 IMPRESSION: 1. Severe fluid distention of the stomach and proximal duodenum. Consider nasogastric tube placement. 2. Mild intrahepatic and extra hepatic bile duct dilatation in a patient status post cholecystectomy. Similar to the prior study of 04/13/2019. 3. Large calcifications at the LEFT UP junction with only mild hydronephrosis. Similar to the prior study of 11/26/2020. 4. Prior endovascular stent grafting of the aorta is similar configuration and no progression of the aneurysm. Stable RIGHT iliac artery aneurysm. 5. Sigmoid diverticulosis without acute diverticulitis. 6. Tiny single focus of air in the RIGHT RIGHT renal pelvis. New since the prior study. Consider pyelonephritis as a possible etiology. A&P Assessment and plan (1) Melena: The patient has been having melena for the last 4 days. He is usually on Plavix. This needs to be held for now. An EGD could be considered in the days to come when he is a little bit more stable. Status: Acute (2) Acute upper gastrointestinal bleeding: Status: Acute (3) Anemia due to blood loss: Currently being transfused. Status: Acute Consult Attestations Medical Necessity Statement: See admitting service's notation. Coding Level of Care Code Acute Drug Safety Data Management Specialist for [facility] Diagnoses Melena K92.1 Acute upper gastrointestinal bleeding K92.2 Anemia due to blood loss D50.0
[2020-12-16 18:44] LABS: Basophils % 0.2 %; Lymphocytes # 0.7 10^3/uL (0.8-4.8); Lymphocytes % 7.6 %; Mean Corpuscular Hemoglobin 29.9 pg (28.0-34.0); Mean Corpuscular Volume 96.2 fl (80-94); Mean Platelet Volume 11.7 fL (7.4-10.4); Monocytes # 0.9 10^3/uL (0.2-0.9); Monocytes % 9.9 %; Neutrophils # 7.21 10^3/uL (1.8-7.7); Neutrophils % 80.7 %; Nucleated Red Blood Cells # 0.1 /100WBC; Nucleated Red Blood Cells % 0.7 %; Platelet Count 231 10^3/cmm (130-400); Red Blood Count 2.11 10^6/uL (4.1-5.3); Red Cell Distribution Width 17.2 % (12.1-15.1); White Blood Count 8.9 10^3/uL (4.0-10.0)
[2020-12-16 18:58] LABS: Hematocrit 20.3 % (42.0-52.0); Hemoglobin 6.3 g/dL (11.7-16.6)
--- NOTE | 2020-12-16 19:45 | PC.NURSE ---
Patient Arrival Patient arrived on unit via stretcher, accompanied by nurse and daughter. Patient's blood pressure lower with a MAP in the 50s, fresh frozen plasma running per TAR. No blood transfusing at this time, but TAR not completed in ER, in order to chart new blood orders it required this nurse to chart previous transfusion as transfused, time marked at ICU arrival time..
[2020-12-16] MEDS: sodium chloride 0.9% 1,000 ML 75 ML IV (20:06)
[2020-12-16] MEDS: pantoprazole 40 mg SDV IVP (20:20)
[2020-12-16] MEDS: sodium chloride 0.9% (100 ml) 100 ML 10 ML (20:25)
--- NOTE | 2020-12-16 23:30 | PC.NURSE ---
NG Tube Upon entering patient room, patient's NG tube tip lying on patient's chest, rather than in left nare. No bleeding or damage noted in patient nare. New NG tube inserted into left nare in one attempt at 2345. Patient tolerated well and location verified with XRAY, auscultating gastric sounds, and aspirating contents. NG hooked to low intermittent suction.
[2020-12-17] VITALS (92 sets, daily range): BP systolic 65–117; BP diastolic 25–84; PULSE 50–149; RESP 0–48; TEMP 35.7–37.3; O2SAT 74–100
--- NOTE | 2020-12-17 00:04 | XRR_ITS ---
PROCEDURE INFORMATION: Exam: XR Chest Exam date and time: 12/17/2020 12:04 AM Age: 80 years old Clinical indication: Device placement; Ng tube; Additional info: Og placement TECHNIQUE: Imaging protocol: XR of the chest. Views: 1 view. COMPARISON: CR XR chest 1V portable [id number] 12/16/2020 11:23 AM FINDINGS: Tubes, catheters and devices: A tube is in place coursing via the esophagus with tip positioned at gastric body. Lungs: Small new band of atelectasis left lung. Pleural spaces: Unremarkable. No pleural effusion. No pneumothorax. Heart/Mediastinum: Unremarkable. No cardiomegaly. Bones/joints: No acute findings. XR/XR chest 1V portable [id number] IMPRESSION: A tube is in place coursing via the esophagus with tip positioned in stomach. Radiation Dose CTDIVOL = (mGy): DLP = (mGy-cm)
--- NOTE | 2020-12-17 00:45 | PC.NURSE ---
Addendum entered by Sophia Ngo RN 12/17/20 01:22: Patient education provided regarding importance of NG tube. Additionally, NG tube secured to nose, cheek, and gown in an attempt to keep tube inserted. Original Note: NG insertion NG tube found on patient's chest and not in left nare for a second time. No bleeding or damage noted in nare. 17 [place] NG tube reinserted into left nare in one attempt at this time. Location verified by auscultation and aspiration of gastric contents. Patient tolerated insertion well and NG hooked to low intermittent suction producing large amounts of bloody output. Dr. Weir notified of events and copious bloody outputs. Orders received to bolus remainder of normal saline fluids running (about 600 ml). Order completed per MAY.
[2020-12-17] MEDS: pantoprazole 40 MG in sodium chloride 0.9% (plus) 100 ML 20 MG IV ×5 (00:56→21:05)
--- NOTE | 2020-12-17 01:10 | PC.NURSE ---
Patient status Dr. Weir at bedside and notified of patient decline including hypotension, and copious amounts of bloody output in NG tube. Dr. Fowler called and notified of patient decline by this nurse. Dr. Weir also spoke with Dr. Fowler. Orders received from Dr. Weir to gain consent for central line placement and protonix drip. No new orders from Dr. Fowler. Orders completed as indicated.
--- NOTE | 2020-12-17 01:25 | PC.NURSE ---
Family notified Charge nurse approved daughter, Eleonora Nathan, for family visitation due to patient rapid blood loss and lower blood pressure. Daughter called and provided patient update, she states she will be here as soon as possible. Security alerted to allowed family presence.
[2020-12-17] MEDS: sodium chloride 0.9% 500 ML 999 ML IV (01:36)
--- NOTE | 2020-12-17 02:40 | PC.NURSE ---
Physician communication Dr. Weir notified of blood pressure of 89/52 with levophed drip at maximum allowed rate. Order received for a 1 liter bolus to be administered. Order completed per MAY.
[2020-12-17] MEDS: sodium chloride 0.9% 1,000 ML 999 ML IV (02:51)
[2020-12-17 03:31] LABS: Basophils % 0.2 %; Hematocrit 22.6 % (42.0-52.0); Hemoglobin 7.5 g/dL (11.7-16.6); Lymphocytes # 1.6 10^3/uL (0.8-4.8); Lymphocytes % 11.3 %; Mean Corpuscular HGB Conc 33.2 g/dL (30.0-36.0); Mean Corpuscular Hemoglobin 31.1 pg (28.0-34.0); Mean Corpuscular Volume 93.8 fl (80-94); Mean Platelet Volume 11.6 fL (7.4-10.4); Monocytes # 1.3 10^3/uL (0.2-0.9); Monocytes % 9.4 %; Neutrophils # 10.73 10^3/uL (1.8-7.7); Neutrophils % 77.8 %; Nucleated Red Blood Cells # 0.2 /100WBC; Nucleated Red Blood Cells % 1.2 %; Platelet Count 242 10^3/cmm (130-400); Red Blood Count 2.41 10^6/uL (4.1-5.3); Red Cell Distribution Width 16.4 % (12.1-15.1); White Blood Count 13.8 10^3/uL (4.0-10.0)
[2020-12-17 04:02] LABS: Anion Gap 22.2 (5-19); Carbon Dioxide 19 mmol/L (22-29); Chloride 108 mmol/L (98-107); Glucose 217 mg/dL (65-115); Osmolality Calculated 329 mOsm/kg (285-295); Potassium 5.2 mmol/L (3.5-5.1); Sodium 144 mmol/L (136-145)
[2020-12-17 04:08] LABS: Blood Urea Nitrogen 81 mg/dL (8-23)
[2020-12-17] MEDS: sodium chloride 0.9% 100 mL Bag 50 ML IV (04:42)
[2020-12-17] MEDS: sodium chloride 0.9% 1,000 ML 150 ML IV (04:46)
[2020-12-17] MEDS: phenylephrine inj 25 MG in sodium chloride 0.9% 250 ML 24.24 MG IV (08:06)
--- NOTE | 2020-12-17 08:41 | PM.PN ---
Subjective Subjective: Interval history: Patient in the ICU. He had a ayleen night. The ICU nurse called me last night after midnight to let me know that his nasogastric tube had come out at some point and they replaced it and 2 L of dark brown material returned. When I saw him previously in the ER there was perhaps 100 cc of fluid in the canister, so in retrospect I suspect the first nasogastric tube probably was not in good position and the first time his gastric contents were accessed were when the second tube was placed. The patient is on pressors. His blood pressure is still marginal. Vitals/I&O/Wt Last Vital Signs Temp 98.6 F 12/17/20 07:27 Pulse 130 H 12/17/20 07:27 Resp 23 H 12/17/20 07:27 BP 84/60 12/17/20 07:27 Pulse Ox 98 12/17/20 07:11 12/16/20 12/17/20 12/17/20 22:59 06:59 14:59 Intake Total 1178.041 / 3689.445 2511.404 / 3689.445 497.5 / 497.5 Output Total 3425 / 3425 Balance 1178.041 / 264.445 -913.596 / 264.445 497.5 / 497.5 Weight last 48 hrs Weight 164 lb Physical Exam Narrative: EXAM NARRATIVE: The patient is arousable but will not answer my questions. The nasogastric output is not ongoing but there is some dark brown material in his canister. Nursing reports that they have never seen bright red blood. Urinary Catheter Management^: West: Cath Placed During This Visit: yes Reason for Continuing Indwelling Catheter: Accurate Measurement of Urinary Output in Critically Ill Patients Urinary Catheter Date of Insertion: 12/17/20 Urinary Catheter Time of Insertion: 05:06 Data : 12/17/20 03:23 12/17/20 03:23 Micro: Microbiology 12/16/20 15:00 Urine Culture - Preliminary Urine,Clean Catch 12/16/20 23:33 Occult Blood (FIT) - Final Stool - Stool Aspirate A&P Assessment and plan (1) Acute upper gastrointestinal bleeding: The patient does not appear to have much ongoing losses from his stomach and nursing reports they have never seen any bright red blood. He remains off of Plavix. He is on a Protonix drip. Status: Acute (2) Anemia due to blood loss: Hemoglobin is improved following transfusion but the patient's hemodynamics are still very marginal. Given his hemodynamics and the fact that there does not appear to be any obvious ongoing bleeding I do not think this is necessarily a good time for endoscopy. If his hemodynamics improve then we can certainly consider this at some point. Status: Acute (3) Melena: Status: Acute Attestations Medical Necessity Statement*: See admitting service's notation. Coding Level of Care Code Acute Lead Pharmacy Technician for [facility] Diagnoses Acute upper gastrointestinal bleeding K92.2 Anemia due to blood loss D50.0 Melena K92.1
[2020-12-17] MEDS: insulin regular-human 5 UNIT in SYRINGE 1 EACH 1 UNIT IVP (08:48)
[2020-12-17] MEDS: LORazepam 2 mg/mL INJ 1 mL 1 MG IVP (08:48)
[2020-12-17] MEDS: piperacillin-tazobactam 3.375 GM in sodium chloride 0.9% (plus) 50 ML IV ×3 (08:48→23:24)
[2020-12-17] MEDS: dextrose 50% syringe 50 mL 25 ML IVP (08:49)
--- NOTE | 2020-12-17 09:15 | PC.CHAP ---
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 oil and gas well treatment operator visit [] Patient/Family/Request visit [] Outpatient visit [] Follow-up visit [] Physician referral [] Code/Alert [x] Routine visit [] Staff referral [] Actively dying [x] Patient sleeping [] Family support [] [] Out of room [] Palliative care [] [x] Receiving care in room [] Pre-surgical visit [] Trauma [] Long length of stay [] ICU visit [] Other: Relational/Emotional Strength [] Patient feels connected with others/family/visitors/staff [] Distress [] Loneliness/isolation [] Abandonment Spirituality of Patient [] Person of Arlin [] Attends Spiritism of their Arlin [] Believes in Prayer [] Reads Bible or Shinto materials [] There are Spiritual issues to be addressed Instrument Repairer Interventions [x] Prayer [] Active listening [] Non-anxious presence [] Spiritual/emotional support [] Crisis/trauma care [] Spiritual counseling [] Bereavement support [] Provided bereavement packet [] Provided Bible/devotional materials [] Provided toy/stuffed animal, coloring book to patient or family member [] Provided Communion [] Anointing/[place] [] Salvation [x] Completed spiritual assessment [] Other: Impact on Illness or Injury [] Angry [] Fearful [] Anxious [] Often cries [] Exhaustion [] Unable to work [] Unable to attend mu-ism [] Unable to walk/stand [] Unable to read [] Unable to drive [] Unable to eat/drink [] Unable to sleep [] Unable to be with family [] Patient intubated [] Other: Summary Time spent with patient
--- NOTE | 2020-12-17 09:49 | PC.NURSE ---
Daughter, Eleonora, at bedside.
[2020-12-17] MEDS: sodium chloride 0.9% 1,000 ML 100 ML IV (10:43)
--- NOTE | 2020-12-17 10:59 | P.PN_ITS ---
Subjective Subjective: Interval history: Patient was seen and examined this morning, continues to be critically ill, NG tube was replaced last night as it was not in the proper position, post replacement approximately 2 L of dark brown aspirate returned.Patient went on Levophed as well as phenylephrine was added this morning. Family at bedside and updated. Medications: Reviewed: Yes Vitals/I&O/Wt Last Vital Signs Temp 97.7 F 12/17/20 10:19 Pulse 129 H 12/17/20 10:19 Resp 26 H 12/17/20 10:19 BP 102/54 12/17/20 10:19 Pulse Ox 98 12/17/20 10:19 12/16/20 12/17/20 12/17/20 22:59 06:59 14:59 Intake Total 1178.041 / 5214.375 7027.404 / 3689.445 1560.166 / 1560.166 Output Total 3425 / 3425 Balance 1178.041 / 1178.041 -913.596 / 703.556 2176.166 / 1560.166 Weight last 48 hrs Weight 74.389 kg Physical Exam Narrative: EXAM NARRATIVE: Alert and awake HENMT: COMMON NORMALS: normocephalic and atraumatic HEAD & SCALP: normocephalic and atraumatic Resp: COMMON NORMALS: clear to auscultation bilaterally AUSCULTATION: clear to auscultation bilaterally Cardio: COMMON NORMALS: regular rate, regular rhythm, S1 normal heart sound present, S2 normal heart sound present, No gallops present (Cardio), No murmurs present (Cardio), No rub (Cardio) and Peripheral pulses 2+ throughout RATE: regular rate RHYTHM: regular rhythm HEART SOUNDS: S1 normal heart sound present and S2 normal heart sound present PERIPHERAL PULSES: Peripheral pulses 2+ throughout GI: COMMON NORMALS: Normal to inspection, nondistended, normoactive bowel sounds present, Soft to palpation, non-tender, No hepatosplenomegaly present and no masses AUSCULTATION: Yes normoactive bowel sounds PALPATION: Yes Soft to palpation and Yes No hepatosplenomegaly present RECTAL EXAM: Yes deferred Extremity: COMMON NORMALS: no clubbing, cyanosis or edema and no pedal edema Urinary Catheter Management^: West: Cath Placed During This Visit: yes Reason for Continuing Indwelling Catheter: Accurate Measurement of Urinary Output in Critically Ill Patients Urinary Catheter Date of Insertion: 12/17/20 Urinary Catheter Time of Insertion: 05:06 Data : 12/17/20 14:41 12/17/20 14:41 Micro: Microbiology 12/16/20 15:00 Urine Culture - Preliminary Urine,Clean Catch 12/16/20 23:33 Occult Blood (FIT) - Final Stool - Stool Aspirate A&P Assessment and plan (1) Shock: Hypovolemic shock: Secondary to acute blood loss secondary to upper GI bleed. Current plan is to transfuse the patient to maintain H&H greater than 7. Status post 8 unit PRBC transfusion, 2 FFP Monitor H&H every 4 hours On Protonix drip Levophed drip Phenylephrine drip Hydrocortisone 50mg every 6h Desmopressin 20 mcg 1 dose On bicarbonate drip 30 cc an hour to maintain serum bicarbonate at 24. 2 g calcium gluconate IV Empirically on Zosyn to cover for possible systemic GI translocation of bacteria during the GI bleed. Continue IV fluids 2 wide bore IV lines N.p.o. Possible EGD once stable. Status: Acute (2) Anemia due to blood loss: Status: Acute (3) Acute upper gastrointestinal bleeding: Status: Acute (4) Myelodysplasia (myelodysplastic syndrome): Status: Acute (5) Metabolic acidosis: Status: Acute (6) MARIBEL (acute kidney injury): Acute kidney injury secondary to hypovolemic shock. BUN is disproportionately high as he is having ongoing GI bleed. Continue to monitor BMP Avoid nephrotoxic Status: Acute Additional A&P Information History of coronary artery disease status post stent CODE STATUS: Full code DVT prophylaxis: SCDs Attestations Medical Necessity Statement*: Patient needs to be in hospital for management of hypovolemic shock. Coding Level of Care Code Acute Director Of Online Merchandising for [facility] Diagnoses Shock R57.9 Anemia due to blood loss D50.0 Acute upper gastrointestinal bleeding K92.2 Myelodysplasia (myelodysplastic syndrome) D46.9 Metabolic acidosis E87.2 MARIBEL (acute kidney injury) N17.9
[2020-12-17 11:55] LABS: Hematocrit 24.5 % (42.0-52.0); Hemoglobin 7.8 g/dL (11.7-16.6)
[2020-12-17] MEDS: phenylephrine inj 25 MG in sodium chloride 0.9% 250 ML 54.54 MG IV (14:19)
[2020-12-17 15:10] LABS: Basophils # 0.1 10^3/uL (0.0-0.1); Basophils % 0.4 %; Hematocrit 22.2 % (42.0-52.0); Hemoglobin 7.1 g/dL (11.7-16.6); Mean Corpuscular Hemoglobin 30.3 pg (28.0-34.0); Mean Corpuscular Volume 94.9 fl (80-94); Monocytes # 2.7 10^3/uL (0.2-0.9); Monocytes % 10.7 %; Neutrophils # 19.87 10^3/uL (1.8-7.7); Neutrophils % 79.1 %; Nucleated Red Blood Cells # 0.5 /100WBC; Nucleated Red Blood Cells % 2.1 %; Platelet Count 227 10^3/cmm (130-400); Red Blood Count 2.34 10^6/uL (4.1-5.3); Red Cell Distribution Width 16.7 % (12.1-15.1); White Blood Count 25.1 10^3/uL (4.0-10.0)
[2020-12-17 15:46] LABS: Calcium 7.4 mg/dL (8.5-10.5); Carbon Dioxide 13 mmol/L (22-29); Chloride 108 mmol/L (98-107); Glucose 221 mg/dL (65-115); Osmolality Calculated 331 mOsm/kg (285-295); Sodium 143 mmol/L (136-145)
[2020-12-17 15:49] LABS: Anion Gap 27.1 (5-19); Potassium 5.1 mmol/L (3.5-5.1)
[2020-12-17 15:50] LABS: Blood Urea Nitrogen 91 mg/dL (8-23)
[2020-12-17] MEDS: sodium chloride 0.9% 1,000 ML 75 ML IV ×2 (16:14→23:42)
[2020-12-17 17:08] LABS: Slide Review Slide Review Perform
[2020-12-17] MEDS: phenylephrine inj 25 MG in sodium chloride 0.9% 250 ML 84.84 MG IV (18:07)
[2020-12-17] MEDS: morphine 4 mg/mL SDV 1 mL 2 MG IVP (18:57)
[2020-12-17] MEDS: sodium chloride 0.9% 250 ML 30 ML (19:01)
--- NOTE | 2020-12-17 19:04 | PC.NURSE ---
Report given to JANIS Croft.
[2020-12-17] MEDS: sodium bicarbonate 150 MEQ in dextrose 5% 1,000 ML 30 MEQ IV (20:18)
[2020-12-17] MEDS: hydrocortisone 100 mg/2 mL SDV 50 MG IVP (21:16)
[2020-12-17] MEDS: phenylephrine inj 25 MG in sodium chloride 0.9% 250 ML 103.02 MG IV (21:16)
[2020-12-17 21:45] LABS: Alveolar-Arterial Oxygen Gradi 1.3 mmHg (5-10); Arterial Blood Gas Hematocrit 24.2 % (42-52); Base Excess ABG -25.2 mmol/L (-2.0-2.0); Blood Gas Operator Identificat HARKR; Blood Gas Sample Site Brachial, right; Blood Gas Sample Type Arterial; Carboxyhemoglobin 1.3 %THgb (0.4-20.1); HCO3 ABG 3.8 mmol/L (22-26); HGB O2 Sat 94.7 % (95-100); Ionized Calcium Level - ABG 1.2 mmol/L (1.1-1.4); Methemoglobin 1.6 % (0.4-1.5); Oxygen Device ROOM AIR; Oxygen Saturation ABG 97.5; Potassium Level - ABG 5.2 mmol/L (3.5-5.0); Total Hemoglobin 7.9 g/dL (14-18)
[2020-12-17 23:54] LABS: ABG PCO2 14.9 mmHg (35-45); ABG PH Result 7.01 (7.35-7.45)
[2020-12-18] VITALS (28 sets, daily range): BP systolic 71–108; BP diastolic 27–56; PULSE 0–104; RESP 5–44; TEMP 33.8; O2SAT 66–98
[2020-12-18] MEDS: phenylephrine inj 25 MG in sodium chloride 0.9% 250 ML 109.08 MG IV (00:22)
[2020-12-18] MEDS: hydrocortisone 100 mg/2 mL SDV 50 MG IVP ×2 (01:25→06:28)
[2020-12-18] MEDS: pantoprazole 40 MG in sodium chloride 0.9% (plus) 100 ML 20 MG IV ×2 (01:25→06:28)
[2020-12-18] MEDS: morphine 4 mg/mL SDV 1 mL 2 MG IVP ×2 (01:25→06:30)
[2020-12-18] MEDS: norepinephrine 8 MG in dextrose 5 % 500 ML 76.2 MG IV (01:46)
[2020-12-18] MEDS: phenylephrine inj 25 MG in sodium chloride 0.9% 250 ML 115.14 MG IV (03:01)
--- NOTE | 2020-12-18 04:30 | PC.NURSE ---
Central Line Procedure Dr. Weir at bedside to perform central line insertion. Please see time out flow sheet for more information about procedure. Obtained a verbal order from Dr. Weir for non-violent bilateral wrist restraints due to patient attempting to pull at NG tube and waving hands around during procedure. Please see restraint flow sheet for more information.
--- NOTE | 2020-12-18 04:52 | XRR_ITS ---
PROCEDURE INFORMATION: Exam: XR Chest Exam date and time: 12/18/2020 4:52 AM Age: 80 years old Clinical indication: Other vascular access device placement or adjustment; Central line, non-tunnelled; Patient HX: Check S/P central line placement; Additional info: New central line/check placement TECHNIQUE: Imaging protocol: XR of the chest. Views: 1 view. COMPARISON: CR XR chest 1V portable [id number] 12/16/2020 11:56 PM FINDINGS: Tubes, catheters and devices: Right IJ approach central line is in satisfactory position, with distal tip in the SVC, approximately 3 cm above the SVC/RA junction. Feeding tube is in satisfactory position. Lungs: Low lung volumes. Streaky bibasilar atelectasis noted. No consolidation seen. Pleural spaces: Unremarkable. No pleural effusion. No pneumothorax. Heart/Mediastinum: Stable cardiomediastinal silhouette. Bones/joints: Unremarkable. XR/XR chest 1V portable [id number] IMPRESSION: Right IJ vein approach central line in satisfactory position. No pneumothorax. Radiation Dose CTDIVOL = (mGy): DLP = (mGy-cm)
[2020-12-18] MEDS: phenylephrine inj 25 MG in sodium chloride 0.9% 250 ML 121.2 MG IV (05:13)
--- NOTE | 2020-12-18 06:05 | PC.NURSE ---
Low Temperature Patient noted have a low temperature of 92.8, contacted Dr. Weir about putting alma hugger blanket on patient and inserting a rectal thermometer for continuous monitoring of temperature. He gave orders for both. Contacted patient family to update them about patient condition and informed and daughter that they would be able to come in and visit due to the declining condition. informed nurse she would not be able to make it in but, requested that her daughter Eleonora was contacted. Nurse notified patient daughter, daughter said she would come in to see her father.
--- NOTE | 2020-12-18 06:10 | PC.NURSE ---
Remove Restraints Removed non-violent bilateral wrist restraints at 0600 this morning.
--- NOTE | 2020-12-18 06:45 | PC.NURSE ---
Shift Note Frequent safety and comfort rounds continue. Orders and/or nursing care completed as indicated. Patient monitored for response to intervention and treatment(s). Education provided includes central line procedure and alma hugger blanket. Patient needs further reinforcement teaching, patient family at bedside this morning and verbalizes understanding. Patient had an eventful night, please see previous notes for further detail. Patient temperature still low, alma hugger blanket is still on at this time. Skin is noted to be cool. Non-violent bilateral wrist restraints remain off at this time. Patient has a newly place right IJ central line, and multiple IV sites in the following locations; left forearm, left wrist, right forearm, right wrist. Levophed and Joseph are currently infusing at maximum rates per facility protocol and patient MAP remains lower than 65. Sodium bicarb, NS, and Protonix drip are infusing per Dr. orders. Please see MAR for infusion/titration rates. NG tube remains hooked to low-intermittent wall suction and had 600 mls of brown bloody output overnight. West catheter drained 120 mls of urine overnight. Patient is confused and will open eyes to verbal command but is slow to verbally respond. When patient does respond speech is very delayed and garbled. Will continue to monitor.
--- NOTE | 2020-12-18 07:53 | PC.NURSE ---
Dr Uribe, at bedside, called time of .
--- NOTE | 2020-12-18 08:01 | PM.DDS ---
Discharge Providers DDS Date of Admission: 12/16/20 14:41 Date Summary Completed: 12/18/20 Attending Provider at Admission: Raf Uribe MD Time of : 09:20 Attending Provider at Discharge: Raf Uribe MD Primary Care Provider: Lo Kern MD DS Diagnoses Hospital Diagnoses (1) Shock: (2) Anemia due to blood loss: (3) Acute upper gastrointestinal bleeding: (4) Myelodysplasia (myelodysplastic syndrome): (5) Metabolic acidosis: (6) MARIBEL (acute kidney injury): Reason for Visit Reason for Visit: WEAKNESS/ LOW BP Summary Date and Time of Date of : 12/18/20 Time of : 09:20 Summary Summary: 80 year old male with myelodysplastic syndrome currently on blood transfusion, coronary artery disease s/p stent ( 2018 ) on aspirin and Plavix, s/p AAA repair, heart failure with preservation ejection fraction, came in with chief complaint of worsening fatigue, for the last for 5 days, worsening shortness of breath , dizziness , as well as black tarry stool started this morning. Upon arrival in the ER he was worked up for above-mentioned complaint. Pertinent imaging studies: CT abdomen and pelvis without contrast: Severe fluid distention of the stomach and proximal duodenum.Mild intrahepatic and extra hepatic bile duct dilatation in a patient status post cholecystectomy. Similar to the prior study of 04/13/2019. Large calcifications at the LEFT UP junction with only mild hydronephrosis. Similar to the prior study of 11/26/2020.Prior endovascular stent grafting of the aorta is similar configuration and no progression of the aneurysm. Stable RIGHT iliac artery aneurysm.Sigmoid diverticulosis without acute diverticulitis. X-ray chest: No infiltrates no effusion no pneumothorax, Calcified granulomatous disease. EKG: Sinus tachycardia. Pertinent labs: WBC 8.9, H&H: 4.5/15,plt:231 , serum sodium 143 serum potassium 3.9 BUN/ serum creatinine: 47/ 0.9 , PT/INR: 18/1.47 , troponin trend without significant delta. Patient was admitted for management of hypovolemic shock secondary to acute upper GI bleeding secondary to aspirin and Plavix use. Patient received multiple units of PRBC as well as FFP, IV hydration was continued, Protonix drip, he went on multiple vasopressors (Levophed and vasopressin, phenylephrine) Stress dose steroids, bicarb drip for severe metabolic acidosis, electrolyte replacement were undertaken, he also received desmopressin to help facilitate stopping the bleeding, empirically he was kept on Zosyn to cover for for possible systemic GI translocation of bacteria during the GI bleed. He had also developed Prerenal MARIBEL secondary to hypovolemic shock. Unfortunately in spite of all these efforts patient was not able to recover from his acute insult. He was pronounced at 9: 20 on 12/18. Family was at bedside.t Additional Data Confirmation of as documented by pronouncing clinician: no pulse, no respirations, no heart sounds and pupils fixed and dilated Family: at bedside Additional persons at bedside: nursing staff Attending/PCP notified?: I am attending Was code activated?: No Autopsy requested?: Yes Advance directives?: Yes Hospice patient?: Yes Discharge Plan Discharge Patient Disposition: At Medical Facility Condition: Stable Prescriptions: No Action tamsulosin 0.4 mg capsule 0.4 mg PO BID RF: 0 aspirin 81 mg tablet,delayed release (DR/EC) 81 mg PO BEDTIME RF: 0 Hold Instructions: Resume on 07/13/19. pyridoxine (vitamin B6) 250 mg tablet 250 mg PO TID RF: 0 folic acid 1 mg tablet 1 mg PO QAM RF: 0 oxycodone-acetaminophen 10-325 mg tablet 1 tab PO Q6H PRN (Reason: Pain) RF: 0 nitroglycerin 0.4 mg tablet, sublingual 0.4 mg sublingual Q5M PRN (Reason: chest pain) 30 Days Qty: 30 RF: 3 metoprolol succinate 50 mg tablet extended release 24 hr 25 mg PO DAILY Qty: 90 RF: 3 fentanyl 50 mcg/hr Patch 72 Hour 1 patch TRANSDERMAL Q72H RF: 0 ergocalciferol (vitamin D2) [Vitamin D2] 1,250 mcg (50,000 unit) capsule 50,000 unit PO Q7D RF: 0 calcium carbonate 650 mg calcium (1,625 mg) Tablet 650 mg PO BID RF: 0 clopidogrel 75 mg tablet 75 mg PO QAM RF: 0 deferasirox [Jadenu] 360 mg Tablet 1,440 mg PO DAILY@12 RF: 0 methenamine hippurate 1 gram tablet 1 g PO BID RF: 0 pravastatin 20 mg tablet 20 mg PO BEDTIME RF: 0 digoxin 125 mcg (0.125 mg) tablet 125 mcg PO QAM RF: 0 Referrals: Lo Kern MD [Primary Care Provider] - Patient Instructions: Opioid Safety DS Attestations Time Spent in /Discharge Care*: less than 30 min Quality - AMI: AMI present?: No Quality - Stroke: CVA present?: No Quality - VTE: VTE present?: No Coding Level of Care Code Acute Graphics Edit Technician for Chg Fwd Diagnoses Shock R57.9 Anemia due to blood loss D50.0 Acute upper gastrointestinal bleeding K92.2 Myelodysplasia (myelodysplastic syndrome) D46.9 Metabolic acidosis E87.2 MARIBEL (acute kidney injury) N17.9
--- NOTE | 2020-12-18 08:19 | PC.NURSE ---
0720: Received report from JANIS Croft. Pt resting in bed with eyes closed. Mouth gaping open. O2 sats noted to be 68% at time of report. MAP of 65 noted, SBP 88. Sinus rhythm in 60's noted. Daughter Eleonora and Son-in-law at bedside. Dark red brown fluid noted draining out of NG. Pt cool to touch, George hugger noted to be on. Levophed at 20mcg/min, Phenylephrine at 200mcg/min, both gtts maxed out on rates. Protonix and IV fluids also infusing. 0740:Heart rate dropped to 40 bpm. MAP of 66 noted. O2sats at38%. Family remains at bedside. 0753: Pt .
--- NOTE | 2020-12-18 08:39 | PC.NURSE ---
MTS notified. First two calls where hung up on while on hold.
--- NOTE | 2020-12-18 09:07 | PC.CHAP ---
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 grit removal operator visit [] Patient/Family/Request visit [] Outpatient visit [] Follow-up visit [] Physician referral [] Code/Alert [x] Routine visit [] Staff referral [] Actively dying [] Patient sleeping [] Family support [] [] Out of room [] Palliative care [] [] Receiving care in room [] Pre-surgical visit [] Trauma [] Long length of stay [x] ICU visit [x] Other: patient passed earlier this AM Relational/Emotional Strength [] Patient feels connected with others/family/visitors/staff [] Distress [] Loneliness/isolation [] Abandonment Spirituality of Patient [] Person of Arlin [] Attends Sikh of their Arlin [] Believes in Prayer [] Reads Bible or Orthodox materials [] There are Spiritual issues to be addressed General Repair Mechanic Interventions [] Prayer [] Active listening [] Non-anxious presence [] Spiritual/emotional support [] Crisis/trauma care [] Spiritual counseling [] Bereavement support [] Provided bereavement packet [] Provided Bible/devotional materials [] Provided toy/stuffed animal, coloring book to patient or family member [] Provided Communion [] Anointing/Trion [] Salvation [] Completed spiritual assessment [] Other: Impact on Illness or Injury [] Angry [] Fearful [] Anxious [] Often cries [] Exhaustion [] Unable to work [] Unable to attend yazdanism [] Unable to walk/stand [] Unable to read [] Unable to drive [] Unable to eat/drink [] Unable to sleep [] Unable to be with family [] Patient intubated [] Other: Summary Time spent with patient
--- NOTE | 2020-12-18 10:05 | PC.NURSE ---
Addendum entered by Susanne Walden RN 12/18/20 10:19: Eye glasses with pt. No other belongings. Original Note: Eder Santa here, assumed care of body.
== END 2020-12-18 10:05 | disposition expired | DRG 378 ==
LOC: ER 14:46 → ICU 12-17 06:41 → CSU 12-17 06:41
PROVIDERS: Internal Medicine Medical Oncology; Admitting Provider Internal Medicine; Emergency Provider Emergency Medicine; PCP Family Medicine; Visit Provider Internal Medicine
DX: K92.2 Gastrointestinal hemorrhage, unspecified (principal); I50.20 Unspecified systolic (congestive) heart failure; D62 Acute posthemorrhagic anemia; N17.9 Acute kidney failure, unspecified; E87.2 Acidosis; D46.9 Myelodysplastic syndrome, unspecified; Z79.899 Other long term (current) drug therapy; I71.4 Abdominal aortic aneurysm, without rupture; I25.10 Atherosclerotic heart disease of native coronary artery without angina pectoris; Z95.5 Presence of coronary angioplasty implant and graft; Z87.442 Personal history of urinary calculi; I11.0 Hypertensive heart disease with heart failure; E78.5 Hyperlipidemia, unspecified; Z98.890 Other specified postprocedural states; R57.1 Hypovolemic shock; T39.015A Adverse effect of aspirin, initial encounter; T45.525A Adverse effect of antithrombotic drugs, initial encounter
CPT/HCPCS: 36415; 36430; 36600; 51702; 71045; 74176; 80048; 80051; 80053; 81001; 82274; 82330; 82805; 83880; 84484; 85014; 85018; 85025; 85610; 85730; 86850; 86900; 86920; 86927; 87086; 93005; 96365; 96366; 96375; 99285; C1751; C9113; J0610; J1720; J1815; J2060; J2270; J2370; J2543; J2597; J7030; J7040; J7050; P9016; P9017; P9040